=== PATIENT | female | born 1955 | race Caucasian/White ===

== ENCOUNTER 2022-12-28 10:58 | Emergency (ER) | payer MEDICARE, SELFPAY ==
[2022-12-28 11:03] VITALS: BP 132/87; PULSE 80; RESP 16; TEMP 37.1; O2SAT 98; BMI 24.1
--- NOTE | 2022-12-28 11:14 | CT_ITS ---
[place] [id number] Patient Name: PRIYANKA NICHOLAS MRN: [id number] date: 1955 Sex: F Assigned Patient Location: ER Current Patient Location: Accession/Order Number: [id number] Exam Date: 12/28/2022 11:25 Report Date: 12/28/2022 12:00 At the request of: SHARMIN AYALA Procedure: CT cervical spine wo con EXAMINATION: CT cervical spine wo con HISTORY: fall ; fell down flight of stairs; headache, nausea COMPARISON: No relevant comparison available. TECHNIQUE: Axial, Coronal, and Sagittal images were created without IV contrast. Dose reduction techniques were achieved by using automated exposure control and/or adjustment of mA and/or kV according to patient size and/or use of iterative reconstruction technique. FINDINGS: VERTEBRAL BODIES: No fracture, spondylolisthesis, bone lesion. FACET JOINTS: No disruption or abnormal widening. DISCS: Small posterior projecting disc-osteophyte complexes at several levels. Mild disc height reduction C4-5, C5-6. CENTRAL CANAL: Mild narrowing L4-5. PARASPINAL AREA: No visible mass. CT/CT cervical spine wo con IMPRESSION: 1. No appreciable acute abnormality. 2. Mild degenerative changes. Electronically authenticated by: MARI MONTES Date: 12/28/2022 12:00
--- NOTE | 2022-12-28 11:14 | XR_ITS ---
The [address] [address] Patient Name: PRIYANKA NICHOLAS MRN: [id number] date: 1955 Sex: F Assigned Patient Location: ER Current Patient Location: ER Accession/Order Number: [id number] Exam Date: 12/28/2022 11:38 Report Date: 12/28/2022 12:05 At the request of: SHARMIN AYALA Procedure: XR hip LT 2V w/ pelvis PROCEDURE: XR hip LT 2V w/ pelvis HISTORY: fall ; acute left hip pain after falling down stairs COMPARISON: None. FINDINGS: BONES:Prior left hip replacement. Multiple small bone fragments posterior to the trochanter and acetabulum. Mild irregularity involving the lesser trochanter. SOFT TISSUES:No visible soft tissue swelling. EFFUSION:None visible. OTHER: Negative. XR/XR hip LT 2V w/ pelvis IMPRESSION: 1. Right hip replacement without evidence of hardware fracture loosening. 2. Multiple irregular bone fragments in region of left hip; sequela of prior surgery versus acute fractures. Correlate with clinical symptoms and consider CT imaging of left hip if needed. Electronically authenticated by: MARI MONTES Date: 12/28/2022 12:05
--- NOTE | 2022-12-28 11:14 | CT_ITS ---
The [address] [address] Patient Name: PRIYANKA NICHOLAS MRN: [id number] date: 1955 Sex: F Assigned Patient Location: ER Current Patient Location: Accession/Order Number: [id number] Exam Date: 12/28/2022 11:25 Report Date: 12/28/2022 11:56 At the request of: SHARMIN AYALA Procedure: CT head/brain wo con EXAMINATION: CT head/brain wo con HISTORY: fall COMPARISON: No relevant comparison available. TECHNIQUE: Axial CT images were obtained without IV contrast. Dose reduction techniques were achieved by using automated exposure control and/or adjustment of mA and/or kV according to patient size and/or use of iterative reconstruction technique. FINDINGS: BRAIN: 2.0 cm area of increased density along the posterior medial aspect of the left occipital lobe; artifact versus proximal bruising/hemorrhage. Mild atrophy and minimal chronic small vessel ischemic changes of the brain. CSF SPACES: No hydrocephalus, subarachnoid hemorrhage, or mass. Appropriate for age. SKULL: No fracture, mass, or other significant visible lesion. SINUSES: No significant mucosal thickening or fluid on the limited views. ORBITS: No appreciable abnormality on the limited views. OTHER: Negative CT/CT head/brain wo con IMPRESSION: 1. Artifact versus small area of cortical bruising/hemorrhage involving the left occipital lobe. Artifact is favored. Close patient follow-up and repeat imaging in 1-2 hours may help clarify this finding. 2. Age consistent atrophy and mild chronic small vessel ischemic changes. 3. No fracture of the calvarium or scalp hematoma. Electronically authenticated by: MARI MONTES Date: 12/28/2022 11:56
--- NOTE | 2022-12-28 11:15 | ED.FALL1 ---
HPI - Fall General Chief Complaint: Back Pain/Injury Stated Complaint: FALL Time Seen by Provider: 12/28/22 11:14 Source: patient Mode of arrival: ambulance Limitations: physical limitation Limitations comment: fall - L hip pain and back pain History of Present Illness HPI Narrative: this patient brought by ambulance after falling at home. She states that she was going down to the basement to feed cats and she stumbled and went ounce a number of steps. She said she couldn't get up because she sore in the left hip. Her son was there and responded immediately to her and then called the ambulance. She had no loss of consciousness and remembers the fall. She says she has a bump on the top of her head. sHE SAYS SHE DOES NOT HAVE any pain in her neck. She was brought to us in a backboard and collar. She says her left hip hurts as well but she can move it now at this time. She has no rib pain or chest pain no upper extremity pain other than some bleeding on her left hand in the digit. Related Data Home Medications Medication Instructions Recorded Confirmed albuterol sulfate 90 mcg/actuation 2 inh inhalation Q6H 12/28/22 12/28/22 breath activated powder inhaler atorvastatin 40 mg tablet 40 mg PO DAILY 12/28/22 12/28/22 buspirone 10 mg tablet 10 mg PO BID 12/28/22 12/28/22 citalopram 40 mg tablet 40 mg PO DAILY 12/28/22 12/28/22 fluticasone furoate 50 inhalation 12/28/22 mcg/actuation blister powder for inhalation ipratropium 0.5 mg-albuterol 3 mg 3 ml inhalation Q6H PRN shortness 12/28/22 12/28/22 (2.5 mg base)/3 mL nebulization of breath soln lisinopril 2.5 mg tablet 2.5 mg PO DAILY 12/28/22 12/28/22 lisinopril 2.5 mg tablet 2.5 mg PO DAILY 12/28/22 12/28/22 metformin 500 mg tablet 500 mg PO BID 12/28/22 12/28/22 risperidone 0.5 mg tablet 0.5 mg PO DAILY 12/28/22 12/28/22 Allergies Allergy/AdvReac Type Severity Reaction Status Date / Time No Known Drug Allergies Allergy Verified 12/28/22 11:03 [facility] Social History Smoking status: Current every day smoker Exam Narrative Exam Narrative: Patient was seen by myself shortly after arrival. She came by EMS on a backboard and [place] collar. She's excellent historian. GCS of fifteen. She's not repeating herself. She has no loss of feeling or movement to the extremities but some discomfort in her left hip left pinky and scalp area. Constitutional vital signs were normal. Awake alert fully cooperative following all commands. HEENT no craniofacial trauma or injury. No hematomas. Slight bruising in the high right occipital area. Eyes shows pupillary lighht response B normal extra ocular muscles are normal. Neck examination was soft and supple nontender to palpation of bony landmarks was certainly no step-off or bony tenderness. Chest wall is nontender including ribs and sternum. Abdomen WAS BENIGN WITH NO PAIN AND DISCOMFORT. eXTREMITIES SHOW A DRESSING ON HER LEFT PINKY FINGER. eXAMINING HER RIGHT HIP HAS COMPLETE AND UNRESTRICTED AND nontender range of motion on the right. Minor discomfort with hip flexion on the left side. The rest extremities including the upper limbs are atraumatic with exception of the 5th digit. neuro, cranial nerves II-12 are normal.l shows cognition and mentation be completely normal Constitutional Vital Signs, click to edit/add: Last Vital Signs Temp 98.8 F 12/28/22 11:03 Pulse 80 12/28/22 11:03 Resp 16 12/28/22 11:03 BP 132/87 H 12/28/22 11:03 Pulse Ox 98 12/28/22 11:03 O2 Del Method Room Air 12/28/22 11:03 Course Vital Signs Vital signs: Vital Signs Temperature 98.8 F 12/28/22 11:03 Pulse Rate 80 12/28/22 11:03 Respiratory Rate 16 12/28/22 11:03 Blood Pressure 132/87 H 12/28/22 11:03 Pulse Oximetry 98 12/28/22 11:03 Oxygen Delivery Method Room Air 12/28/22 11:03 Temperature 98.8 F 12/28/22 11:03 Pulse Rate 80 12/28/22 11:03 Respiratory Rate 16 12/28/22 11:03 Blood Pressure 132/87 H 12/28/22 11:03 Pulse Oximetry 98 12/28/22 11:03 Oxygen Delivery Method Room Air 12/28/22 11:03 MDM - Fall MDM Narrative Medical decision making narrative: because the nature of the fall CT imaging will be done of her cervical spine and head. Also imaging of her left hip. Initial imaging showed suspected area of left occipital hematoma or bruising and radiologist advised repeat CT scan in 1-2 hours. Her left hip x-ray shows no acute fracture but there is some old calcifications near the acetabulum and they also revised and recommended CT imaging of that. The patient's repeat CT of the head is normal. Procedure note after lidocaine one percent anesthesia without epinephrine hemostasis was obtained with the [place] drain on her left 5th digit. There is a flap-type laceration that does not violate the neurovascular structures. It was reapproximated with four, 5-0 nylon simple interrupted sutures. Wound approximation was good.wound is approximately 1.[address] of her left hip did not show any acute fractures. Discharge Plan Discharge Chief Complaint: Back Pain/Injury Clinical Impression: Fall (on) (from) other stairs and steps, initial encounter Patient Disposition: Home, Self-Care Time of Disposition Decision: 14:30 Prescriptions / Home Meds: No Action albuterol sulfate 90 mcg/actuation aerosol powdr breath activated 2 inh inhalation Q6H atorvastatin 40 mg tablet 40 mg PO DAILY buspirone 10 mg tablet 10 mg PO BID citalopram 40 mg tablet 40 mg PO DAILY fluticasone furoate 50 mcg/actuation blister with device inhalation ipratropium-albuterol 0.5 mg-3 mg(2.5 mg base)/3 mL solution for nebulization 3 ml inhalation Q6H PRN (Reason: shortness of breath) lisinopril 2.5 mg tablet 2.5 mg PO DAILY lisinopril 2.5 mg tablet 2.5 mg PO DAILY metformin 500 mg tablet 500 mg PO BID risperidone 0.5 mg tablet 0.5 mg PO DAILY Instructions: Head Injury (ED) Additional Instructions: sutures out left finger in ten days./Head injury sheet instructions, may use Tylenol for discomfort and apply ice Stand Alone Forms: Portal Instructions Referrals: Physician,Non-Staff, [Physician] - 1 week
[2022-12-28] MEDS: ONDANSETRON 4 MG RAPDIS TABLET SL (11:35)
--- NOTE | 2022-12-28 12:14 | CT_ITS ---
The [address] [address] Patient Name: PRIYANKA NICHOLAS MRN: [id number] date: 1955 Sex: F Assigned Patient Location: ER Current Patient Location: ER Accession/Order Number: [id number] Exam Date: 12/28/2022 13:52 Report Date: 12/28/2022 14:14 At the request of: SHARMIN AYALA Procedure: CT head/brain wo con EXAMINATION: CT head/brain wo con HISTORY: repeat CT to rule out hemorrhage COMPARISON: No relevant comparison available. TECHNIQUE: Axial CT images were obtained without IV contrast. Dose reduction techniques were achieved by using automated exposure control and/or adjustment of mA and/or kV according to patient size and/or use of iterative reconstruction technique. FINDINGS: BRAIN: No edema, hemorrhage, mass, acute infarction, or inappropriate atrophy. CSF SPACES: No hydrocephalus, subarachnoid hemorrhage, or mass. Appropriate for age. SKULL: No fracture, mass, or other significant visible lesion. SINUSES: No significant mucosal thickening or fluid on the limited views. ORBITS: No appreciable abnormality on the limited views. OTHER: Negative CT/CT head/brain wo con IMPRESSION: 1. No intracranial hemorrhage or suspicious findings. Previously seen left occipital lobe hyperdensity represented artifact. Electronically authenticated by: MARI MONTES Date: 12/28/2022 14:14
--- NOTE | 2022-12-28 12:15 | CT_ITS ---
The [address] [address] Patient Name: PRIYANKA NICHOLAS MRN: [id number] date: 1955 Sex: F Assigned Patient Location: ER Current Patient Location: Accession/Order Number: [id number] Exam Date: 12/28/2022 13:52 Report Date: 12/28/2022 14:18 At the request of: SHARMIN AYALA Procedure: CT hip LT wo con EXAMINATION: CT hip LT wo con HISTORY: trauma COMPARISON: XR hip left 12/28/2022 TECHNIQUE: Multi-planar CT images were created without IV contrast. Dose reduction techniques were achieved by using automated exposure control and/or adjustment of mA and/or kV according to patient size and/or use of iterative reconstruction technique. FINDINGS: BONES: Bone fragments seen on today's left hip radiographs are located anterior to the hip joints and of corticated margins. No appreciable donor site or acute fracture. Left hip replacement without evidence of hardware fracture or loosening. SOFT TISSUES: Negative. No visible soft tissue swelling. EFFUSION: None visible. OTHER: Negative. CT/CT hip LT wo con IMPRESSION: 1. No acute bone abnormality. Bone fragments have corticated margins and are most compatible with sequela of prior hip replacement. 2. No evidence of hardware failure. Electronically authenticated by: MARI MONTES Date: 12/28/2022 14:18
== END 2022-12-28 14:50 | disposition home or self-care (01) ==
PROVIDERS: Emergency Provider Emergency Medicine Emergency Medical Services; PCP Nurse Practitioner
DX: S39.92XA Unspecified injury of lower back, initial encounter (principal); S61.217A Laceration without foreign body of left little finger without damage to nail, initial encounter; S79.912A Unspecified injury of left hip, initial encounter; Z79.899 Other long term (current) drug therapy; Z79.84 Long term (current) use of oral hypoglycemic drugs; F17.210 Nicotine dependence, cigarettes, uncomplicated; W10.8XXA Fall (on) (from) other stairs and steps, initial encounter
CPT/HCPCS: 12001; 70450; 72125; 73502; 73700; 99285

== ENCOUNTER 2023-01-09 10:09 | Outpatient (OUT) | payer MEDICARE, SELFPAY ==
--- NOTE | 2023-01-09 10:18 | XR_ITS ---
The [address] [address] Patient Name: PRIYANKA NICHOLAS MRN: [id number] date: 1955 Sex: F Assigned Patient Location: [facility] Current Patient Location: [facility] Accession/Order Number: [id number] Exam Date: 01/09/2023 10:30 Report Date: 01/09/2023 13:16 At the request of: CHETNA BARCENAS Procedure: XR lumbar spine 2-3V EXAMINATION: XR lumbar spine 2-3V HISTORY: Lumbar Contusion S30.0XXD ; Low back pain since falling down steps 2 weeks ago COMPARISON: CT lung cancer screening 12/21/2021 FINDINGS: BONES: Mild compression fracture of T12 vertebral body. Normal height and alignment of lumbar vertebral bodies. Mild degenerative facet arthropathy L4-5, L5-S1. DISC SPACES: Slight narrowing L3-4, L5-S1. PARASPINOUS: Negative. No paraspinous abnormality is seen. OTHER: Negative. XR/XR lumbar spine 2-3V IMPRESSION: 1. Age-indeterminate mild compression fracture of T12; new since 12/21/2021. Lack of significantly increased trabecular density suggesting this is chronic. 2. Mild degenerative changes of lower lumbar spine. Electronically authenticated by: MARI MONTES Date: 01/09/2023 13:16
== END 2023-01-09 10:10 | disposition home or self-care (01) ==
PROVIDERS: PCP Nurse Practitioner; Visit Provider Nurse Practitioner
DX: S30.0XXD Contusion of lower back and pelvis, subsequent encounter (principal); M48.54XA Collapsed vertebra, not elsewhere classified, thoracic region, initial encounter for fracture; M47.816 Spondylosis without myelopathy or radiculopathy, lumbar region; X58.XXXD Exposure to other specified factors, subsequent encounter
CPT/HCPCS: 72100

== ENCOUNTER 2023-01-23 09:45 | Outpatient (OUT) | payer MEDICARE, SELFPAY ==
--- NOTE | 2023-01-23 10:01 | MR_ITS ---
The [address] [address] Patient Name: PRIYANKA NICHOLAS MRN: [facility]:[id number] date: 1955 Sex: F Assigned Patient Location: MRI Current Patient Location: MRI Accession/Order Number: [id number] Exam Date: 01/23/2023 10:03 Report Date: 01/23/2023 14:49 At the request of: CHETNA BARCENAS Procedure: MR lumbar spine wo con EXAM: MR lumbar spine wo con, MR thoracic spine wo con HISTORY: Compression fracture of T12 vertebra S22.080A, S30.0XXD. Pain in the back after falling down 11 steps. COMPARISON: Lumbar spine x-rays from 01/09/[address] from 12/28/2022. TECHNIQUE: Multiplanar and multisequence imaging of the thoracic and lumbar spine was performed without contrast. FINDINGS: Thoracic spine: There is a mild acute superior endplate compression fracture involving the T12 vertebral body with concavity of the superior endplate and mild loss of vertebral body height estimated at approximately 20%. There is moderate to marked bone marrow edema in the T12 vertebral body with a linear fracture line extending from anterior to posterior. Bony retropulsion along the posterior aspect of T12 superiorly measures 2 mm resulting in effacement of the thecal sac without central or foraminal stenosis. There is no acute fracture in the thoracic spine otherwise. The thoracic vertebral body heights are otherwise maintained. There is mild to moderate multilevel degenerative disc disease more pronounced in the mid to lower thoracic spine. No acute abnormality is identified involving visualized intrathoracic or intra-abdominal structures. The visualized aorta is normal in diameter. No convincing cord signal abnormality is evident in the thoracic cord given motion artifact degrading evaluation. Small broad-based disc protrusions are present at T9-T10 and T10-T11 with mild to moderate multilevel facet arthropathy. No central or foraminal stenosis is evident in the thoracic spine. Lumbar spine: The T12 fracture is also included on the lumbar spine component to the study. No acute fracture or spondylolisthesis is identified in the lumbar spine. There is no bone marrow edema in the region of the spinous processes or transverse processes. The thoracic vertebral body heights are maintained. There is partial visualization of bone marrow edema in the lateral aspect of the sacrum on the left at the S3 level seen on sagittal STIR image 1. This could relate to bony contusion in the sacrum on the left although a fracture is also a possibility and dedicated imaging of the sacrum should be preformed as clinically indicated. No acute abnormality is identified involving visualized intrapelvic or intra-abdominal structures. The visualized aorta is normal in diameter. There are no pars defects. The conus terminates at the superior aspect of L2. L5-S1: Moderately severe left and moderate right-sided facet arthropathy is evident with mild disc bulge. There is no central or foraminal stenosis. L4-L5: There is a 4 mm broad-based disc protrusion and moderate associated facet arthropathy. There is mild bilateral foraminal narrowing without central stenosis. L3-L4: There is a broad-based disc protrusion and mild to moderate facet arthropathy. No central or foraminal stenosis is evident. L2-L3: There is a broad-based disc protrusion and mild to moderate facet arthropathy without central stenosis. A left foraminal and far lateral disc protrusion measures 5 mm in AP dimension and results in mild to moderate left foraminal narrowing. L1-L2: There is no focal disc herniation. There is no central or foraminal stenosis. MR/MR lumbar spine wo con IMPRESSION: 1. There is mild acute superior endplate compression fracture involving the T12 vertebral body as described above with minimal bony retropulsion, but no central stenosis. 2. No acute fracture in the thoracic or lumbar spine otherwise. 3. Discogenic change and facet arthropathy as described above with mild foraminal narrowing as described above other than mild to moderate left foraminal narrowing at L2-L3. 4. There is moderate focal bone marrow edema in the lateral aspect of the sacrum on the left at the S3 level seen on the edge of the [id number] of the sagittal images. This could relate to a bony contusion or subtle fracture in the sacrum on the left. Dedicated imaging of the sacrum should be performed as clinically indicated. Electronically authenticated by: BEA AVILA Date: 01/23/2023 14:49
--- NOTE | 2023-01-23 10:02 | MR_ITS ---
The [address] [address] Patient Name: PRIYANKA NICHOLAS MRN: [facility]:[id number] date: 1955 Sex: F Assigned Patient Location: MRI Current Patient Location: MRI Accession/Order Number: [id number] Exam Date: 01/23/2023 10:03 Report Date: 01/23/2023 14:49 At the request of: CHETNA BARCENAS Procedure: MR thoracic spine wo con EXAM: MR lumbar spine wo con, MR thoracic spine wo con HISTORY: Compression fracture of T12 vertebra S22.080A, S30.0XXD. Pain in the back after falling down 11 steps. COMPARISON: Lumbar spine x-rays from 01/09/[address] from 12/28/2022. TECHNIQUE: Multiplanar and multisequence imaging of the thoracic and lumbar spine was performed without contrast. FINDINGS: Thoracic spine: There is a mild acute superior endplate compression fracture involving the T12 vertebral body with concavity of the superior endplate and mild loss of vertebral body height estimated at approximately 20%. There is moderate to marked bone marrow edema in the T12 vertebral body with a linear fracture line extending from anterior to posterior. Bony retropulsion along the posterior aspect of T12 superiorly measures 2 mm resulting in effacement of the thecal sac without central or foraminal stenosis. There is no acute fracture in the thoracic spine otherwise. The thoracic vertebral body heights are otherwise maintained. There is mild to moderate multilevel degenerative disc disease more pronounced in the mid to lower thoracic spine. No acute abnormality is identified involving visualized intrathoracic or intra-abdominal structures. The visualized aorta is normal in diameter. No convincing cord signal abnormality is evident in the thoracic cord given motion artifact degrading evaluation. Small broad-based disc protrusions are present at T9-T10 and T10-T11 with mild to moderate multilevel facet arthropathy. No central or foraminal stenosis is evident in the thoracic spine. Lumbar spine: The T12 fracture is also included on the lumbar spine component to the study. No acute fracture or spondylolisthesis is identified in the lumbar spine. There is no bone marrow edema in the region of the spinous processes or transverse processes. The thoracic vertebral body heights are maintained. There is partial visualization of bone marrow edema in the lateral aspect of the sacrum on the left at the S3 level seen on sagittal STIR image 1. This could relate to bony contusion in the sacrum on the left although a fracture is also a possibility and dedicated imaging of the sacrum should be preformed as clinically indicated. No acute abnormality is identified involving visualized intrapelvic or intra-abdominal structures. The visualized aorta is normal in diameter. There are no pars defects. The conus terminates at the superior aspect of L2. L5-S1: Moderately severe left and moderate right-sided facet arthropathy is evident with mild disc bulge. There is no central or foraminal stenosis. L4-L5: There is a 4 mm broad-based disc protrusion and moderate associated facet arthropathy. There is mild bilateral foraminal narrowing without central stenosis. L3-L4: There is a broad-based disc protrusion and mild to moderate facet arthropathy. No central or foraminal stenosis is evident. L2-L3: There is a broad-based disc protrusion and mild to moderate facet arthropathy without central stenosis. A left foraminal and far lateral disc protrusion measures 5 mm in AP dimension and results in mild to moderate left foraminal narrowing. L1-L2: There is no focal disc herniation. There is no central or foraminal stenosis. MR/MR thoracic spine wo con IMPRESSION: 1. There is mild acute superior endplate compression fracture involving the T12 vertebral body as described above with minimal bony retropulsion, but no central stenosis. 2. No acute fracture in the thoracic or lumbar spine otherwise. 3. Discogenic change and facet arthropathy as described above with mild foraminal narrowing as described above other than mild to moderate left foraminal narrowing at L2-L3. 4. There is moderate focal bone marrow edema in the lateral aspect of the sacrum on the left at the S3 level seen on the edge of the [id number] of the sagittal images. This could relate to a bony contusion or subtle fracture in the sacrum on the left. Dedicated imaging of the sacrum should be performed as clinically indicated. Electronically authenticated by: BEA AVIAL Date: 01/23/2023 14:49
== END 2023-01-23 09:46 | disposition home or self-care (01) ==
LOC: MRI 09:46
PROVIDERS: PCP Nurse Practitioner; Visit Provider Nurse Practitioner
DX: S22.080A Wedge compression fracture of T11-T12 vertebra, initial encounter for closed fracture (principal); Z91.81 History of falling
CPT/HCPCS: 72146; 72148

== ENCOUNTER 2023-07-06 21:16 | Emergency (ER) | payer MEDICARE, SELFPAY ==
[2023-07-06 21:18] VITALS: BP 132/65; PULSE 86; RESP 18; TEMP 36.8; O2SAT 95; BMI 23.4
--- NOTE | 2023-07-06 21:20 | CT_ITS ---
The [address] [address] Patient Name: PRIYANKA NICHOLAS MRN: [id number] date: 1955 Sex: F Assigned Patient Location: ER Current Patient Location: Accession/Order Number: [id number] Exam Date: 07/06/2023 22:13 Report Date: 07/06/2023 22:51 At the request of: TERRELL KING Procedure: CT soft tissue neck w con INDICATION: 68 years old; Female. Symptom/Location/Duration: Difficulty swallowing for 2 days. Question enlarged lymph nodes. History of COPD. TECHNIQUE: CT examination of the neck. Axial, coronal and sagittal reformats were reviewed. 100 mL of Omnipaque 300 was injected intravenously without complication. Ionizing radiation dose reduced via iterative reconstruction/FBP blend and body size kV/mA adjustment. Patient exposure information sent to ACR dose registry. Utilization of standard nomenclature applied. COMPARISON: None FINDINGS: AIRWAY: PARANASAL SINUSES AND MASTOID AIR CELLS: Visualized sinuses are clear. There is opacification of mastoid air cells on the left. Middle ears are grossly clear. Right mastoid air cells are clear. The study is not optimized for complete evaluation of the temporal bones. NASOPHARYNX: Normal in appearance. OROPHARYNX: Normal in appearance. ORAL CAVITY: Normal in appearance. HYPOPHARYNX: Normal in appearance. LARYNX: Normal in appearance. TRACHEA: Patent. SOFT TISSUES: PARAPHARYNGEAL SPACE: Normal and symmetric. CAROTID SPACE: Vascular calcifications are present. STEEL TURNER SPACE: Normal in appearance. RETROPHARYNGEAL SPACE: Normal in appearance. LYMPH NODES: No matted or necrotic lymph nodes are appreciated. GLANDS: PAROTID: Normal in appearance. SUBMANDIBULAR: There is enlargement of the submandibular glands bilaterally. No radiopaque calculi are seen. No periglandular edema is seen. THYROID: No thyroid nodule or adenopathy. MISCELLANEOUS: LUNG APICES: [For respiratory motion, emphysematous changes are seen. No lobar consolidation or pneumothorax is present. The study is not optimized for complete evaluation of the chest. BONY CERVICAL SPINE: Cervical spondylosis, worse at C4-C5 and C5-C6. VISUALIZED BRAIN: A portion of the brain is included in this examination. No areas of pathologic enhancement are appreciated. The study cannot exclude all brain pathology. VISUALIZED GLOBES: Only a portion of the orbits is included. No gross evidence of orbital masses seen. DENTITION: Patient is edentulous. OTHER: None. CT/CT soft tissue neck w con IMPRESSION: 1. No enhancing masses or airway obstruction. 2. Symmetric enlargement of the submandibular glands which is a nonspecific finding. No surrounding edema or fat stranding is appreciated. No radiopaque calculi are present. 3. No pathologic adenopathy is seen. No matted or necrotic lymph nodes. Electronically authenticated by: ALEJANDRO JENKINS Date: 07/06/2023 22:51
--- NOTE | 2023-07-06 21:20 | XR_ITS ---
The [address] [address] Patient Name: PRIYANKA NICHOLAS MRN: [id number] date: 1955 Sex: F Assigned Patient Location: ER Current Patient Location: ER Accession/Order Number: [id number] Exam Date: 07/06/2023 22:13 Report Date: 07/06/2023 22:59 At the request of: TERRELL KING Procedure: XR chest 1V EXAM: XR chest 1V HISTORY: Dyspnea COMPARISON: CT chest 12/21/2021 TECHNIQUE: Single frontal view chest x-ray FINDINGS: Mild streaky opacities at the bilateral lower lungs. Trace bilateral pleural effusions. Bilateral COPD. No large pneumothorax or acute bony abnormality. Cardiac size is unremarkable. XR/XR chest 1V IMPRESSION: Mild streaky opacities at the bilateral lower lungs reflecting atelectasis or mild lung infiltrates. Trace bilateral pleural effusions. Bilateral COPD. Electronically authenticated by: DEJON MELCHOR Date: 07/06/2023 22:59
--- NOTE | 2023-07-06 21:20 | CT_ITS ---
The [address] [address] Patient Name: PRIYANKA NICHOLAS MRN: [id number] date: 1955 Sex: F Assigned Patient Location: ER Current Patient Location: Accession/Order Number: [id number] Exam Date: 07/06/2023 22:13 Report Date: 07/06/2023 22:54 At the request of: TERRELL KING Procedure: CT head/brain wo con INDICATION: 68 years old; Female. Difficulty swallowing for 2 days. History of COPD. TECHNIQUE: CT Head (ax/cor/sag reformats). Ionizing radiation dose reduced via iterative reconstruction/FBP blend and body size kV/mA adjustment. Comparison: Head CT dated 12/28/2022. FINDINGS: POSTOPERATIVE CHANGES: None. BRAIN PARENCHYMA: No focal lesions. No mass effect. No midline shift or herniation. No intraparenchymal or extra-axial hemorrhage. Wall wilkerson/white differentiation. VENTRICLES/EXTRA-AXIAL SPACES: Normal for patient's age. SINUSES/MASTOIDS: The visualized sinuses are clear. The maxillary sinuses are not entirely visible in this routine CT of the head. There is opacification of mastoid air cells on the left with thickening in the left mastoid antrum. MSK: No displaced or depressed calvarial fracture. OTHER: No hyperdense intraluminal thrombus. Vascular calcifications are present. CT/CT head/brain wo con IMPRESSION: 1. No acute intracranial abnormality. No hemorrhage or mass effect. 2. Left mastoid sclerosis with opacification of mastoid air cells and thickening in the left mastoid antrum. This has the appearance of chronic left mastoiditis. Recommend ENT follow-up. Electronically authenticated by: ALEJANDRO JENKINS Date: 07/06/2023 22:54
[2023-07-06 21:22] VITALS: O2SAT 97
--- NOTE | 2023-07-06 21:22 | PC.NURSE ---
bilat lymph nodes in throat swollen
--- NOTE | 2023-07-06 21:23 | ECG_ITS ---
The [facility] Test Date: 2023-07-06 Pat Name: PRIYANKA NICHOLAS Department: Room: - Gender: Female Communications Field Technician: : 1955 Requested By: CHETNA BARCENAS Order Number: [id number] Reading MD: EMMANUEL CASTANO Measurements Intervals Gary Rate: 81 P: 75 MI: 164 QRS: 43 QRSD: 80 T: 71 QT: 368 QTc: 405 Interpretive Statements 1100 Sinus rhythm 9110 normal ECG Compared to ECG 04/10/2018 00:01:27 Sinus tachycardia no longer present Electronically Signed On 07-07-2023 7:28:36 EST by EMMANUEL CASTANO
--- NOTE | 2023-07-06 21:24 | PC.NURSE ---
Pt states that she choked on her food again tonight. Pt states that she choked yesterday and her son gave her the Hemilich and today her grandaughter did. Pt states that she took her inhaler and it helped. Pt states that she has swelling in her neck. Pt does have swollen areas on both side of her neck. pt states that she did recently have an URI. Lung sound are dim thru out. pt does have a cough and states that sometimes brings up clear. Resp even and nonlabored and pt is swallowing her own secretions.
--- NOTE | 2023-07-06 21:33 | ED.GENADUL1 ---
Documented by User: FARRUKH Christensen 07/06/23 21:48 HPI - General Adult General Chief complaint: Upper Respiratory Infection Stated complaint: Swallowing Time Seen by Provider: 07/06/23 21:20 Source: patient Mode of arrival: walk-in History of Present Illness HPI narrative: Patient is a 68-year-old female With a history of high blood pressure, high cholesterol, diabetes who presents to the emergency department by ambulance for the evaluation of difficulty swallowing. Patient states last night she was eating when she choked on food and a family member gave her the Heimlich maneuver with improvement. She states she had a similar episode tonight and a different family member gave her the Heimlich maneuver. She states she feels she is choking as her lymph nodes have become abruptly swollen in the anterior neck in the last day. She states that is difficult for her to pass food through her throat due to this. She did feel short of breath when she was choking, she has a history of COPD. She has not had any fevers, chest pain, nausea or vomiting. She is speaking easily in full sentences with no respiratory difficulty at initial interview. Related Data Home Medications Medication Instructions Recorded Confirmed albuterol sulfate 90 mcg/actuation 2 inh inhalation Q6H 12/28/22 12/28/22 breath activated powder inhaler atorvastatin 40 mg tablet 40 mg PO DAILY 12/28/22 12/28/22 buspirone 10 mg tablet 10 mg PO BID 12/28/22 12/28/22 citalopram 40 mg tablet 40 mg PO DAILY 12/28/22 12/28/22 fluticasone furoate 50 inhalation 12/28/22 mcg/actuation blister powder for inhalation ipratropium 0.5 mg-albuterol 3 mg 3 ml inhalation Q6H PRN shortness 12/28/22 12/28/22 (2.5 mg base)/3 mL nebulization of breath soln lisinopril 2.5 mg tablet 2.5 mg PO DAILY 12/28/22 12/28/22 lisinopril 2.5 mg tablet 2.5 mg PO DAILY 12/28/22 12/28/22 metformin 500 mg tablet 500 mg PO BID 12/28/22 12/28/22 risperidone 0.5 mg tablet 0.5 mg PO DAILY 12/28/22 12/28/22 Allergies Allergy/AdvReac Type Severity Reaction Status Date / Time No Known Drug Allergies Allergy Verified 12/28/22 11:03 Review of Systems ROS Constitutional Denies: fever or chills Ears, nose, mouth, and throat Reports: difficulty swallowing; Denies: throat pain or nasal congestion Cardiovascular Denies: chest pain Respiratory Reports: shortness of breath and cough Gastrointestinal Denies: nausea or vomiting Musculoskeletal Denies: back pain or neck pain Integumentary/Breast Denies: rash Neurological Denies: headache PFSH PFS Social History Smoking status: Current every day smoker Exam Narrative Exam Narrative: Gen.: Awake, alert, in no distress Head: Normocephalic, atraumatic ENT: Moist mucous membranes; Bilateral, symmetric large lymph nodes palpated in the anterior cervical/superior chain. Airway widely open and patent Respiratory: No respiratory distress, lungs clear bilaterally; Speaks in full sentences, tolerates secretions without difficulty, no wheezing or rhonchi Cardio: Regular rate and rhythm Extremities: Moves extremities equally Psych: Normal mood and affect Neuro: No focal neuro deficit Skin: Warm, dry, intact Constitutional Vital Signs, click to edit/add: Last Vital Signs Temp 98.2 F 07/06/23 21:18 Pulse 86 07/06/23 21:18 Resp 18 07/06/23 21:18 BP 132/65 07/06/23 21:18 Pulse Ox 97 07/06/23 21:22 O2 Del Method Room Air 07/06/23 21:22 Course Vital Signs Vital signs: Vital Signs Temperature 98.2 F 07/06/23 21:18 Pulse Rate 86 07/06/23 21:18 Respiratory Rate 18 07/06/23 21:18 Blood Pressure 132/65 07/06/23 21:18 Pulse Oximetry 95 07/06/23 21:18 Oxygen Delivery Method Room Air 07/06/23 21:18 Temperature 98.2 F 07/06/23 21:18 Pulse Rate 86 07/06/23 21:18 Respiratory Rate 18 07/06/23 21:18 Blood Pressure 132/65 07/06/23 21:18 Pulse Oximetry 97 07/06/23 21:22 Oxygen Delivery Method Room Air 07/06/23 21:22 Medical Decision Making MDM Narrative Medical decision making narrative: 2143: Patient ordered to have a CT of the brain, CT of the neck with contrast and chest x-ray. At this time she does not have any difficulty speaking or swallowing, we will rule out acute intracranial issue versus airway compromise versus retained food. She does not have any respiratory difficulty at this time. Vital signs are stable and she is breathing easily. Lab studies were ordered for the patient as well. She denied any pain on arrival to the ER. Labs and imaging is pending at this time, patient is turned over to attending physician at this time. Medical Records Medical records reviewed: Yes I reviewed the patient's medical records Lab Data Lab results reviewed: Yes I reviewed the patient's lab results Labs: Lab Results 07/06/23 Range/Units 21:43 WBC 11.3 H (4.0-11.0) 10^3/uL RBC 4.51 (4.20-5.40) 10^6/uL Hgb 13.4 (12.0-16.0) g/dL Hct 42.4 (36.0-48.0) % MCV 94.0 (81.0-99.0) fL MCH 29.7 (26.7-34.0) pg MCHC 31.6 (29.9-35.2) g/dL RDW 13.8 (11.0-15.0) % Plt Count 271 (150-450) 10^3/uL MPV 10.8 (9.5-13.5) fL Neut % (Auto) 64.1 (43.0-75.0) % Lymph % (Auto) 25.6 (20.5-60.0) % [place] % (Auto) 5.4 (1.7-12.0) % Eos % (Auto) 3.3 (0.9-7.0) % Baso % (Auto) 1.0 (0.2-2.0) % Neut # (Auto) 7.3 H (1.4-6.5) 10^3/uL Lymph # (Auto) 2.9 (1.2-3.8) 10^3/uL [place] # (Auto) 0.6 (0.3-0.8) 10^3/uL Eos # (Auto) 0.4 (0.0-0.7) 10^3/uL Baso # (Auto) 0.1 (0.0-0.1) 10^3/uL Abs Immat Gran (auto) 0.07 H (0.00-0.03) 10^3/uL Imm/Tot Granulo (auto) 0.6 H (0.0-0.5) % Sodium 136 (136-145) mmol/L Potassium 3.7 (3.5-5.1) mmol/L Chloride 102 (98-107) mmol/L Carbon Dioxide 25.0 (21.0-32.0) mmol/L Anion Gap 12.7 BUN 12.0 (7.0-18.0) mg/dL Creatinine 1.03 H (0.55-1.02) mg/dL Est GFR ( Amer) >60 (>=60) Est GFR (Non-Af Amer) 53 L (>=60) BUN/Creatinine Ratio 11.7 Glucose 173 H (74-106) mg/dL Calcium 9.1 (8.5-10.1) mg/dL Total Bilirubin 0.6 (0.2-1.0) mg/dL AST 11 L (15-37) U/L ALT 18 (14-59) U/L Alkaline Phosphatase 65 (46-116) U/L Troponin I High Sens 6.7 (4.0-51.3) pg/mL NT-Pro-B Natriuret Pep 91.0 (<=900.0) pg/mL Total Protein 6.8 (6.4-8.2) g/dL Albumin 3.4 (3.4-5.0) g/dL Globulin 3.4 g/dL Albumin/Globulin Ratio 1.[address] scan - head: Radiologist's impression: ITS Impressions Chest X-Ray 07/06/23 21:20 IMPRESSION: Mild streaky opacities at the bilateral lower lungs reflecting atelectasis or mild lung infiltrates. Trace bilateral pleural effusions. Bilateral COPD. Electronically authenticated by: DEJON MELCHOR Date: 07/06/2023 22:[address] 07/06/23 21:20 IMPRESSION: 1. No acute intracranial abnormality. No hemorrhage or mass effect. 2. Left mastoid sclerosis with opacification of mastoid air cells and thickening in the left mastoid antrum. This has the appearance of chronic left mastoiditis. Recommend ENT follow-up. Electronically authenticated by: ALEJANDRO JENKINS Date: 07/06/2023 22:[address] 07/06/23 21:20 IMPRESSION: 1. No enhancing masses or airway obstruction. 2. Symmetric enlargement of the submandibular glands which is a nonspecific finding. No surrounding edema or fat stranding is appreciated. No radiopaque calculi are present. 3. No pathologic adenopathy is seen. No matted or necrotic lymph nodes. Electronically authenticated by: ALEJANDRO JENKINS Date: 07/06/2023 22:51 ECG Data Attestation: I personally reviewed and interpreted this ECG as follows: Discharge Plan Discharge Chief Complaint: Upper Respiratory Infection Clinical Impression: Dysphagia Patient Disposition: Home, Self-Care Time of Disposition Decision: 23:19 Condition: Good Mode of Transportation: Private Vehicle Prescriptions / Home Meds: No Action albuterol sulfate 90 mcg/actuation aerosol powdr breath activated 2 inh inhalation Q6H atorvastatin 40 mg tablet 40 mg PO DAILY buspirone 10 mg tablet 10 mg PO BID citalopram 40 mg tablet 40 mg PO DAILY fluticasone furoate 50 mcg/actuation blister with device inhalation ipratropium-albuterol 0.5 mg-3 mg(2.5 mg base)/3 mL solution for nebulization 3 ml inhalation Q6H PRN (Reason: shortness of breath) lisinopril 2.5 mg tablet 2.5 mg PO DAILY lisinopril 2.5 mg tablet 2.5 mg PO DAILY metformin 500 mg tablet 500 mg PO BID risperidone 0.5 mg tablet 0.5 mg PO DAILY Instructions: Dysphagia (ED) Additional Instructions: call your PCP in the morning to arrange follow-up with specialist. Dr Romeo follow-up Stand Alone Forms: Portal Instructions Referrals: Iram Sanderson, REGISTERED SAFETY ENGINEER [Primary Care Provider] - 1 week Documented by User: Kavon Girard MD 07/06/23 23:21 HPI - General Adult General Chief complaint: Upper Respiratory Infection Stated complaint: Swallowing Time Seen by Provider: 07/06/23 21:20 Related Data Home Medications Medication Instructions Recorded Confirmed albuterol sulfate 90 mcg/actuation 2 inh inhalation Q6H 12/28/22 12/28/22 breath activated powder inhaler atorvastatin 40 mg tablet 40 mg PO DAILY 12/28/22 12/28/22 buspirone 10 mg tablet 10 mg PO BID 12/28/22 12/28/22 citalopram 40 mg tablet 40 mg PO DAILY 12/28/22 12/28/22 fluticasone furoate 50 inhalation 12/28/22 mcg/actuation blister powder for inhalation ipratropium 0.5 mg-albuterol 3 mg 3 ml inhalation Q6H PRN shortness 12/28/22 12/28/22 (2.5 mg base)/3 mL nebulization of breath soln lisinopril 2.5 mg tablet 2.5 mg PO DAILY 12/28/22 12/28/22 lisinopril 2.5 mg tablet 2.5 mg PO DAILY 12/28/22 12/28/22 metformin 500 mg tablet 500 mg PO BID 12/28/22 12/28/22 risperidone 0.5 mg tablet 0.5 mg PO DAILY 12/28/22 12/28/22 Allergies Allergy/AdvReac Type Severity Reaction Status Date / Time No Known Drug Allergies Allergy Verified 12/28/22 11:03 [facility] Social History Smoking status: Current every day smoker Exam Constitutional Vital Signs, click to edit/add: Last Vital Signs Temp 98.2 F 07/06/23 21:18 Pulse 86 07/06/23 21:18 Resp 18 07/06/23 21:18 BP 132/65 07/06/23 21:18 Pulse Ox 97 07/06/23 21:22 O2 Del Method Room Air 07/06/23 21:22 Course Vital Signs Vital signs: Vital Signs Temperature 98.2 F 07/06/23 21:18 Pulse Rate 86 07/06/23 21:18 Respiratory Rate 18 07/06/23 21:18 Blood Pressure 132/65 07/06/23 21:18 Pulse Oximetry 95 07/06/23 21:18 Oxygen Delivery Method Room Air 07/06/23 21:18 Temperature 98.2 F 07/06/23 21:18 Pulse Rate 86 07/06/23 21:18 Respiratory Rate 18 07/06/23 21:18 Blood Pressure 132/65 07/06/23 21:18 Pulse Oximetry 97 07/06/23 21:22 Oxygen Delivery Method Room Air 07/06/23 21:22 Medical Decision Making MDM Narrative Medical decision making narrative: 2143: Patient ordered to have a CT of the brain, CT of the neck with contrast and chest x-ray. At this time she does not have any difficulty speaking or swallowing, we will rule out acute intracranial issue versus airway compromise versus retained food. She does not have any respiratory difficulty at this time. Vital signs are stable and she is breathing easily. Lab studies were ordered for the patient as well. She denied any pain on arrival to the ER. Labs and imaging is pending at this time, patient is turned over to attending physician at this time. JK 11:20pm the patient's workup here is negative. She'll be referred to general surgery for follow-up. My concern is for esophageal stricture. She was advised to avoid eating meat such as state and pork and chicken until seen. Treatment diagnosis and follow-up were discussed with the patient. Differential Diagnosis Differential Diagnosis: esophageal stricture, cervical mass Lab Data Labs: Lab Results 07/06/23 Range/Units 21:43 WBC 11.3 H (4.0-11.0) 10^3/uL RBC 4.51 (4.20-5.40) 10^6/uL Hgb 13.4 (12.0-16.0) g/dL Hct 42.4 (36.0-48.0) % MCV 94.0 (81.0-99.0) fL MCH 29.7 (26.7-34.0) pg MCHC 31.6 (29.9-35.2) g/dL RDW 13.8 (11.0-15.0) % Plt Count 271 (150-450) 10^3/uL MPV 10.8 (9.5-13.5) fL Neut % (Auto) 64.1 (43.0-75.0) % Lymph % (Auto) 25.6 (20.5-60.0) % [place] % (Auto) 5.4 (1.7-12.0) % Eos % (Auto) 3.3 (0.9-7.0) % Baso % (Auto) 1.0 (0.2-2.0) % Neut # (Auto) 7.3 H (1.4-6.5) 10^3/uL Lymph # (Auto) 2.9 (1.2-3.8) 10^3/uL [place] # (Auto) 0.6 (0.3-0.8) 10^3/uL Eos # (Auto) 0.4 (0.0-0.7) 10^3/uL Baso # (Auto) 0.1 (0.0-0.1) 10^3/uL Abs Immat Gran (auto) 0.07 H (0.00-0.03) 10^3/uL Imm/Tot Granulo (auto) 0.6 H (0.0-0.5) % Sodium 136 (136-145) mmol/L Potassium 3.7 (3.5-5.1) mmol/L Chloride 102 (98-107) mmol/L Carbon Dioxide 25.0 (21.0-32.0) mmol/L Anion Gap 12.7 BUN 12.0 (7.0-18.0) mg/dL Creatinine 1.03 H (0.55-1.02) mg/dL Est GFR ( Amer) >60 (>=60) Est GFR (Non-Af Amer) 53 L (>=60) BUN/Creatinine Ratio 11.7 Glucose 173 H (74-106) mg/dL Calcium 9.1 (8.5-10.1) mg/dL Total Bilirubin 0.6 (0.2-1.0) mg/dL AST 11 L (15-37) U/L ALT 18 (14-59) U/L Alkaline Phosphatase 65 (46-116) U/L Troponin I High Sens 6.7 (4.0-51.3) pg/mL NT-Pro-B Natriuret Pep 91.0 (<=900.0) pg/mL Total Protein 6.8 (6.4-8.2) g/dL Albumin 3.4 (3.4-5.0) g/dL Globulin 3.4 g/dL Albumin/Globulin Ratio 1.[address] scan - head: Radiologist's impression: ITS Impressions Chest X-Ray 07/06/23 21:20 IMPRESSION: Mild streaky opacities at the bilateral lower lungs reflecting atelectasis or mild lung infiltrates. Trace bilateral pleural effusions. Bilateral COPD. Electronically authenticated by: DEJON MELCHOR Date: 07/06/2023 22:[address] 07/06/23 21:20 IMPRESSION: 1. No acute intracranial abnormality. No hemorrhage or mass effect. 2. Left mastoid sclerosis with opacification of mastoid air cells and thickening in the left mastoid antrum. This has the appearance of chronic left mastoiditis. Recommend ENT follow-up. Electronically authenticated by: ALEJANDRO JENKINS Date: 07/06/2023 22:[address] 07/06/23 21:20 IMPRESSION: 1. No enhancing masses or airway obstruction. 2. Symmetric enlargement of the submandibular glands which is a nonspecific finding. No surrounding edema or fat stranding is appreciated. No radiopaque calculi are present. 3. No pathologic adenopathy is seen. No matted or necrotic lymph nodes. Electronically authenticated by: ALEJANDRO JENKINS Date: 07/06/2023 22:51 Discharge Plan Discharge Chief Complaint: Upper Respiratory Infection Clinical Impression: Dysphagia Patient Disposition: Home, Self-Care Time of Disposition Decision: 23:19 Condition: Good Mode of Transportation: Private Vehicle Prescriptions / Home Meds: No Action albuterol sulfate 90 mcg/actuation aerosol powdr breath activated 2 inh inhalation Q6H atorvastatin 40 mg tablet 40 mg PO DAILY buspirone 10 mg tablet 10 mg PO BID citalopram 40 mg tablet 40 mg PO DAILY fluticasone furoate 50 mcg/actuation blister with device inhalation ipratropium-albuterol 0.5 mg-3 mg(2.5 mg base)/3 mL solution for nebulization 3 ml inhalation Q6H PRN (Reason: shortness of breath) lisinopril 2.5 mg tablet 2.5 mg PO DAILY lisinopril 2.5 mg tablet 2.5 mg PO DAILY metformin 500 mg tablet 500 mg PO BID risperidone 0.5 mg tablet 0.5 mg PO DAILY Instructions: Dysphagia (ED) Additional Instructions: call your PCP in the morning to arrange follow-up with specialist. Dr Romeo follow-up Stand Alone Forms: Portal Instructions Referrals: Iram Sanderson NP [Primary Care Provider] - 1 week
[2023-07-06 21:49] LABS: Basophils Absolute Auto 0.1 10^3/uL (0.0-0.1); Eosinophils Absolute Auto 0.4 10^3/uL (0.0-0.7); Eosinophils Percent Auto 3.3 % (0.9-7.0); Hematocrit 42.4 % (36.0-48.0); Hemoglobin 13.4 g/dL (12.0-16.0); Immature Granulocytes Abs Auto 0.07 10^3/uL (0.00-0.03); Immature Granulocytes Pct Auto 0.6 % (0.0-0.5); Lymphocytes Absolute Auto 2.9 10^3/uL (1.2-3.8); Lymphocytes Percent Auto 25.6 % (20.5-60.0); Mean Corpuscular HGB Conc 31.6 g/dL (29.9-35.2); Mean Corpuscular Hemoglobin 29.7 pg (26.7-34.0); Mean Platelet Volume 10.8 fL (9.5-13.5); Monocytes Absolute Auto 0.6 10^3/uL (0.3-0.8); Monocytes Percent Auto 5.4 % (1.7-12.0); Neutrophils Absolute Auto 7.3 10^3/uL (1.4-6.5); Neutrophils Percent Auto 64.1 % (43.0-75.0); Platelet Count 271 10^3/uL (150-450); Red Blood Count 4.51 10^6/uL (4.20-5.40); Red Cell Distribution Width 13.8 % (11.0-15.0); White Blood Count 11.3 10^3/uL (4.0-11.0)
[2023-07-06] MEDS: 0.9 % SODIUM CHLORIDE 1,000 ML 100 ML IV (21:52)
[2023-07-06 22:05] LABS: Alanine Aminotransferase 18 U/L (14-59); Albumin Level 3.4 g/dL (3.4-5.0); Alkaline Phosphatase 65 U/L (46-116); Anion Gap 12.7; Aspartate Amino Transferase 11 U/L (15-37); BUN Creatinine Ratio 11.7; Bilirubin Total 0.6 mg/dL (0.2-1.0); Calcium 9.1 mg/dL (8.5-10.1); Chloride 102 mmol/L (98-107); Estimated GFR (African America >60 (>=60); Estimated GFR (Non-African Ame 53 (>=60); Globulin 3.4 g/dL; Glucose 173 mg/dL (74-106); Potassium 3.7 mmol/L (3.5-5.1); Sodium 136 mmol/L (136-145); Total Protein 6.8 g/dL (6.4-8.2)
[2023-07-06 22:11] LABS: Troponin I High Sensitivity 6.7 pg/mL (4.0-51.3)
[2023-07-06 23:23] LABS: INR <0.93; Prothrombin Time 9.8 sec (9.0-11.6)
== END 2023-07-06 23:29 | disposition home or self-care (01) ==
PROVIDERS: Physician Assistant; Emergency Provider Emergency Medicine; PCP Nurse Practitioner
DX: R13.10 Dysphagia, unspecified (principal); I10 Essential (primary) hypertension; E78.00 Pure hypercholesterolemia, unspecified; R06.02 Shortness of breath; E11.9 Type 2 diabetes mellitus without complications; Z79.899 Other long term (current) drug therapy; Z79.84 Long term (current) use of oral hypoglycemic drugs; F17.210 Nicotine dependence, cigarettes, uncomplicated
CPT/HCPCS: 36415; 70450; 70491; 71045; 80053; 83880; 84484; 85025; 85610; 93005; 99285; Q9967

== ENCOUNTER 2023-07-19 12:13 | Outpatient (OUT) | payer MEDICARE, SELFPAY ==
--- NOTE | 2023-07-19 12:17 | MM_ITS ---
Patient Name: PRIYANKA NICHOLAS MR#: [id number] : 1955 Exam Date: 07/19/2023 Ordering Doctor: LON Sanderson CNP RADIOLOGY REPORT PROCEDURE: MM TOMOSYNTHESIS SCREENING BI COMPARISON: MG MAMM SCREEN 3D MARTINA CAD, 12/30/2016. MG MAMM SCREEN 3D MARTINA CAD, 04/15/2022. INDICATIONS: screening Calculator Name NCI Breast Cancer Risk Assessment Tool 5 Year Breast Cancer Risk 1.50% Lifetime Breast Cancer Risk 5.00% Personal Breast Cancer No Personal Ovarian Cancer No Treatments None Family Cancers None LOCATION: The [facility] BREAST COMPOSITION: Scattered areas fibroglandular density. FINDINGS: DIAGNOSTIC CATEGORY 1--NEGATIVE. NO CHANGE FROM COMPARISON ASSESSMENT. Scattered benign-appearing calcifications are present. Scattered benign-appearing lymph nodes are present. RIGHT BREAST: No significant suspicious finding. LEFT BREAST: No significant suspicious finding. Stable reniform nodule upper outer quadrant, mid breast, intramammary lymph node favored RECOMMENDATIONS: ROUTINE MAMMOGRAM AND CLINICAL EVALUATION IN 12 MONTHS. PLEASE NOTE: A NORMAL MAMMOGRAM DOES NOT EXCLUDE THE POSSIBILITY OF BREAST CANCER. A CLINICALLY SUSPICIOUS PALPABLE LUMP SHOULD BE BIOPSIED. Dictated by: Christopher Godoy MD on 07/19/2023 at 15:06 Approved by: Christopher Godoy MD on 07/19/2023 at 15:21
--- OUTSIDE RECORDS SUMMARY | 2023-07-19 12:17 | XMS_ITS | CCD ---
Author Name Unknown Address [address] [facility] [address] [place] [address] Organization [facility] Care Team Providers Care Rock Singer Name Role Phone DENIA, MARLA Unavailable Unavailable ELZBIETA SHARMA Unavailable Unavailable ANT FREITAS Unavailable Unavailable ANT FREITAS Unavailable Unavailable UNKNOWN, PHYSICIAN Unavailable Unavailable UNKNOWN, PHYSICIAN Unavailable Unavailable RENNO, ANAS Unavailable Unavailable RENNO, ANAS Unavailable Unavailable SUSI BARRIOS Unavailable Unavailable UNKNOWN, PHYSICIAN Unavailable Unavailable MT Unavailable Unavailable ANT FREITAS Unavailable Unavailable MT Unavailable Unavailable RENNO, ANAS Unavailable Unavailable Ahmad, Rayeesa Primary Care Provider Ahmad, Rayeesa Primary Care Provider SABIHA VIVEROS Referring Unavailable AHMAD, RAYEESA Primary Care Unavailable AHMAD, RAYEESA Primary Care Unavailable AHMAD, RAYEESA Referring Unavailable AHMAD, RAYEESA Primary Care Unavailable AHMAD, RAYEESA Referring Unavailable AHMAD, RAYEESA Primary Care Unavailable AHMAD, RAYEESA Referring Unavailable JARADICA, BAIRON Referring Unavailable AHMAD, RAYEESA Primary Care Unavailable AHMAD, RAYEESA Referring Unavailable AHMAD, RAYEESA Primary Care Unavailable AHMAD, RAYEESA Referring Unavailable AHMAD, RAYEESA Primary Care Unavailable AICHHOLZ, BELT WORKER CHETNA Admitting Unavailable DR MELANIE AVILES V Consulting Unavailable AICHHOLZ, BELT WORKER CHETNA Attending Unavailable AICHHOLZ, BELT WORKER CHETNA Consulting Unavailable AICHHOLZ, BELT WORKER CHETNA Admitting Unavailable AICHHOLZ, BELT WORKER CHETNA Attending Unavailable AICHHOLZ, BELT WORKER CHETNA Consulting Unavailable DR MARI MONTES Consulting Unavailable AICHHOLZ, BELT WORKER CHETNA Admitting Unavailable AICHHOLZ, BELT WORKER CHETNA Referring Unavailable LON BARCENAS Attending Unavailable LON BARCENAS Consulting Unavailable DR MARI MONTES Consulting Unavailable CHETNA BARCENAS Attending Unavailable Allergies Allergy Classification Reported Allergen(s) Allergy Type Date of Onset Reaction(s) Facility (8 sources) Desonide Drug Allergy 8 [facility] (1 source) Latex Drug allergy (disorder) 8 [facility] (8 sources) Latex Propensity to adverse reactions to drug 6 [place], [place] (1 source) natural latex rubber Drug allergy (disorder) [facility] Medications Current Medications Medication Drug Class(es) Dates Sig (Normalized) Sig (Original) acetaminophen 500 mg oral tablet (8 sources) Start: 05-30-2019 take 1 tablet by mouth every six hours as needed for pain, then take 1 tablet by mouth every twenty-four hours as needed for pain ACETAMINOPHEN EXTRA STRENGTH 500 MG tablet Indications: Chronic pain of right knee TAKE ONE TABLET BY MOUTH EVERY 6 HOURS NEEDED FOR PAIN. MAXIUMUM DOSE- 8 TABLETS IN 24 HOURS 120 tablet 3 05/30/2019 Active Start: 09-04-2018 take 1 tablet by sandy th every six hours as needed for pain acetaminophen (TYLENOL) 500 MG tablet Indications: Chronic pain of right knee Take 1 tablet by mouth every 6 hours as needed for Pain Maximum dose- 8 tablets/24 hours. 120 tablet 3 09/04/2018 Active 200 actuat albuterol 0.09 mg/actuat metered dose inhaler (8 sources) beta2-Adrenergic Agonist Start: 11-27-2019 take 2 puff(s) by inhalation every six hours as needed for wheezing albuterol sulfate HFA (PROAIR HFA) 108 (90 Base) MCG/ACT inhaler Indications: Pulmonary emphysema, unspecified emphysema type (HCC) Inhale 2 puffs into the lungs every 6 hours as needed for Wheezing 3 Inhaler 3 11/27/2019 Active Start: 05-30-2019 take 2 puff(s) by in halation every six hours as needed for wheezing albuterol sulfate HFA (PROAIR HFA) 108 (90 Base) MCG/ACT inhaler Indications: Pulmonary emphysema, unspecified emphysema type (HCC) , COPD exacerbation (HCC) Inhale 2 puffs into the lungs every 6 hours as needed for Wheezing 3 Inhaler 3 05/30/2019 Active Start: 09-04-2018 take 2 puff(s) by mo uth every six hours as needed for wheezing albuterol sulfate HFA (VENTOLIN HFA) 108 (90 Base) MCG/ACT inhaler Indications: Pulmonary emphysema, unspecified emphysema type (HCC) INHALE 2 PUFFS BY MOUTH EVERY 6 HOURS NEEDED FOR WHEEZING OR SHORTNESS OF BREATH 18 g 3 09/04/2018 Active albuterol 0.833 mg/ml / ipratropium bromide 0.167 mg/ml inhalant solution (8 sources) Anticholinergic, beta2-Adrenergic Agonist Start: 08-03-2020 take 3 mL by inhalation every six hours as needed for wheezing ipratropium-albuterol (DUONEB) 0.5-2.5 (3) MG/3ML SOLN nebulizer solution Indications: Pulmonary emphysema, unspecified emphysema type (HCC) , COPD exacerbation (HCC) Inhale 3 mLs into the lungs every 6 hours as needed for Shortness of Breath (or wheezing) 90 vial 0 08/03/2020 Active Start: 05-25-2020 take 3 mL by inhalat ion every six hours as needed for wheezing ipratropium-albuterol (DUONEB) 0.5-2.5 (3) MG/3ML SOLN nebulizer solution Indications: Pulmonary emphysema, unspecified emphysema type (HCC) , COPD exacerbation (HCC) Inhale 3 mLs into the lungs every 6 hours as needed for Shortness of Breath (or wheezing) 90 vial 0 05/25/2020 Active Start: 05-30-2019 take 3 mL by inhalat ion every six hours as needed for wheezing ipratropium-albuterol (DUONEB) 0.5-2.5 (3) MG/3ML SOLN nebulizer solution Indications: Pulmonary emphysema, unspecified emphysema type (HCC) , COPD exacerbation (HCC) Inhale 3 mLs into the lungs every 6 hours as needed for Shortness of Breath (or wheezing) 90 vial 3 05/30/2019 Active Start: 09-04-2018 take 3 mL by inhalat ion every six hours as needed for wheezing ipratropium-albuterol (DUONEB) 0.5-2.5 (3) MG/3ML SOLN nebulizer solution Indications: Pulmonary emphysema, unspecified emphysema type ([facility]) Inhale 3 mLs into the lungs every 6 hours as needed for Shortness of Breath (or wheezing) 90 vial 3 09/04/2018 Active aspirin 81 mg delayed release oral tablet (8 sources) Platelet Aggregation Inhibitor, Nonsteroidal Anti-inflammatory Drug Start: 11-27-2019 take 1 tablet by mouth once daily aspirin EC 81 MG EC tablet Indications: Type 2 diabetes mellitus with diabetic mononeuropathy, without long-term current use of insulin ([facility]) Take 1 tablet by mouth daily 30 tablet 5 11/27/2019 Active Start: 08-09-2019 take 1 tablet by sandy th once daily aspirin EC 81 MG EC tablet Take 1 tablet by mouth daily 30 tablet 5 08/09/2019 Active Start: 12-04-2017 take 1 tablet by sandy th once daily aspirin EC 81 MG EC tablet Take 1 tablet by mouth daily 30 tablet 5 12/04/2017 Active atorvastatin 40 mg oral tablet (8 sources) HMG-CoA Reductase Inhibitor Start: 08-03-2020 take 1 tablet by mouth once daily atorvastatin (LIPITOR) 40 MG tablet Indications: Mixed hyperlipidemia Take 1 tablet by mouth daily 30 tablet 3 08/03/2020 Active Start: 03-24-2020 take 1 tablet by sandy th once daily atorvastatin (LIPITOR) 40 MG tablet Indications: Mixed hyperlipidemia Take 1 tablet by mouth daily 30 tablet 3 03/24/2020 Active Start: 11-27-2019 take 1 tablet by sandy th once daily atorvastatin (LIPITOR) 40 MG tablet Indications: Mixed hyperlipidemia Take 1 tablet by mouth daily 30 tablet 3 11/27/2019 Active Start: 08-09-2019 take 1 tablet by sandy th once daily atorvastatin (LIPITOR) 40 MG tablet Indications: Mixed hyperlipidemia Take 1 tablet by mouth daily 30 tablet 3 08/09/2019 Active Start: 12-27-2018 take 1 tablet by sandy th once daily atorvastatin (LIPITOR) 40 MG tablet Indications: Mixed hyperlipidemia Take 1 tablet by mouth daily 30 tablet 3 12/27/2018 Active busPIRone hydrochloride 7.5 mg oral tablet (7 sources) Start: 08-03-2020 take 1 tablet by mouth twice daily busPIRone (BUSPAR) 7.5 MG tablet Indications: Bipolar 1 disorder ([facility]) Take 1 tablet by mouth 2 times daily 60 tablet 3 08/03/2020 Active Start: 03-24-2020 take 1 tablet by sandy th twice daily busPIRone (BUSPAR) 7.5 MG tablet Indications: Bipolar 1 disorder (HCC) Take 1 tablet by mouth 2 times daily 60 tablet 3 03/24/2020 Active Start: 11-27-2019 take 1 tablet by sandy th twice daily busPIRone (BUSPAR) 7.5 MG tablet Indications: Bipolar 1 disorder (HCC) Take 1 tablet by mouth 2 times daily 60 tablet 3 11/27/2019 Active Start: 08-09-2019 take 1 tablet by sandy th twice daily busPIRone (BUSPAR) 7.5 MG tablet Indications: Bipolar 1 disorder (HCC) Take 1 tablet by mouth 2 times daily 60 tablet 3 08/09/2019 Active cetirizine hydrochloride 10 mg oral tablet (8 sources) Histamine-1 Receptor Antagonist Start: 08-03-2020 take 1 tablet by mouth once daily, then take 1 tablet by mouth once daily cetirizine (ZYRTEC) 10 MG tablet Indications: Seasonal allergic rhinitis, unspecified trigger Take 1 tablet by mouth daily TAKE 1 TABLET BY MOUTH NIGHTLY - MEDICATION COULD CAUSE DROWSINESS, DO NOT DRINK ALCOHOL DRIVE OR OPERATE HEAVY MACHINERY WHILE TAKING THIS MEDICATION 30 tablet 3 08/03/2020 Active Start: 04-22-2020 take 1 tablet by sandy th once daily cetirizine (ZYRTEC) 10 MG tablet Indications: Seasonal allergic rhinitis, unspecified trigger TAKE 1 TABLET BY MOUTH NIGHTLY - MEDICATION COULD CAUSE DROWSINESS, DO NOT DRINK ALCOHOL DRIVE OR OPERATE HEAVY MACHINERY WHILE TAKING THIS MEDICATION 30 tablet 3 04/22/2020 Active Start: 11-27-2019 take 1 tablet by sandy th once daily cetirizine (ZYRTEC) 10 MG tablet Indications: Seasonal allergic rhinitis, unspecified trigger Take 1 tablet by mouth nightly 30 tablet 3 11/27/2019 Active Start: 08-09-2019 take 1 tablet by sandy th once daily cetirizine (ZYRTEC) 10 MG tablet Indications: Seasonal allergic rhinitis, unspecified trigger Take 1 tablet by mouth nightly 30 tablet 3 08/09/2019 Active Start: 12-27-2018 take 1 tablet by sandy th once daily cetirizine (ZYRTEC) 10 MG tablet Indications: Pulmonary emphysema, unspecified emphysema type (HCC) Take 1 tablet by mouth nightly 30 tablet 3 12/27/2018 Active citalopram 20 mg oral tablet (8 sources) Serotonin Reuptake Inhibitor Start: 08-03-2020 take 1 tablet by mouth once daily citalopram (CELEXA) 20 MG tablet Indications: Bipolar 1 disorder (HCC) Take 1 tablet by mouth daily 90 tablet 1 08/03/2020 Active Start: 05-19-2020 take 1 tablet by sandy th once daily citalopram (CELEXA) 20 MG tablet Indications: Bipolar 1 disorder (HCC) Take 1 tablet by mouth daily 90 tablet 1 05/19/2020 Active Start: 11-27-2019 take 1 tablet by sandy th once daily citalopram (CELEXA) 20 MG tablet Indications: Bipolar 1 disorder (HCC) Take 1 tablet by mouth daily 90 tablet 1 11/27/2019 Active Start: 08-09-2019 take 1 tablet by sandy th once daily citalopram (CELEXA) 40 MG tablet Indications: Bipolar 1 disorder (HCC) Take 1 tablet by mouth daily 30 tablet 3 08/09/2019 Active Start: 12-24-2018 take 1 tablet by sandy th once daily citalopram (CELEXA) 40 MG tablet Indications: Bipolar 1 disorder (HCC) Take 1 tablet by mouth daily 30 tablet 3 12/24/2018 Active 1 ml denosumab 60 mg/ml prefilled syringe (1 source) RANK Ligand Inhibitor Start: 09-24-2020 denosumab (PROLIA) 60 MG/ML SOSY SC injection Indications: Age-related osteoporosis without current pathological fracture Inject 1 mL into the skin once for 1 dose 1 mL 0 09/24/2020 Active 12 hr dextromethorphan hydrobromide 30 mg / guaiFENesin 600 mg extended release oral tablet (1 source) Uncompetitive L-yqdpgs-J-aspartat e Receptor Antagonist, Sigma-1 Agonist Start: 09-04-2018 take 30-600 mg by mouth twice daily Dextromethorphan- Guaifenesin (MUCINEX DM) 30-600 MG TB12 Indications: Pulmonary emphysema, unspecified emphysema type (HCC) Take one tab po bid 60 tablet 0 09/04/2018 Active doxycycline monohydrate 100 mg oral tablet (2 sources) Tetracycline-class Drug Start: 07-30-2020 take 1 tablet by mouth twice daily at mealtime doxycycline monohydrate (ADOXA) 100 MG tablet Indications: COPD exacerbation (HCC) Take 1 tablet by mouth 2 times daily With food 20 tablet 0 07/30/2020 Active ergocalciferol 62292 unt oral capsule (1 source) Provitamin D2 Compound Start: 09-24-2020 take 1 capsule by mouth every week vitamin D (ERGOCALCIFEROL) 1.25 MG (29070 UT) CAPS capsule Indications: Age-related osteoporosis without current pathological fracture Take 1 capsule by mouth once a week 12 capsule 1 09/24/2020 Active fluticasone propionate 0.05 mg/actuat metered dose nasal spray (8 sources) Corticosteroid Start: 11-27-2019 fluticasone (FLONASE) 50 MCG/ACT nasal spray Indications: Seasonal allergic rhinitis, unspecified trigger 1 spray by Nasal route daily 1 Bottle 3 11/27/2019 Active Start: 08-09-2019 fluticasone (F LONASE) 50 MCG/ACT nasal spray Indications: Seasonal allergic rhinitis, unspecified trigger 1 spray by Nasal route daily 1 Bottle 3 08/09/2019 Active Start: 09-04-2018 fluticasone (F LONASE) 50 MCG/ACT nasal spray Indications: Pulmonary emphysema, unspecified emphysema type (HCC) , Seasonal allergic rhinitis, unspecified trigger 1 spray by Nasal route daily 1 Bottle 3 09/04/2018 Active 60 actuat fluticasone propionate 0.25 mg/actuat / salmeterol 0.05 mg/actuat dry powder inhaler (7 sources) Corticosteroid, beta2-Adrenergic Agonist Start: 06-16-2020 take 1 puff(s) by inhalation every twelve hours fluticasone-salmeterol (ADVAIR DISKUS) 250-50 MCG/DOSE AEPB Inhale 1 puff into the lungs every 12 hours 60 each 3 06/16/2020 Active Start: 11-27-2019 take 1 puff(s) by in halation every twelve hours fluticasone-salmeterol (ADVAIR DISKUS) 250-50 MCG/DOSE AEPB Inhale 1 puff into the lungs every 12 hours 60 each 3 11/27/2019 Active Start: 09-23-2019 take 1 puff(s) by in halation every twelve hours fluticasone-salmeterol (ADVAIR DISKUS) 250-50 MCG/DOSE AEPB Indications: COPD exacerbation (HCC) Inhale 1 puff into the lungs every 12 hours 60 each 3 09/23/2019 Active 60 actuat formoterol fumarate 0.005 mg/actuat / mometasone furoate 0.1 mg/actuat metered dose inhaler (1 source) Corticosteroid, beta2-Adrenergic Agonist Start: 09-04-2018 take 2 puff(s) by inhalation twice daily mometasone-formoterol (DULERA) 100-5 MCG/ACT inhaler Indications: Pulmonary emphysema, unspecified emphysema type (HCC) Inhale 2 puffs into the lungs 2 times daily 1 Inhaler 3 09/04/2018 Active lidocaine 40 mg/ml topical cream (8 sources) Antiarrhythmic, Amide Local Anesthetic Start: 09-04-2018 lidocaine (LMX) 4 % cream Indications: Chronic pain of right knee Apply topically every 8 hrs as needed for pain 45 g 3 09/04/2018 Active lisinopril 2.5 mg oral tablet (8 sources) Angiotensin Converting Enzyme Inhibitor Start: 08-03-2020 take 1 tablet by mouth once daily lisinopril (PRINIVIL;ZESTRIL) 2.5 MG tablet Indications: Essential hypertension Take 1 tablet by mouth daily 30 tablet 3 08/03/2020 Active Start: 03-02-2020 take 1 tablet by sandy th once daily lisinopril (PRINIVIL;ZESTRIL) 2.5 MG tablet Indications: Essential hypertension Take 1 tablet by mouth daily 30 tablet 3 03/02/2020 Active Start: 11-27-2019 take 1 tablet by sandy th once daily lisinopril (PRINIVIL;ZESTRIL) 2.5 MG tablet Indications: Essential hypertension Take 1 tablet by mouth daily 30 tablet 3 11/27/2019 Active Start: 08-09-2019 take 1 tablet by sandy th once daily lisinopril (PRINIVIL;ZESTRIL) 2.5 MG tablet Indications: Essential hypertension Take 1 tablet by mouth daily 30 tablet 3 08/09/2019 Active Start: 12-27-2018 take 1 tablet by sandy th once daily lisinopril (PRINIVIL;ZESTRIL) 2.5 MG tablet Indications: Essential hypertension Take 1 tablet by mouth daily 30 tablet 3 12/27/2018 Active metFORMIN hydrochloride 500 mg oral tablet (8 sources) Biguanide Start: 08-03-2020 metFORMIN (GLU COPHAGE) 500 MG tablet Indications: Type 2 diabetes mellitus with diabetic mononeuropathy, without long-term current use of insulin (HCC) TAKE 1 TAB IN THE MORNING AND 1 TAB IN THE EVENING 120 tablet 3 08/03/2020 Active Start: 11-27-2019 metFORMIN (GLU COPHAGE) 500 MG tablet Indications: Type 2 diabetes mellitus with diabetic mononeuropathy, without long-term current use of insulin (HCC) TAKE 1 TAB IN THE MORNING AND 1 TAB IN THE EVENING 120 tablet 3 11/27/2019 Active Start: 05-30-2019 metFORMIN (GLU COPHAGE) 500 MG tablet Indications: Type 2 diabetes mellitus with diabetic mononeuropathy, without long-term current use of insulin (HCC) TAKE 1 TAB IN THE MORNING AND 1 TAB IN THE EVENING 120 tablet 3 05/30/2019 Active Start: 02-28-2019 metFORMIN (GLU COPHAGE) 500 MG tablet Indications: Type 2 diabetes mellitus with diabetic mononeuropathy, without long-term current use of insulin (HCC) TAKE 2 TAB IN THE MORNING AND 1 TAB IN THE EVENING 120 tablet 3 02/28/2019 Active methylPREDNISolone 4 mg oral tablet (4 sources) Corticosteroid Start: 07-30-2020 End: 08-05-2020 methylPREDNISolone (MEDROL DOSEPACK) 4 MG tablet Indications: COPD exacerbation (HCC) Take by mouth. 1 kit 0 07/30/2020 08/05/2020 Active Start: 08-09-2019 methylPREDNISo lone (MEDROL, JESSIE,) 4 MG tablet Indications: COPD exacerbation (HCC) Take by mouth, with food. Keep low carb, low salt diet while taking it 1 kit 0 08/09/2019 Active Multiple Vitamins-Minerals (MULTIVITAMIN & MINERAL PO) (8 sources) Multiple Vitamin s-Minerals (MULTIVITAMIN & MINERAL PO) Take by mouth 0 Active nicotine 2 mg chewing gum (9 sources) Cholinergic Nicotinic Agonist Start: 9 nicotine polacrilex (NICORETTE) 2 MG gum Indications: Personal history of tobacco use Take 1 each by mouth as needed for Smoking cessation 110 each 3 02/28/2019 Active Start: 09-04-2018 End: 09-04-2019 apply 1 dose transdermal route every twenty-four hours nicotine (NICODERM CQ) 14 MG/24HR Indications: Personal history of tobacco use Place 1 patch onto the skin every 24 hours 30 patch 3 09/04/2018 09/04/2019 Active raNITIdine 150 mg oral tablet (1 source) Histamine-2 Receptor Antagonist Start: 11-02-2018 take 1 tablet by mouth twice daily ranitidine (ZANTAC) 150 MG tablet Indications: Gastroesophageal reflux disease without esophagitis Take 1 tablet by mouth 2 times daily 60 tablet 3 11/02/2018 Active risperiDONE 0.5 mg oral tablet (8 sources) Atypical Antipsychotic Start: 08-03-2020 take 1 tablet by mouth once daily risperiDONE (RISPERDAL) 0.5 MG tablet Indications: Bipolar 1 disorder (HCC) TAKE 1 TABLET BY MOUTH NIGHTLY 30 tablet 3 08/03/2020 Active Start: 03-24-2020 take 1 tablet by sandy th once daily risperiDONE (RISPERDAL) 0.5 MG tablet Indications: Bipolar 1 disorder (HCC) TAKE 1 TABLET BY MOUTH NIGHTLY 30 tablet 3 03/24/2020 Active Start: 11-27-2019 take 1 tablet by sandy th once daily risperiDONE (RISPERDAL) 0.5 MG tablet Indications: Bipolar 1 disorder (HCC) TAKE 1 TABLET BY MOUTH NIGHTLY 30 tablet 3 11/27/2019 Active Start: 08-09-2019 take 1 tablet by sandy th once daily risperiDONE (RISPERDAL) 0.5 MG tablet Indications: Bipolar 1 disorder (HCC) TAKE 1 TABLET BY MOUTH NIGHTLY 30 tablet 3 08/09/2019 Active Start: 01-08-2019 take 1 tablet by sandy th once daily risperiDONE (RISPERDAL) 0.5 MG tablet Indications: Bipolar 1 disorder (HCC) Take 1 tablet by mouth nightly 30 tablet 0 01/08/2019 Active sodium chloride 0.111 meq/ml nasal solution (8 sources) Start: 09-04-2018 sodium chlorid e (ALTAMIST SPRAY) 0.65 % nasal spray Indications: Seasonal allergic rhinitis, unspecified trigger 1 spray by Nasal route as needed for Congestion 1 Bottle 3 09/04/2018 Active 60 actuat tiotropium 0.0025 mg/actuat metered dose inhaler (4 sources) Anticholinergic Start: 08-03-2020 take 2 puff(s) by inhalation once daily tiotropium (SPIRIVA RESPIMAT) 2.5 MCG/ACT AERS inhaler Indications: Pulmonary emphysema, unspecified emphysema type (HCC) , COPD exacerbation (HCC) Inhale 2 puffs into the lungs daily 1 Inhaler 2 08/03/2020 Active Start: 07-30-2020 take 2 puff(s) by in halation once daily tiotropium (SPIRIVA RESPIMAT) 2.5 MCG/ACT AERS inhaler Indications: Pulmonary emphysema, unspecified emphysema type (HCC) , COPD exacerbation (HCC) Inhale 2 puffs into the lungs daily 1 Inhaler 2 07/30/2020 Active varenicline 0.5 mg oral tablet (2 sources) Partial Cholinergic Nicotinic Agonist Start: 08-31-2020 take 1 tablet by mouth once daily, then take 1 tablet by mouth twice daily, then take 2 tablets by mouth twice daily varenicline (CHANTIX STARTING MONTH ) 0.5 MG X 11 & 1 MG X 42 tablet Indications: Personal history of tobacco use 0.5 mg po daily x 3 days, 0.5 mg BID x 4 days, then 1 mg BID thereafter .Call for refill 1 box 0 08/31/2020 Active Problems Active Problems Problem Classification Problem Date Documented Date Episodic/Chronic Anxiety disorders (8 sources) Anxiety; Translations: [Anxiety disorder, unspecified] Onset: 06-22-2019 06-22-2019 Chronic Chronic kidney disease (2 sources) Chronic kidney disease stage 5; Translations: [Chronic kidney disease, stage 5] Onset: 08-31-2020 Resolved: 08-31-2020 08-31-2020 Chronic Chronic obstructive pulmonary disease and bronchiectasis (19 sources) Chronic obstructive pulmonary disease, unspecified; Translations: [Pulmonary emphysema] Onset: 07-26-2013 Resolved: 11-27-2019 12-12-2017 Chronic Diabetes mellitus without complication (11 sources) Type 2 diabetes mellitus without complications; Translations: [Type 2 diabetes mellitus] Onset: 03-31-2018 11-02-2018 Chronic Disorders of lipid metabolism (15 sources) Hyperlipidemia, unspecified; Translations: [Hyperlipidemia] Onset: 01-13-2015 01-13-2015 Chronic Esophageal disorders (8 sources) Gastroesophageal reflux disease without esophagitis; Translations: [Gastroesophageal reflux disease without esophagitis] Onset: 11-01-2018 11-01-2018 Chronic Essential hypertension (11 sources) Essential (primary) hypertension; Translations: [Essential hypertension] Onset: 12-12-2017 12-12-2017 Chronic External cause codes: Fall (1 source) Fall on same level due to stepping on an object, initial encounter; Translations: [FALL ON SAME LEVEL DUE TO STEPPING ON AN OBJECT, INIT ENCNTR] Onset: 03-31-2018 External cause codes: Place of occurrence (1 source) Other place in single-family (private) house as the place of occurrence of the external cause; Translations: [OTH PLACE IN SINGLE-FAMILY (PRIVATE) HOUSE PLACE] Onset: 03-31-2018 Fluid and electrolyte disorders (1 source) Hypo-osmolality and hyponatremia; Translations: [HYPO-OSMOLALITY AND HYPONATREMIA] Onset: 03-31-2018 Episodic Fracture of neck of femur (hip) (3 sources) Fracture of unspecified part of neck of left femur, initial encounter for closed fracture; Translations: [Unspecified intracapsular fracture of left femur, initial encounter for closed fracture] Onset: 03-31-2018 Episodic Immunizations and screening for infectious disease (2 sources) Encounter for immunization; Translations: [Contact with and (suspected) exposure to other viral communicable diseases] Onset: 03-31-2018 Episodic Mood disorders (16 sources) Bipolar I disorder; Translations: [Depressive disorder] Onset: 07-26-2013 Resolved: 08-09-2019 07-26-2013 Chronic Osteoarthritis (1 source) Unilateral primary osteoarthritis, right hip; Translations: [UNILATERAL PRIMARY OSTEOARTHRITIS, RIGHT HIP] Onset: 04-19-2018 Chronic Osteoarthritis (15 sources) Osteoarthritis of right knee joint; Translations: [Osteoarthritis of right hip joint] Onset: 12-12-2017 12-12-2017 Osteoporosis (2 sources) Senile osteoporosis; Translations: [Age-related osteoporosis without current pathological fracture] Onset: 09-24-2020 09-24-2020 Chronic Other aftercare (4 sources) Aftercare following joint replacement surgery; Translations: [AFTERCARE FOLLOWING JOINT REPLACEMENT SURGERY] Onset: 04-19-2018 Chronic Other aftercare (1 source) custodial (current) use of oral hypoglycemic drugs; Translations: [SNF (CURRENT) USE OF ORAL HYPOGLYCEMIC DRUGS] Onset: 03-31-2018 Other connective tissue disease (1 source) Presence of left artificial hip joint; Translations: [PRESENCE OF LEFT ARTIFICIAL HIP JOINT] Onset: 04-19-2018 Chronic Other ear and sense organ disorders (2 sources) Mixed conductive and sensorineural hearing loss, bilateral; Translations: [Mixed conductive and sensorineural hearing loss, bilateral] Onset: 02-17-2017 Chronic Other ear and sense organ disorders (2 sources) Hearing problem; Translations: [Hearing problem of both ears] Onset: 08-31-2020 08-31-2020 Episodic Other screening for suspected conditions (not mental disorders or infectious disease) (4 sources) Encounter for screening mammogram for malignant neoplasm of breast; Translations: [ENC SCR MAMMO MALIG NEOPLASM BREAST] Onset: 04-15-2022 Episodic Other upper respiratory disease (8 sources) Seasonal allergy; Translations: [Seasonal allergies] Onset: 01-13-2015 01-13-2015 Chronic Other upper respiratory disease (7 sources) Seasonal allergic rhinitis; Translations: [Seasonal allergic rhinitis] Onset: 01-13-2015 08-09-2019 Chronic Other upper respiratory infections (8 sources) Chronic sinusitis; Translations: [Chronic sinusitis] Onset: 05-11-2015 05-11-2015 Chronic Residual codes; unclassified (1 source) Postmenopausal state; Translations: [Post-menopausal] Episodic Screening and history of mental health and substance abuse codes (8 sources) Tobacco use and exposure - finding; Translations: [Personal history of tobacco use] Onset: 02-28-2019 02-28-2019 Chronic Spondylosis; intervertebral disc disorders; other back problems (8 sources) Degeneration of thoracic intervertebral disc; Translations: [Thoracic degenerative disc disease] Onset: 12-02-2015 12-02-2015 Chronic Substance-related disorders (10 sources) Nicotine dependence, unspecified, uncomplicated; Translations: [Smoker] Onset: 07-26-2013 04-26-2017 Chronic Substance-related disorders (1 source) H/O: drug dependency; Translations: [Personal history of nicotine dependence] Episodic Unclassified (2 sources) Unknown / UNK(Unknown) Onset: 04-19-2018 Unclassified (8 sources) History of repair of hip joint; Translations: [Status post left hip replacement] Onset: 09-04-2018 09-04-2018 Unclassified (1 source) Patient encounter status; Translations: [Encounter for screening mammogram for breast cancer] Past or Other Problems Problem Classification Problem Date Documented Date Episodic/Chronic Diabetes mellitus with complications (8 sources) Mononeuropathy with type 2 diabetes mellitus; Translations: [Diabetic mononeuropathy associated with type 2 diabetes mellitus] Onset: 07-14-2015 Resolved: 08-09-2019 04-26-2017 Chronic Nonspecific chest pain (8 sources) Chest pain; Translations: [Other chest pain] Onset: 11-01-2018 Resolved: 02-28-2019 02-28-2019 Episodic Other circulatory disease (4 sources) Other specified symptoms and signs involving the circulatory and respiratory systems; Translations: [OTH SPEC SX SIGNS INVLV CIRC RS] Onset: 11-01-2021 Episodic Other connective tissue disease (8 sources) Enthesopathy of elbow region; Translations: [Enthesopathy of elbow region] Onset: 07-10-2015 Resolved: 11-27-2019 07-10-2015 Episodic Other lower respiratory disease (4 sources) Lung mass; Translations: [Nodule of left lung] Onset: 12-02-2015 12-02-2015 Episodic Other lower respiratory disease (7 sources) Multiple nodules of lung; Translations: [Pulmonary nodules/lesions, multiple] Onset: 06-20-2019 06-20-2019 Episodic Other lower respiratory disease (4 sources) Solitary pulmonary nodule; Translations: [Nodule of left lung] Onset: 12-02-2015 12-02-2015 Episodic Other non-traumatic joint disorders (8 sources) Knee pain; Translations: [Chronic pain of right knee] Onset: 12-12-2017 12-12-2017 Episodic Other non-traumatic joint disorders (8 sources) Joint pain; Translations: [Arthritis pain] Onset: 05-11-2015 Resolved: 08-09-2019 05-11-2015 Episodic Other upper respiratory disease (1 source) Allergic rhinitis; Translations: [Allergic rhinitis] Onset: 01-13-2015 Resolved: 01-13-2015 01-13-2015 Chronic Other upper respiratory disease (2 sources) Hypertrophy of nasal turbinates; Translations: [Hypertrophy of nasal turbinates] Onset: 02-17-2017 Episodic Otitis media and related conditions (2 sources) Other specified disorders of Eustachian tube, bilateral; Translations: [Other specified disorders of eustachian tube, bilateral] Onset: 02-17-2017 Episodic Unclassified (7 sources) Hip joint prosthesis present; Translations: [Presence of left artificial hip joint] Onset: 04-19-2018 Resolved: 08-09-2019 08-09-2019 Results Test Name Value Interpretation Reference Range Facility MG MAMM SCREEN 3D MARTINA CADon 04-15-2022 MG MAMM SCREEN 3D MARTINA CAD Patient: PRIYANKA NICHOLAS Exam Date: 04/15/2022 : 1955 Gender:F Ordering : LON [employer]TNA [employer] Admission #: [id number] Family : Order #: [id number] CLICK HERE TO VIEW EXAM RADIOLOGY REPORT PROCEDURE: MAMMOGRAM SCREENING 3D BILATERAL CAD COMPARISON: MG MAMM SCREEN 3D MARTINA CAD, 12/30/2016. INDICATIONS: Screening mammography Calculator Name NCI Breast Cancer Risk Assessment Tool 5 Year Breast Cancer Risk 1.50% Lifetime Breast Cancer Risk 5.20% Personal Breast Cancer No Personal Ovarian Cancer No Treatments None Family Cancers None LOCATION: [facility] BREAST COMPOSITION: Scattered areas fibroglandular density. FINDINGS: DIAGNOSTIC CATEGORY 1--NEGATIVE. NO CHANGE FROM COMPARISON ASSESSMENT. Scattered benign-appearing calcifications are present. RIGHT BREAST: No significant suspicious finding. LEFT BREAST: No significant suspicious finding. RECOMMENDATIONS: ROUTINE MAMMOGRAM AND CLINICAL EVALUATION IN 12 MONTHS. PLEASE NOTE: A NORMAL MAMMOGRAM DOES NOT EXCLUDE THE POSSIBILITY OF BREAST CANCER. A CLINICALLY SUSPICIOUS PALPABLE LUMP SHOULD BE BIOPSIED. Dictated by: Melanie Aviles MD on 04/15/2022 at 14:49 Approved by: Melanie Aviles MD on 04/15/2022 at 14:51 Normal [facility] CBC AUTO DIFFon 12-21-2021 BASO # 0.1 103/ul Normal 0.0-0.1 [facility] Comment on above: Performed By: #### C BC #### [facility] [address] [place] [address] Dr. Tom Altman Basophils/100 WBC (Bld) 0.7 % Normal 0.2-2.0 [facility] Comment on above: Performed By: #### C BC #### [facility] [address] [place] [address] Dr. Tom Altman EO # 0.3 103/ul Normal 0.0-0.7 [facility] Comment on above: Performed By: #### C BC #### [facility] [address] [place] [address] Dr. Tom Altman Eosinophils/100 WBC (Bld) 3.4 % Normal 0.9-7.0 [facility] Comment on above: Performed By: #### C BC #### [facility] [address] [place] [address] Dr. Tom Altman Erythrocyte distribution width (RBC) [Ratio] 14.6 % Normal 11.0-15.0 [facility] Comment on above: Performed By: #### C BC #### [facility] [address] [place] [address] Dr. Tom Altman Hematocrit (Bld) [Volume fraction] 41.5 % Normal 36.0-48.0 [facility] Comment on above: Performed By: #### C BC #### [facility] [address] [place] [address] Dr. Tom Altman Hemoglobin (Bld) [Mass/Vol] 13.0 g/dL Normal 12.0-16.0 [facility] Comment on above: Performed By: #### C BC #### [facility] [address] [place] [address] Dr. Tom Altman IG # 0.04 10e3/ul Critically high 0.00-0.03 [facility] Comment on above: Performed By: #### C BC #### [facility] [address] [place] [address] Dr. Tom Altman IG % 0.5 % Normal 0.0-0.5 [facility] Comment on above: Performed By: #### C BC #### [facility] [address] [place] [address] Dr. Tom Altman LYMPH # 1.9 103/ul Normal 1.2-3.8 [facility] Comment on above: Performed By: #### C BC #### [facility] [address] [place] [address] Dr. Tom Altman Lymphocytes/100 WBC (Bld) 22.9 % Normal 20.5-60.0 [facility] Comment on above: Performed By: #### C BC #### [facility] [address] [place] [address] Dr. Tom Altman MANUAL DIFF REQ NO Normal [facility] Comment on above: Performed By: #### C BC #### [facility] [address] [place] [address] Dr. Tom Altman MCH (RBC) [Entitic mass] 29.1 pg Normal 26.7-34.0 [facility] Comment on above: Performed By: #### C BC #### [facility] [address] [place] [address] Dr. Tom Altman MCHC (RBC) [Mass/Vol] 31.3 g/dL Normal 29.9-35.2 [facility] Comment on above: Performed By: #### C BC #### [facility] [address] [place] [address] Dr. Tom Altman MCV (RBC) [Entitic vol] 93.0 fL Normal 81.0-99.0 [facility] Comment on above: Performed By: #### C BC #### [facility] [address] [place] [address] Dr. Tom Altman MONO # 0.5 103/ul Normal 0.3-0.8 [facility] Comment on above: Performed By: #### C BC #### [facility] [address] [place] [address] Dr. Tom Altman Monocytes/100 WBC (Bld) 5.5 % Normal 1.7-12.0 [facility] Comment on above: Performed By: #### C BC #### [facility] [address] [place] [address] Dr. Tom Altman NEUT # 5.6 103/ul Normal 1.4-6.5 [facility] Comment on above: Performed By: #### C BC #### [facility] [address] [place] [address] Dr. Tom Altman Neutrophils/100 WBC (Bld) 67.0 % Normal 43.0-75.0 [facility] Comment on above: Performed By: #### C BC #### [facility] [address] [place] [address] Dr. Tom Altman Platelet mean volume (Bld) [Entitic vol] 10.9 fL Normal 9.5-13.5 [facility] Comment on above: Performed By: #### C BC #### [facility] [address] [address] [address] Tom Altman PLT 278 103/ul Normal 150-450 [facility] Comment on above: Performed By: #### C BC #### [facility] [address] [address] [address] Tom Altman RBC 4.46 106/ul Normal 4.20-5.40 [facility] Comment on above: Performed By: #### C BC #### [facility] [address] [address] [address] Tom Altman WBC 8.3 103/ul Normal 4.0-11.0 [facility] Comment on above: Performed By: #### C BC #### [facility] [address] [place] [address] LUNG CANCER SCREENINGon 0 12-21-2021 CT LUNG CANCER SCREENING EXAMINATION: CT LUNG CANCER SCREENING HISTORY: Nicotine dependence COMPARISON: No relevant comparison available. TECHNIQUE: Axial, Coronal, and Sagittal images were created without the administration of IV contrast material. Dose reduction techniques were achieved by using automated exposure control and/or adjustment of mA and/or kV according to patient size and/or use of iterative reconstruction technique. FINDINGS: LUNGS: No suspicious nodules or acute infiltrates. Moderate emphysematous changes. PLEURA: No mass, effusion, or pneumothorax. VASCULATURE: No abnormality. LAN: No mass or pathologic adenopathy. MEDIASTINUM: No mass or pathologic adenopathy. CARDIAC: No enlargement, pericardial thickening, or significant calcification. AORTA: No aneurysm or dissection. CHEST WALL: No mass or axillary adenopathy BONES: No bone lesion or fracture. LIMITED ABDOMEN: No suspicious findings. Limited images of the upper abdomen. OTHER: Negative. IMPRESSION: 1. LUNG SCREENING: Lung-RADS Category 1 Negative. No nodules and definitely benign nodules. Continue annual screening with LDCT in 12 months. Electronically authenticated by: MARI MONTES Date: 2021-12-21 14:[address] [facility] FREE T4on 12-21-2021 Free T4 [Mass/Vol] 1.03 ng/dL Normal 0.76-1.46 [facility] Comment on above: Performed By: #### F T4 #### [facility] [address] [address] [address] Tom Altman GLYCOHEMOGLOBIN A1Con 2021 ADA RECOMMENDATION SEE BELOW Normal [facility] Comment on above: Result Comment: ADA RECOMMENDED LIMIT 4.0 - 6.0 ADA THERAPEUTIC TARGET < 7.0 ACTION SUGGESTED > 7.0 Performed By: #### A 1C #### [facility] [address] [place] [address] Dr. Tom Altman Glucose [Mass/Vol] 134 mg/dL Normal [facility] Comment on above: Performed By: #### A 1C #### [facility] [address] [place] [address] Dr. Tom Altman HbA1c (Bld) [Mass fraction] 6.3 % Critically high 4.5-6.2 [facility] Comment on above: Performed By: #### A 1C #### [facility] [address] [place] [address] Dr. Tom Altman LIPID PROFILEon 12-21-2021 CHOL-HDL RATIO NORM SEE BELOW Normal [facility] Comment on above: Result Comment: 3.3 - 4.4 LOW RISK 4.4 - 7.1 AVERAGE RISK 7.1 - 11.0 MODERATE RISK >11.0 HIGH RISK Performed By: #### T SH, LIPID, CMP #### [facility] [address] [place] [address] Dr. Tom Altman Cholesterol [Mass/Vol] 145 mg/dL Normal <=200 [facility] Comment on above: Performed By: #### T SH, LIPID, CMP #### [facility] [address] [place] [address] Dr. Tom Altman Cholesterol in HDL [Mass/Vol] 45 mg/dL Normal 40-60 [facility] Comment on above: Performed By: #### T SH, LIPID, CMP #### [facility] [address] [place] [address] Dr. Tom Altman Cholesterol in LDL [Mass/Vol] 83.0 mg/dL Normal [facility] Comment on above: Performed By: #### T SH, LIPID, CMP #### [facility] [address] [address] [address] Tom Altman Cholesterol.total/C holesterol in HDL [Mass ratio] 3.2 {ratio} Normal [facility] Comment on above: Performed By: #### T SH, LIPID, CMP #### [facility] [address] [address] [address] Tom Altman HDL NORMAL > or = 60 mg/dl - LO W CARDIOVASCULAR RISK <40 mg/dl - HIGH CARDIOVASCULAR RISK Normal [facility] Comment on above: Performed By: #### T SH, LIPID, CMP #### [facility] [address] [address] [address] Tom Altman LDL CALC NORMAL SEE BELOW Normal [facility] Comment on above: Result Comment: <100 mg/dl OPTIMAL 100 - 129 mg/dl NEAR OR ABOVE OPTIMAL 130 - 159 mg/dl BORDERLINE HIGH 160 - 189 mg/dl HIGH >190 mg/dl VERY HIGH Performed By: #### T SH, LIPID, CMP #### [facility] [address] [address] [address] Tom Altman Triglyceride [Mass/Vol] 85 mg/dL Normal <=150 [facility] Comment on above: Performed By: #### T SH, LIPID, CMP #### [facility] [address] [address] [address] Tom Altman VLDL CALC 17.0 mg/dL Normal [facility] Comment on above: Performed By: #### T SH, LIPID, CMP #### [facility] [address] [address] [address] Tom Altman MICROALBUMIN, RAND URon 07-0 mALB <1.3 Normal <=30.0 [facility] Comment on above: Performed By: #### M ALBR #### [facility] [address] [address] [address] Tom Altman PROF 14(COMP METB)on 022 Albumin [Mass/Vol] 3.7 g/dL Normal 3.4-5.0 [facility] Comment on above: Performed By: #### T SH, LIPID, CMP #### [facility] [address] [address] [address] Tom Altman Albumin/Globulin [Mass ratio] 1.0 {ratio} Normal [facility] Comment on above: Performed By: #### T SH, LIPID, CMP #### [facility] [address] [address] [address] Tom Altman ALP [Catalytic activity/Vol] 60 U/L Normal 46-116 [facility] Comment on above: Performed By: #### T SH, LIPID, CMP #### [facility] [address] [address] [address] Tom Altman ALT [Catalytic activity/Vol] 21 U/L Normal 14-59 [facility] Comment on above: Performed By: #### T SH, LIPID, CMP #### [facility] [address] [address] [address] Tom Altman Anion gap [Moles/Vol] 13.1 mmol/L Normal [facility] Comment on above: Performed By: #### T SH, LIPID, CMP #### [facility] [address] [address] [address] Tom Altman AST [Catalytic activity/Vol] 9 U/L Critically low 15-37 [facility] Comment on above: Performed By: #### T SH, LIPID, CMP #### [facility] [address] [address] [address] Tom Altman Bilirubin [Mass/Vol] 0.4 mg/dL Normal 0.2-1.0 [facility] Comment on above: Performed By: #### T SH, LIPID, CMP #### [facility] [address] [address] [address] Tom Altman Calcium [Mass/Vol] 9.3 mg/dL Normal 8.5-10.1 [facility] Comment on above: Performed By: #### T SH, LIPID, CMP #### [facility] [address] [address] [address] Tom Altman Chloride [Moles/Vol] 102 mmol/L Normal 98-107 [facility] Comment on above: Performed By: #### T SH, LIPID, CMP #### [facility] [address] [address] [address] Tom Altman CO2 [Moles/Vol] 26.9 mmol/L Normal 21.0-32.0 [facility] Comment on above: Performed By: #### T SH, LIPID, CMP #### [facility] [address] [address] [address] Tom Altman Creatinine [Mass/Vol] 0.78 mg/dL Normal 0.55-1.02 [facility] Comment on above: Performed By: #### T SH, LIPID, CMP #### [facility] [address] [place] [address] Dr. Tom Altman EGFR-AF AZERBAIJANI >60 Normal >=60 [facility] Comment on above: Performed By: #### T SH, LIPID, CMP #### [facility] [address] [place] [address] Dr. Tom Altman EGFR-NON AF AZERBAIJANI >60 Normal >=60 [facility] Comment on above: Performed By: #### T SH, LIPID, CMP #### [facility] [address] [place] [address] Dr. Tom Altman Globulin (S) [Mass/Vol] 3.8 g/dL Normal [facility] Comment on above: Performed By: #### T SH, LIPID, CMP #### [facility] [address] [place] [address] Dr. Tom Altman Glucose [Mass/Vol] 146 mg/dL Critically high 74-106 [facility] Comment on above: Performed By: #### T SH, LIPID, CMP #### [facility] [address] [place] [address] Dr. Tom Altman Potassium [Moles/Vol] 4.0 mmol/L Normal 3.5-5.1 [facility] Comment on above: Performed By: #### T SH, LIPID, CMP #### [facility] [address] [place] [address] Dr. Tom Altman Protein [Mass/Vol] 7.5 g/dL Normal 6.4-8.2 [facility] Comment on above: Performed By: #### T ESMER LIPID, CMP #### [facility] [address] [address] [address] Tom Altman Sodium [Moles/Vol] 138 mmol/L Normal 136-145 [facility] Comment on above: Performed By: #### T ESMER LIPID, CMP #### [facility] [address] [address] [address] Tom Altman Urea nitrogen [Mass/Vol] 9.0 mg/dL Normal 7.0-18.0 [facility] Comment on above: Performed By: #### T ESMER LIPID, CMP #### [facility] [address] [address] [address] Tom Altman Urea nitrogen/Creatinine [Mass ratio] 11.5 mg/mg Normal [facility] Comment on above: Performed By: #### T ESMER LIPID, CMP #### [facility] [address] [address] [address] Tom Altman TSHon 12-21-2021 TSH 1.045 uIU/mL Normal 0.358-3.740 [facility] Comment on above: Performed By: #### T ESMER LIPID, CMP #### [facility] [address] [address] [address] Tom Altman UA RANDOM W/MICROSCOPICon BACTERIA TRACE Abnormal NONE SEEN [facility] Comment on above: Performed By: #### U AMIC ####[facility] [id number] [address]Dr. Tom Altman Bilirubin Ql (U) Negative Normal NEGATIVE [facility] Comment on above: Performed By: #### U AMIC ####[facility] [id number] [address]Dr. Tom Altman CAST NONE SEEN Normal NONE SEEN [facility] Comment on above: Performed By: #### U AMIC ####[facility] [id number] [id number][address] Tom Altman Clarity (U) CLEAR Normal CLEAR [facility] Comment on above: Performed By: #### U AMIC ####[facility] [id number] [address]Dr. Tom Altman Color (U) LT. YELLOW Normal YELLOW [facility] Comment on above: Performed By: #### U AMIC ####[facility] [id number] [address]Dr. Tom Altman Crystals LM Nom (Urine sed) NONE SEEN Normal NONE SEEN [facility] Comment on above: Performed By: #### U AMIC ####[facility] [id number] [address]Dr. Celegino Altman Epithelial cells LM Ql (Urine sed) FEW Abnormal NONE SEEN /RARE [facility] Comment on above: Performed By: #### U AMIC ####[facility] [id number] [place], [place] [address]Dr. Tom Altman Glucose Ql (U) Negative Normal NEGATIVE [facility] Comment on above: Performed By: #### U AMIC ####[facility] [id number] [place], [place] [address]Dr. Celegino Altman Hemoglobin Ql (U) Negative Normal NEGATIVE [facility] Comment on above: Performed By: #### U AMIC ####[facility] [id number] [place], [place] [address]Dr. Tom Altman Ketones Ql (U) Negative Normal NEGATIVE [facility] Comment on above: Performed By: #### U AMIC ####[facility] [id number] [place], [place] [address]Dr. Yilan Altman LEUKOCYTES Negative Normal NEGATIVE [facility] Comment on above: Performed By: #### U AMIC ####[facility] [id number] [place], [place] [address]Dr. Celelan Altman MUCOUS NONE SEEN Normal NONE SEEN [facility] Comment on above: Performed By: #### U AMIC ####[facility] [id number] [place], [place] [address]Dr. Tom Altman Nitrite Ql (U) Negative Normal NEGATIVE [facility] Comment on above: Performed By: #### U AMIC ####[facility] [place] [id number] [place] [id number]. Tom Altman pH (U) 7.0 [pH] Normal 5-9 [facility] [place] Comment on above: Performed By: #### U AMIC ####[facility] [place] [id number] [place] [id number]. Tom Altman RBC 0-2 Normal 0-2 [facility] [place] Comment on above: Performed By: #### U AMIC ####[facility] [place] [id number] [place] [id number]. Tom Altman SPEC GRAVITY 1.010 Normal 1.005-<=1.025 [facility] Comment on above: Performed By: #### U AMIC ####[facility] [place] [id number] [place] [address]Dr. Tom Altman UA PROTEIN Negative Normal NEGATIVE/ TRACE [facility] [place] Comment on above: Performed By: #### U AMIC ####[facility] [place] [id number] [place] [address]Dr. Tom Altman Urobilinogen Qn (U) 0.2 {Isai'U}/dL Normal 0.2 - 1. 0 [facility] [place] Comment on above: Performed By: #### U AMIC ####[facility] [place] [id number] [place] [address]Dr. Tom Altman WBC 0-2 Abnormal NONE SEEN [facility] [place] Comment on above: Performed By: #### U AMIC ####[facility] [place] [id number] [place] [id number]. Tom Altman US ABD AORTA SCREENINGon US ABD AORTA SCREENING EXAM: US ABD AORTA SCREENING HISTORY: Cardiovascular symptoms. , Abdominal bruit TECHNIQUE: Ultrasound was performed of the abdominal aorta. COMPARISON: None. FINDINGS: AORTA: Mild plaque within the distal abdominal aorta. Maximum diameter of aorta, 2.0 x 2.2 cm. Duplex Doppler demonstrates normal waveform and flow, 81/13 cm/s within the mid aorta. OTHER: No aneurysmal dilation of the iliac arteries. IMPRESSION: 1. Mild atherosclerotic disease. No aneurysm. Electronically authenticated by: MARI Montgomery: 2021-11-01 11:[address] [facility] DEXA BONE DENSITY AXIAL SKEL Jaysonn 09-24-2020 DEXA BONE DENSITY AXIAL SKELETON EXAMINATION: BONE DENSITOMETRY 09/24/2020 10:44 am TECHNIQUE: A bone density dual x-ray absorptiometry (DEXA) scan was performed of the lumbar spine and left hip on a [employer] system. COMPARISON: August 16, 2006. HISTORY: ORDERING SYSTEM PROVIDED HISTORY: Post-menopausal TECHNOLOGIST PROVIDED HISTORY: screeniing FINDINGS: LUMBAR SPINE: The bone mineral density in the lumbar spine including the L2-L4 (L3) levels is measured at 1.034 g/cm2, which corresponds to a T-score of -1.4 and a Z-score of 0.1. This is within the osteopenia range by WHO criteria. This suggests statistically significant change since previous of -9.1%. RIGHT HIP: The bone mineral density in the total hip is measured at 0.733 g/cm2 corresponding to a T-score of -2.2 and a Z-score of -1.0. This is within the osteopenia range by WHO criteria. This suggests statistically significant change since previous of -15.5%. The bone mineral density of the femoral neck is measured at 0.641 g/cm2 corresponding to a T-score of -2.9 and a Z-score of -1.4. This is within the osteoporosis range by WHO criteria. Left forearm: The bone mineral density in the left radius (33%) iis measured at 0.701 g/cm2 corresponding to a T-score of -0.2 and a Z-score of 1.2. This is within the normal range by WHO criteria. FRAX score for estimated 10 year fracture risk at any site is 23.5%, and in the hip 9.3%. IMPRESSION: By WHO criteria the patient's bone mineral density is classified as osteoporosis. Interpreted by: Ines Wild MD Signed by: Ines Wild MD 09/24/20 Final result Normal [facility] By WHO criteria the patient's bone mineral density is classified as osteoporosis. [employer] Work Phone: EXAMINATION: BONE DENSITOMETRY 09/24/2020 10:44 am TECHNIQUE: A bone density dual x-ray absorptiometry (DEXA) scan was performed of the lumbar spine and left hip on a [employer] system. COMPARISON: August 16, 2006. HISTORY: ORDERING SYSTEM PROVIDED HISTORY: Post-menopausal TECHNOLOGIST PROVIDED HISTORY: screeniing FINDINGS: LUMBAR SPINE: The bone mineral density in the lumbar spine including the L2-L4 (L3) levels is measured at 1.034 g/cm2, which corresponds to a T-score of -1.4 and a Z-score of 0.1. This is within the osteopenia range by WHO criteria. This suggests statistically significant change since previous of -9.1%. RIGHT HIP: The bone mineral density in the total hip is measured at 0.733 g/cm2 corresponding to a T-score of -2.2 and a Z-score of -1.0. This is within the osteopenia range by WHO criteria. This suggests statistically significant change since previous of -15.5%. The bone mineral density of the femoral neck is measured at 0.641 g/cm2 corresponding to a T-score of -2.9 and a Z-score of -1.4. This is within the osteoporosis range by WHO criteria. Left forearm: The bone mineral density in the left radius (33%) iis measured at 0.701 g/cm2 corresponding to a T-score of -0.2 and a Z-score of 1.2. This is within the normal range by WHO criteria. FRAX score for estimated 10 year fracture risk at any site is 23.5%, and in the hip 9.3%. [employer] Work Phone: Mario Alberto, heather Incoming Radiant Results From [employer] - 09/24/2020 10:52 AM EDT EXAMINATION: BONE DENSITOMETRY 09/24/2020 10:44 am TECHNIQUE: A bone density dual x-ray absorptiometry (DEXA) scan was performed of the lumbar spine and left hip on a [employer] system. COMPARISON: August 16, 2006. HISTORY: ORDERING SYSTEM PROVIDED HISTORY: Post-menopausal TECHNOLOGIST PROVIDED HISTORY: screeniing FINDINGS: LUMBAR SPINE: The bone mineral density in the lumbar spine including the L2-L4 (L3) levels is measured at 1.034 g/cm2, which corresponds to a T-score of -1.4 and a Z-score of 0.1. This is within the osteopenia range by WHO criteria. This suggests statistically significant change since previous of -9.1%. RIGHT HIP: The bone mineral density in the total hip is measured at 0.733 g/cm2 corresponding to a T-score of -2.2 and a Z-score of -1.0. This is within the osteopenia range by WHO criteria. This suggests statistically significant change since previous of -15.5%. The bone mineral density of the femoral neck is measured at 0.641 g/cm2 corresponding to a T-score of -2.9 and a Z-score of -1.4. This is within the osteoporosis range by WHO criteria. Left forearm: The bone mineral density in the left radius (33%) iis measured at 0.701 g/cm2 corresponding to a T-score of -0.2 and a Z-score of 1.2. This is within the normal range by WHO criteria. FRAX score for estimated 10 year fracture risk at any site is 23.5%, and in the hip 9.3%. IMPRESSION: By WHO criteria the patient's bone mineral density is classified as osteoporosis. [employer] Work Phone: [employer] RAFI DIGITAL SCREEN MIKE Cortes 09-24-2020 [facility] RAFI DIGITAL SCREEN BILATERAL EXAMINATION: SCREENING DIGITAL BILATERAL MAMMOGRAM WITH TOMOSYNTHESIS 09/24/2020 TECHNIQUE: Screening mammography was performed with tomosynthesis including MLO and CC views of the bilateral breasts. Computer aided detection was used for the interpretation of this exam. COMPARISON: Bilateral mammographic imaging December 30, 2016, April 13, 2010, July 30, 2008. HISTORY: Screening. FINDINGS: There are scattered areas of fibroglandular density. There is no new dominant mass, suspicious microcalcification, or area of architectural distortion. IMPRESSION: No mammographic evidence of malignancy. BIRADS: BIRADS - CATEGORY 1 Negative, no evidence of malignancy. Normal interval follow-up is recommended in 12 months. OVERALL ASSESSMENT - NEGATIVE A letter of notification will be sent to the patient regarding the results. The [employer] recommends annual mammograms for women 40 years and older. Interpreted by: Ines Wild MD Signed by: Ines Wild MD 09/24/20 Final result Normal [facility] No mammographic evidence of malignancy. BIRADS: BIRADS - CATEGORY 1 Negative, no evidence of malignancy. Normal interval follow-up is recommended in 12 months. OVERALL ASSESSMENT - NEGATIVE A letter of notification will be sent to the patient regarding the results. The [employer] recommends annual mammograms for women 40 years and older. [employer] Phone: EXAMINATION: SCREENI NG DIGITAL BILATERAL MAMMOGRAM WITH TOMOSYNTHESIS 09/24/2020 TECHNIQUE: Screening mammography was performed with tomosynthesis including MLO and CC views of the bilateral breasts. Computer aided detection was used for the interpretation of this exam. COMPARISON: Bilateral mammographic imaging December 30, 2016, April 13, 2010, July 30, 2008. HISTORY: Screening. FINDINGS: There are scattered areas of fibroglandular density. There is no new dominant mass, suspicious microcalcification, or area of architectural distortion. [employer] Phone: Mario Alberto, [facility] Incoming Radiant Results From [employer] - 09/24/2020 11:07 AM EDT EXAMINATION: SCREENING DIGITAL BILATERAL MAMMOGRAM WITH TOMOSYNTHESIS 09/24/2020 TECHNIQUE: Screening mammography was performed with tomosynthesis including MLO and CC views of the bilateral breasts. Computer aided detection was used for the interpretation of this exam. COMPARISON: Bilateral mammographic imaging December 30, 2016, April 13, 2010, July 30, 2008. HISTORY: Screening. FINDINGS: There are scattered areas of fibroglandular density. There is no new dominant mass, suspicious microcalcification, or area of architectural distortion. IMPRESSION: No mammographic evidence of malignancy. BIRADS: BIRADS - CATEGORY 1 Negative, no evidence of malignancy. Normal interval follow-up is recommended in 12 months. OVERALL ASSESSMENT - NEGATIVE A letter of notification will be sent to the patient regarding the results. The [employer] recommends annual mammograms for women 40 years and older. [employer] Phone: XR CHEST (2 VW)on 07-30-2020 XR CHEST (2 VW) EXAMINATION: TWO XRAY VIEWS OF THE CHEST 07/30/2020 12:24 pm COMPARISON: 10/29/2018 HISTORY: ORDERING SYSTEM PROVIDED HISTORY: COPD exacerbation (HCC) TECHNOLOGIST PROVIDED HISTORY: cough Reason for Exam: Cough, dyspnea Acuity: Acute Type of Exam: Initial Relevant Medical/Surgical History: hx. of copd FINDINGS: Cardiac silhouette is normal in size. Lungs are hyperinflated with generalized interstitial prominence. The diaphragm is flattened. No definite superimposed focal airspace consolidation, sizeable pleural effusion, or pneumothorax. Trachea is midline. Osseous structures and soft tissues are grossly intact. IMPRESSION: No evidence for acute cardiopulmonary pathology. COPD. Interpreted by: Adán Vásquez MD Signed by: Adán Vásquez MD 07/30/20 Final result Normal [facility] No evidence for acut e cardiopulmonary pathology. COPD. [employer] Phone: EXAMINATION: TWO XRA Y VIEWS OF THE CHEST 07/30/2020 12:24 pm COMPARISON: 10/29/2018 HISTORY: ORDERING SYSTEM PROVIDED HISTORY: COPD exacerbation (HCC) TECHNOLOGIST PROVIDED HISTORY: cough Reason for Exam: Cough, dyspnea Acuity: Acute Type of Exam: Initial Relevant Medical/Surgical History: hx. of copd FINDINGS: Cardiac silhouette is normal in size. Lungs are hyperinflated with generalized interstitial prominence. The diaphragm is flattened. No definite superimposed focal airspace consolidation, sizeable pleural effusion, or pneumothorax. Trachea is midline. Osseous structures and soft tissues are grossly intact. [employer] Phone: Mario Alberto, [facility] Incoming Radiant Results From [email or web address] - 07/30/2020 1:44 PM EST EXAMINATION: TWO XRAY VIEWS OF THE CHEST 07/30/2020 12:24 pm COMPARISON: 10/29/2018 HISTORY: ORDERING SYSTEM PROVIDED HISTORY: COPD exacerbation (HCC) TECHNOLOGIST PROVIDED HISTORY: cough Reason for Exam: Cough, dyspnea Acuity: Acute Type of Exam: Initial Relevant Medical/Surgical History: hx. of copd FINDINGS: Cardiac silhouette is normal in size. Lungs are hyperinflated with generalized interstitial prominence. The diaphragm is flattened. No definite superimposed focal airspace consolidation, sizeable pleural effusion, or pneumothorax. Trachea is midline. Osseous structures and soft tissues are grossly intact. IMPRESSION: No evidence for acute cardiopulmonary pathology. COPD. [employer] Phone: [id number] 08-13-2020 SARS-CoV-2 Not Detected Normal Not Detected [facility] Comment on above: Result Comment: (NOT E) Testing was performed using the Aptima SARS-CoV-2 assay. This test was developed and its performance characteristics determined by [employer]. This test has not been FDA cleared or approved. This test has been authorized by FDA under an Emergency Use Authorization (EUA). This test is only authorized for the duration of time the declaration that circumstances exist justifying the authorization of the emergency use of in vitro diagnostic tests for detection of SARS-CoV-2 virus and/or diagnosis of COVID-19 infection under section 564(b)(1) of the Act, 21 U.S.C. 360bbb-3(b)(1), unless the authorization is terminated or revoked sooner. When diagnostic testing is negative, the possibility of a false negative result should be considered in the context of a patient's recent exposures and the presence of clinical signs and symptoms consistent with COVID-19. An individual without symptoms of COVID-19 and who is not shedding SARS-CoV-2 virus would expect to have a negative (not detected) result in this assay. Performed At: =G [address] [id number] Linda Avelar MD Ph:[phone] Performed By: #### A COV #### [facility] [address] [place] [address] Promotions Executive Producer: Jony Trejo MD CBCon 11-21-2019 NRBC Automated NOT REPORTED Normal [facility] Comment on above: Performed By: #### C BC, CP, LIPR, TSH #### [facility] [address] [place] [address] Promotions Executive Producer: Vishal Lorenzo DO Erythrocyte distribution width (RBC) [Ratio] 14.1 % Normal 11.5-14.9 [place], [place] Comment on above: Performed By: #### C BC, CP, LIPR, TSH #### [facility] [address] [place] [address] Promotions Executive Producer: Vishal Lorenzo DO Hematocrit (Bld) [Volume fraction] 38.0 % Normal 36-46 [place], [place] Comment on above: Performed By: #### C BC, CP, LIPR, TSH #### [facility] [address] [facility] [place] [address] Promotions Executive Producer: Vishal Lorenzo DO Hemoglobin (Bld) [Mass/Vol] 12.3 g/dL Normal 12.0-16.0 [place], [place] Comment on above: Performed By: #### C BC, CP, LIPR, TSH #### [facility] [facility] [place] [address] Promotions Executive Producer: Vishal Lorenzo DO MCH (RBC) [Entitic mass] 30.0 pg Normal 26-34 [place], [place] Comment on above: Performed By: #### C BC, CP, LIPR, TSH #### [facility] [address] [place] [address]. [place] [address] Promotions Executive Producer: Vishal Lorenzo DO MCHC (RBC) [Mass/Vol] 32.5 g/dL Normal 31-37 [place], [place] Comment on above: Performed By: #### C BC, CP, LIPR, TSH #### [facility] [address] [place] [address]. [place] [address] Promotions Executive Producer: Vishal Lorenzo DO MCV (RBC) [Entitic vol] 92.1 fL Normal 80-100 [place], [place] Comment on above: Performed By: #### C BC, CP, LIPR, TSH #### [facility] [address] [place] [address]. [place] [address] Promotions Executive Producer: Vishal Lorenzo DO Platelet mean volume (Bld) [Entitic vol] 8.6 fL Normal 6.0-12.0 [place] Comment on above: Performed By: #### C BC, CP, LIPR, TSH #### [facility] [address] [facility] [place] [address] Promotions Executive Producer: Vishal Lorenzo DO Platelets (Bld) [#/Vol] 209 10*3/uL Normal 150-450 [place], [place] Comment on above: Performed By: #### C BC, CP, LIPR, TSH #### [facility] [address] [place] [address] Promotions Executive Producer: Vishal Lorenzo DO RBC (Bld) [#/Vol] 4.12 10*6/uL Normal 4.0-5.2 [place] Comment on above: Performed By: #### C BC, CP, LIPR, TSH #### [facility] [address] [facility] [place] [address] Promotions Executive Producer: Vishal Lorenzo DO WBC (Bld) [#/Vol] 6.0 10*3/uL Normal 3.5-11.0 [place] Comment on above: Performed By: #### C BC, CP, LIPR, TSH #### [facility] [address] [facility] [place] [address] Promotions Executive Producer: Vishal Lorenzo DO WBC (Bld) [#/Vol] NOT REPORTED per 100 WBC [place], [place] CT LUNG SCREENINGon 11-21-19 20 No new or enlarging pulmonary nodule. LUNG RADS: Per ACR Lung-RADS Version 1.0 Category 2, Benign appearance or behavior. Management: Continue annual lung screening with LDCT in 12 months. (probability of malignancy <1%). RECOMMENDATIONS: If you would like to register your patient with the [facility] Lung Nodule/Lung Cancer Screening Program, please contact the Nurse Navigator at [phone]). [place], [place] EXAMINATION: LOW DOS E SCREENING CT OF THE CHEST WITHOUT CONTRAST TECHNIQUE: Low dose lung cancer screening CT of the chest was performed without the administration of intravenous contrast. Multiplanar reformatted images are provided for review. Dose modulation, iterative reconstruction, and/or weight based adjustment of the mA/kV was utilized to reduce the radiation dose to as low as reasonably achievable. COMPARISON: Lung screening CT September 27, 2018. HISTORY: Screening. Patient Age: 64 y/o Number of pack years of smokin If no longer smoking, number of years since cessation: Other symptoms: None. FINDINGS: Mediastinum: Suboptimal evaluation due to low dose technique. Thoracic aorta demonstrates mild calcification without aneurysm. Pulmonary trunk appears nondilated. Heart appears normal size without pericardial effusion. No lymphadenopathy is noted. The esophagus is grossly unremarkable. Lungs/Pleura: Emphysematous changes with subpleural reticular change. No focal consolidation, pneumothorax or pleural effusion. Trachea and distal airways demonstrate mild bronchial wall thickening. Stable 4 mm solid noncalcified pulmonary nodule left lower lobe series 4, image 36. Previously described 3 mm nodule within the right upper lobe appears unchanged and likely is an area of focal scarring now seen on series 4, image 25. No new or enlarging pulmonary nodules Upper Abdomen: Suboptimal evaluation due to low dose technique. Visualized adrenal glands appear grossly unremarkable. Cholelithiasis. Soft Tissues/Bones: Visualized soft tissues surrounding chest wall demonstrate no acute findings. [facility] [place], [place] Mario Alberto, pn Incoming Radiant Results From [email or web address] - 11/21/2019 10:40 AM EDT EXAMINATION: LOW DOSE SCREENING CT OF THE CHEST WITHOUT CONTRAST TECHNIQUE: Low dose lung cancer screening CT of the chest was performed without the administration of intravenous contrast. Multiplanar reformatted images are provided for review. Dose modulation, iterative reconstruction, and/or weight based adjustment of the mA/kV was utilized to reduce the radiation dose to as low as reasonably achievable. COMPARISON: Lung screening CT September 27, 2018. HISTORY: Screening. Patient Age: 64 y/o Number of pack years of smokin If no longer smoking, number of years since cessation: Other symptoms: None. FINDINGS: Mediastinum: Suboptimal evaluation due to low dose technique. Thoracic aorta demonstrates mild calcification without aneurysm. Pulmonary trunk appears nondilated. Heart appears normal size without pericardial effusion. No lymphadenopathy is noted. The esophagus is grossly unremarkable. Lungs/Pleura: Emphysematous changes with subpleural reticular change. No focal consolidation, pneumothorax or pleural effusion. Trachea and distal airways demonstrate mild bronchial wall thickening. Stable 4 mm solid noncalcified pulmonary nodule left lower lobe series 4, image 36. Previously described 3 mm nodule within the right upper lobe appears unchanged and likely is an area of focal scarring now seen on series 4, image 25. No new or enlarging pulmonary nodules Upper Abdomen: Suboptimal evaluation due to low dose technique. Visualized adrenal glands appear grossly unremarkable. Cholelithiasis. Soft Tissues/Bones: Visualized soft tissues surrounding chest wall demonstrate no acute findings. IMPRESSION: No new or enlarging pulmonary nodule. LUNG RADS: Per ACR Lung-RADS Version 1.0 Category 2, Benign appearance or behavior. Management: Continue annual lung screening with LDCT in 12 months. (probability of malignancy <1%). RECOMMENDATIONS: If you would like to register your patient with the [facility] Lung Nodule/Lung Cancer Screening Program, please contact the Nurse Navigator at [phone]). [place], [place] CT LUNG SCREENING (INITIAL/A NNUAL)on 11-21-2019 CT LUNG SCREENING (INITIAL/ANNUAL) EXAMINATION: LOW DOSE SCREENING CT OF THE CHEST WITHOUT CONTRAST TECHNIQUE: Low dose lung cancer screening CT of the chest was performed without the administration of intravenous contrast. Multiplanar reformatted images are provided for review. Dose modulation, iterative reconstruction, and/or weight based adjustment of the mA/kV was utilized to reduce the radiation dose to as low as reasonably achievable. COMPARISON: Lung screening CT September 27, 2018. HISTORY: Screening. Patient Age: 64 y/o Number of pack years of smokin If no longer smoking, number of years since cessation: Other symptoms: None. FINDINGS: Mediastinum: Suboptimal evaluation due to low dose technique. Thoracic aorta demonstrates mild calcification without aneurysm. Pulmonary trunk appears nondilated. Heart appears normal size without pericardial effusion. No lymphadenopathy is noted. The esophagus is grossly unremarkable. Lungs/Pleura: Emphysematous changes with subpleural reticular change. No focal consolidation, pneumothorax or pleural effusion. Trachea and distal airways demonstrate mild bronchial wall thickening. Stable 4 mm solid noncalcified pulmonary nodule left lower lobe series 4, image 36. Previously described 3 mm nodule within the right upper lobe appears unchanged and likely is an area of focal scarring now seen on series 4, image 25. No new or enlarging pulmonary nodules Upper Abdomen: Suboptimal evaluation due to low dose technique. Visualized adrenal glands appear grossly unremarkable. Cholelithiasis. Soft Tissues/Bones: Visualized soft tissues surrounding chest wall demonstrate no acute findings. IMPRESSION: No new or enlarging pulmonary nodule. LUNG RADS: Per ACR Lung-RADS Version 1.0 Category 2, Benign appearance or behavior. Management: Continue annual lung screening with LDCT in 12 months. (probability of malignancy <1%). RECOMMENDATIONS: If you would like to register your patient with the [facility] Lung Nodule/Lung Cancer Screening Program, please contact the Nurse Navigator at [phone]). Interpreted by: Adrián Ladd Jr., DO Signed by: Adrián Ladd Jr., DO 11/21/19 Final result Normal [facility] Comp Metabolic Profon 2019 (cont.) Normal [facility] Comment on above: Result Comment: Aver age GFR for 60-69 years old: 85 mL/min/1.73sq m Chronic Kidney Disease: <60 mL/min/1.73sq m Kidney failure: <15 mL/min/1.73sq m eGFR calculated using average adult body mass. Additional eGFR calculator available at: http://www.[employer]/multiple_crcl_2012.htm Performed By: #### C BC, CP, LIPR, TSH #### [facility] [address] [facility] [place] [address] Promotions Executive Producer: Vishal Lorenzo DO Albumin [Mass/Vol] 4.1 g/dL Normal 3.5-5.2 [facility] Comment on above: Performed By: #### C BC, CP, LIPR, TSH #### [facility] [address] [place] [address] Promotions Executive Producer: Vishal Lorenzo DO Alkaline Phos 67 U/L Normal 35-104 [facility] Comment on above: Performed By: #### C BC, CP, LIPR, TSH #### [facility] [address] [place] [address] Promotions Executive Producer: Vishal Lorenzo DO ALT [Catalytic activity/Vol] 11 U/L Normal 5-33 [facility] Comment on above: Performed By: #### C BC, CP, LIPR, TSH #### [facility] [address] [place] [address] [employer]otions Executive Producer: Vishal Lorenzo DO Anion gap [Moles/Vol] 12 mmol/L Normal 9-17 [facility] Comment on above: Performed By: #### C BC, CP, LIPR, TSH #### [facility] [address] [place] [address] [employer]otions Executive Producer: Vishal Lorenzo DO AST [Catalytic activity/Vol] 9 U/L Normal <32 [facility] Comment on above: Performed By: #### C BC, CP, LIPR, TSH #### [facility] [address] [place] [address] Promotions Executive Producer: Vishal Lorenzo DO Bilirubin Ql (U) 0.26 mg/dL Low 0.3-1.2 [facility] Comment on above: Performed By: #### C BC, CP, LIPR, TSH #### [facility] [place] [address] Promotions Executive Producer: Vishal Lorenzo DO Calcium [Mass/Vol] 9.2 mg/dL Normal 8.6-10.4 [facility] Comment on above: Performed By: #### C BC, CP, LIPR, TSH #### [facility] [place] [address] Promotions Executive Producer: Vishal Lorenzo DO Chloride [Moles/Vol] 103 mmol/L Normal 98-107 [facility] Comment on above: Performed By: #### C BC, CP, LIPR, TSH #### [facility] [address] [place] [address] Promotions Executive Producer: Vishal Lorenzo DO CO2 [Moles/Vol] 22 mmol/L Normal 20-31 [facility] Comment on above: Performed By: #### C BC, CP, LIPR, TSH #### [facility] [address] [place] [address] [employer]otions Executive Producer: Vishal Lorenzo DO Creatinine [Mass/Vol] 0.70 mg/dL Normal 0.50-0.90 [facility] Comment on above: Performed By: #### C BC, CP, LIPR, TSH #### [facility] [address] [place] [address] Promotions Executive Producer: Vishal Lorenzo DO GFR, Amer >60 Normal >60 [facility] Comment on above: Performed By: #### C BC, CP, LIPR, TSH #### [facility] [address] [place] [address] Promotions Executive Producer: Vishal Lorenzo DO GFR,non Amer >60 Normal >60 [facility] Comment on above: Performed By: #### C BC, CP, LIPR, TSH #### [facility] [facility] [place] [address] [employer]otions Executive Producer: Vishal Lorenzo DO Glucose [Mass/Vol] 178 mg/dL High 70-99 [facility] Comment on above: Performed By: #### C BC, CP, LIPR, TSH #### [facility] [facility] [place] [address] [employer]otions Executive Producer: Vishal Lorenzo DO Potassium [Moles/Vol] 4.1 mmol/L Normal 3.7-5.3 [facility] Comment on above: Performed By: #### C BC, CP, LIPR, TSH #### [facility] [facility] [place] [address] Promotions Executive Producer: Vishal Lorenzo DO Protein [Mass/Vol] 6.4 g/dL Normal 6.4-8.3 [facility] Comment on above: Performed By: #### C BC, CP, LIPR, TSH #### [facility] [place] [address] Promotions Executive Producer: Vishal Lorenzo DO Sodium [Moles/Vol] 137 mmol/L Normal 135-144 [facility] Comment on above: Performed By: #### C BC, CP, LIPR, TSH #### [facility] [place] [address] [employer]otions Executive Producer: Vishal Lorenzo DO Urea nitrogen [Mass/Vol] 13 mg/dL Normal 8-23 [facility] Comment on above: Performed By: #### C BC, CP, LIPR, TSH #### [facility] [address] [place] [address] [employer] Executive Producer: Vishal Lorenzo DO Albumin/Globulin [Mass ratio] NOT REPORTED Normal 1.0-2.5 [facility] Comment on above: Performed By: #### C BC, CP, LIPR, TSH #### [facility] [address] [place] [address] [employer] Executive Producer: Vishal Lorenzo DO BUN/CRE Ratio NOT REPORTED Normal 9-20 [facility] Comment on above: Performed By: #### C BC, CP, LIPR, TSH #### [facility] [address] [place] [address] [employer] Executive Producer: Vishal Lorenzo DO Staging: NOT REPORTED Normal [facility] Comment on above: Performed By: #### C BC, CP, LIPR, TSH #### [facility] [address] [place] [address] [employer] Executive Producer: Vishal Lorenzo DO Comprehensive Metabolic Pane [place] 11-21-2019 Albumin [Mass/Vol] 4.1 g/dL 3.5 - 5.2 g/dL [place] Albumin/Globulin [Mass ratio] NOT REPORTED [place] ALP [Catalytic activity/Vol] 67 U/L 35 - 104 U/L [place] ALT [Catalytic activity/Vol] 11 U/L 5 - 33 U/L [place] Anion gap [Moles/Vol] 12 mmol/L 9 - 17 mmol/L [place] AST [Catalytic activity/Vol] 9 U/L <32 [place] Bilirubin Ql (U) 0.26 mg/dL Low 0.3 - 1.2 mg/dL [place] Bun/Cre Ratio NOT REPORTED [place] Calcium [Mass/Vol] 9.2 mg/dL 8.6 - 10. 4 mg/dL [place] Chloride [Moles/Vol] 103 mmol/L 98 - 107 mmol/L [place] CO2 [Moles/Vol] 22 mmol/L 20 - 31 mmol/L [place] Creatinine [Mass/Vol] 0.7 mg/dL 0.5 - 0.9 mg/dL [place] GFR >60 >60 mL/min [place] GFR Non- >60 >60 mL/min [place] GFR/1.73 sq M predicted among non-blacks MDRD (S/P/Bld) [Vol rate/Area] [place] Comment on above: Average GFR for 60-6 9 years old: 85 mL/min/1.73sq m Chronic Kidney Disease: <60 mL/min/1.73sq m Kidney failure: <15 mL/min/1.73sq m eGFR calculated using average adult body mass. Additional eGFR calculator available at: http://www.[employer]/multiple_crcl_2012.htm GFR/1.73 sq M predicted among non-blacks MDRD (S/P/Bld) [Vol rate/Area] NOT REPORTED [place] Glucose [Mass/Vol] 178 mg/dL High 70 - 99 mg/dL [place], [place] Interpretation and review of laboratory results Abnormal [place] Potassium [Moles/Vol] 4.1 mmol/L 3.7 - 5.3 mmol/L [place] Protein [Mass/Vol] 6.4 g/dL 6.4 - 8.3 g/dL [place] Sodium [Moles/Vol] 137 mmol/L 135 - 144 mmol/L [place] Urea nitrogen [Mass/Vol] 13 mg/dL 8 - 23 mg/dL [place] Lipid Panelon 11-21-2019 Cholesterol [Mass/Vol] 122 mg/dL <200 [place] Comment on above: Cholesterol Guidelines: <200 Desirable 200-240 Borderline >240 Undesirable Cholesterol in HDL [Mass/Vol] 49 mg/dL >40 [place] Comment on above: HDL Guidelines: <40 Undesirable 40-59 Borderline >59 Desirable Cholesterol in LDL [Mass/Vol] 60 mg/dL 0 - 130 mg/dL [place] Comment on above: LDL Guidelines: <100 Desirable 100-129 Near to/above Desirable 130-159 Borderline >159 Undesirable Direct (measured) LDL and calculated LDL are not interchangeable tests. Cholesterol in VLDL [Mass/Vol] NOT REPORTED 1 - 30 mg/dL [place] Cholesterol.total/C holesterol in HDL [Mass ratio] 2.5 {ratio} <5 [place] Triglyceride [Mass/Vol] 65 mg/dL <150 [place] Comment on above: Triglyceride Guidelines: <150 Desirable 150-199 Borderline 200-499 High >499 Very high Based on AHA Guidelines for fasting triglyceride, March 2012. Lipid Profileon 11-21-2019 Cholesterol [Mass/Vol] 122 mg/dL Normal <200 [facility] Comment on above: Result Comment: Cholesterol Guidelines: <200 Desirable 200-240 Borderline >240 Undesirable Performed By: #### C BC, CP, LIPR, TSH #### [facility] [address] [place] [address] Promotions Executive Producer: Vishal Lorenzo DO Cholesterol in HDL [Mass/Vol] 49 mg/dL Normal >40 [facility] Comment on above: Result Comment: HDL Guidelines: <40 Undesirable 40-59 Borderline >59 Desirable Performed By: #### C BC, CP, LIPR, TSH #### [facility] [address] [place] [address] Promotions Executive Producer: Vishal Lorenzo DO Cholesterol in LDL [Mass/Vol] 60 mg/dL Normal 0-130 [facility] Comment on above: Result Comment: LDL Guidelines: <100 Desirable 100-129 Near to/above Desirable 130-159 Borderline >159 Undesirable Direct (measured) LDL and calculated LDL are not interchangeable tests. Performed By: #### C BC, CP, LIPR, TSH #### [facility] [address] [place] [address] Promotions Executive Producer: Vishal Lorenzo DO Cholesterol.total/C holesterol in HDL [Mass ratio] 2.5 {ratio} Normal <5 [facility] Comment on above: Performed By: #### C BC, CP, LIPR, TSH #### [facility] [address] [place] [address] Promotions Executive Producer: Vishal Lorenzo DO Triglyceride [Mass/Vol] 65 mg/dL Normal <150 [facility] Comment on above: Result Comment: Triglyceride Guidelines: <150 Desirable 150-199 Borderline 200-499 High >499 Very high Based on AHA Guidelines for fasting triglyceride, March 2012. Performed By: #### C BC, CP, LIPR, TSH #### [facility] [address] [place] [address] Promotions Executive Producer: Vishal Lorenzo DO Cholesterol in VLDL [Mass/Vol] NOT REPORTED Normal 1-30 [facility] Comment on above: Performed By: #### C BC, CP, LIPR, TSH #### [facility] [address] [place] [address] Promotions Executive Producer: Vishal Lorenzo DO TSH without Reflexon 020 TSH Qn 0.95 m[IU]/L [place], [place] Thyroid Stim. Horm.on 2019 TSH Qn 0.95 m[IU]/L Normal 0.30-5.00 [facility] Comment on above: Performed By: #### C BC, CP, LIPR, TSH #### [facility] [address] [place] [address] Promotions Executive Producer: Vishal Lorenzo DO Lipid, Fastingon 02-28-2019 Cholesterol [Mass/Vol] 111 mg/dL <200 [place] Comment on above: Cholesterol Guidelines: <200 Desirable 200-240 Borderline >240 Undesirable Cholesterol in HDL [Mass/Vol] 43 mg/dL >40 [place] Comment on above: HDL Guidelines: <40 Undesirable 40-59 Borderline >59 Desirable Cholesterol in LDL [Mass/Vol] 48 mg/dL 0 - 130 mg/dL [place] Comment on above: LDL Guidelines: <100 Desirable 100-129 Near to/above Desirable 130-159 Borderline >159 Undesirable Direct (measured) LDL and calculated LDL are not interchangeable tests. Cholesterol in VLDL [Mass/Vol] NOT REPORTED 1 - 30 mg/dL [place] Cholesterol.total/C holesterol in HDL [Mass ratio] 2.6 {ratio} <5 [place] Triglyceride, Fasting 102 mg/dL <150 [place] Comment on above: Triglyceride Guidelines: <150 Desirable 150-199 Borderline 200-499 High >499 Very high Based on AHA Guidelines for fasting triglyceride, March 2012. Microalbumin, Uron 9 Albumin/Creatinine DL <= 20 mg/L (24H U) [Mass ratio] <12 <21 mg/L [place] Albumin/Creatinine DL <= 20 mg/L (U) [Ratio] CANNOT BE CALCULATED <25 mcg/mg creat [place] Creatinine [Mass/Vol] 109.5 mg/dL 28 - 217 mg/dL [place] HIP LEFT 1 OR 2 VWS WITH PEL VISon 04-19-2018 HIP LEFT 1 OR 2 [facility] [address] [place] [address] =====Patient Name: PRIYANKA NICHOLAS : 1955Sex: FAge: Race: WhiteMRN: [id number]. Location: 84Patient Status: OVisit #: [id number] Date: 04/19/2018 3:55:00 PMCompleted Date: 04/19/2018 03:57 PMRequesting Provider: ANT FREITAS Attending Provider: ANT FREITAS Report Copy To: UNKNOWN, PHYSICIAN Signs & Symptoms: Z47.1 Aftercare following joint replacement surgery [id number]: AthenaComments: , , , Ordering Provider - ANT FREITAS MD , Exam: HIP LEFT 1 OR 2 VWS WITH PELVISAccession #: [id number] HIP LEFT 1 OR 2 VWS WITH PELVIS 04/19/2018 3:57 PM EDT SIGNS AND SYMPTOMS: Z47.1 Aftercare following joint replacement surgery I10 TECHNOLOGIST COMMENTS: ortho check for left hip QUESTION FOR THE RADIOLOGIST: , , , Ordering Provider - ANT FREITAS MD , PROTOCOL: AP(PA) and Lateral views were obtained. COMPARISON: April 02, 2018 FINDINGS: Soft tissues:Local swelling with resolution of soft tissue air and removal of drain Bones:Unchanged with mild osteoporosis Joints:Left total hip in satisfactory alignment with proximal femoral cerclage wireRight [place] hip with minor arthritis IMPRESSION: Healing left total hip in good alignment Electronically signed by:Aleida Ferro. Transcribed by: [email or web address], User Resident: Electronically Signed by: ALEIDA FERRO @ 04/19/2018 04:08 PM Normal [facility] Comment on above: Order Comment: , , = ========= , Ordering Provider - ANT FREITAS MD , BASIC METABOLIC PANELon - Calcium mass conc 8.4 mg/dL Low 8.6-10.3 [facility] Comment on above: Order Comment: No: D o not add to previous draw Performed By: #### 0 0071 ####[facility] [place] [address], [facility] Chloride molar conc 105 mmol/L Normal 98-107 [facility] Comment on above: Order Comment: No: D o not add to previous draw Performed By: #### 0 0071 ####[facility] [place] [address], [facility] CO2 molar conc 27 mmol/L Normal 21-31 [facility] Comment on above: Order Comment: No: D o not add to previous draw Performed By: #### 0 0071 ####[facility] [id number], [facility] Creatinine mass conc 0.51 mg/dL Low 0.60-1.20 [facility] Comment on above: Order Comment: No: D o not add to previous draw Performed By: #### 0 0071 ####[facility] [place] [address], [place] GFR/1.73 sq M predicted among blacks MDRD vol rate/area (S/P/Bld) mL/min/{1.73_m2} Normal >60 [facility] Comment on above: Order Comment: No: D o not add to previous draw Performed By: #### 0 0071 ####[facility] [place] [address], [facility] GFR/1.73 sq M predicted among non-blacks MDRD vol rate/area (S/P/Bld) mL/min/{1.73_m2} Normal >60 [facility] Comment on above: Order Comment: No: D o not add to previous draw Performed By: #### 0 0071 ####[facility] [place] [address], [facility] Glucose mass conc 157 mg/dL High 70-100 [facility] Comment on above: Order Comment: No: D o not add to previous draw Performed By: #### 0 0071 ####[facility] [facility] [place] [address], [facility] Potassium molar conc 3.7 mmol/L Normal 3.5-5.1 [facility] Comment on above: Order Comment: No: D o not add to previous draw Performed By: #### 0 0071 ####[facility] [place] [address], [facility] Sodium molar conc 136 mmol/L Normal 136-145 [facility] Comment on above: Order Comment: No: D o not add to previous draw Performed By: #### 0 0071 ####[facility] [facility] [place] [address], [facility] Urea nitrogen mass conc 10 mg/dL Normal 7-25 [facility] Comment on above: Order Comment: No: D o not add to previous draw Performed By: #### 0 0071 ####[facility] [facility] [place] [address], [facility] CBC COMPLETE BLOOD COUNTon Erythrocyte distribution width Auto Ratio (RBC) 15.8 % High 11.5-15.0 [facility] Comment on above: Order Comment: No: D o not add to previous draw Performed By: #### 5 6101 ####[facility] Hematocrit Auto Volume Fraction (Bld) 26.8 % Low 36.0-45.0 [facility] Comment on above: Order Comment: No: D o not add to previous draw Performed By: #### 5 6101 ####[facility] [facility].[address] Hemoglobin mass conc (Bld) 8.9 g/dL Low 12.0-15.0 [facility] Comment on above: Order Comment: No: D o not add to previous draw Performed By: #### 5 6101 ####[facility] MCH Auto Entitic mass (RBC) 29.6 pg Normal 27.0-33.0 [facility] Comment on above: Order Comment: No: D o not add to previous draw Performed By: #### 5 6101 ####[facility] MCHC Auto mass conc (RBC) 33.2 g/dL Normal 32.0-35.0 [facility] Comment on above: Order Comment: No: D o not add to previous draw Performed By: #### 5 6101 ####[facility] MCV Auto Entitic volume (RBC) 89.0 fL Normal 82.0-98.0 [facility] Comment on above: Order Comment: No: D o not add to previous draw Performed By: #### 5 6101 ####[facility] [facility].[address] Nucleated RBC/100 WBC Ratio (Bld) 0 % Normal 0-0 [facility] Comment on above: Order Comment: No: D o not add to previous draw Performed By: #### 5 6101 ####[facility] [facility].[address] PLAT CNT 161 10*3/uL Normal 150-400 [facility] Comment on above: Order Comment: No: D o not add to previous draw Performed By: #### 5 6101 ####[facility] RBC Auto #/vol (Bld) 3.01 10*6/uL Low 3.80-5.00 [facility] Comment on above: Order Comment: No: D o not add to previous draw Performed By: #### 5 6101 ####[facility] [place] [address], [facility] WBC Auto #/vol (Bld) 6.77 10*3/uL Normal 4.00-10.60 [facility] Comment on above: Order Comment: No: D o not add to previous draw Performed By: #### 5 6101 ####[facility] [facility].[address] HEMOGLOBINon 04-05-2018 Hemoglobin mass conc (Bld) 8.4 g/dL Low 12.0-15.0 [facility] Comment on above: Order Comment: No: D o not add to previous draw Performed By: #### 9 2089 ####[facility] [facility].[address] POC GLUCOSE LABon 04-05-2018 Glucose mass conc 192 mg/dL High 70-100 [facility] Comment on above: Performed By: #### 8 5499 ####[facility] [facility].[address] Glucose mass conc 146 mg/dL High 70-100 [facility] Comment on above: Performed By: #### 8 5499 ####[facility] [facility].[address] BASIC METABOLIC PANELon 03-19 Calcium mass conc 8.2 mg/dL Low 8.6-10.3 [facility] Comment on above: Order Comment: No: D o not add to previous draw Performed By: #### 6 2586 ####[facility] [place] [address], [place] Chloride molar conc 106 mmol/L Normal 98-107 [facility] Comment on above: Order Comment: No: D o not add to previous draw Performed By: #### 6 2586 ####[facility] [place] [address], [place] CO2 molar conc 25 mmol/L Normal 21-31 [facility] Comment on above: Order Comment: No: D o not add to previous draw Performed By: #### 6 2586 ####[facility] [place] [address], [place] Creatinine mass conc 0.53 mg/dL Low 0.60-1.20 [facility] Comment on above: Order Comment: No: D o not add to previous draw Performed By: #### 6 2586 ####[facility] [place] [address], [place] GFR/1.73 sq M predicted among blacks MDRD vol rate/area (S/P/Bld) mL/min/{1.73_m2} Normal >60 [facility] Comment on above: Order Comment: No: D o not add to previous draw Performed By: #### 6 2586 ####[facility] [place] [address], [place] GFR/1.73 sq M predicted among non-blacks MDRD vol rate/area (S/P/Bld) mL/min/{1.73_m2} Normal >60 [facility] Comment on above: Order Comment: No: D o not add to previous draw Performed By: #### 6 2586 ####[facility] [place] [address], [place] Glucose mass conc 180 mg/dL High 70-100 [facility] Comment on above: Order Comment: No: D o not add to previous draw Performed By: #### 6 2586 ####[facility] [place] [address], [facility] Potassium molar conc 3.6 mmol/L Normal 3.5-5.1 [facility] Comment on above: Order Comment: No: D o not add to previous draw Performed By: #### 6 2586 ####[facility] [place] [address], [facility] Sodium molar conc 134 mmol/L Low 136-145 [facility] Comment on above: Order Comment: No: D o not add to previous draw Performed By: #### 6 2586 ####[facility] [facility] [place] [address], [facility] Urea nitrogen mass conc 11 mg/dL Normal 7-25 [facility] Comment on above: Order Comment: No: D o not add to previous draw Performed By: #### 6 2586 ####[facility] [facility].[address] CBC COMPLETE BLOOD COUNTon Erythrocyte distribution width Auto Ratio (RBC) 13.8 % Normal 11.5-15.0 [facility] Comment on above: Order Comment: No: D o not add to previous draw Performed By: #### 6 2586 ####[facility] Hematocrit Auto Volume Fraction (Bld) 20.1 % Low 36.0-45.0 [facility] Comment on above: Order Comment: No: D o not add to previous draw Performed By: #### 6 2586 ####[facility] [place] [address] [place] [address], [facility] Hemoglobin mass conc (Bld) 6.6 g/dL Low 12.0-15.0 [facility] Comment on above: Order Comment: No: D o not add to previous draw Performed By: #### 6 2586 ####[facility] MCH Auto Entitic mass (RBC) 30.6 pg Normal 27.0-33.0 [facility] Comment on above: Order Comment: No: D o not add to previous draw Performed By: #### 6 2586 ####[facility] MCHC Auto mass conc (RBC) 32.8 g/dL Normal 32.0-35.0 [facility] Comment on above: Order Comment: No: D o not add to previous draw Performed By: #### 6 2586 ####[facility] MCV Auto Entitic volume (RBC) 93.1 fL Normal 82.0-98.0 [facility] Comment on above: Order Comment: No: D o not add to previous draw Performed By: #### 6 2586 ####[facility] Nucleated RBC/100 WBC Ratio (Bld) 0 % Normal 0-0 [facility] Comment on above: Order Comment: No: D o not add to previous draw Performed By: #### 6 2586 ####[facility] PLAT CNT 151 10*3/uL Normal 150-400 The [facility] [place] Comment on above: Order Comment: No: D o not add to previous draw Performed By: #### 6 2586 ####[facility] [place] [address] RBC Auto #/vol (Bld) 2.16 10*6/uL Low 3.80-5.00 [facility] Comment on above: Order Comment: No: D o not add to previous draw Performed By: #### 6 2586 ####[facility] WBC Auto #/vol (Bld) 6.41 10*3/uL Normal 4.00-10.60 [facility] Comment on above: Order Comment: No: D o not add to previous draw Performed By: #### 6 2586 ####[facility] HEMATOCRITon 04-04-2018 Hematocrit Auto Volume Fraction (Bld) 26.2 % Low 36.0-45.0 [facility] Comment on above: Order Comment: No: D o not add to previous draw Performed By: #### 5 6101 ####[facility]3000 [facility].[address] HEMOGLOBINon 04-04-2018 Hemoglobin mass conc (Bld) 8.8 g/dL Low 12.0-15.0 [facility] Comment on above: Order Comment: No: D o not add to previous draw Performed By: #### 5 6101 ####[facility]3000 [facility].[address] Hemoglobin mass conc (Bld) 8.7 g/dL Low 12.0-15.0 [facility] Comment on above: Order Comment: No: D o not add to previous draw Performed By: #### 5 6101 ####[facility] POC GLUCOSE LABon 04-04-2018 Glucose mass conc 168 mg/dL High 70-100 The [facility] Comment on above: Performed By: #### 5 6101 ####[facility]3000 [facility].[address] Glucose mass conc 197 mg/dL High 70-100 The [facility] Comment on above: Performed By: #### 5 6101 ####[facility]3000 [place] [address], [facility] Glucose mass conc 182 mg/dL High 70-100 The [facility] Comment on above: Performed By: #### 5 6101 ####[facility]3000 [place] [address], [facility] Glucose mass conc 164 mg/dL High 70-100 The [facility] Comment on above: Performed By: #### 5 6101 ####[facility]3000 [place] [address], [facility] RBC'S 2 UNITSon 04-04-2018 CROSSMATCH INTERP 1 COMP Normal The [facility] Comment on above: Order Comment: No: D o not add to previous draw Performed By: #### 5 6101 ####[facility]3000 [place] [address], [facility] CROSSMATCH INTERP 2 COMP Normal The [facility] Comment on above: Order Comment: No: D o not add to previous draw Performed By: #### 5 6101 ####[facility]3000 [place] [address], [facility] Protein mass conc PT Normal The [facility] Comment on above: Order Comment: No: D o not add to previous draw Result Comment: Resu lt changed by IF on 04/04/2018 15:08. The previous value was XM.Result changed by IF on 04/05/2018 00:30. The previous value was IS. Performed By: #### 5 6101 ####[facility]3000 [place] [address], [facility] Result Comment: Resu lt changed by IF on 04/04/2018 12:20. The previous value was XM.Result changed by IF on 04/05/2018 00:30. The previous value was IS. Protein mass conc 336 g/dL Normal The [facility] Comment on above: Order Comment: No: D o not add to previous draw Performed By: #### 5 6101 ####[facility] [place] [address], [place] UNIT ABO 1 A Normal [facility] Comment on above: Order Comment: No: D o not add to previous draw Performed By: #### 5 6101 ####[facility] [place] [address], [place] UNIT ABO 2 A Normal [facility] Comment on above: Order Comment: No: D o not add to previous draw Performed By: #### 5 6101 ####[facility] [place] [address], [facility] UNIT ID 1 [id number] Normal The [facility] Comment on above: Order Comment: No: D o not add to previous draw Performed By: #### 5 6101 ####[facility] [place] [address], [place] UNIT ID 2 [id number] Normal The [facility] Comment on above: Order Comment: No: D o not add to previous draw Performed By: #### 5 6101 ####[facility] [place] [address], [place] UNIT RH 1 Positive Normal [facility] Comment on above: Order Comment: No: D o not add to previous draw Performed By: #### 5 6101 ####[facility] [place] [address], [place] UNIT RH 2 Positive Normal [facility] Comment on above: Order Comment: No: D o not add to previous draw Performed By: #### 5 6101 ####[facility] [place] [address], [place] TYPE AND SCREENon 04-04-2018 ABO INTERPRETATION A Normal The [facility] Comment on above: Performed By: #### 5 6101 ####[facility] [place] [address], [facility] RH INTERPRETATION Positive Normal The [facility] Comment on above: Performed By: #### 5 6101 ####[facility] [place] [address], [place] BASIC METABOLIC PANELon - Calcium mass conc 8.2 mg/dL Low 8.6-10.3 The [facility] Comment on above: Order Comment: No: D o not add to previous draw Performed By: #### 6 2586 ####[facility] [place] [address], [place] Chloride molar conc 107 mmol/L Normal 98-107 The [facility] Comment on above: Order Comment: No: D o not add to previous draw Performed By: #### 6 2586 ####[facility] [place] [address], [place] CO2 molar conc 23 mmol/L Normal 21-31 The [facility] Comment on above: Order Comment: No: D o not add to previous draw Performed By: #### 6 2586 ####[facility] [place] [address], [place] Creatinine mass conc 0.54 mg/dL Low 0.60-1.20 [facility] Comment on above: Order Comment: No: D o not add to previous draw Performed By: #### 6 2586 ####[facility] [place] [address], [place] GFR/1.73 sq M predicted among blacks MDRD vol rate/area (S/P/Bld) mL/min/{1.73_m2} Normal >60 The [facility] Comment on above: Order Comment: No: D o not add to previous draw Performed By: #### 6 2586 ####[facility] GFR/1.73 sq M predicted among non-blacks MDRD vol rate/area (S/P/Bld) mL/min/{1.73_m2} Normal >60 The [facility] Comment on above: Order Comment: No: D o not add to previous draw Performed By: #### 6 2586 ####[facility] [place] [address], [facility] Glucose mass conc 156 mg/dL High 70-100 The [facility] Comment on above: Order Comment: No: D o not add to previous draw Performed By: #### 6 2586 ####[place] [address] [place] [address], [facility] Potassium molar conc 4.4 mmol/L Normal 3.5-5.1 [facility] Comment on above: Order Comment: No: D o not add to previous draw Performed By: #### 6 2586 ####[facility]3000 [place] [address], [facility] Sodium molar conc 136 mmol/L Normal 136-145 The [facility] Comment on above: Order Comment: No: D o not add to previous draw Performed By: #### 6 2586 ####[place] [address] [facility].[address] Urea nitrogen mass conc 10 mg/dL Normal 7-25 [facility] Comment on above: Order Comment: No: D o not add to previous draw Performed By: #### 6 2586 ####[place] [address] [facility].[address] CBC COMPLETE BLOOD COUNTon - Erythrocyte distribution width Auto Ratio (RBC) 13.6 % Normal 11.5-15.0 [facility] Comment on above: Order Comment: No: D o not add to previous draw Performed By: #### 6 2586 ####[facility]3000 [facility].[address] Hematocrit Auto Volume Fraction (Bld) 26.3 % Low 36.0-45.0 [facility] Comment on above: Order Comment: No: D o not add to previous draw Performed By: #### 6 2586 ####[facility]3000 [place] [address], [facility] Hemoglobin mass conc (Bld) 8.4 g/dL Low 12.0-15.0 [facility] Comment on above: Order Comment: No: D o not add to previous draw Performed By: #### 6 2586 ####[address] MCH Auto Entitic mass (RBC) 30.1 pg Normal 27.0-33.0 [facility] Comment on above: Order Comment: No: D o not add to previous draw Performed By: #### 6 2586 ####[facility]3000 [facility].[address] MCHC Auto mass conc (RBC) 31.9 g/dL Low 32.0-35.0 [facility] Comment on above: Order Comment: No: D o not add to previous draw Performed By: #### 6 2586 ####[address] MCV Auto Entitic volume (RBC) 94.3 fL Normal 82.0-98.0 [facility] Comment on above: Order Comment: No: D o not add to previous draw Performed By: #### 6 2586 ####[address] Nucleated RBC/100 WBC Ratio (Bld) 0 % Normal 0-0 [facility] Comment on above: Order Comment: No: D o not add to previous draw Performed By: #### 6 2586 ####[facility] [place] [address].[address] PLAT CNT 157 10*3/uL Normal 150-400 The [facility] Comment on above: Order Comment: No: D o not add to previous draw Performed By: #### 6 2586 ####[facility]3000 [facility].[address] RBC Auto #/vol (Bld) 2.79 10*6/uL Low 3.80-5.00 [facility] Comment on above: Order Comment: No: D o not add to previous draw Performed By: #### 6 2586 ####[facility]3000 [facility].[address] WBC Auto #/vol (Bld) 8.07 10*3/uL Normal 4.00-10.60 [facility] Comment on above: Order Comment: No: D o not add to previous draw Performed By: #### 6 2586 ####[facility] Operative Reporton 10-16-201 [id number] Operative Report MR#: [id number] [facility] Name[facility] Priyanka Nicholas Room #: [id number] Discharge Date: Birthdate: 1955 OPERATIVE REPORTDATE OF SURGERY: 04/02/2018SURGEON: Ant Freitas M.D.ASSISTANTS:1. Narcisa Montes De Oca2. Falguni Barragan3. XIMENA Mcgee.ANESTHESIA: General anesthesia.ESTIMATED BLOOD LOSS: 300 mL.FLUIDS: Per Anesthesia note.COMPLICATIONS: None.SPECIMENS: None.PREOPERATIVE DIAGNOSIS: Left femoral neck fracture.POSTOPERATIVE DIAGNOSES:1. Left femoral neck fracture.2. Left hip osteoarthritis.PROCEDUR E: Left total hip arthroplasty.COMPONENTS :1. Biomet micro taper lock size 12 lateral offset femoral stem.2. Size 50, G7 acetabular component.3. 30 mm acetabular screw.4. One cobalt chrome cable.5. 36- 3 cobalt-chrome femoral head.INDICATION FOR PROCEDURE: A 63-year-old female who has a displaced femoralneck fracture. I discussed with her options of either percutaneous screwfixation versus total hip arthroplasty. In conjunction with Dr. Reyes,the recommendation is for total hip arthroplasty.OPERATIVE COURSE: The patient was brought to the operating room and placedsupine on the operating table. General anesthesia obtained. Bilaterallower extremities were prepped and draped sterilely. Time-out wascompleted. Preoperative antibiotics were confirmed and given.The incision was started about 2 cm lateral and distal to the ASIS anddissected laterally. Dissected down to the overlying tensor fascia wheretensor fascia was also incised. Hemostasis was obtained. The muscleretracted laterally. Deep fascia was perforated and run proximally. Thecircumflex vessels were identified and ligated. The additional dissectionthen continued proximally up to identify the anterior femoral neck region.The capsule was adherent to the anterior soft tissue structures and weredissected away. Anterior retractors also placed and this allowed forcomplete exposure of the anterior femoral neck region.The capsule was partially excised. Once this was excised, the both femoralneck fracture, which was impacted was identified. The neck cut was thenmarked by C-arm fluoroscopy and then made. The head was removed and it wasnoted that there was a fair amount of osteoarthritic changes on the femoralhead as well. Once this was removed, the inferior calcar tissue wasincised down to the lesser trochanteric region. This was extremelyadherent to this region. The lateral capsule was also dissected away fromthe trochanteric region as well.The acetabulum was exposed. The existing labrum was excised. Reaming wasdone sequentially up to a total size of 49 with good rim fit. The real cupwas then impacted to appropriate inclination and version. Seatedcompletely and good initial fit. Superior acetabular screws were drilledin place. The liner was then snapped in position and seated completely.The hip was then externally rotated, and Omni-Tract hook was applied.Retraction as well as Omni-Tract pole was done. The lateral capsule wasincised away. This gave me full exposure of the proximal femur. The boxcut was then used for the starting point. The rasps were placed toidentify the canal and then the broach was then done up to size 12. Thiswas then trialed. I then noted that the 12 with a -6 was overallacceptable. C-arm fluoroscopy confirmed this as well. I thenre-dislocated the hip. I removed the broach. I noted that there may be anondisplaced crack posteriorly where I would expect it to be. I probedthis area and I did not see any opening, but I did place a cable anyway forprophylaxis. I then placed the real implant down with the -3 head. Irelocated it and noted the -3 was more appropriate. Re-dislocated it andplaced the real head on a clean dry taper, relocated again.I then placed a cable around the calcar region. After I placed this, Aston tensioned it. I then crimped and then cut the cables. I checked onC-arm fluoroscopy and noted to be acceptable. The tensor fascia was closedwith Quill suture. The remainder of the incision in layered fashion.Sterile dressing applied. At the conclusion of the case, all sponge andneedle counts correct. I was present for the critical portions of thiscase.Electronically Signed by:Ant Freitas M.D. 04/10/2018 08:36 P Ant Freitas M.D.Date Dict: 04/03/2018/09:13 Kourtney/Ant Freitas M.D.Date Trans: 04/03/2018 11:57 [id number] Normal [facility] POC GLUCOSE LABon 04-03-2018 Glucose mass conc 204 mg/dL High 70-100 The [facility] Comment on above: Performed By: #### 6 2586 ####[facility] [place] [address], [facility] Glucose mass conc 179 mg/dL High 70-100 The [facility] Comment on above: Performed By: #### 6 2586 ####[facility] [place] [address], [facility] Glucose mass conc 243 mg/dL High 70-100 The [facility] Comment on above: Performed By: #### 6 2586 ####[facility] [place] [address], [facility] Glucose mass conc 158 mg/dL High 70-100 The [facility] Comment on above: Performed By: #### 6 2586 ####[facility] [place] [address], [facility] BASIC METABOLIC PANELon 10- Calcium mass conc 8.8 mg/dL Normal 8.6-10.3 The [facility] Comment on above: Order Comment: No: D o not add to previous draw Performed By: #### 0 0071 ####[facility]3000 [facility] [place] [address], [facility] Chloride molar conc 101 mmol/L Normal 98-107 The [facility] Comment on above: Order Comment: No: D o not add to previous draw Performed By: #### 0 0071 ####[facility] [facility] [place] [address], [facility] CO2 molar conc 23 mmol/L Normal 21-31 The [facility] Comment on above: Order Comment: No: D o not add to previous draw Performed By: #### 0 0071 ####[facility]3000 [place] [address], [facility] Creatinine mass conc 0.60 mg/dL Normal 0.60-1.20 [facility] Comment on above: Order Comment: No: D o not add to previous draw Performed By: #### 0 0071 ####[facility] [place] [address], [facility] GFR/1.73 sq M predicted among blacks MDRD vol rate/area (S/P/Bld) mL/min/{1.73_m2} Normal >60 The [facility] Comment on above: Order Comment: No: D o not add to previous draw Performed By: #### 0 0071 ####[facility]3000 [facility].[address] GFR/1.73 sq M predicted among non-blacks MDRD vol rate/area (S/P/Bld) mL/min/{1.73_m2} Normal >60 The [facility] Comment on above: Order Comment: No: D o not add to previous draw Performed By: #### 0 0071 ####[facility] [place] [address].[address] Glucose mass conc 139 mg/dL High 70-100 The [facility] Comment on above: Order Comment: No: D o not add to previous draw Performed By: #### 0 0071 ####[address] Potassium molar conc 3.9 mmol/L Normal 3.5-5.1 [facility] Comment on above: Order Comment: No: D o not add to previous draw Performed By: #### 0 0071 ####[place] [address] Sodium molar conc 129 mmol/L Low 136-145 The [facility] Comment on above: Order Comment: No: D o not add to previous draw Performed By: #### 0 0071 ####[place] [address] [facility].[address] Urea nitrogen mass conc 8 mg/dL Normal 7-25 [facility] Comment on above: Order Comment: No: D o not add to previous draw Performed By: #### 0 0071 ####[address] CBC W/DIFFon 04-02-2018 ABS BASOPHILS 0.0 10*3/uL Normal 0.0-0.2 The [facility] Comment on above: Order Comment: No: D o not add to previous draw Performed By: #### 0 0071 ####[facility] ABS IMM GRANS 0.0 10*3/uL Normal 0.0-0.2 [facility] Comment on above: Order Comment: No: D o not add to previous draw Performed By: #### 0 0071 ####[facility] ABS NEUTROPHILS 7.5 10*3/uL Normal 1.6-7.6 The [facility] Comment on above: Order Comment: No: D o not add to previous draw Performed By: #### 0 0071 ####[facility] Basophils Auto #/vol (Bld) 0.4 % Normal 0.0-1.0 [facility] Comment on above: Order Comment: No: D o not add to previous draw Performed By: #### 0 0071 ####[facility] Eosinophils Auto #/vol (Bld) 0.2 10*3/uL Normal 0.0-0.5 [facility] Comment on above: Order Comment: No: D o not add to previous draw Performed By: #### 0 0071 ####[facility] Eosinophils/100 WBC Auto (Bld) 2.3 % Normal 0.0-6.0 [facility] Comment on above: Order Comment: No: D o not add to previous draw Performed By: #### 0 0071 ####[facility] Erythrocyte distribution width Auto Ratio (RBC) 13.6 % Normal 11.5-15.0 [facility] Comment on above: Order Comment: No: D o not add to previous draw Performed By: #### 0 0071 ####[facility] Hematocrit Auto Volume Fraction (Bld) 36.7 % Normal 36.0-45.0 [facility] Comment on above: Order Comment: No: D o not add to previous draw Performed By: #### 0 0071 ####[facility] Hemoglobin mass conc (Bld) 11.9 g/dL Low 12.0-15.0 [facility] Comment on above: Order Comment: No: D o not add to previous draw Performed By: #### 0 0071 ####[facility] IMMATURE GRANS 0.4 % Normal 0.0-1.0 The [facility] Comment on above: Order Comment: No: D o not add to previous draw Performed By: #### 0 0071 ####[facility] Lymphocytes Auto #/vol (Bld) 0.8 10*3/uL Low 1.2-4.0 [facility] Comment on above: Order Comment: No: D o not add to previous draw Performed By: #### 0 0071 ####[facility] Lymphocytes/100 WBC Auto (Bld) 8.5 % Low 20.0-45.0 [facility] Comment on above: Order Comment: No: D o not add to previous draw Performed By: #### 0 0071 ####[facility] MCH Auto Entitic mass (RBC) 30.4 pg Normal 27.0-33.0 [facility] Comment on above: Order Comment: No: D o not add to previous draw Performed By: #### 0 0071 ####[facility]3000 [facility].[address] MCHC Auto mass conc (RBC) 32.4 g/dL Normal 32.0-35.0 [facility] Comment on above: Order Comment: No: D o not add to previous draw Performed By: #### 0 0071 ####[facility]3000 [facility].[address] MCV Auto Entitic volume (RBC) 93.9 fL Normal 82.0-98.0 [facility] Comment on above: Order Comment: No: D o not add to previous draw Performed By: #### 0 0071 ####[address] Monocytes Auto #/vol (Bld) 0.4 10*3/uL Normal 0.1-1.0 [facility] Comment on above: Order Comment: No: D o not add to previous draw Performed By: #### 0 0071 ####[facility] [place] [address] MONOS 4.3 % Low 5.0-12.0 [facility] Comment on above: Order Comment: No: D o not add to previous draw Performed By: #### 0 0071 ####[facility] Neutrophils/100 WBC Auto (Bld) 84.1 % High 40.0-72.0 [facility] Comment on above: Order Comment: No: D o not add to previous draw Performed By: #### 0 0071 ####[address] Nucleated RBC/100 WBC Ratio (Bld) 0 % Normal 0-0 [facility] Comment on above: Order Comment: No: D o not add to previous draw Performed By: #### 0 0071 ####[facility]3000 [facility].[address] PLAT CNT 153 10*3/uL Normal 150-400 The [facility] Comment on above: Order Comment: No: D o not add to previous draw Performed By: #### 0 0071 ####[facility] [place] [address].[address] RBC Auto #/vol (Bld) 3.91 10*6/uL Normal 3.80-5.00 [facility] Comment on above: Order Comment: No: D o not add to previous draw Performed By: #### 0 0071 ####[address] WBC Auto #/vol (Bld) 8.98 10*3/uL Normal 4.00-10.60 [facility] Comment on above: Order Comment: No: D o not add to previous draw Performed By: #### 0 0071 ####[address] HIP LEFT 1 OR 2 VWS WITH PEL VISon 04-02-2018 HIP LEFT 1 OR 2 VWS [facility] PELVIS [facility]fnv[facility] [place] [id number] =====Patient Name: PRIYANKA NICHOLAS : 1955Sex: FAge: Race: WhiteMRN: [id number]. Location: [id number] Status: IVisit #: [id number] Date: 04/02/2018 7:35:00 AMCompleted Date: 04/02/2018 05:03 PMRequesting Provider: ANT FREITAS Attending Provider: MARILYN LAGUNAS Report Copy To: Signs & Symptoms: left total hip anterior with GehlingHistory: left total hip anterior with GehlingComments: left total hip anterior with GehlingExam: HIP LEFT 1 OR 2 VWS WITH PELVISAccession #: [id number] HIP LEFT 1 OR 2 VWS WITH PELVIS 04/02/2018 5:03 PM EDT SIGNS AND SYMPTOMS: left total hip anterior with Gehling TECHNOLOGIST COMMENTS: Intra op left total hip with , 9 sec of fluoro time used QUESTION FOR THE RADIOLOGIST: left total hip anterior with Gehling PROTOCOL: AP(PA) and Lateral views were obtained. COMPARISON: None FINDINGS: Soft tissues: Bones: Joints: IMPRESSION: 1. Dictation for documentation purposes only Electronically signed by:Nayely Locke. Transcribed by: [id number], User Resident: Electronically Signed by: NAYELY LOCKE @ 04/03/2018 09:50 AM Normal [facility] Comment on above: Order Comment: left total hip anterior with Gehling POC GLUCOSE LABon 04-02-2018 Glucose mass conc 214 mg/dL High 70-100 [facility] Comment on above: Performed By: #### 6 [id number] ####[facility] [place] [address], [facility] Glucose mass conc 151 mg/dL High 70-100 [facility] Comment on above: Performed By: #### 0 0071 ####[facility] [place] [address], [facility] Glucose mass conc 153 mg/dL High 70-100 The [facility] Comment on above: Performed By: #### 0 0071 ####[facility] [place] [address], [facility] Glucose mass conc 148 mg/dL High 70-100 The [facility] Comment on above: Performed By: #### 0 0071 ####[facility] [place], [place] [address] PORTABLE HIP LEFT 1 OR 2 VWS WITH PELVISon 04-02-2018 PORTABLE HIP LEFT 1 OR 2 VWS WITH PELVIS [facility] [address] [place] [address] =====Patient Name: PRIYANKA NICHOLAS : 1955Sex: FAge: Race: WhiteMRN: [id number]. Location: [id number] Status: IVisit #: [id number] Date: 04/02/2018 4:45:00 PMCompleted Date: 04/02/2018 05:57 PMRequesting Provider: LEXI BARRAGAN Attending Provider: MARILYN LAGUNAS Report Copy To: Signs & Symptoms: Pain ( specify Location)History: Patient history not availableComments: Hardware Evaluation, Post op PACU xrayExam: PORTABLE HIP LEFT 1 OR 2 VWS WITH PELVISAccession #: [id number] PORTABLE HIP LEFT 1 OR 2 VWS WITH PELVIS 04/02/2018 5:57 PM EDT SIGNS AND SYMPTOMS: Pain ( specify Location) TECHNOLOGIST COMMENTS: Post op check hardware placement QUESTION FOR THE RADIOLOGIST: Hardware Evaluation, Post op PACU xray PROTOCOL: AP(PA) and Lateral views were obtained. COMPARISON: None FINDINGS: Soft tissues:Post surgical changes including some swelling and air around the left hip prosthesis Bones:No fracture Joints:Left total hip arthroplasty. Alignment unchanged since intraoperative study. No periprosthetic fracture or loosening. IMPRESSION: 1. Left total hip arthroplasty. Alignment unchanged since intraoperative study. No periprosthetic fracture or loosening. Electronically signed by:Nayely Locke. Transcribed by: [email or web address], User Resident: Electronically Signed by: NAYELY LOCKE @ 04/02/2018 06:42 PM Normal [facility] Comment on above: Order Comment: No: D o not add to previous draw BASIC METABOLIC PANELon 10- Calcium mass conc 8.6 mg/dL Normal 8.6-10.3 [facility] Comment on above: Order Comment: No: D o not add to previous draw Performed By: #### 0 0071 ####[address] [place] [address], [facility] Chloride molar conc 102 mmol/L Normal 98-107 [facility] Comment on above: Order Comment: No: D o not add to previous draw Performed By: #### 0 0071 ####[facility] [place] [address], [facility] CO2 molar conc 23 mmol/L Normal 21-31 [facility] Comment on above: Order Comment: No: D o not add to previous draw Performed By: #### 0 0071 ####[facility] [place] [address], [facility] Creatinine mass conc 0.66 mg/dL Normal 0.60-1.20 [facility] Comment on above: Order Comment: No: D o not add to previous draw Performed By: #### 0 0071 ####[facility] GFR/1.73 sq M predicted among blacks MDRD vol rate/area (S/P/Bld) mL/min/{1.73_m2} Normal >60 [facility] Comment on above: Order Comment: No: D o not add to previous draw Performed By: #### 0 0071 ####[facility] [place] [address], [facility] GFR/1.73 sq M predicted among non-blacks MDRD vol rate/area (S/P/Bld) mL/min/{1.73_m2} Normal >60 [facility] Comment on above: Order Comment: No: D o not add to previous draw Performed By: #### 0 0071 ####[facility] [place] [address], [facility] Glucose mass conc 128 mg/dL High 70-100 [facility] Comment on above: Order Comment: No: D o not add to previous draw Performed By: #### 0 0071 ####[facility] [place] [address], [facility] Potassium molar conc 3.8 mmol/L Normal 3.5-5.1 [facility] Comment on above: Order Comment: No: D o not add to previous draw Performed By: #### 0 0071 ####[facility] [place] [address], [facility] Sodium molar conc 130 mmol/L Low 136-145 [facility] Comment on above: Order Comment: No: D o not add to previous draw Performed By: #### 0 0071 ####[facility] [place] [address], [facility] Urea nitrogen mass conc 9 mg/dL Normal 7-25 [facility] Comment on above: Order Comment: No: D o not add to previous draw Performed By: #### 0 0071 ####[facility] [facility].[place] [id number], [facility] Calcium mass conc 9.1 mg/dL Normal 8.6-10.3 [facility] Comment on above: Order Comment: No: D o not add to previous draw Performed By: #### 0 0071 ####[facility] [place] [address], [facility] Chloride molar conc 102 mmol/L Normal 98-107 [facility] Comment on above: Order Comment: No: D o not add to previous draw Performed By: #### 0 0071 ####[facility] [place] [address], [place] CO2 molar conc 26 mmol/L Normal 21-31 [facility] Comment on above: Order Comment: No: D o not add to previous draw Performed By: #### 0 0071 ####[facility] [place] [address], [facility] Creatinine mass conc 0.68 mg/dL Normal 0.60-1.20 [facility] Comment on above: Order Comment: No: D o not add to previous draw Performed By: #### 0 0071 ####[facility] [id number], [facility] GFR/1.73 sq M predicted among blacks MDRD vol rate/area (S/P/Bld) mL/min/{1.73_m2} Normal >60 [facility] Comment on above: Order Comment: No: D o not add to previous draw Performed By: #### 0 0071 ####[facility] [facility] [place] [address], [facility] GFR/1.73 sq M predicted among non-blacks MDRD vol rate/area (S/P/Bld) mL/min/{1.73_m2} Normal >60 [facility] Comment on above: Order Comment: No: D o not add to previous draw Performed By: #### 0 0071 ####[facility] [place] [address], [place] Glucose mass conc 155 mg/dL High 70-100 [facility] Comment on above: Order Comment: No: D o not add to previous draw Performed By: #### 0 0071 ####[facility] [place] [address], [facility] Potassium molar conc 4.0 mmol/L Normal 3.5-5.1 [facility] Comment on above: Order Comment: No: D o not add to previous draw Performed By: #### 0 0071 ####[facility] [facility] Sodium molar conc 135 mmol/L Low 136-145 [facility] Comment on above: Order Comment: No: D o not add to previous draw Performed By: #### 0 0071 ####[facility] [facility].[address] Urea nitrogen mass conc 9 mg/dL Normal 7-25 [facility] Comment on above: Order Comment: No: D o not add to previous draw Performed By: #### 0 0071 ####[facility] [facility].[address] CBC COMPLETE BLOOD COUNTon Erythrocyte distribution width Auto Ratio (RBC) 13.7 % Normal 11.5-15.0 [facility] Comment on above: Order Comment: No: D o not add to previous draw Performed By: #### 5 0608 ####[facility] [facility].[address] Hematocrit Auto Volume Fraction (Bld) 37.1 % Normal 36.0-45.0 [facility] Comment on above: Order Comment: No: D o not add to previous draw Performed By: #### 5 0608 ####[facility] [facility].[address] Hemoglobin mass conc (Bld) 12.2 g/dL Normal 12.0-15.0 [facility] Comment on above: Order Comment: No: D o not add to previous draw Performed By: #### 5 0608 ####[facility] [facility].[address] MCH Auto Entitic mass (RBC) 30.7 pg Normal 27.0-33.0 [facility] Comment on above: Order Comment: No: D o not add to previous draw Performed By: #### 5 0608 ####[facility] [facility].[address] MCHC Auto mass conc (RBC) 32.9 g/dL Normal 32.0-35.0 [facility] Comment on above: Order Comment: No: D o not add to previous draw Performed By: #### 5 0608 ####[facility] [facility].[address] MCV Auto Entitic volume (RBC) 93.2 fL Normal 82.0-98.0 [facility] Comment on above: Order Comment: No: D o not add to previous draw Performed By: #### 5 0608 ####[facility] Nucleated RBC/100 WBC Ratio (Bld) 0 % Normal 0-0 [facility] Comment on above: Order Comment: No: D o not add to previous draw Performed By: #### 5 0608 ####[facility] [facility].[address] PLAT CNT 197 10*3/uL Normal 150-400 [facility] Comment on above: Order Comment: No: D o not add to previous draw Performed By: #### 5 0608 ####[facility] [facility].[address] RBC Auto #/vol (Bld) 3.98 10*6/uL Normal 3.80-5.00 [facility] Comment on above: Order Comment: No: D o not add to previous draw Performed By: #### 5 0608 ####[facility] WBC Auto #/vol (Bld) 13.14 10*3/uL High 4.00-10.60 [facility] Comment on above: Order Comment: No: D o not add to previous draw Performed By: #### 5 0608 ####[facility] CBC W/DIFFon 04-01-2018 ABS BASOPHILS 0.0 10*3/uL Normal 0.0-0.2 [facility] Comment on above: Order Comment: No: D o not add to previous draw Performed By: #### 5 0103 ####[facility] ABS IMM GRANS 0.0 10*3/uL Normal 0.0-0.2 [facility] Comment on above: Order Comment: No: D o not add to previous draw Performed By: #### 5 0103 ####[facility] ABS NEUTROPHILS 6.2 10*3/uL Normal 1.6-7.6 The [facility] Comment on above: Order Comment: No: D o not add to previous draw Performed By: #### 5 0103 ####[facility] Basophils Auto #/vol (Bld) 0.5 % Normal 0.0-1.0 [facility] Comment on above: Order Comment: No: D o not add to previous draw Performed By: #### 5 0103 ####[facility] Eosinophils Auto #/vol (Bld) 0.2 10*3/uL Normal 0.0-0.5 [facility] Comment on above: Order Comment: No: D o not add to previous draw Performed By: #### 5 0103 ####[facility] Eosinophils/100 WBC Auto (Bld) 1.9 % Normal 0.0-6.0 [facility] Comment on above: Order Comment: No: D o not add to previous draw Performed By: #### 5 0103 ####[facility] Erythrocyte distribution width Auto Ratio (RBC) 13.7 % Normal 11.5-15.0 [facility] Comment on above: Order Comment: No: D o not add to previous draw Performed By: #### 5 0103 ####[facility] Hematocrit Auto Volume Fraction (Bld) 36.3 % Normal 36.0-45.0 [facility] Comment on above: Order Comment: No: D o not add to previous draw Performed By: #### 5 0103 ####[facility] Hemoglobin mass conc (Bld) 11.9 g/dL Low 12.0-15.0 [facility] Comment on above: Order Comment: No: D o not add to previous draw Performed By: #### 5 0103 ####[facility] IMMATURE GRANS 0.3 % Normal 0.0-1.0 [facility] Comment on above: Order Comment: No: D o not add to previous draw Performed By: #### 5 0103 ####[facility] Lymphocytes Auto #/vol (Bld) 1.9 10*3/uL Normal 1.2-4.0 [facility] Comment on above: Order Comment: No: D o not add to previous draw Performed By: #### 5 0103 ####[facility] Lymphocytes/100 WBC Auto (Bld) 21.7 % Normal 20.0-45.0 [facility] Comment on above: Order Comment: No: D o not add to previous draw Performed By: #### 5 0103 ####[facility] MCH Auto Entitic mass (RBC) 30.8 pg Normal 27.0-33.0 [facility] Comment on above: Order Comment: No: D o not add to previous draw Performed By: #### 5 0103 ####[facility] MCHC Auto mass conc (RBC) 32.8 g/dL Normal 32.0-35.0 [facility] Comment on above: Order Comment: No: D o not add to previous draw Performed By: #### 5 0103 ####[facility] MCV Auto Entitic volume (RBC) 94.0 fL Normal 82.0-98.0 [facility] Comment on above: Order Comment: No: D o not add to previous draw Performed By: #### 5 0103 ####[facility] Monocytes Auto #/vol (Bld) 0.4 10*3/uL Normal 0.1-1.0 [facility] Comment on above: Order Comment: No: D o not add to previous draw Performed By: #### 5 0103 ####[facility] MONOS 4.9 % Low 5.0-12.0 [facility] Comment on above: Order Comment: No: D o not add to previous draw Performed By: #### 5 0103 ####[facility] [place] [address], [facility] Neutrophils/100 WBC Auto (Bld) 70.7 % Normal 40.0-72.0 [facility] Comment on above: Order Comment: No: D o not add to previous draw Performed By: #### 5 0103 ####[facility] [facility].[address] Nucleated RBC/100 WBC Ratio (Bld) 0 % Normal 0-0 [facility] Comment on above: Order Comment: No: D o not add to previous draw Performed By: #### 5 0103 ####[place] [address], [facility] PLAT CNT 169 10*3/uL Normal 150-400 [facility] Comment on above: Order Comment: No: D o not add to previous draw Performed By: #### 5 0103 ####[address] RBC Auto #/vol (Bld) 3.86 10*6/uL Normal 3.80-5.00 [facility] Comment on above: Order Comment: No: D o not add to previous draw Performed By: #### 5 3 ####[facility] [place] [address].[place] [address], [facility] WBC Auto #/vol (Bld) 8.74 10*3/uL Normal 4.00-10.60 [facility] Comment on above: Order Comment: No: D o not add to previous draw Performed By: #### 5 0103 ####[address] PELVIS WO CONTRASTon 03-19 CT PELVIS WO CONTRAST [facility] [address] [place] [id number] =====Patient Name: PRIYANKA NICHOLAS : 1955Sex: FAge: Race: WhiteMRN: [id number]. Location: [id number] Status: IVisit #: [id number] Date: 03/31/2018 9:35:00 PMCompleted Date: 03/31/2018 10:58 PMRequesting Provider: RUFINA VALADEZ Attending Provider: MARILYN LAGUNAS Report Copy To: Signs & Symptoms: Pelvic PainHistory: Patient history not availableComments: Other, assess left hip fractureExam: CT PELVIS WO CONTRASTAccession #: [id number] CT PELVIS WO CONTRAST 03/31/2018 10:58 PM EDT SIGN AND SYMPTOMS: Pelvic Pain TECHNOLOGIST COMMENTS: lt hip pain s/p fall today QUESTION FOR RADIOLOGIST: Other, assess left hip fracture PROTOCOL: Axial CT images of the pelvis were obtained without IV contrast. COMPARISON: None. TECHNIQUE: Multidetector CT axial slices of the pelvis were obtained without IV contrast. Sagittal, coronal, and 3-D reconstructions were performed and viewed on a separate workstation reviewed to further define anatomy and possible pathology. Appropriate CT dose lowering techniques were utilized. FINDINGS: Pelvis:Reproductive Organs: No pelvic masses.Ureters: Within normal limits.Bladder: Within normal limits. Bowel: Normal caliber. Peritoneum: No ascites or free air, no fluid collection.Vessels: Atherosclerotic change.Retroperitoneum: Within normal limits. Abdominal Wall: Within normal limits.Bones: Left subcapital femoral neck impacted fracture with 10 mm superomedial and 7 mm anterior displacement of distal fragment. Intact femoral acetabular joint. IMPRESSION: Left comminuted, impacted, subcapital femoral neck fracture with 10 mm superomedial and 7 mm anterior displacement of distal fragment. Approved by:Rhonda Rosenbaum on 03/31/2018 11:18 PM EDT. I, Nayely Locke, have reviewed the images and report and concur with these findings. Electronically signed by:Nayely Locke. Transcribed by: [id number], User Resident: RHONDA Samsectronically Signed by: NAYELY LOCKE @ 04/01/2018 09:33 AMI personally read this/these film(s) with this resident Normal [facility] Comment on above: Order Comment: Other , assess left hip fracture History and Physicalon 04-01 History and Physical [id number] Admitted: 03/31/2018 Date of : 1955 Attending Physician: Dewayne Mancuso MD Room #: [id number] Discharge Date: HISTORY AND PHYSICALCHIEF COMPLAINT: Left hip pain, fall.HISTORY OF PRESENT ILLNESS: The patient is a 63-year-old female, whoexperienced a mechanical fall earlier today. States that she was steppingout from home into a garage and tripped and fell over a dog, ended upstriking her head and neck area against door and landed on her left side,started having pain in the neck area and also on the left side of her body.Initially presented to [facility] where she had workup done. CT ofthe cervical spine was negative for fracture. She was found to have a leftfemoral neck fracture and was transferred to [facility] for further evaluation byOrthopedic Surgery. She received some morphine for pain. She states herpain is presently controlled. She denies having fevers, chills, cough,chest pain, shortness of breath, abdominal pain, nausea, vomiting,diaphoresis, dysuria, urinary frequency, urgency, weakness, or numbness.Denies having any lightheadedness, dizziness, or headache presently. Nochanges in her vision.PAST MEDICAL HISTORY: Hyperlipidemia, depression, hypertension, diabetesmellitus, and COPD.PAST SURGICAL HISTORY: Hysterectomy, tonsillectomy, left carpal tunnelrelease, and appendectomy.HOME MEDICATIONS: Atorvastatin 40 mg p.o. daily, cetirizine 10 mg p.o.daily, citalopram 40 mg p.o. daily, Dulera 2 puffs b.i.d., lisinopril 2.5mg p.o. daily, metformin 1000 mg p.o. b.i.d., risperidone 0.5 mg p.o. everyday, and Ventolin 1 puff every 6 hours p.r.n.ALLERGIES: No known drug allergies.SOCIAL HISTORY: The patient smokes half pack per day. States she has beensmoking for 50 years. Denies any alcohol use. Denies any recreationaldrug use. Lives alone.FAMILY HISTORY: Her mother is alive, has atrial fibrillation, CHF,hypertension, and diabetes mellitus. Father is . She hadhypertension, lung cancer, and diabetes mellitus.REVIEW OF SYSTEMS: A 14-point review of system was performed. Allpertinent positives and negatives mentioned in HPI. Remainder of systemsotherwise negative.PHYSICAL EXAMINATION:GENERAL APPEARANCE: The patient is an elderly female, presently in noacute distress. Awake, alert, and lying comfortably in bed.VITAL SIGNS: Temperature 98.1, heart rate 71, respiratory rate 18, bloodpressure 140/66, and saturating 85% on room air.HEAD: Head is atraumatic and normocephalic.EYES: Pupils are equal, round, reactive to light and accommodation.Extraocul ar movements are intact. No conjunctival pallor.ENT: External appearance of ears unremarkable. Hearing is normal. Mucousmembranes are moist. No other abnormalities in oropharynx.NECK: Supple. No cervical adenopathy. No JVD.RESPIRATORY: Lungs are clear to auscultation. Normal respiratory effort.CARDIOVASCULAR: Normal heart sounds. Regular rate and rhythm. Nomurmurs. Peripheral pulses palpable and symmetric.ABDOMEN: Soft, nontender, and nondistended. Bowel sounds normal. Noguarding or rebound tenderness.EXTREMITIES: No edema in bilateral extremities. No varicosities.SKIN: No rashes. Her skin is warm and dry.MUSCULOSKELETAL: Range of motion intact. Tenderness to palpation of lefthip, left lower extremity.NEUROLOGIC: No sensory deficits. Cranial nerves II through XII intact.PSYCHIATRIC: The patient's recent memory intact. She is alert andoriented x3.LAB STUDIES:CBC; WBC 9.9, hemoglobin 12.2, hematocrit 36.1, and platelet count 189.CMP: Sodium 138, potassium 4.0, chloride 103, bicarb 26.7, BUN 7,creatinine 0.78, calcium 8.7, glucose 112. ALT 21, AST 12, and alkalinephosphatase 61. Total protein 6.4, albumin 3.7, and total bilirubin 0.5.PT 10.0, INR 0.97, and PTT 28.2.CT of cervical spine was done and showed no evidence of acute fracture.X-ray of the left hip showed left femoral neck fracture. All lab studiesand imaging studies noted are from [facility] from March.ASSESSMENT:1. Left femoral neck fracture.2. Preop evaluation.3. Hypertension.4. Hyperlipidemia.5. Type 2 diabetes mellitus.6. Chronic obstructive pulmonary disease.7. Depression.8. Hypoxia.PLAN: The patient will be admitted to the Medicine Service for furthercare. Orthopedic Surgery is on consult and has already evaluated thepatient. They are planning for surgical intervention likely on Monday.Preop evaluation was done. The patient's revised cardiac risk index is 0points, class 1 risk, 0.4% risk of major cardiac event. No additionalworkup or studies are indicated prior to surgery. We will hold thepatient's metformin and NIKKI inhibitor in the perioperative period. She iseating and drinking sufficiently for now, will hold off on IV fluids and itcan be started prior to surgery. Her home medications have been reviewedand reconciled. Pain medication has been ordered for her. Incentivespirometry has been ordered. DVT prophylaxis has been ordered. PT, OTevaluations have been ordered. Social Work will be placed on consult fordisposition planning. Diet has been ordered for the patient. She is fullcode.Electronically Signed by:Dewayne Mancuso MD 04/01/2018 03:53 A EL Fosterate Dict: 03/31/2018/10:32 P/Lj Foster Trans: 03/31/2018 10:57 P/[id number] 10 Normal [facility] POC GLUCOSE LABon 04-01-2018 Glucose mass conc 178 mg/dL High 70-100 [facility] Comment on above: Performed By: #### 0 0071 ####[facility] [place] [address], [facility] Glucose mass conc 180 mg/dL High 70-100 [facility] Comment on above: Performed By: #### 0 0071 ####[facility] [place] [address], [facility] Glucose mass conc 128 mg/dL High 70-100 [facility] Comment on above: Performed By: #### 0 0071 ####[facility] [place] [address], [facility] Glucose mass conc 120 mg/dL High 70-100 [facility] Comment on above: Performed By: #### 8 [id number] ####[facility] PROTHROMBIN TIMEon 8 INR Coag RelTime (PPP) 1.04 {INR} Normal 0.91-1.16 [facility] Comment on above: Order Comment: No: D o not add to previous draw Result Comment: ACCC P RECOMMENDED INR FOR WARFARIN THERAPY CONDITION INRPROPHYLAXIS OF VENOUS THROMBOSIS 2-3(HIGH-RISK SURGERY)TREATMENT OF VENOUS THROMBOSIS 2-3TREATMENT OF PULMONARY EMBOLISM 2-3PREVENTION OF SYSTEMIC EMBOLISM: 2-3 ACUTE MYOCARDIAL INFARCTION TISSUE HEART VALVES VALVULAR HEART DISEASE ATRIAL FIBRILLATION RECURRENT SYSTEMIC EMBOLISMMECHANICAL HEART VALVE 2.5-3.5 FROM: ORAL ANTICOAGULANTS. MECHANISM OF ACTION, CLINICALEFFECTIVENESS, AND OPTIMAL THERAPEUTIC RANGE. [id number]. Performed By: #### 5 6101 ####[facility] [place] [address], [facility] Prothrombin time (PT) Coag time (PPP) 13.6 s Normal 12.3-14.8 [facility] Comment on above: Order Comment: No: D o not add to previous draw Result Comment: ALL RESULTS MUST BE INTERPRETED WITH RESPECT TO BLOOD DRAWING ARTIFACTOR DILUTION ERROR OF ANTICOAGULANT AT THE TIME OF SAMPLING. Performed By: #### 5 [id number] ####[facility] [place] [address], [facility] RBC'S 2 UNITSon 04-01-2018 CROSSMATCH INTERP 1 COMP Normal The [facility] Comment on above: Performed By: #### 8 [id number] ####[facility] [place] [address], [facility] CROSSMATCH INTERP 2 COMP Normal [facility] Comment on above: Performed By: #### 8 [id number] ####[facility] [place] [address], [facility] Protein mass conc 336 g/dL Normal [facility] Comment on above: Performed By: #### 8 [id number] ####[facility] [place] [address], [facility] Protein mass conc RE Normal [facility] Comment on above: Result Comment: Resu lt changed by IF on 04/04/2018 08:25. The previous value was XM. Performed By: #### 8 [id number] ####[facility] [place] [address], [facility] UNIT ABO 1 A Normal [facility] Comment on above: Performed By: #### 8 [id number] ####[facility] [facility] [place] [address], [facility] UNIT ABO 2 A Normal [facility] Comment on above: Performed By: #### 8 6002 ####[facility] [place] [address], [facility] UNIT ID 1 [id number] Normal The [facility] Comment on above: Performed By: #### 8 6002 ####[facility] [place] [address], [facility] UNIT ID 2 [id number] Normal The [facility] Comment on above: Performed By: #### 8 [id number] ####[facility] [facility] [place] [address], [facility] UNIT RH 1 Positive Normal [facility] Comment on above: Performed By: #### 8 6002 ####[facility] [facility] [place] [address], [facility] UNIT RH 2 Positive Normal [facility] Comment on above: Performed By: #### 8 6002 ####[facility] [place] [address], [facility] TYPE AND SCREENon 04-01-2018 ABO INTERPRETATION A Normal [facility] Comment on above: Performed By: #### 6 2586 ####[facility] [facility] [place] [address], [facility] RH INTERPRETATION Positive Normal [facility] Comment on above: Performed By: #### 6 2586 ####[address] [place] [address], [facility] PORTABLE HIP LEFT 1 OR 2 VWS WITH PELVISon 03-31-2018 PORTABLE HIP LEFT 1 OR 2 VWS WITH PELVIS [facility] [place] [address] =====Patient Name: PRIYANKA NICHOLAS : 1955Sex: FAge: Race: WhiteMRN: [id number]. Location: [id number] Status: IVisit #: [id number] Date: 03/31/2018 8:30:00 PMCompleted Date: 03/31/2018 09:11 PMRequesting Provider: LEXI BARRAGAN Attending Provider: MARILYN LAGUNAS Report Copy To: Signs & Symptoms: Pain ( specify Location)History: Patient history not availableComments: R/O FXExam: PORTABLE HIP LEFT 1 OR 2 VWS WITH PELVISAccession #: [id number] PORTABLE HIP LEFT 1 OR 2 VWS WITH PELVIS 03/31/2018 9:11 PM EDT SIGNS AND SYMPTOMS: Pain ( specify Location) TECHNOLOGIST COMMENTS: Left hip fracture QUESTION FOR THE RADIOLOGIST: R/O FX PROTOCOL: AP(PA) and Lateral views were obtained. COMPARISON: None FINDINGS: Soft tissues:Normal Bones:Subcapital femoral neck fracture. Joints:Femoral acetabular joint appears intact. IMPRESSION: 1. Left subcapital femoral neck fracture with approximately 7 mm superior displacement of distal fragment. Approved by:Rhonda Rosenbaum on 03/31/2018 9:21 PM EDT. I, Nayely Locke, have reviewed the images and report and concur with these findings. Electronically signed by:Nayely Locke. Transcribed by: [email or web address], User Resident: RHONDA Samsectronically Signed by: NAYELY LOCKE @ 04/01/2018 10:43 AMI personally read this/these film(s) with this resident Normal [facility] Comment on above: Order Comment: No: D o not add to previous draw Encounters Encounter Date Encounter Type Care Provider Facility Start: 06-27-2023 End: 06-27-2023 ambulatory CHETNA BARCENAS Not Available Start: 04-15-2022 End: 04-16-2022 ambulatory LON BARCENAS Facility:[facility] Start: 12-21-2021 End: 12-22-2021 ambulatory BELT WORKER CHETNA BARCENAS Facility:[facility] Start: 11-01-2021 End: 11-02-2021 ambulatory BELT WORKER CHETNA BARCENAS Facility:[facility] Start: 09-24-2020 End: 09-27-2020 Patient encounter procedure [facility] Start: 09-24-2020 End: 09-26-2020 Subsequent hospital visit by physician Olga [facility] Mammography Comment on above: Encounter for screen ing mammogram for breast cancer Post-menopausal Start: 07-30-2020 End: 08-02-2020 Patient encounter procedure [facility] Start: 07-30-2020 End: 08-01-2020 Subsequent hospital visit by physician Olga Xr Room 4 [facility] Radiology Comment on above: COPD exacerbation (H CC) Start: 01-27-2020 End: 01-28-2020 Patient encounter procedure SABIHA VIVEROS [facility] Start: 01-27-2020 End: 01-27-2020 Subsequent hospital visit by physician Mike RIVERA [place] [facility] Comment on above: Suspected COVID-19 v irus infection Start: 11-21-2019 End: 11-24-2019 Patient encounter procedure [facility] Start: 11-21-2019 End: 11-23-2019 Subsequent hospital visit by physician Olga Ct Rm 1 [facility] CT Scan Comment on above: Personal history of nicotine dependence Essential hypertensi on; Mixed hyperlipidemia Start: 02-28-2019 End: 02-28-2019 Subsequent hospital visit by physician Mike GARCIACZ Laboratory Comment on above: Type 2 diabetes brad itus with diabetic mononeuropathy, without long-term current use of insulin (HCC); Mixed hyperlipidemia Start: 04-19-2018 End: 04-20-2018 Patient encounter procedure ANT Edmar FREITAS Facility:[facility] Start: 03-31-2018 End: 04-05-2018 Evaluation and management of inpatient MARILYN LAGUNAS Facility:[facility] Start: 02-17-2017 End: 02-18-2017 Ambulatory [facility] Procedures Date Procedure Procedure Detail Performing Clinician Start: 09-24-2020 Dxa bone density arash dy 1/> sites axial skel Rayeesa Ahmad Work Phone: Start: 09-24-2020 Screening mammograph y bi 2-view breast inc cad Rayeesa Ahmad Work Phone: Start: 07-30-2020 Radiologic exam ches t 2 views Rayeesa Ahmad Work Phone: Start: 01-27-2020 COVID-19 AMBULATORY HARRY RACHELLE VIVEROS Start: 11-21-2019 Ldct for lung ca screen RAYEESA AHMAD Start: 11-21-2019 Assay of thyroid stimulating hormone tsh RAYEESA AHMAD Start: 11-21-2019 Blood count complete automated RAYEESA AHMAD Start: 11-21-2019 Comprehensive metabo lic panel RAYEESA AHMAD Start: 11-21-2019 Lipid panel RAYEESA AH MAD Start: 11-21-2019 Ldct for lung ca screen Rayeesa Ahmad Work Phone: Start: 11-21-2019 Assay of thyroid stimulating hormone tsh Bairon Chirica Work Phone: Start: 11-21-2019 Blood count complete automated Bairon Chirica Work Phone: Start: 11-21-2019 Comprehensive metabo lic panel Bairon Chirica Work Phone: Start: 11-21-2019 Lipid panel Bairon Chirica Work Phone: Start: 02-28-2019 Lipid panel Rayeesa Ah mad Work Phone: Start: 02-28-2019 Urine albumin quantitative Rayeesa Ahmad Work Phone: Start: 04-04-2018 Antibody screen ANT FREITAS Comment on above: Performed By: #### 5 [id number] ####[facility] [facility], [place] [id number] [place] [address] Start: 04-04-2018 TRANSFUSE NONAUT RED BLOOD CELLS IN PERIPH VEIN, PERC MARILYN LAGUNAS Start: 04-02-2018 REPLACEMENT OF L HIP JT WITH METAL, UNCEMENT, OPEN APPROACH ANT FREITAS Start: 04-01-2018 Antibody screen ANT FREITAS Comment on above: Performed By: #### 6 [id number] ####[facility] [facility], [place] [address] [place] [address] Plan of Treatment Date Care Activity Detail Author Start: 11-01-2028 DTaP/Tdap/Td vaccine (2 - Td) DTaP/Tdap/Td vaccine (2 - Td[facility] [place] Start: 09-24-2022 Screening for malignant neoplasm of breast Breast cancer screen [facility] Phone: Start: 08-14-2021 Diabetic foot examination Diabetic foot exam [facility] Phone: Start: 07-30-2021 HbA1c (Bld) [Mass fraction] A1C test (Diabetic or Prediabetic) [employer] Phone: Start: 02-17-2021 Influenza vaccination Flu vaccine (Season Ended) [employer] Phone: Start: 12-01-2020 End: 12-01-2020 Office Visit 12/01/2020 Office Visit Family Medicine Mike Ott MD [address] [facility] [address] [place] [address] [facility] Start: 11-26-2020 HbA1c (Bld) [Mass fraction] A1C test (Diabetic or Prediabetic) [facility] [place] Start: 11-23-2020 Pneumococcal 65+ years Vaccine (1 of 1 - PPSV23) Pneumococcal 65+ years Vaccine (1 of 1 - PPSV23) [employer] Phone: Start: 11-20-2020 Creatinine measurement Creatinine monitoring [place], [place] Start: 11-20-2020 Lipid panel Lipid screen [place], [place] Start: 11-20-2020 Potassium monitoring Potassium monitoring [place] Start: 11-20-2020 Screening for malignant neoplasm of lung Low dose CT lung screening [place] Start: 10-16-2020 End: 10-16-2020 Office Visit 10/16/2020 Office Visit Podiatry Al Doran DPM [address] [facility] [address] [place] [address] [phone] [facility] Start: 08-31-2020 End: 08-31-2020 Office Visit 08/31/2020 Office Visit Family Medicine Mike Ott MD [address] [facility] [address] [place] [phone] [facility] Start: 07-11-2020 Diabetic foot examination Diabetic foot exam [place] Start: 05-30-2020 HbA1c (Bld) [Mass fraction] A1C test (Diabetic or Prediabetic) [place] Start: 02-29-2020 Diabetic microalbuminuria test Diabetic microalbuminuria test [place] Start: 02-29-2020 Lipid panel Lipid [place] Start: 02-18-2020 Influenza vaccination Flu vaccine (#1) [place] Start: 02-17-2020 Colon cancer screen colonoscopy Colon cancer screen colonoscopy [place] Start: 02-17-2020 Screening for malignant neoplasm of colon Colon cancer screen colonoscopy [place] Start: 02-08-2020 [object Object] Diabetic foot exam [place] Start: 01-27-2020 Annual Wellness Visit (AWV) Annual Wellness Visit (AWV) [place] Start: 12-25-2019 A1C test (Diabetic or Prediabetic) A1C test (Diabetic or Prediabetic) [place] Start: 11-27-2019 End: 11-27-2019 Office Visit 11/27/2019 Office Visit Family Medicine Mike Ott MD [address] [place] [address] [facility] Start: 10-30-2019 [facility] Start: 10-30-2019 Creatinine monitoring Creatinine monitoring [facility] Start: 10-30-2019 Potassium monitoring Potassium monitoring [place], [place] Start: 09-28-[address] lung screening Low dose CT lung screening [place] Start: 09-28-2019 Screening for malignant neoplasm of lung Low dose CT lung screening [place] Start: 06-04-2019 Shingles Vaccine (3 of 3) Shingles Vaccine (3 of 3) [place], [place] Start: 05-30-2019 End: 05-30-2019 Office Visit 05/30/2019 Office Visit Family Medicine Mike Ott MD [address] [place] [phone] [facility] Start: 04-11-2019 End: 04-11-2019 Office Visit 04/11/2019 Office Visit Podiatry Al Doran, DPM [address] [facility] [address] [place] [phone] [facility] Start: 12-30-2018 Breast cancer screen Breast cancer screen [place] Start: 12-30-2018 Screening for malignant neoplasm of breast Breast cancer screen [place] Start: 04-14-2018 Diabetic microalbuminuria test Diabetic microalbuminuria test [place] Start: 01-13-2018 Cervical cancer screen Cervical cancer screen [place] Start: 01-13-2018 Screening for malignant neoplasm of cervix Cervical cancer screen [place] Start: 07-10-2016 Lipid screen Lipid [place] Start: 03-12-2016 Diabetic retinal exam Diabetic retinal exam [place], [place] Start: 10-09-2015 Shingles Vaccine (2 of 3) Shingles Vaccine (2 of 3) [place], [place] Start: 2010 Screening for osteoporosis DEXA (modify frequency per FRAX score) [facility] [employer] Phone: Start: 1971 COVID-19 Vaccine (1 of 2) COVID-19 Vaccine (1 of 2) [facility] [employer] Phone: Start: 1971 COVID-19 Vaccine (1) COVID-19 Vaccine (1) [facility] [employer] Phone: End: 01-28-2020 COVID-19 Ambulatory COVID-19 Ambulatory Lab Routine Suspected COVID-19 virus infection 1 Occurrences starting 01/28/2020 until 01/28/2020 [place] Comment on above: 1 Occurrences starting 01/28/2020 until 01/28/2020 COVID-19 Ambulatory COVID-19 Amb ulatory Lab Routine Suspected COVID-19 virus infection 01/27/2020 2:40 PM EDT [place] Immunizations Immunization Date Immunization Notes Care Provider Fa marisa 04-09-2019 zoster vaccine recombinant Rayeesa A hmad [place] 02-28-2019 Influenza, injectabl e, Madin [place] Canine Kidney, preservative free, quadrivalent [place], [place] 11-01-2018 tetanus toxoid, redu danette diphtheria toxoid, and acellular pertussis vaccine, adsorbed [place], [place] 09-04-2018 zoster recombinant adjuvanted vaccine (SHINGRIX) 50 MCG/0.5ML SUSR injection [place] 04-02-2018 influenza virus vacc ine, unspecified formulation [facility] Phone: 04-02-2018 influenza, injectabl e, quadrivalent, contains preservative Rayeesa [place] 04-24-2017 influenza, injectabl e, quadrivalent, contains preservative [facility] [place] 03-28-2016 influenza, injectabl e, quadrivalent, preservative free Mike [facility], [place] 11-24-2015 pneumococcal polysac charide vaccine, 23 valent [facility] 08-14-2015 zoster vaccine, live Mike [facility], [place] 05-11-2015 influenza virus vacc ine, unspecified formulation [facility] , [place] 01-08-2012 pneumococcal polysac charide vaccine, 23 valent [facility] Payers Date Payer Category Payer Medicaid [id number] 2014 [place] [facility] [place] [facility] [place] [facility] xxxxxxxxxxxx 2014-Present [phone] [address] [address] [place] [address] xxxxxxxxxxxx [id number] 1959 Medicare [id number] 1955 Unknown [id number] 1955 Unknown [id number] 1955 Unknown [id number] [id number] 1955 Unknown [id number] [id number] 1955 Unknown [id number] [id number] 1955 Unknown [id number] [id number] 1955 Unknown [id number] [id number] 1955 Unknown [id number] [id number] 1955 Unknown [id number] [id number] 1955 Unknown [id number] [id number] 1955 Unknown [id number] [id number] 1955 Unknown [id number] [id number] 1955 Unknown [id number] 9 Social History Date Type Detail Facility Start: 01-14-1973 End: 08-14-2020 Tobacco smoking status NHIS Current every day smoker [place], [place] Start: 01-14-1973 End: 11-27-1982 History of tobacco use Cigarette Smoker [place] Start: 02-28-2019 End: 08-14-2020 Cigarettes smoked current (pack per day) - Reported [place] Start: 02-28-2019 Alcohol intake No [place], [place] Sex Assigned At Not on file [place] Start: 08-09-2019 End: 08-14-2020 Alcohol intake Current non-drinker of alcohol (finding) [place] Exposure to SARS-CoV -2 (event) Unable to assess [place] Start: 01-27-2020 End: 08-14-2020 Tobacco use and exposure Never used [place], [place] Summary Purpose Family History No Family History Records FoundNo Family History Records FoundNo Family History Records FoundNo Family History Records FoundNo Family History Records FoundNo Family History Records Found Advance Directives No Advanced Directives Records FoundDocuments on File Type Date Recorded Patient Tray Drier Operator Expl anation Advance Directives and Living Will Power of Rn Lactation Consultant Latest Code Status on File Code Status Date Activated Date Inactivated Comments Full Code 04/26/2017 6:22 AM 04/30/2017 6:08 PM Documents on File Type Date Recorded Patient Tray Drier Operator Expl anation Advance Directives and Living Will Power of Rn Lactation Consultant Latest Code Status on File Code Status Date Activated Date Inactivated Comments Full Code 04/26/2017 6:22 AM 04/30/2017 6:08 PM Documents on File Type Date Recorded Patient Tray Drier Operator Expl anation ACP-Advance Directive ACP-Power of Rn Lactation Consultant Documents on File Type Date Recorded Patient Tray Drier Operator Expl anation ACP-Advance Directive ACP-Power of Rn Lactation Consultant Hospital Course Note MR#: [id number] [facility] Priy[facility] Nicholas Admitted: 03/31/2018 Discharged: 04/05/2018 Date of : 1955 Physician: Marilyn Lagunas M.D. DIS[facility] C[facility] PHYSICIAN: Dr. Vargas.PRIMARY DIAGNOSES:1. Left femoral neck fracture.2. Preoperative clearance.3. Hypertension.4. Hyperlipidemia.5. Type 2 diabetes mellitus.6. Chronic obstructive pulmonary disease.7. Depression.8. Hypoxia.9. Postop anemia.HOSPITAL COURSE: The patient is a 63-year-old female with significant pastmedical history as above, who presented after a mechanical fall and wasfound to have a left femoral neck fracture. She is admitted to thehospitalist team with the Ortho consult and plan for surgery. She hadpreoperative clearance per hospitalist team. NIKKI inhibitor and metforminwere held. The patient was started on pain medications. She was taken tosurgery and did well. Orthopedics followed. She was found to have ahemoglobin on the 17th in the morning to be 6.6. She was dong (more content not included)... Assessments Diagnosis Type 2 diabetes mellitus with diabetic mononeuropathy, without long-term current use of insulin (HCC) Mixed hyperlipidemia Diagnosis Personal history of nicotine dependence Personal history of tobacco use, presenting hazards to health Diagnosis Suspected COVID-19 virus infection Diagnosis Essential hypertension Unspecified essential hypertension Mixed hyperlipidemia Diagnosis COPD exacerbation (HCC) Obstructive chronic bronchitis with exacerbation Diagnosis Encounter for screening mammogram for breast cancer Diagnosis Post-menopausal Asymptomatic postmenopausal status (age-related) (natural) Reason for Referral Status Reason Specialty Diagnoses / Procedures Referre d By Contact Referred To Contact Closed Radiology Diagnoses Personal history of nicotine dependence Procedures CT LUNG SCREENING Mike Ott MD [address] [place] [address] Status Reason Specialty Diagnoses / Procedures Referre d By Contact Referred To Contact Closed Radiology Diagnoses Post-menopausal Procedures DEXA BONE DENSITY AXIAL SKELETON Mike Ott MD [address] [phone] Additional Source Comments INFORMATION SOURCE (unrecogn ized section and content) DATE CREATED AUTHOR 12/13/2017 [facility] DATE CREATED AUTHOR AUTHOR'S ORGANIZ ATION 05/27/2018 [facility] DATE CREATED AUTHOR AUTHOR'S ORGANIZ ATION 01/30/2020 [facility] DATE CREATED AUTHOR AUTHOR'S ORGANIZ ATION 09/27/2020 [facility] DATE CREATED AUTHOR AUTHOR'S ORGANIZ ATION 04/19/2022 [facility] DATE CREATED AUTHOR AUTHOR'S ORGANIZ ATION 06/28/2023 [facility] dical Specialists EPIC Reason for Visit (unrecogniz ed section and content) Status Reason Specialty Diagnoses / Procedures Referre d By Contact Referred To Contact Closed Radiology Diagnoses Personal history of nicotine dependence Procedures CT LUNG SCREENING Mike Ott MD [address] [phone] Status Reason Specialty Diagnoses / Procedures Referre d By Contact Referred To Contact Closed Radiology Diagnoses Encounter for screening mammogram for breast cancer Procedures KOBY RAFI DIGITAL SCREEN BILATERAL KOBY Digital Screen Bilateral [[id number]] Mike Ott MD [address] [address] Status Reason Specialty Diagnoses / Procedures Referre d By Contact Referred To Contact Closed Radiology Diagnoses Post-menopausal Procedures DEXA BONE DENSITY AXIAL SKELETON Mike Ott MD [address] [address] FOR RECORDS PERTAINING TO PATIENTS WHO ARE OR HAVE BEEN ENROLLED IN A CHEMICAL DEPENDENCY/SUBSTANCEABUSE PROGRAM, SOME INFORMATION MAY BE OMITTED. This clinical summary was aggregated from multiple sources. Caution should be exercised in using it in the provision of clinical care. This summary normalizes information from multiple sources, and as a consequence, information in this document may materially change the coding, format and clinical context of patient data. In addition, data may be omitted in some cases. CLINICAL DECISIONS SHOULD BE BASED ON THE PRIMARY CLINICAL RECORDS. [facility], [facility]. provides no warranty or guarantee of the accuracy or completeness of information in this document.
== END 2023-07-19 12:14 | disposition home or self-care (01) ==
LOC: MAMMO 12:14
PROVIDERS: PCP Nurse Practitioner; Visit Provider Nurse Practitioner
DX: Z12.31 Encounter for screening mammogram for malignant neoplasm of breast (principal)
CPT/HCPCS: 77063; 77067

== ENCOUNTER 2023-10-13 09:41 | Outpatient (OUT) | payer MEDICARE, SELFPAY ==
--- NOTE | 2023-10-13 09:56 | XR_ITS ---
The [address] [address] Patient Name: PRIYANKA NICHOLAS MRN: [id number] date: 1955 Sex: F Assigned Patient Location: [facility] Current Patient Location: [facility] Accession/Order Number: [id number] Exam Date: 10/13/2023 10:05 Report Date: 10/13/2023 19:47 At the request of: CHETNA BARCENAS Procedure: XR DEXA axial skeleton EXAMINATION: XR DEXA axial skeleton HISTORY: Post Menopausal Z78.0 COMPARISON: No relevant comparison available. TECHNIQUE: Dual-energy X-ray absorptiometry (DXA) was performed. FINDINGS: SPINE ANALYSIS: Average bone mineral density is 1.117 g/cm2. T-score (standard deviation relative to young adult mean): -0.5 . HIP ANALYSIS: Lowest bone mineral density is within the right femoral trochanter, 0.498 g/cm2. T-score (standard deviation relative to young adult mean): -3.1 . XR/XR DEXA axial skeleton IMPRESSION: World Bi Organization Classification: Osteoporosis - High Fracture Risk Electronically authenticated by: MARI MONTES Date: 10/13/2023 19:47
== END 2023-10-13 09:42 | disposition home or self-care (01) ==
LOC: RAD 09:41
PROVIDERS: PCP Nurse Practitioner; Visit Provider Nurse Practitioner
DX: M81.0 Age-related osteoporosis without current pathological fracture (principal); Z78.0 Asymptomatic menopausal state
CPT/HCPCS: 77080

== ENCOUNTER 2024-01-08 09:12 | Outpatient (OUT) | payer MEDICARE, SELFPAY ==
[2024-01-08 10:01] LABS: Bilirubin Urine NEGATIVE (NEGATIVE); Blood Urine NEGATIVE (NEGATIVE); Clarity Urine CLEAR (CLEAR); Color Urine LT. YELLOW (YELLOW); Glucose Urine UA NEGATIVE (NEGATIVE); Ketones Urine NEGATIVE (NEGATIVE); Leukocyte Esterase Urine NEGATIVE (NEGATIVE); Nitrite Urine NEGATIVE (NEGATIVE); Protein Urine NEGATIVE (NEG/TRACE); Specific Gravity Urine 1.015 (1.005-1.025); Urobilinogen Urine 0.2 EU/dL (0.2-1.0)
[2024-01-08 10:19] LABS: Creatinine Urine Random 76.14 mg/dL (20.00-300.00); Microalbumin Urine Random <1.3 mg/dL (<=30.0)
[2024-01-08 10:20] LABS: Estimated Average Glucose 126 mg/dL
[2024-01-08 10:26] LABS: Urine Microscopic Indicated NO
[2024-01-08 10:28] LABS: Basophils Absolute Auto 0.1 10^3/uL (0.0-0.1); Basophils Percent Auto 1.2 % (0.2-2.0); Eosinophils Absolute Auto 0.3 10^3/uL (0.0-0.7); Eosinophils Percent Auto 3.4 % (0.9-7.0); Hematocrit 40.8 % (36.0-48.0); Hemoglobin 12.8 g/dL (12.0-16.0); Immature Granulocytes Abs Auto 0.04 10^3/uL (0.00-0.03); Immature Granulocytes Pct Auto 0.5 % (0.0-0.5); Lymphocytes Absolute Auto 1.6 10^3/uL (1.2-3.8); Lymphocytes Percent Auto 22.5 % (20.5-60.0); Mean Corpuscular HGB Conc 31.4 g/dL (29.9-35.2); Mean Corpuscular Hemoglobin 29.8 pg (26.7-34.0); Mean Corpuscular Volume 94.9 fL (81.0-99.0); Mean Platelet Volume 11.1 fL (9.5-13.5); Monocytes Absolute Auto 0.5 10^3/uL (0.3-0.8); Monocytes Percent Auto 6.8 % (1.7-12.0); Neutrophils Absolute Auto 4.8 10^3/uL (1.4-6.5); Neutrophils Percent Auto 65.6 % (43.0-75.0); Platelet Count 238 10^3/uL (150-450); Red Cell Distribution Width 13.7 % (11.0-15.0); White Blood Count 7.3 10^3/uL (4.0-11.0)
[2024-01-08 10:40] LABS: Alanine Aminotransferase 20 U/L (14-59); Albumin Globulin Ratio 1.1; Albumin Level 3.5 g/dL (3.4-5.0); Alkaline Phosphatase 71 U/L (46-116); Anion Gap 12.2; Aspartate Amino Transferase 10 U/L (15-37); BUN Creatinine Ratio 13.4; Bilirubin Total 0.5 mg/dL (0.2-1.0); Calcium 8.8 mg/dL (8.5-10.1); Carbon Dioxide 26.7 mmol/L (21.0-32.0); Chloride 104 mmol/L (98-107); Chol HDL Ratio 2.7; Cholesterol 131 mg/dL (<=200); Estimated GFR (African America >60 (>=60); Estimated GFR (Non-African Ame 57 (>=60); Globulin 3.2 g/dL; Glucose 135 mg/dL (74-106); HDL Cholesterol 49 mg/dL (40-60); LDL Cholesterol Calculated 58.4 mg/dL; Potassium 3.9 mmol/L (3.5-5.1); Sodium 139 mmol/L (136-145); Thyroid Stimulating Hormone 1.271 uIU/mL (0.358-3.740); Total Protein 6.7 g/dL (6.4-8.2); Triglycerides 118 mg/dL (<=150); VLDL CHOLESTEROL 23.6 mg/dL
[2024-01-08 11:27] LABS: Free T4 0.85 ng/dL (0.76-1.46)
== END 2024-01-08 09:13 | disposition home or self-care (01) ==
LOC: LAB 09:13
PROVIDERS: PCP Nurse Practitioner; Visit Provider Nurse Practitioner
DX: F41.9 Anxiety disorder, unspecified (principal); F32.A Depression, unspecified; E11.9 Type 2 diabetes mellitus without complications; Z72.0 Tobacco use; E55.9 Vitamin D deficiency, unspecified
CPT/HCPCS: 36415; 80053; 80061; 81003; 82043; 82306; 82570; 82607; 83036; 84439; 84443; 85025

== ENCOUNTER 2024-01-22 10:52 | Outpatient (OUT) | payer MEDICARE, SELFPAY ==
--- NOTE | 2024-01-22 10:56 | XR_ITS ---
The [address] [address] Patient Name: PRIYANKA NICHOLAS MRN: [id number] date: 1955 Sex: F Assigned Patient Location: [facility] Current Patient Location: [facility] Accession/Order Number: [id number] Exam Date: 01/22/2024 11:52 Report Date: 01/22/2024 14:03 At the request of: INDY LABOY Procedure: XR chest 2V EXAM: XR chest 2V HISTORY: Preop exam COMPARISON: 07/06/2023 TECHNIQUE: Upright PA and lateral chest x-ray FINDINGS: The heart is not enlarged and the vasculature is not distended. No acute infiltrate, effusion or pneumothorax is identified. Mild prominence of interstitial markings throughout the lungs and flattening of the hemidiaphragms indicates COPD. There is a compression fracture is seen in the lower thoracic spine. XR/XR chest 2V IMPRESSION: No acute infiltrate or evidence of cardiac decompensation. Mild chronic changes are present. There is a compression deformity in the lower thoracic spine, of indeterminate age. The patient had a CT of the chest in 2021, which did not demonstrate this compression fracture. Comparison with a more recent two-view chest x-ray is recommended. Electronically authenticated by: JACOB MACHUCA Date: 01/22/2024 14:03
--- NOTE | 2024-01-22 10:56 | ECG_ITS ---
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
--- NOTE | 2024-01-22 11:45 | PM.PRESUREVA ---
History of Present Illness History of Present Illness Chief complaint: bilateral eustachian tube dysfunction Narrative: Patient presents for preadmission testing. The patient states she has a long history of hearing loss and previously had ear tubes placed. She does wear hearing aids but states they do not help. She is a lifetime smoker with COPD and emphysema and admits to dyspnea on exertion but denies chest pain. She has moved recently and is being established with a new satellite specialist next month. She states she feels her COPD is controlled at this time. She denies any recent illness, fever, sore throat, epistaxis, or any other complaints. Review of Systems ROS Narrative REVIEW OF SYSTEMS: Negative except as stated in HPI, ten or more systems reviewed. Constitutional: No fever, chills, weakness ENT: No sore throat or epistaxis Cardiovascular: No edema, chest pain, or palpitations Respiratory: Chronic shortness of breath, cough, and wheezing Musculoskeletal: No joint pain or swelling Gastrointestinal: No abdominal pain, constipation, diarrhea, or vomiting Genitourinary: No dysuria or hematuria Neurological: No numbness, tingling, weakness, or headache Psychiatric: No mood changes [facility] Medical History (Updated 01/22/24 @ 11:43 by Cristina Chow NP) Uses hearing aid ?Z97.4 - Presence of external hearing-aid (ICD-10) Wears dentures ?Z97.2 - Presence of dental prosthetic device (complete) (partial) (ICD-10) Insomnia ?G47.00 - Insomnia, unspecified (ICD-10) PTSD (post-traumatic stress disorder) ?F43.10 - Post-traumatic stress disorder, unspecified (ICD-10) Emphysema lung ?J43.9 - Emphysema, unspecified (ICD-10) GERD (gastroesophageal reflux disease) ?K21.9 - Gastro-esophageal reflux disease without esophagitis (ICD-10) Dyspnea on exertion ?R06.09 - Other forms of dyspnea (ICD-10) Activity intolerance ?R68.89 - Other general symptoms and signs (ICD-10) Postoperative nausea and vomiting ?R11.2 - Nausea with vomiting, unspecified (ICD-10) ?Z98.890 - Other specified postprocedural states (ICD-10) Swimmers' ear ?H60.339 - Swimmer's ear, unspecified ear (ICD-10) Acute otitis media ?H66.90 - Otitis media, unspecified, unspecified ear (ICD-10) Menopause ?Z78.0 - Asymptomatic menopausal state (ICD-10) Osteoporosis ?M81.0 - Age-related osteoporosis without current pathological fracture (ICD-10) Pulmonary nodule ?R91.1 - Solitary pulmonary nodule (ICD-10) Abdominal bruit ?R09.89 - Other specified symptoms and signs involving the circulatory and respiratory systems (ICD-10) Elevated serum cholesterol ?E78.00 - Pure hypercholesterolemia, unspecified (ICD-10) Seasonal allergies ?J30.2 - Other seasonal allergic rhinitis (ICD-10) DDD (degenerative disc disease) Hypertension ?I10 - Essential (primary) hypertension (ICD-10) Esophageal dysphagia ?R13.19 - Other dysphagia (ICD-10) Chronic mastoiditis ?H70.10 - Chronic mastoiditis, unspecified ear (ICD-10) Thoracic spine fracture ?S22.009A - Unspecified fracture of unspecified thoracic vertebra, initial encounter for closed fracture (ICD-10) Arthritis ?M19.90 - Unspecified osteoarthritis, unspecified site (ICD-10) Diabetes ?E11.9 - Type 2 diabetes mellitus without complications (ICD-10) Depression ?F32.A - Depression, unspecified (ICD-10) Anxiety ?F41.9 - Anxiety disorder, unspecified (ICD-10) Bipolar disorder ?F31.9 - Bipolar disorder, unspecified (ICD-10) COPD (chronic obstructive pulmonary disease) ?J44.9 - Chronic obstructive pulmonary disease, unspecified (ICD-10) Eustachian tube dysfunction ?H69.90 - Unspecified Eustachian tube disorder, unspecified ear (ICD-10) Hearing loss ?H91.90 - Unspecified hearing loss, unspecified ear (ICD-10) Surgical History (Updated 01/22/24 @ 11:26 by Cristina Chow NP) History of myringotomy ?Z98.890 - Other specified postprocedural states (ICD-10) History of tonsillectomy ?Z90.89 - Acquired absence of other organs (ICD-10) History of hysterectomy ?Z90.710 - Acquired absence of both cervix and uterus (ICD-10) History of colonoscopy ?Z98.890 - Other specified postprocedural states (ICD-10) History of appendectomy ?Z90.49 - Acquired absence of other specified parts of digestive tract (ICD-10) History of carpal tunnel release ?Z98.890 - Other specified postprocedural states (ICD-10) History of total hip arthroplasty ?Z96.649 - Presence of unspecified artificial hip joint (ICD-10) Family History (Updated 01/22/24 @ 11:26 by Cristina Chow NP) Other Congestive heart failure Family history of cancer Family history of diabetes mellitus Family history of hypertension Heart disease Social History (Updated 01/22/24 @ 11:21 by Cristina Chow NP) Within the past year, how often did you have a drink containing alcohol: never Score interpretation: A score less than 3 is consistent with normal alcohol consumption. Smoking status: Current every day smoker What tobacco products do you use: cigarettes Cigarettes per day: 30 Years smoked: 53 Smoking pack-years: 79.50 Non-prescribed substance use: denies use Highest level of school completed/degree received: some college, no degree Meds Home Medications and Allergies Home Medications ?Medication ?Instructions ?Recorded ?Confirmed ?Type albuterol sulfate 90 mcg/actuation 2 inh inhalation Q6H 12/28/22 01/22/24 History breath activated powder inhaler atorvastatin 40 mg tablet 40 mg PO DAILY 12/28/22 01/22/24 History citalopram 40 mg tablet 40 mg PO DAILY 12/28/22 01/22/24 History fluticasone furoate 50 1 inh inhalation BID 12/28/22 01/22/24 History mcg/actuation blister powder for inhalation ipratropium 0.5 mg-albuterol 3 mg 3 ml inhalation Q6H PRN shortness 12/28/22 01/22/24 History (2.5 mg base)/3 mL nebulization of breath soln lisinopril 2.5 mg tablet 2.5 mg PO DAILY 12/28/22 01/22/24 History metformin 500 mg tablet 500 mg PO DAILY 12/28/22 01/22/24 History risperidone 0.5 mg tablet 0.5 mg PO DAILY 12/28/22 01/22/24 History aspirin 81 mg tablet,delayed 81 mg PO DAILY 01/22/24 01/22/24 History release buspirone 15 mg tablet 15 mg PO BID 01/22/24 01/22/24 History cetirizine 10 mg tablet 10 mg PO DAILY 01/22/24 01/22/24 History fluticasone propionate 50 1 spray intranasal Q12H 01/22/24 01/22/24 History mcg/actuation nasal spray,suspension tiotropium bromide 2.5 2 inh inhalation Q24H 01/22/24 01/22/24 History mcg/actuation mist for inhalation (Spiriva Respimat) Allergies Allergy/AdvReac Type Severity Reaction Status Date / Time No Known Drug Allergies Allergy Verified 01/22/24 11:14 Exam Narrative Exam Narrative: Constitutional: Awake, alert, comfortable, well-appearing, nontoxic, interactive, vital signs as charted Head: Normocephalic, atraumatic Eyes: Conjunctiva and lids normal to inspection, pupils normal ENT: Tympanic membranes retracted with effusion bilaterally, naris patent, posterior oropharynx clear, oral mucosa moist Neck: Supple, normal appearance, normal range of motion, no meningeal signs, no lymphadenopathy Respiratory: No respiratory distress, breath sounds clear Cardiovascular: Regular rate and rhythm, strong and regular heart tones Abdomen: Nontender, normal bowel sounds, soft, no CVA tenderness Musculoskeletal: Normal gait, no swelling or edema Skin: No rashes or induration, no lesions, only visible skin inspected Neuro: No neurological deficits, normal sensation Psychiatric: Oriented ?3, normal affect Assessment and Plan Assessment and Plan (1) Eustachian tube dysfunction: (2) Hearing loss: Plan Bilateral myringotomy with insertion of ventilation tubes, T tubes, bilateral nasal endoscopy scheduled with Dr. Lockett January 30 2024.
[2024-01-22 12:02] LABS: Anion Gap 13.1; BUN Creatinine Ratio 11.5; Calcium 9.3 mg/dL (8.5-10.1); Carbon Dioxide 26.5 mmol/L (21.0-32.0); Chloride 103 mmol/L (98-107); Estimated GFR (African America >60 (>=60); Estimated GFR (Non-African Ame 58 (>=60); Glucose 152 mg/dL (74-106); Potassium 4.6 mmol/L (3.5-5.1); Sodium 138 mmol/L (136-145)
[2024-01-22 12:05] LABS: Basophils Absolute Auto 0.1 10^3/uL (0.0-0.1); Basophils Percent Auto 1.1 % (0.2-2.0); Eosinophils Absolute Auto 0.3 10^3/uL (0.0-0.7); Eosinophils Percent Auto 3.4 % (0.9-7.0); Hemoglobin 13.9 g/dL (12.0-16.0); Immature Granulocytes Abs Auto 0.03 10^3/uL (0.00-0.03); Immature Granulocytes Pct Auto 0.4 % (0.0-0.5); Lymphocytes Absolute Auto 1.9 10^3/uL (1.2-3.8); Lymphocytes Percent Auto 26.1 % (20.5-60.0); Mean Corpuscular HGB Conc 32.3 g/dL (29.9-35.2); Mean Corpuscular Hemoglobin 30.2 pg (26.7-34.0); Mean Corpuscular Volume 93.5 fL (81.0-99.0); Mean Platelet Volume 10.8 fL (9.5-13.5); Monocytes Absolute Auto 0.5 10^3/uL (0.3-0.8); Monocytes Percent Auto 7.4 % (1.7-12.0); Neutrophils Absolute Auto 4.5 10^3/uL (1.4-6.5); Neutrophils Percent Auto 61.6 % (43.0-75.0); Platelet Count 196 10^3/uL (150-450); Red Cell Distribution Width 13.8 % (11.0-15.0); White Blood Count 7.3 10^3/uL (4.0-11.0)
== END 2024-01-22 10:53 | disposition home or self-care (01) ==
LOC: PST 10:53
PROVIDERS: PCP Nurse Practitioner; Visit Provider Otolaryngology
DX: Z01.810 Encounter for preprocedural cardiovascular examination (principal); Z01.812 Encounter for preprocedural laboratory examination; Z01.818 Encounter for other preprocedural examination; H69.93 Unspecified Eustachian tube disorder, bilateral
CPT/HCPCS: 71046; 80048; 85025; 93005; G0463

== ENCOUNTER 2024-01-30 08:11 | Day surgery (SDC) | payer MEDICARE, SELFPAY ==
[2024-01-22 11:42] VITALS: BP 107/63; PULSE 84; TEMP 36.4; O2SAT 100; BMI 25.0
[2024-01-30] VITALS (11 sets, daily range): BP systolic 104–117; BP diastolic 59–72; PULSE 81–94; TEMP 36.3–36.4; O2SAT 93–97; BMI 25.0
--- NOTE | 2024-01-30 | OP_ITS ---
OPERATION DATE: 01/30/2024 PRIMARY CARE PROVIDER: Iram Sanderson CNP SURGEON: Ivelisse Lockett M.D. PREOPERATIVE DIAGNOSIS: Otitis media with effusion and eustachian tube dysfunction. POSTOPERATIVE DIAGNOSIS: Otitis media with effusion and eustachian tube dysfunction. PROCEDURE: Bilateral myringotomy and tubes with microdissection, placement of T-tubes and a nasal endoscopy. ANESTHESIA: General endotracheal. COMPLICATIONS: None. FINDINGS: Right middle ear dry, left mucoid effusion and no nasopharyngeal pathology evident. INDICATIONS: This 68-year-old woman presented with a several month history of eustachian tube dysfunction and otitis media with effusion, unresponsive to aggressive medical management. Nasal endoscopy was performed to ensure that there was no evidence of nasopharyngeal carcinoma or lymphoma that might have caused patient?s new onset of eustachian tube dysfunction. PROCEDURE: Patient identified in the holding area and taken back to the OR, where she was placed in the supine position. After induction of general endotracheal anesthesia, Afrin soaked pledgets were placed in each side of the nose. The left ear was then approached with the otomicroscope. Cerumen was cleaned from the canal using a cerumen curette, and an anterior radial myringotomy was performed. A modified Alex?s T-tube was folded, inserted through the myringotomy and opened in the middle ear using microdissection. Attention was then turned to the right ear and the same procedure performed. Then the nose was approached with the nasal endoscope. The Afrin soaked patties were removed, and the nose was examined anterior to posterior on both sides. There was no significant nasal or nasopharyngeal path evident. The patient tolerated the procedure well and she was awakened and taken to the recovery room in good condition. RALPH
[2024-01-30 11:16] LABS: Glucometer 138 mg/dL (74-106)
[2024-01-30] MEDS: LACTATED RINGER'S SOLUTION 1,000 ML 50 ML IV (11:16)
[2024-01-30] MEDS: CIPROFLOXACIN HCL/DEXAMETH 0.3%/0.1% OTIC SUSP 150 DROP/7.5 ML BOTTLE OT (12:27)
[2024-01-30] MEDS: OXYMETAZOLINE HCL 0.05% NASAL SPRAY 30 SPRAY NS (12:30)
--- OUTSIDE RECORDS SUMMARY | 2024-01-31 08:20 | XMS_ITS | CCD ---
Author Organization [facility] Care Team Providers Care Veneer Glue Spreader Name Role Phone MARLA LOZA Unavailable Unavailable ELZBIETA SHARMA Unavailable Unavailable ANT FREITAS Unavailable Unavailable ANT FREITAS Unavailable Unavailable UNKNOWN, PHYSICIAN Unavailable Unavailable UNKNOWN, PHYSICIAN Unavailable Unavailable RENNO, ANAS Unavailable Unavailable RENNO, ANAS Unavailable Unavailable SUSI BARRIOS Unavailable Unavailable UNKNOWN, PHYSICIAN Unavailable Unavailable IA Unavailable Unavailable ANT FREITAS Unavailable Unavailable IA Unavailable Unavailable RENNO, ANAS Unavailable Unavailable Ahmad, Rayeesa Primary Care Provider [phone] Ahmad, Rayeesa Primary Care Provider SABIHA VIVERSO Referring Unavailable AHMAD, RAYEESA Primary Care Unavailable AHMAD, RAYEESA Primary Care Unavailable AHMAD, RAYEESA Referring Unavailable AHMAD, RAYEESA Primary Care Unavailable AHMAD, RAYEESA Referring Unavailable AHMAD, RAYEESA Primary Care Unavailable AHMAD, RAYEESA Referring Unavailable CHIRICA, BAIRON Referring Unavailable AHMAD, RAYEESA Primary Care Unavailable AHMAD, RAYEESA Referring Unavailable AHMAD, RAYEESA Primary Care Unavailable AHMAD, RAYEESA Referring Unavailable AHMAD, RAYEESA Primary Care Unavailable AICHHOLZ, PRESSURE TESTING TECHNICIAN CHETNA Admitting Unavailable DR MELANIE AVILES V Consulting Unavailable AICHHOLZ, PRESSURE TESTING TECHNICIAN CHETNA Attending Unavailable AICHHOLZ, PRESSURE TESTING TECHNICIAN CHETNA Consulting Unavailable AICHHOLZ, PRESSURE TESTING TECHNICIAN CHETNA Admitting Unavailable AICHHOLZ, PRESSURE TESTING TECHNICIAN CHETNA Attending Unavailable AICHHOLZ, PRESSURE TESTING TECHNICIAN CHETNA Consulting Unavailable DR MARI MONTES Consulting Unavailable AICHHOLZ, PRESSURE TESTING TECHNICIAN CHETNA Admitting Unavailable AICHHOLZ, PRESSURE TESTING TECHNICIAN CHETNA Referring Unavailable AICHHOLZ, PRESSURE TESTING TECHNICIAN CHETNA Attending Unavailable AICHHOLZ, PRESSURE TESTING TECHNICIAN CHETNA Consulting Unavailable DR MARI MONTES Consulting Unavailable SWAPNA, CHETNA Attending Unavailable AICKEKE, CHETNA Attending Unavailable AICHHOLZ, CHETNA Attending Unavailable AICHHOLZ, CHETNA Attending Unavailable LUISINES CONTI Attending Unavailable AICHHOLZ, CHETNA Referring Unavailable TIMINDY QUINN Attending Unavailable AICHHOLZ, CHETNA Referring Unavailable AICPRISCILLAZ, CHETNA Attending Unavailable Allergies Allergy Classification Reported Allergen(s) Allergy Type Date of Onset Reaction(s) Facility (8 sources) Desonide Drug Allergy 8 [facility] Rep[facility] (1 source) Latex Drug allergy (disorder) 8 [facility] Rep[facility] (8 sources) Latex Propensity to adverse reactions to drug 6 [place], [place] (1 source) natural latex rubber Drug allergy (disorder) [facility] Repository Medications Current Medications Medication Drug Class(es) [...] Start: 09-04-2018 take 1 tablet by sandy every six hours as needed for pain [...] Pulmonary emphysema, unspecified emphysema type (HCC) Inhale 3 mLs into the lungs [...] without long-term current use of insulin ([facility]) Take 1 tablet by mouth daily 30 [...] extended release oral tablet (1 source) Uncompetitive B-mggyhz-E-aspartat e Receptor Antagonist, Sigma-1 Agonist Start: 09-04-2018 [...] food 20 tablet 0 07/30/2020 Active ergocalciferol 45973 unt oral capsule (1 source) Provitamin D2 Compound Start: 09-24-2020 take 1 capsule by mouth every week vitamin D (ERGOCALCIFEROL) 1.25 MG (44875 UT) CAPS capsule Indications: Age-related osteoporosis without [...] Onset: 04-19-2018 Chronic Other 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 INDICATIONS: Screening mammography Calculator Name NCI Breast Cancer Risk Assessment Tool 5 Year Breast Cancer Risk 1.50% Lifetime Breast Cancer Risk 5.20% Personal Breast Cancer No Personal Ovarian Cancer No Treatments None Family Cancers None LOCATION: [facility] BREAST COMPOSITION: Scattered areas fibroglandular density. FINDINGS: [...] MD on 04/15/2022 at 14:51 Normal [facility] CBC AUTO DIFFon 12-21-2021 BASO # 0.1 103/ul Normal 0.0-0.1 [facility] Comment on above: Performed By: #### C BC #### [facility] [address] [address] [address] Tom Altman Basophils/100 WBC (Bld) 0.7 % Normal 0.2-2.0 [facility] Comment on above: Performed By: #### C BC #### [facility] [address] [address] [address] Tom Altman EO # 0.3 103/ul Normal 0.0-0.7 [facility] Comment on above: Performed By: #### C BC #### [facility] [address] [place] [address] Dr. Tom Altman Eosinophils/100 WBC (Bld) 3.4 % Normal 0.9-7.0 [facility] Comment on above: Performed By: #### C BC #### [facility] [address] [place] [address] Dr. Tom Altman Erythrocyte distribution width (RBC) [Ratio] 14.6 % Normal 11.0-15.0 [facility] Comment on above: Performed By: #### C BC #### [facility] [address] [place] [address] Dr. Tom Altman Hematocrit (Bld) [Volume fraction] 41.5 % Normal 36.0-48.0 [facility] Comment on above: Performed By: #### C BC #### [facility] [address] [place] [address] Dr. Tom Altman Hemoglobin (Bld) [Mass/Vol] 13.0 g/dL Normal 12.0-16.0 [facility] Comment on above: Performed By: #### C BC #### [facility] [address] [place] [address] Dr. Tom Altman IG # 0.04 10e3/ul Critically high 0.00-0.03 [facility] Comment on above: Performed By: #### C BC #### [facility] [address] [place] [address] Dr. Tom Altman IG % 0.5 % Normal 0.0-0.5 [facility] Comment on above: Performed By: #### C BC #### [facility] [address] [place] [address] Dr. Tom Altman LYMPH # 1.9 103/ul Normal 1.2-3.8 [facility] Comment on above: Performed By: #### C BC #### [facility] [address] [place] [address] Dr. Tom Altman Lymphocytes/100 WBC (Bld) 22.9 % Normal 20.5-60.0 [facility] Comment on above: Performed By: #### C BC #### [facility] [address] [place] [address] Dr. Tom Altman MANUAL DIFF REQ NO Normal [facility] Comment on above: Performed By: #### C BC #### [facility] [address] [place] [address] Dr. Tom Altman MCH (RBC) [Entitic mass] 29.1 pg Normal 26.7-34.0 [facility] Comment on above: Performed By: #### C BC #### [facility] [address] [place] [address] Dr. Tom Altman MCHC (RBC) [Mass/Vol] 31.3 g/dL Normal 29.9-35.2 [facility] Comment on above: Performed By: #### C BC #### [facility] [address] [place] [address] Dr. Tom Altman MCV (RBC) [Entitic vol] 93.0 fL Normal 81.0-99.0 [facility] Comment on above: Performed By: #### C BC #### [facility] [address] [place] [address] Dr. Tom Altman MONO # 0.5 103/ul Normal 0.3-0.8 [facility] Comment on above: Performed By: #### C BC #### [facility] [address] [place] [address] Dr. Tom Altman Monocytes/100 WBC (Bld) 5.5 % Normal 1.7-12.0 [facility] Comment on above: Performed By: #### C BC #### [facility] [address] [place] [address] Dr. Tom Altman NEUT # 5.6 103/ul Normal 1.4-6.5 [facility] Comment on above: Performed By: #### C BC #### [facility] [address] [place] [address] Dr. Tom Altman Neutrophils/100 WBC (Bld) 67.0 % Normal 43.0-75.0 [facility] Comment on above: Performed By: #### C BC #### [facility] [address] [address] [address] Tom Altman Platelet mean volume (Bld) [Entitic vol] 10.9 fL Normal 9.5-13.5 [facility] Comment on above: Performed By: #### C BC #### [facility] [address] [address] [address] Tom Altman PLT 278 103/ul Normal 150-450 [facility] Comment on above: Performed By: #### C BC #### [facility] [address] [address] [address] Tom Altman RBC 4.46 106/ul Normal 4.20-5.40 [facility] Comment on above: Performed By: #### C BC #### [facility] [address] [address] [address] Tom Altman WBC 8.3 103/ul Normal 4.0-11.0 [facility] Comment on above: Performed By: #### C BC #### [facility] [address] [address] [address] LUNG CANCER SCREENINGon [...] by: MARI MONTES Date: 2021-12-21 14:49 Normal [facility] FREE T4on 12-21-2021 Free T4 [Mass/Vol] 1.03 ng/dL Normal 0.76-1.46 [facility] Comment on above: Performed By: #### F T4 #### [facility] [address] [address] [address] Tom Altman GLYCOHEMOGLOBIN A1Con 2021 ADA RECOMMENDATION SEE BELOW Normal [facility] Comment on above: Result Comment: ADA RECOMMENDED LIMIT 4.0 - 6.0 ADA THERAPEUTIC TARGET < 7.0 ACTION SUGGESTED > 7.0 Performed By: #### A 1C #### [facility] [address] [place] [address] Dr. Tom Altman Glucose [Mass/Vol] 134 mg/dL Normal [facility] Comment on above: Performed By: #### A 1C #### [facility] [address] [address] [address] Tom Altman HbA1c (Bld) [Mass fraction] 6.3 % Critically high 4.5-6.2 [facility] Comment on above: Performed By: #### A 1C #### [facility] [address] [address] [address] Tom Altman LIPID PROFILEon 12-21-2021 CHOL-HDL RATIO NORM SEE BELOW Normal [facility] Comment on above: Result Comment: 3.3 - 4.4 LOW RISK 4.4 - 7.1 AVERAGE RISK 7.1 - 11.0 MODERATE RISK >11.0 HIGH RISK Performed By: #### T SH, LIPID, CMP #### [facility] [address] [address] [address] Tom Altman Cholesterol [Mass/Vol] 145 mg/dL Normal <=200 [facility] Comment on above: Performed By: #### T SH, LIPID, CMP #### [facility] [address] [place] [address] Dr. Tom Altman Cholesterol in HDL [Mass/Vol] 45 mg/dL Normal 40-60 [facility] Comment on above: Performed By: #### T SH, LIPID, CMP #### [facility] [address] [address] [address] Tom Altman Cholesterol in LDL [Mass/Vol] 83.0 mg/dL Normal [facility] Comment on above: Performed By: #### T SH, LIPID, CMP #### [facility] [address] [place] [address] Dr. Tom Altman Cholesterol.total/C holesterol in HDL [Mass ratio] 3.2 {ratio} Normal [facility] Comment on above: Performed By: #### T SH, LIPID, CMP #### [facility] [address] [place] [address] Dr. Tom Altman HDL NORMAL > or = 60 mg/dl - LO W CARDIOVASCULAR RISK <40 mg/dl - HIGH CARDIOVASCULAR RISK Normal [facility] Comment on above: Performed By: #### T SH, LIPID, CMP #### [facility] [address] [place] [address] Dr. Tom Altman LDL CALC NORMAL SEE BELOW Normal [facility] Comment on above: Result Comment: <100 mg/dl OPTIMAL 100 - 129 mg/dl NEAR OR ABOVE OPTIMAL 130 - 159 mg/dl BORDERLINE HIGH 160 - 189 mg/dl HIGH >190 mg/dl VERY HIGH Performed By: #### T SH, LIPID, CMP #### [facility] [address] [place] [address] Dr. Tom Altman Triglyceride [Mass/Vol] 85 mg/dL Normal <=150 [facility] Comment on above: Performed By: #### T SH, LIPID, CMP #### [facility] [address] [place] [address] Dr. Tom Altman VLDL CALC 17.0 mg/dL Normal [facility] Comment on above: Performed By: #### T SH, LIPID, CMP #### [facility] [address] [place] [address] Dr. Tom Altman MICROALBUMIN, RAND URon 07-0 mALB <1.3 Normal <=30.0 [facility] Comment on above: Performed By: #### M ALBR #### [facility] [address] [address] [address] Tom Altman PROF 14(COMP METB)on 022 Albumin [Mass/Vol] 3.7 g/dL Normal 3.4-5.0 [facility] Comment on above: Performed By: #### T SH, LIPID, CMP #### [facility] [address] [address] [address] Tom Altman Albumin/Globulin [Mass ratio] 1.0 {ratio} Normal [facility] Comment on above: Performed By: #### T SH, LIPID, CMP #### [facility] [address] [address] [address] Tom Altman ALP [Catalytic activity/Vol] 60 U/L Normal 46-116 [facility] Comment on above: Performed By: #### T SH, LIPID, CMP #### [facility] [address] [address] [address] Tom Altman ALT [Catalytic activity/Vol] 21 U/L Normal 14-59 [facility] Comment on above: Performed By: #### T SH, LIPID, CMP #### [facility] [address] [address] [address] Tom Altman Anion gap [Moles/Vol] 13.1 mmol/L Normal [facility] Comment on above: Performed By: #### T SH, LIPID, CMP #### [facility] [address] [address] [address] Tom Altman AST [Catalytic activity/Vol] 9 U/L Critically low 15-37 [facility] Comment on above: Performed By: #### T SH, LIPID, CMP #### [facility] [address] [address] [address] Tom Altman Bilirubin [Mass/Vol] 0.4 mg/dL Normal 0.2-1.0 [facility] Comment on above: Performed By: #### T SH, LIPID, CMP #### [facility] [address] [address] [address] Tom Altman Calcium [Mass/Vol] 9.3 mg/dL Normal 8.5-10.1 [facility] Comment on above: Performed By: #### T SH, LIPID, CMP #### [facility] [address] [address] [address] Tom Altman Chloride [Moles/Vol] 102 mmol/L Normal 98-107 [facility] Comment on above: Performed By: #### T SH, LIPID, CMP #### [facility] [address] [address] [address] Tom Altman CO2 [Moles/Vol] 26.9 mmol/L Normal 21.0-32.0 [facility] Comment on above: Performed By: #### T SH, LIPID, CMP #### [facility] [address] [place] [address] Dr. Tom Altman Creatinine [Mass/Vol] 0.78 mg/dL Normal 0.55-1.02 [facility] Comment on above: Performed By: #### T SH, LIPID, CMP #### [facility] [address] [place] [address] Dr. Tom Altman EGFR-AF OMANI >60 Normal >=60 [facility] Comment on above: Performed By: #### T SH, LIPID, CMP #### [facility] [address] [place] [address] Dr. Tom Altman EGFR-NON AF OMANI >60 Normal >=60 [facility] Comment on above: Performed By: #### T SH, LIPID, CMP #### [facility] [address] [address] [address] Tom Altman Globulin (S) [Mass/Vol] 3.8 g/dL Normal [facility] Comment on above: Performed By: #### T SH, LIPID, CMP #### [facility] [address] [address] [address] Tom Altman Glucose [Mass/Vol] 146 mg/dL Critically high 74-106 [facility] Comment on above: Performed By: #### T SH, LIPID, CMP #### [facility] [address] [place] [address] Dr. Tom Altman Potassium [Moles/Vol] 4.0 mmol/L Normal 3.5-5.1 [facility] Comment on above: Performed By: #### T ESMER, LIPID, CMP #### [facility] [address] [address] [address] Tom Altman Protein [Mass/Vol] 7.5 g/dL Normal 6.4-8.2 [facility] Comment on above: Performed By: #### T ESMER, LIPID, CMP #### [facility] [address] [address] [address] Tom Altman Sodium [Moles/Vol] 138 mmol/L Normal 136-145 [facility] Comment on above: Performed By: #### T ESMER LIPID, CMP #### [facility] [address] [place] [address] Dr. Tom Altman Urea nitrogen [Mass/Vol] 9.0 mg/dL Normal 7.0-18.0 [facility] Comment on above: Performed By: #### T ESMER LIPID, CMP #### [facility] [address] [place] [address] Dr. Tom Altman Urea nitrogen/Creatinine [Mass ratio] 11.5 mg/mg Normal [facility] Comment on above: Performed By: #### T ESMER LIPID, CMP #### [facility] [address] [place] [address] Dr. Tom Altman TSHon 12-21-2021 TSH 1.045 uIU/mL Normal 0.358-3.740 [facility] Comment on above: Performed By: #### T ESMER, LIPID, CMP #### [facility] [address] [place] [address] Dr. Tom Altman UA RANDOM W/MICROSCOPICon BACTERIA TRACE Abnormal NONE SEEN [facility] Comment on above: Performed By: #### U AMIC ####[facility] [address] [address]Dr. Tom Altman Bilirubin Ql (U) Negative Normal NEGATIVE [facility] Comment on above: Performed By: #### U AMIC ####[facility] [address] [address]Dr. Tom Altman CAST NONE SEEN Normal NONE SEEN [facility] Comment on above: Performed By: #### U AMIC ####[facility] [address] [address]Dr. Tom Altman Clarity (U) CLEAR Normal CLEAR [facility] Comment on above: Performed By: #### U AMIC ####[facility] [address] [address]Dr. Tom Altman Color (U) LT. YELLOW Normal YELLOW [facility] Comment on above: Performed By: #### U AMIC ####[facility] [address] [address]Dr. Tom Altman Crystals LM Nom (Urine sed) NONE SEEN Normal NONE SEEN [facility] Comment on above: Performed By: #### U AMIC ####[facility] [address] [place], [place] [address]Dr. Celegino Altman Epithelial cells LM Ql (Urine sed) FEW Abnormal NONE SEEN /RARE [facility] Comment on above: Performed By: #### U AMIC ####[facility] [address] [place], [place] [address]Dr. Tom Altman Glucose Ql (U) Negative Normal NEGATIVE [facility] Comment on above: Performed By: #### U AMIC ####[facility] [address] [address]Dr. Tom Altman Hemoglobin Ql (U) Negative Normal NEGATIVE [facility] Comment on above: Performed By: #### U AMIC ####[facility] [address] [place], [place] [address]Dr. Tom Altman Ketones Ql (U) Negative Normal NEGATIVE [facility] Comment on above: Performed By: #### U AMIC ####[facility] [address] [place], [place] [address]Dr. Tom Altman LEUKOCYTES Negative Normal NEGATIVE [facility] Comment on above: Performed By: #### U AMIC ####[facility] [address] [place], [place] [address]Dr. Celelan Altman MUCOUS NONE SEEN Normal NONE SEEN [facility] Comment on above: Performed By: #### U AMIC ####[facility] [address] [address]Dr. Tom Altman Nitrite Ql (U) Negative Normal NEGATIVE [facility] Comment on above: Performed By: #### U AMIC ####[facility] [address] [address]Dr. Tom Altman pH (U) 7.0 [pH] Normal 5-9 [facility] Comment on above: Performed By: #### U AMIC ####[facility] [address] [address]Dr. Tom Agapito RBC 0-2 Normal 0-2 [facility] Comment on above: Performed By: #### U AMIC ####[facility] [address] [address]Dr. Tom Altman SPEC GRAVITY 1.010 Normal 1.005-<=1.025 [facility] Comment on above: Performed By: #### U AMIC ####[facility] [address] [place], [place] [address]Dr. Tom Agapito UA PROTEIN Negative Normal NEGATIVE/ TRACE [facility] Comment on above: Performed By: #### U AMIC ####[facility] [address] [address]Dr. Tom Altman Urobilinogen Qn (U) 0.2 {Isai'U}/dL Normal 0.2 - 1. 0 [facility] Comment on above: Performed By: #### U AMIC ####[facility] [address] [place], [place] [address]Dr. Tom Agapito WBC 0-2 Abnormal NONE SEEN [facility] Comment on above: Performed By: #### U AMIC ####[facility] [address] [place], [place] [address]Dr. Tom Agapito US ABD AORTA SCREENINGon US ABD AORTA [...] disease. No aneurysm. Electronically authenticated by: MARI MONTES Date: 2021-11-01 11:16 Normal [facility] DEXA BONE DENSITY AXIAL SKEL Yuki 09-24-2020 DEXA BONE DENSITY AXIAL SKELETON EXAMINATION: BONE DENSITOMETRY 09/24/2020 10:44 am TECHNIQUE: A bone density dual x-ray absorptiometry (DEXA) scan was performed of the lumbar spine and left hip on a [employer] system. COMPARISON: August 16, 2006. HISTORY: ORDERING [...] Wild MD Signed by: Ines Wild MD 4/8/21 Final result Normal [facility] By WHO criteria the patient's bone mineral density is classified as osteoporosis. [employer] Work Phone: EXAMINATION: BONE DENSITOMETRY 09/24/2020 10:44 am TECHNIQUE: A bone density dual x-ray absorptiometry (DEXA) scan was performed of the lumbar spine and left hip on a [employer] system. COMPARISON: August 16, 2006. HISTORY: ORDERING [...] is 23.5%, and in the hip 9.3%. [employer] Phone: Mario Alberto, Mhpn Incoming Radiant Results From [employer] - 09/24/2020 10:52 AM EDT EXAMINATION: BONE DENSITOMETRY 09/24/2020 10:44 am TECHNIQUE: A bone density dual x-ray absorptiometry (DEXA) scan was performed of the lumbar spine and left hip on a [employer] system. COMPARISON: August 16, 2006. HISTORY: ORDERING [...] bone mineral density is classified as osteoporosis. [employer] Work Phone: [facility] RAFI DIGITAL SCREEN MARTINAKourtney Sebastian 09-24-2020 [facility] RAFI DIGITAL SCREEN BILATERAL EXAMINATION: [...] to the patient regarding the results. [employer] recommends annual mammograms for women 40 years and older. Interpreted by: Ines Wild MD Signed by: Ines Wild MD 09/24/20 Final result Normal [facility] No mammographic evidence of malignancy. BIRADS: BIRADS - CATEGORY 1 Negative, no evidence of malignancy. Normal interval follow-up is recommended in 12 months. OVERALL ASSESSMENT - NEGATIVE A letter of notification will be sent to the patient regarding the results. [employer] recommends annual mammograms for women 40 years and older. [employer] Phone: EXAMINATION: SCREENI NG DIGITAL BILATERAL MAMMOGRAM [...] suspicious microcalcification, or area of architectural distortion. [employer] Phone: Mario Alberto, [facility] Incoming Radiant Results From [employer] - 09/24/2020 11:07 AM EDT EXAMINATION: SCREENING [...] to the patient regarding the results. [employer] recommends annual mammograms for women 40 years and older. [employer] Phone: XR CHEST (2 VW)on 07-30-2020 XR [...] Adán Vásquez MD 07/30/20 Final result Normal [facility] No evidence for acut e cardiopulmonary pathology. COPD. [employer] Phone: EXAMINATION: TWO XRA Y VIEWS OF [...] structures and soft tissues are grossly intact. [employer] Phone: Mario Alberto, [facility] Incoming Radiant Results From [employer]/CTMG - 07/30/2020 1:44 PM EST EXAMINATION: TWO [...] No evidence for acute cardiopulmonary pathology. COPD. [facility] Work Phone: [id number] 01-30-2020 SARS-CoV-2 Not Detected Normal Not Detected [facility] Comment on above: Result Comment: (NOT E) Testing was performed using the Aptima SARS-CoV-2 assay. This test was developed and its performance characteristics determined by [employer]. This test has not been FDA cleared [...] result in this assay. Performed At: =G [address] [id number] Linda Avelar MD Ph:[phone] Performed By: #### A COV #### [facility] [address] [place] [address] [employer]: Jony Trejo MD CBCon 11-21-2019 NRBC Automated NOT REPORTED Normal [facility] Comment on above: Performed By: #### C BC, CP, LIPR, TSH #### [facility] [address] [place] [address] [employer]: Vishal Lorenzo DO Erythrocyte distribution width (RBC) [Ratio] 14.1 % Normal 11.5-14.9 [place], [place] Comment on above: Performed By: #### C BC, CP, LIPR, TSH #### [facility] [address] [facility] [place] [address] [employer]eder: Vishal Lorenzo DO Hematocrit (Bld) [Volume fraction] 38.0 % Normal 36-46 [place] Comment on above: Performed By: #### C BC, CP, LIPR, TSH #### [facility] [address] [facility] [place] [address] [employer]: Vishal Lorenzo DO Hemoglobin (Bld) [Mass/Vol] 12.3 g/dL Normal 12.0-16.0 [place] Comment on above: Performed By: #### C BC, CP, LIPR, TSH #### [facility] [place] [address] [employer]: Vishal Lorenzo DO MCH (RBC) [Entitic mass] 30.0 pg Normal 26-34 [place] Comment on above: Performed By: #### C BC, CP, LIPR, TSH #### [facility] [address] [facility] [place] [address] [employer] Feeder: Vishal Lorenzo DO MCHC (RBC) [Mass/Vol] 32.5 g/dL Normal 31-37 [place] Comment on above: Performed By: #### C BC, CP, LIPR, TSH #### [facility] [address] [facility] [place] [address] [employer]eder: Vishal Lorenzo DO MCV (RBC) [Entitic vol] 92.1 fL Normal 80-100 [place] Comment on above: Performed By: #### C BC, CP, LIPR, TSH #### [facility] [place] [address] [employer]eder: Vishal Lorenzo DO Platelet mean volume (Bld) [Entitic vol] 8.6 fL Normal 6.0-12.0 [place] Comment on above: Performed By: #### C BC, CP, LIPR, TSH #### [facility] [address] [facility] [place] [address] [employer]eder: Vishal Lorenzo DO Platelets (Bld) [#/Vol] 209 10*3/uL Normal 150-450 [place] Comment on above: Performed By: #### C BC, CP, LIPR, TSH #### [facility] [address] [facility] [place] [address] [employer]: Vishal Lorenzo DO RBC (Bld) [#/Vol] 4.12 10*6/uL Normal 4.0-5.2 [place] Comment on above: Performed By: #### C BC, CP, LIPR, TSH #### [facility] [address] [facility] [place] [address] [employer]: Vishal Lorenzo DO WBC (Bld) [#/Vol] 6.0 10*3/uL Normal 3.5-11.0 [place] Comment on above: Performed By: #### C BC, CP, LIPR, TSH #### [facility] [address] [facility] [place] [address] [employer]eder: Vishal Lorenzo DO WBC (Bld) [#/Vol] NOT REPORTED per 100 WBC [place], [place] CT LUNG SCREENINGon 11-21-19 20 No new or enlarging pulmonary nodule. LUNG RADS: Per ACR Lung-RADS Version 1.0 Category 2, Benign appearance or behavior. Management: Continue annual lung screening with LDCT in 12 months. (probability of malignancy <1%). RECOMMENDATIONS: If you would like to register your patient with the [facility] Lung Nodule/Lung Cancer Screening Program, please contact the Nurse Navigator at [phone]). [place] EXAMINATION: LOW DOS E SCREENING CT [...] surrounding chest wall demonstrate no acute findings. [place] Mario Alberto, [facility] Incoming Radiant Results From WebKite/CTMG - 11/21/2019 10:40 AM EDT EXAMINATION: LOW [...] like to register your patient with the [facility] Lung Nodule/Lung Cancer Screening Program, please contact the Nurse Navigator at [phone]). [place], [place] CT LUNG SCREENING (INITIAL/A NNUAL)on 11-21-2019 [...] like to register your patient with the [facility] Lung Nodule/Lung Cancer Screening Program, please contact the Nurse Navigator at [phone]). Interpreted by: Adrián Ladd Jr., DO Signed by: Adrián Ladd Jr., DO 11/21/19 Final result Normal [facility] Comp Metabolic Profon 2019 (cont.) Normal [facility] Comment on above: Result Comment: Aver age GFR for 60-69 years old: 85 mL/min/1.73sq m Chronic Kidney Disease: <60 mL/min/1.73sq m Kidney failure: <15 mL/min/1.73sq m eGFR calculated using average adult body mass. Additional eGFR calculator available at: http://www.[employer]/multiple_crcl_2012.htm Performed By: #### C BC, CP, LIPR, TSH #### [facility] [address] [facility] [place] [address] [employer]: Vishal Lorenzo DO Albumin [Mass/Vol] 4.1 g/dL Normal 3.5-5.2 [facility] Comment on above: Performed By: #### C BC, CP, LIPR, TSH #### [facility] [address] [facility] [place], [place] [id number] [employer]: Vishal Lorenzo DO Alkaline Phos 67 U/L Normal 35-104 [facility] Comment on above: Performed By: #### C BC, CP, LIPR, TSH #### [facility] [address] [facility] [place] [address] [employer]eder: Vishal Lorenzo DO ALT [Catalytic activity/Vol] 11 U/L Normal 5-33 [facility] Comment on above: Performed By: #### C BC, CP, LIPR, TSH #### [facility] [address] [facility] [place] [address] [employer]: Vishal Lorenzo DO Anion gap [Moles/Vol] 12 mmol/L Normal 9-17 [facility] Comment on above: Performed By: #### C BC, CP, LIPR, TSH #### [facility] [place] [address] [employer]: Vishal Lorenzo DO AST [Catalytic activity/Vol] 9 U/L Normal <32 [facility] Comment on above: Performed By: #### C BC, CP, LIPR, TSH #### [facility] [place] [address] [employer]: Vishal Lorenzo DO Bilirubin Ql (U) 0.26 mg/dL Low 0.3-1.2 [facility] Comment on above: Performed By: #### C BC, CP, LIPR, TSH #### [facility] [address] [place] [address]. [place] [address] [employer]: Vishal Lorenzo DO Calcium [Mass/Vol] 9.2 mg/dL Normal 8.6-10.4 [facility] Comment on above: Performed By: #### C BC, CP, LIPR, TSH #### [facility] [address] [place] [address]. [place] [address] [employer]: Vishal Lorenzo DO Chloride [Moles/Vol] 103 mmol/L Normal 98-107 [facility] Comment on above: Performed By: #### C BC, CP, LIPR, TSH #### [facility] [address] [place] [address] [employer]: Vishal Lorenzo DO CO2 [Moles/Vol] 22 mmol/L Normal 20-31 [facility] Comment on above: Performed By: #### C BC, CP, LIPR, TSH #### [facility] [address] [place] [address] [employer]: Vishal Lorenzo DO Creatinine [Mass/Vol] 0.70 mg/dL Normal 0.50-0.90 [facility] Comment on above: Performed By: #### C BC, CP, LIPR, TSH #### [facility] [address] [place] [address] [employer]: Vishal Lorenzo DO GFR, Amer >60 Normal >60 [facility] Comment on above: Performed By: #### C BC, CP, LIPR, TSH #### [facility] [address] [facility] [place] [address] [employer]: Vishal Lorenzo DO GFR,non Amer >60 Normal >60 [facility] Comment on above: Performed By: #### C BC, CP, LIPR, TSH #### [facility] [address] [facility] [place] [address] [employer]: Vishal Lorenzo DO Glucose [Mass/Vol] 178 mg/dL High 70-99 [facility] Comment on above: Performed By: #### C BC, CP, LIPR, TSH #### [facility] [address] [facility] [place] [address] [employer]: Vishal Lorenzo DO Potassium [Moles/Vol] 4.1 mmol/L Normal 3.7-5.3 [facility] Comment on above: Performed By: #### C BC, CP, LIPR, TSH #### [facility] [address] [facility] [place] [address] [employer]: Vishal Lorenzo DO Protein [Mass/Vol] 6.4 g/dL Normal 6.4-8.3 [facility] Comment on above: Performed By: #### C BC, CP, LIPR, TSH #### [facility] [address] [facility] [place] [address] [employer]eder: Vishal Lorenzo DO Sodium [Moles/Vol] 137 mmol/L Normal 135-144 [facility] Comment on above: Performed By: #### C BC, CP, LIPR, TSH #### [facility] [place] [address] [employer]eder: Vishal Lorenzo DO Urea nitrogen [Mass/Vol] 13 mg/dL Normal 8-23 [facility] Comment on above: Performed By: #### C BC, CP, LIPR, TSH #### [facility] [address] [facility] [place] [address] [employer]: Vishal Lorenzo DO Albumin/Globulin [Mass ratio] NOT REPORTED Normal 1.0-2.5 [facility] Comment on above: Performed By: #### C BC, CP, LIPR, TSH #### [facility] [place] [address] [employer]eder: Vishal Lorenzo DO BUN/CRE Ratio NOT REPORTED Normal 9-20 [facility] Comment on above: Performed By: #### C BC, CP, LIPR, TSH #### [facility] [place] [address] [employer]eder: Vishal Lorenzo DO Staging: NOT REPORTED Normal [facility] Comment on above: Performed By: #### C BC, CP, LIPR, TSH #### [facility] [address] [place], [place] [address]. [place] [address] [employer]: Vishal Lorenzo DO Comprehensive Metabolic Pane lisa 11-21-2019 Albumin [Mass/Vol] 4.1 g/dL 3.5 - 5.2 g/dL [place] Albumin/Globulin [Mass ratio] NOT REPORTED [place] ALP [Catalytic activity/Vol] 67 U/L 35 - 104 U/L [place] ALT [Catalytic activity/Vol] 11 U/L 5 - 33 U/L [place] Anion gap [Moles/Vol] 12 mmol/L 9 - 17 mmol/L [place] AST [Catalytic activity/Vol] 9 U/L <32 [place] Bilirubin Ql (U) 0.26 mg/dL Low 0.3 - 1.2 mg/dL [place] Bun/Cre Ratio NOT REPORTED [place] Calcium [Mass/Vol] 9.2 mg/dL 8.6 - 10. 4 mg/dL [place] Chloride [Moles/Vol] 103 mmol/L 98 - 107 mmol/L [place] CO2 [Moles/Vol] 22 mmol/L 20 - 31 mmol/L [place] Creatinine [Mass/Vol] 0.7 mg/dL 0.5 - 0.9 mg/dL [place] GFR >60 >60 mL/min [place] GFR Non- >60 >60 mL/min [place] GFR/1.73 sq M predicted among non-blacks MDRD (S/P/Bld) [Vol rate/Area] [place] Comment on above: Average GFR for 60-6 9 years old: 85 mL/min/1.73sq m Chronic Kidney Disease: <60 mL/min/1.73sq m Kidney failure: <15 mL/min/1.73sq m eGFR calculated using average adult body mass. Additional eGFR calculator available at: http://www.[employer]/multiple_crcl_2012.htm GFR/1.73 sq M predicted among non-blacks MDRD (S/P/Bld) [Vol rate/Area] NOT REPORTED [place] Glucose [Mass/Vol] 178 mg/dL High 70 - 99 mg/dL [place], [place] Interpretation and review of laboratory results Abnormal [place] Potassium [Moles/Vol] 4.1 mmol/L 3.7 - 5.3 mmol/L [place] Protein [Mass/Vol] 6.4 g/dL 6.4 - 8.3 g/dL [place] Sodium [Moles/Vol] 137 mmol/L 135 - 144 mmol/L [place] Urea nitrogen [Mass/Vol] 13 mg/dL 8 - 23 mg/dL [place] Lipid Panelon 11-21-2019 Cholesterol [Mass/Vol] 122 mg/dL <200 [place] Comment on above: Cholesterol Guidelines: <200 Desirable 200-240 Borderline >240 Undesirable Cholesterol in HDL [Mass/Vol] 49 mg/dL >40 [place] Comment on above: HDL Guidelines: <40 Undesirable 40-59 Borderline >59 Desirable Cholesterol in LDL [Mass/Vol] 60 mg/dL 0 - 130 mg/dL [place] Comment on above: LDL Guidelines: <100 Desirable 100-129 Near to/above Desirable 130-159 Borderline >159 Undesirable Direct (measured) LDL and calculated LDL are not interchangeable tests. Cholesterol in VLDL [Mass/Vol] NOT REPORTED 1 - 30 mg/dL [place] Cholesterol.total/C holesterol in HDL [Mass ratio] 2.5 {ratio} <5 [place] Triglyceride [Mass/Vol] 65 mg/dL <150 [place] Comment on above: Triglyceride Guidelines: <150 Desirable 150-199 Borderline 200-499 High >499 Very high Based on AHA Guidelines for fasting triglyceride, March 2012. Lipid Profileon 11-21-2019 Cholesterol [Mass/Vol] 122 mg/dL Normal <200 [facility] Comment on above: Result Comment: Cholesterol Guidelines: <200 Desirable 200-240 Borderline >240 Undesirable Performed By: #### C BC, CP, LIPR, TSH #### [facility] [address] [facility] [place] [address] [employer]eder: Vishal Lorenzo DO Cholesterol in HDL [Mass/Vol] 49 mg/dL Normal >40 [facility] Comment on above: Result Comment: HDL Guidelines: <40 Undesirable 40-59 Borderline >59 Desirable Performed By: #### C BC, CP, LIPR, TSH #### [facility] [address] [facility] [place] [address] [employer] Feeder: Vishal Lorenzo DO Cholesterol in LDL [Mass/Vol] 60 mg/dL Normal 0-130 [facility] Comment on above: Result Comment: LDL Guidelines: <100 Desirable 100-129 Near to/above Desirable 130-159 Borderline >159 Undesirable Direct (measured) LDL and calculated LDL are not interchangeable tests. Performed By: #### C BC, CP, LIPR, TSH #### [facility] [address] [place] [address]. [place] [address] [employer]eder: Vishal Lorenzo DO Cholesterol.total/C holesterol in HDL [Mass ratio] 2.5 {ratio} Normal <5 [facility] Comment on above: Performed By: #### C BC, CP, LIPR, TSH #### [facility] [place] [address] [employer] Feeder: Vishal Lorenzo DO Triglyceride [Mass/Vol] 65 mg/dL Normal <150 [facility] Comment on above: Result Comment: Triglyceride Guidelines: <150 Desirable 150-199 Borderline 200-499 High >499 Very high Based on AHA Guidelines for fasting triglyceride, March 2012. Performed By: #### C BC, CP, LIPR, TSH #### [facility] [address] [place] [address]. [place] [address] [employer]eder: Vishal Lorenzo DO Cholesterol in VLDL [Mass/Vol] NOT REPORTED Normal 1-30 [facility] Comment on above: Performed By: #### C BC, CP, LIPR, TSH #### [facility] [address] [place] [address] [employer]eder: Vishal Lorenzo DO TSH without Reflexon 020 TSH Qn 0.95 m[IU]/L [place], [place] Thyroid Stim. Horm.on 2019 TSH Qn 0.95 m[IU]/L Normal 0.30-5.00 [facility] Comment on above: Performed By: #### C BC, CP, LIPR, TSH #### [facility] [address] [place] [address] [employer]: Vishal Lorenzo DO Lipid, Fastingon 02-28-2019 Cholesterol [Mass/Vol] 111 mg/dL <200 [place] Comment on above: Cholesterol Guidelines: <200 Desirable 200-240 Borderline >240 Undesirable Cholesterol in HDL [Mass/Vol] 43 mg/dL >40 [place] Comment on above: HDL Guidelines: <40 Undesirable 40-59 Borderline >59 Desirable Cholesterol in LDL [Mass/Vol] 48 mg/dL 0 - 130 mg/dL [place] Comment on above: LDL Guidelines: <100 Desirable 100-129 Near to/above Desirable 130-159 Borderline >159 Undesirable Direct (measured) LDL and calculated LDL are not interchangeable tests. Cholesterol in VLDL [Mass/Vol] NOT REPORTED 1 - 30 mg/dL [place] Cholesterol.total/C holesterol in HDL [Mass ratio] 2.6 {ratio} <5 [place] Triglyceride, Fasting 102 mg/dL <150 [place] Comment on above: Triglyceride Guidelines: <150 Desirable 150-199 Borderline 200-499 High >499 Very high Based on AHA Guidelines for fasting triglyceride, March 2012. Microalbumin, Uron 9 Albumin/Creatinine DL <= 20 mg/L (24H U) [Mass ratio] <12 <21 mg/L [place] Albumin/Creatinine DL <= 20 mg/L (U) [Ratio] CANNOT BE CALCULATED <25 mcg/mg creat [place] Creatinine [Mass/Vol] 109.5 mg/dL 28 - 217 mg/dL [facility], [place] HIP LEFT 1 OR 2 VWS WITH PEL VISon 04-19-2018 HIP LEFT 1 OR 2 VWS WITH PELVIS [facility] [id number] [place] [address] =====Patient Name: PRIYANKA NICHOLAS : 1955Sex: FAge: Race: WhiteMRN: [id number]. Location: 84Patient Status: OVisit #: [id number] Date: 04/19/2018 3:55:00 PMCompleted Date: 04/19/2018 03:57 PMRequesting Provider: ANT FREITAS Attending Provider: ANT FREITAS Report Copy To: UNKNOWN, PHYSICIAN Signs & Symptoms: Z47.1 Aftercare following joint replacement surgery [id number]: AthenaComments: , , , Ordering Provider - ANT FREITAS MD , Exam: HIP LEFT 1 OR 2 VWS WITH PELVISAccession #: [id number] HIP LEFT 1 OR 2 VWS WITH [...] satisfactory alignment with proximal femoral cerclage wireRight seneca hip with minor arthritis IMPRESSION: Healing left total hip in good alignment Electronically signed by:Aleida Ferro. Transcribed by: [email or web address], User Resident: Electronically Signed by: ALEIDA FERRO @ 04/19/2018 04:08 PM Normal [facility] Comment on above: Order Comment: , , = ========= , Ordering Provider - ANT FREITAS MD , BASIC METABOLIC PANELon 10- Calcium mass conc 8.4 mg/dL Low 8.6-10.3 [facility] Comment on above: Order Comment: No: D o not add to previous draw Performed By: #### 0 0071 ####[facility] [place] [address], [facility] Chloride molar conc 105 mmol/L Normal 98-107 [facility] Comment on above: Order Comment: No: D o not add to previous draw Performed By: #### 0 0071 ####[facility] [place] [address], [facility] CO2 molar conc 27 mmol/L Normal 21-31 [facility] Comment on above: Order Comment: No: D o not add to previous draw Performed By: #### 0 0071 ####[facility] [facility] [place] [address], [facility] Creatinine mass conc 0.51 mg/dL Low 0.60-1.20 [facility] Comment on above: Order Comment: No: D o not add to previous draw Performed By: #### 0 0071 ####[facility] [place] [address], [facility] GFR/1.73 sq M predicted among blacks MDRD vol rate/area (S/P/Bld) mL/min/{1.73_m2} Normal >60 [facility] Comment on above: Order Comment: No: D o not add to previous draw Performed By: #### 0 0071 ####[facility] [facility] [place] [address], [facility] GFR/1.73 sq M predicted among non-blacks MDRD vol rate/area (S/P/Bld) mL/min/{1.73_m2} Normal >60 [facility] Comment on above: Order Comment: No: D o not add to previous draw Performed By: #### 0 0071 ####[facility] [facility] [place] [address], [facility] Glucose mass conc 157 mg/dL High 70-100 [facility] Comment on above: Order Comment: No: D o not add to previous draw Performed By: #### 0 0071 ####[facility] [facility] [place] [address], [facility] Potassium molar conc 3.7 mmol/L Normal 3.5-5.1 [facility] Comment on above: Order Comment: No: D o not add to previous draw Performed By: #### 0 0071 ####[facility] [facility] [place] [address], [facility] Sodium molar conc 136 mmol/L Normal 136-145 [facility] Comment on above: Order Comment: No: D o not add to previous draw Performed By: #### 0 0071 ####[facility] [facility] [place] [address], [facility] Urea nitrogen mass conc 10 mg/dL Normal 7-25 The [facility] Comment on above: Order Comment: No: D o not add to previous draw Performed By: #### 0 0071 ####[facility] [facility].[address] CBC COMPLETE BLOOD COUNTon Erythrocyte distribution width Auto Ratio (RBC) 15.8 % High 11.5-15.0 [facility] Comment on above: Order Comment: No: D o not add to previous draw Performed By: #### 5 [id number] ####[facility] [facility].[address] Hematocrit Auto Volume Fraction (Bld) 26.8 % Low 36.0-45.0 [facility] Comment on above: Order Comment: No: D o not add to previous draw Performed By: #### 5 6101 ####[facility] Hemoglobin mass conc (Bld) 8.9 g/dL Low 12.0-15.0 [facility] Comment on above: Order Comment: No: D o not add to previous draw Performed By: #### 5 6101 ####[facility] MCH Auto Entitic mass (RBC) 29.6 pg Normal 27.0-33.0 [facility] Comment on above: Order Comment: No: D o not add to previous draw Performed By: #### 5 6101 ####[facility] [facility].[address] MCHC Auto mass conc (RBC) 33.2 g/dL Normal 32.0-35.0 [facility] Comment on above: Order Comment: No: D o not add to previous draw Performed By: #### 5 6101 ####[facility] MCV Auto Entitic volume (RBC) 89.0 fL Normal 82.0-98.0 [facility] Comment on above: Order Comment: No: D o not add to previous draw Performed By: #### 5 6101 ####[facility] Nucleated RBC/100 WBC Ratio (Bld) 0 % Normal 0-0 The [facility] Comment on above: Order Comment: No: D o not add to previous draw Performed By: #### 5 6101 ####[facility] [address], [facility] PLAT CNT 161 10*3/uL Normal 150-400 [facility] Comment on above: Order Comment: No: D o not add to previous draw Performed By: #### 5 6101 ####[facility] [address], [facility] RBC Auto #/vol (Bld) 3.01 10*6/uL Low 3.80-5.00 [facility] Comment on above: Order Comment: No: D o not add to previous draw Performed By: #### 5 6101 ####[facility] [place] [address], [facility] WBC Auto #/vol (Bld) 6.77 10*3/uL Normal 4.00-10.60 [facility] Comment on above: Order Comment: No: D o not add to previous draw Performed By: #### 5 6101 ####[facility] [address], [facility] HEMOGLOBINon 04-05-2018 Hemoglobin mass conc (Bld) 8.4 g/dL Low 12.0-15.0 The [facility] Comment on above: Order Comment: No: D o not add to previous draw Performed By: #### 9 2089 ####[facility] POC GLUCOSE LABon 04-05-2018 Glucose mass conc 192 mg/dL High 70-100 [facility] Comment on above: Performed By: #### 8 5499 ####[facility] Glucose mass conc 146 mg/dL High 70-100 [facility] Comment on above: Performed By: #### 8 5499 ####[facility] [place] [address], [facility] BASIC METABOLIC PANELon 10- Calcium mass conc 8.2 mg/dL Low 8.6-10.3 [facility] Comment on above: Order Comment: No: D o not add to previous draw Performed By: #### 6 2586 ####[facility] [place] [address], [place] Chloride molar conc 106 mmol/L Normal 98-107 The [facility] Comment on above: Order Comment: No: D o not add to previous draw Performed By: #### 6 2586 ####[facility] [place] [address], [place] CO2 molar conc 25 mmol/L Normal 21-31 [facility] Comment on above: Order Comment: No: D o not add to previous draw Performed By: #### 6 2586 ####[facility] [place] [address], [place] Creatinine mass conc 0.53 mg/dL Low 0.60-1.20 [facility] Comment on above: Order Comment: No: D o not add to previous draw Performed By: #### 6 2586 ####[facility] [place] [address], [place] GFR/1.73 sq M predicted among blacks MDRD vol rate/area (S/P/Bld) mL/min/{1.73_m2} Normal >60 The [facility] Comment on above: Order Comment: No: D o not add to previous draw Performed By: #### 6 2586 ####[facility] [place] [address], [place] GFR/1.73 sq M predicted among non-blacks MDRD vol rate/area (S/P/Bld) mL/min/{1.73_m2} Normal >60 The [facility] Comment on above: Order Comment: No: D o not add to previous draw Performed By: #### 6 2586 ####[facility] [place] [address], [facility] Glucose mass conc 180 mg/dL High 70-100 [facility] Comment on above: Order Comment: No: D o not add to previous draw Performed By: #### 6 2586 ####[facility] [place] [address], [facility] Potassium molar conc 3.6 mmol/L Normal 3.5-5.1 [facility] Comment on above: Order Comment: No: D o not add to previous draw Performed By: #### 6 2586 ####[facility] [place] [address], [facility] Sodium molar conc 134 mmol/L Low 136-145 [facility] Comment on above: Order Comment: No: D o not add to previous draw Performed By: #### 6 2586 ####[facility] [facility] Urea nitrogen mass conc 11 mg/dL Normal 7-25 [facility] Comment on above: Order Comment: No: D o not add to previous draw Performed By: #### 6 2586 ####[facility] [facility].[address] CBC COMPLETE BLOOD COUNTon 1 - Erythrocyte distribution width Auto Ratio (RBC) 13.8 % Normal 11.5-15.0 [facility] Comment on above: Order Comment: No: D o not add to previous draw Performed By: #### 6 2586 ####[facility] Hematocrit Auto Volume Fraction (Bld) 20.1 % Low 36.0-45.0 [facility] Comment on above: Order Comment: No: D o not add to previous draw Performed By: #### 6 2586 ####[facility] [facility].[address] Hemoglobin mass conc (Bld) 6.6 g/dL Low 12.0-15.0 [facility] Comment on above: Order Comment: No: D o not add to previous draw Performed By: #### 6 2586 ####[facility] [facility].[address] MCH Auto Entitic mass (RBC) 30.6 pg Normal 27.0-33.0 [facility] Comment on above: Order Comment: No: D o not add to previous draw Performed By: #### 6 2586 ####[facility] MCHC Auto mass conc (RBC) 32.8 g/dL Normal 32.0-35.0 [facility] Comment on above: Order Comment: No: D o not add to previous draw Performed By: #### 6 2586 ####[facility] MCV Auto Entitic volume (RBC) 93.1 fL Normal 82.0-98.0 [facility] Comment on above: Order Comment: No: D o not add to previous draw Performed By: #### 6 2586 ####[facility] [facility].[address] Nucleated RBC/100 WBC Ratio (Bld) 0 % Normal 0-0 [facility] Comment on above: Order Comment: No: D o not add to previous draw Performed By: #### 6 2586 ####[facility] [place] [address] PLAT CNT 151 10*3/uL Normal 150-400 [facility] Comment on above: Order Comment: No: D o not add to previous draw Performed By: #### 6 2586 ####[facility] RBC Auto #/vol (Bld) 2.16 10*6/uL Low 3.80-5.00 [facility] Comment on above: Order Comment: No: D o not add to previous draw Performed By: #### 6 2586 ####[facility] [facility] [place] [address], [facility] WBC Auto #/vol (Bld) 6.41 10*3/uL Normal 4.00-10.60 [facility] Comment on above: Order Comment: No: D o not add to previous draw Performed By: #### 6 2586 ####[facility] [facility].[address] HEMATOCRITon 04-04-2018 Hematocrit Auto Volume Fraction (Bld) 26.2 % Low 36.0-45.0 [facility] Comment on above: Order Comment: No: D o not add to previous draw Performed By: #### 5 6101 ####[facility] HEMOGLOBINon 04-04-2018 Hemoglobin mass conc (Bld) 8.8 g/dL Low 12.0-15.0 [facility] Comment on above: Order Comment: No: D o not add to previous draw Performed By: #### 5 6101 ####[facility] [facility].[address] Hemoglobin mass conc (Bld) 8.7 g/dL Low 12.0-15.0 [facility] Comment on above: Order Comment: No: D o not add to previous draw Performed By: #### 5 6101 ####[facility] [place] [address], [facility] POC GLUCOSE LABon 04-04-2018 Glucose mass conc 168 mg/dL High 70-100 [facility] Comment on above: Performed By: #### 5 6101 ####[facility] [place] [address], [facility] Glucose mass conc 197 mg/dL High 70-100 [facility] Comment on above: Performed By: #### 5 6101 ####[facility] [place] [address], [place] Glucose mass conc 182 mg/dL High 70-100 [facility] Comment on above: Performed By: #### 5 6101 ####[facility] [place] [address], [facility] Glucose mass conc 164 mg/dL High 70-100 [facility] Comment on above: Performed By: #### 5 6101 ####[facility] [facility] [place] [address], [facility] RBC'S 2 UNITSon 04-04-2018 CROSSMATCH INTERP 1 COMP Normal The [facility] Comment on above: Order Comment: No: D o not add to previous draw Performed By: #### 5 6101 ####[facility] [facility] [place] [address], [facility] CROSSMATCH INTERP 2 COMP Normal The [facility] Comment on above: Order Comment: No: D o not add to previous draw Performed By: #### 5 6101 ####[facility] [facility] [place] [address], [facility] Protein mass conc PT Normal The [facility] Comment on above: Order Comment: No: D o not add to previous draw Result Comment: Resu lt changed by IF on 04/04/2018 15:08. The previous value was XM.Result changed by IF on 04/05/2018 00:30. The previous value was IS. Performed By: #### 5 6101 ####[facility] [place] [address], [facility] Result Comment: Resu lt changed by IF on 04/04/2018 12:20. The previous value was XM.Result changed by IF on 04/05/2018 00:30. The previous value was IS. Protein mass conc 336 g/dL Normal The [facility] Comment on above: Order Comment: No: D o not add to previous draw Performed By: #### 5 6101 ####[facility] [place] [address], [facility] UNIT ABO 1 A Normal The [facility] Comment on above: Order Comment: No: D o not add to previous draw Performed By: #### 5 6101 ####[facility] [place] [address], [facility] UNIT ABO 2 A Normal The [facility] Comment on above: Order Comment: No: D o not add to previous draw Performed By: #### 5 6101 ####[facility] [place] [address], [facility] UNIT ID 1 [id number] Normal The [facility] Comment on above: Order Comment: No: D o not add to previous draw Performed By: #### 5 6101 ####[facility] [place] [address], [facility] UNIT ID 2 [id number] Normal The [facility] Comment on above: Order Comment: No: D o not add to previous draw Performed By: #### 5 6101 ####[facility] [place] [address], [facility] UNIT RH 1 Positive Normal The [facility] Comment on above: Order Comment: No: D o not add to previous draw Performed By: #### 5 6101 ####[facility] [place] [address], [place] UNIT RH 2 Positive Normal The [facility] Comment on above: Order Comment: No: D o not add to previous draw Performed By: #### 5 6101 ####[facility] [place] [address], [facility] TYPE AND SCREENon 04-04-2018 ABO INTERPRETATION A Normal The [facility] Comment on above: Performed By: #### 5 6101 ####[facility] [place] [address], [place] RH INTERPRETATION Positive Normal The [facility] Comment on above: Performed By: #### 5 6101 ####[facility] [place] [address], [facility] BASIC METABOLIC PANELon 03-19 Calcium mass conc 8.2 mg/dL Low 8.6-10.3 The [facility] Comment on above: Order Comment: No: D o not add to previous draw Performed By: #### 6 2586 ####[facility] [place] [address], [facility] Chloride molar conc 107 mmol/L Normal 98-107 The [facility] Comment on above: Order Comment: No: D o not add to previous draw Performed By: #### 6 2586 ####[facility] [place] [address], [place] CO2 molar conc 23 mmol/L Normal 21-31 The [facility] Comment on above: Order Comment: No: D o not add to previous draw Performed By: #### 6 2586 ####[facility] [place] [address], [place] Creatinine mass conc 0.54 mg/dL Low 0.60-1.20 The [facility] Comment on above: Order Comment: No: D o not add to previous draw Performed By: #### 6 2586 ####[facility] [place] [address], [place] GFR/1.73 sq M predicted among blacks MDRD vol rate/area (S/P/Bld) mL/min/{1.73_m2} Normal >60 The [facility] Comment on above: Order Comment: No: D o not add to previous draw Performed By: #### 6 2586 ####[facility] [place] [address], [facility] GFR/1.73 sq M predicted among non-blacks MDRD vol rate/area (S/P/Bld) mL/min/{1.73_m2} Normal >60 The [facility] Comment on above: Order Comment: No: D o not add to previous draw Performed By: #### 6 2586 ####[facility] [place] [address], [facility] Glucose mass conc 156 mg/dL High 70-100 The [facility] Comment on above: Order Comment: No: D o not add to previous draw Performed By: #### 6 2586 ####[facility] [place] [address], [facility] Potassium molar conc 4.4 mmol/L Normal 3.5-5.1 The [facility] Comment on above: Order Comment: No: D o not add to previous draw Performed By: #### 6 2586 ####[facility] [place] [address], [facility] Sodium molar conc 136 mmol/L Normal 136-145 [facility] Comment on above: Order Comment: No: D o not add to previous draw Performed By: #### 6 2586 ####[facility] [place] [address], [facility] Urea nitrogen mass conc 10 mg/dL Normal 7-25 The [facility] Comment on above: Order Comment: No: D o not add to previous draw Performed By: #### 6 2586 ####[facility] [place] [address], [facility] CBC COMPLETE BLOOD COUNTon Erythrocyte distribution width Auto Ratio (RBC) 13.6 % Normal 11.5-15.0 The [facility] Comment on above: Order Comment: No: D o not add to previous draw Performed By: #### 6 2586 ####[facility] Hematocrit Auto Volume Fraction (Bld) 26.3 % Low 36.0-45.0 The [facility] Comment on above: Order Comment: No: D o not add to previous draw Performed By: #### 6 2586 ####[facility] Hemoglobin mass conc (Bld) 8.4 g/dL Low 12.0-15.0 [facility] Comment on above: Order Comment: No: D o not add to previous draw Performed By: #### 6 2586 ####[facility] MCH Auto Entitic mass (RBC) 30.1 pg Normal 27.0-33.0 [facility] Comment on above: Order Comment: No: D o not add to previous draw Performed By: #### 6 2586 ####[facility] MCHC Auto mass conc (RBC) 31.9 g/dL Low 32.0-35.0 [facility] Comment on above: Order Comment: No: D o not add to previous draw Performed By: #### 6 2586 ####[facility] MCV Auto Entitic volume (RBC) 94.3 fL Normal 82.0-98.0 [facility] Comment on above: Order Comment: No: D o not add to previous draw Performed By: #### 6 2586 ####[facility] Nucleated RBC/100 WBC Ratio (Bld) 0 % Normal 0-0 The [facility] Comment on above: Order Comment: No: D o not add to previous draw Performed By: #### 6 2586 ####[facility] [facility].[address] PLAT CNT 157 10*3/uL Normal 150-400 [facility] Comment on above: Order Comment: No: D o not add to previous draw Performed By: #### 6 2586 ####[facility] RBC Auto #/vol (Bld) 2.79 10*6/uL Low 3.80-5.00 The [facility] Comment on above: Order Comment: No: D o not add to previous draw Performed By: #### 6 2586 ####[facility] [facility].[address] WBC Auto #/vol (Bld) 8.07 10*3/uL Normal 4.00-10.60 [facility] Comment on above: Order Comment: No: D o not add to previous draw Performed By: #### 6 2586 ####[facility] [facility].[address] Operative Reporton [id number] Operative Report MR#: [id number] [facility] Name: Priyanka Nicholas Room #: [id number] Discharge Date: Birthdate: 1955 OPERATIVE REPORTDATE OF [...] the calcar region. After I placed this, Manuelitoen tensioned it. I then crimped and then [...] 04/03/2018/09:13 Kourtney/Ant Freitas M.D.Date Trans: 04/03/2018 11:57 [id number] Normal The [facility] POC GLUCOSE LABon 04-03-2018 Glucose mass conc 204 mg/dL High 70-100 The [facility] Comment on above: Performed By: #### 6 2586 ####[facility] [place] [address], [facility] Glucose mass conc 179 mg/dL High 70-100 [facility] Comment on above: Performed By: #### 6 2586 ####[facility] [place] [address], [place] Glucose mass conc 243 mg/dL High 70-100 [facility] Comment on above: Performed By: #### 6 2586 ####[facility] [place] [address], [place] Glucose mass conc 158 mg/dL High 70-100 [facility] Comment on above: Performed By: #### 6 2586 ####[facility] [place] [address], [place] BASIC METABOLIC PANELon 10- Calcium mass conc 8.8 mg/dL Normal 8.6-10.3 [facility] Comment on above: Order Comment: No: D o not add to previous draw Performed By: #### 0 0071 ####[facility] [place] [address], [place] Chloride molar conc 101 mmol/L Normal 98-107 The [facility] Comment on above: Order Comment: No: D o not add to previous draw Performed By: #### 0 0071 ####[facility] [place] [address], [place] CO2 molar conc 23 mmol/L Normal 21-31 The [facility] Comment on above: Order Comment: No: D o not add to previous draw Performed By: #### 0 0071 ####[facility] [place] [address], [place] Creatinine mass conc 0.60 mg/dL Normal 0.60-1.20 The [facility] Comment on above: Order Comment: No: D o not add to previous draw Performed By: #### 0 0071 ####[facility] [place] [address], [place] GFR/1.73 sq M predicted among blacks MDRD vol rate/area (S/P/Bld) mL/min/{1.73_m2} Normal >60 The [facility] Comment on above: Order Comment: No: D o not add to previous draw Performed By: #### 0 0071 ####[facility] [place] [address], [facility] GFR/1.73 sq M predicted among non-blacks MDRD vol rate/area (S/P/Bld) mL/min/{1.73_m2} Normal >60 The [facility] Comment on above: Order Comment: No: D o not add to previous draw Performed By: #### 0 0071 ####[facility] [place] [address], [facility] Glucose mass conc 139 mg/dL High 70-100 The [facility] Comment on above: Order Comment: No: D o not add to previous draw Performed By: #### 0 0071 ####[facility] [place] [address], [facility] Potassium molar conc 3.9 mmol/L Normal 3.5-5.1 The [facility] Comment on above: Order Comment: No: D o not add to previous draw Performed By: #### 0 0071 ####[facility] [place] [address], [facility] Sodium molar conc 129 mmol/L Low 136-145 [facility] Comment on above: Order Comment: No: D o not add to previous draw Performed By: #### 0 0071 ####[facility] [place] [address], [facility] Urea nitrogen mass conc 8 mg/dL Normal 7-25 The [facility] Comment on above: Order Comment: No: D o not add to previous draw Performed By: #### 0 0071 ####[facility] CBC W/DIFFon 04-02-2018 ABS BASOPHILS 0.0 10*3/uL Normal 0.0-0.2 The [facility] Comment on above: Order Comment: No: D o not add to previous draw Performed By: #### 0 0071 ####[facility] ABS IMM GRANS 0.0 10*3/uL Normal 0.0-0.2 [facility] Comment on above: Order Comment: No: D o not add to previous draw Performed By: #### 0 0071 ####[address] ABS NEUTROPHILS 7.5 10*3/uL Normal 1.6-7.6 The [facility] Comment on above: Order Comment: No: D o not add to previous draw Performed By: #### 0 0071 ####[address] Basophils Auto #/vol (Bld) 0.4 % Normal 0.0-1.0 The [facility] Comment on above: Order Comment: No: D o not add to previous draw Performed By: #### 0 0071 ####[address] Eosinophils Auto #/vol (Bld) 0.2 10*3/uL Normal 0.0-0.5 The [facility] Comment on above: Order Comment: No: D o not add to previous draw Performed By: #### 0 0071 ####[address] Eosinophils/100 WBC Auto (Bld) 2.3 % Normal 0.0-6.0 The [facility] Comment on above: Order Comment: No: D o not add to previous draw Performed By: #### 0 0071 ####[address] [place] [address], [place] Erythrocyte distribution width Auto Ratio (RBC) 13.6 % Normal 11.5-15.0 The [facility] Comment on above: Order Comment: No: D o not add to previous draw Performed By: #### 0 0071 ####[place] [address] [address] Hematocrit Auto Volume Fraction (Bld) 36.7 % Normal 36.0-45.0 The [facility] Comment on above: Order Comment: No: D o not add to previous draw Performed By: #### 0 0071 ####[address] Hemoglobin mass conc (Bld) 11.9 g/dL Low 12.0-15.0 The [facility] Comment on above: Order Comment: No: D o not add to previous draw Performed By: #### 0 0071 ####[address] IMMATURE GRANS 0.4 % Normal 0.0-1.0 The [facility] Comment on above: Order Comment: No: D o not add to previous draw Performed By: #### 0 0071 ####[address] Lymphocytes Auto #/vol (Bld) 0.8 10*3/uL Low 1.2-4.0 The [facility] Comment on above: Order Comment: No: D o not add to previous draw Performed By: #### 0 0071 ####[address] Lymphocytes/100 WBC Auto (Bld) 8.5 % Low 20.0-45.0 The [facility] Comment on above: Order Comment: No: D o not add to previous draw Performed By: #### 0 0071 ####[address] [place] [address], [place] MCH Auto Entitic mass (RBC) 30.4 pg Normal 27.0-33.0 The [facility] Comment on above: Order Comment: No: D o not add to previous draw Performed By: #### 0 0071 ####[facility] [facility] MCHC Auto mass conc (RBC) 32.4 g/dL Normal 32.0-35.0 The [facility] Comment on above: Order Comment: No: D o not add to previous draw Performed By: #### 0 0071 ####[place] [address] [address] MCV Auto Entitic volume (RBC) 93.9 fL Normal 82.0-98.0 The [facility] Comment on above: Order Comment: No: D o not add to previous draw Performed By: #### 0 0071 ####[facility] Monocytes Auto #/vol (Bld) 0.4 10*3/uL Normal 0.1-1.0 The [facility] Comment on above: Order Comment: No: D o not add to previous draw Performed By: #### 0 0071 ####[facility] MONOS 4.3 % Low 5.0-12.0 The [facility] Comment on above: Order Comment: No: D o not add to previous draw Performed By: #### 0 0071 ####[place] [address] [address] Neutrophils/100 WBC Auto (Bld) 84.1 % High 40.0-72.0 The [facility] Comment on above: Order Comment: No: D o not add to previous draw Performed By: #### 0 0071 ####[facility] [facility].[address] Nucleated RBC/100 WBC Ratio (Bld) 0 % Normal 0-0 The [facility] Comment on above: Order Comment: No: D o not add to previous draw Performed By: #### 0 0071 ####[facility] [place] [address] PLAT CNT 153 10*3/uL Normal 150-400 The [facility] Comment on above: Order Comment: No: D o not add to previous draw Performed By: #### 0 0071 ####[address] RBC Auto #/vol (Bld) 3.91 10*6/uL Normal 3.80-5.00 The [facility] Comment on above: Order Comment: No: D o not add to previous draw Performed By: #### 0 0071 ####[address] WBC Auto #/vol (Bld) 8.98 10*3/uL Normal 4.00-10.60 [facility] Comment on above: Order Comment: No: D o not add to previous draw Performed By: #### 0 0071 ####[address] HIP LEFT 1 OR 2 VWS WITH PEL VISon 04-02-2018 HIP LEFT 1 OR 2 VWS WITH PELVIS [facility] Uxbeopate[address] [place] [id number] =====Patient Name: PRIYANKA NICHOLAS : 1955Sex: FAge: Race: WhiteMRN: [id number]. Location: [id number] Status: IVisit #: [id number] Date: 04/02/2018 7:35:00 AMCompleted Date: 04/02/2018 05:03 PMRequesting Provider: ANT FREITAS Attending Provider: MARILYN LAGUNAS Report Copy To: Signs & Symptoms: left total hip anterior with GehlingHistory: left total hip anterior with GehlingComments: left total hip anterior with GehlingExam: HIP LEFT 1 OR 2 VWS WITH PELVISAccession #: [id number] HIP LEFT 1 OR 2 VWS WITH PELVIS 04/02/2018 5:03 PM EDT SIGNS AND SYMPTOMS: left total hip anterior with Fortino TECHNOLOGIST COMMENTS: Intra op left total hip with , 9 sec of fluoro time used QUESTION FOR THE RADIOLOGIST: left total hip anterior with Gehling PROTOCOL: AP(PA) and Lateral views were obtained. COMPARISON: None FINDINGS: Soft tissues: Bones: Joints: IMPRESSION: 1. Dictation for documentation purposes only Electronically signed by:Nayely Locke. Transcribed by: [email or web address], User Resident: Electronically Signed by: NAYELY LOCKE @ 04/03/2018 09:50 AM Normal The [facility] Comment on above: Order Comment: left total hip anterior with Gehling POC GLUCOSE LABon 04-02-2018 Glucose mass conc 214 mg/dL High 70-100 [facility] Comment on above: Performed By: #### 6 2586 ####[facility] [facility] [place] [address], [facility] Glucose mass conc 151 mg/dL High 70-100 [facility] Comment on above: Performed By: #### 0 0071 ####[facility] [facility] [place] [address], [place] Glucose mass conc 153 mg/dL High 70-100 [facility] Comment on above: Performed By: #### 0 0071 ####[facility] [place] [address], [facility] Glucose mass conc 148 mg/dL High 70-100 [facility] Comment on above: Performed By: #### 0 0071 ####[facility] [facility], [place] [address] PORTABLE HIP LEFT 1 OR 2 VWS WITH PELVISon 04-02-2018 PORTABLE HIP LEFT 1 OR 2 VWS WITH PELVIS [facility] of Wwkzqiqix[address] [place] [id number] =====Patient Name: PRIYANKA NICHOLAS : 1955Sex: FAge: Race: WhiteMRN: [id number]. Location: [id number] Status: IVisit #: [id number] Date: 04/02/2018 4:45:00 PMCompleted Date: 04/02/2018 05:57 PMRequesting Provider: LEXI BARRAGAN Attending Provider: MARILYN LAGUNAS Report Copy To: Signs & Symptoms: Pain ( specify Location)History: Patient history not availableComments: Hardware Evaluation, Post op PACU xrayExam: PORTABLE HIP LEFT 1 OR 2 VWS WITH PELVISAccession #: [id number] PORTABLE HIP LEFT 1 OR 2 VWS [...] loosening. Electronically signed by:Nayely Locke. Transcribed by: [email or web address], User Resident: Electronically Signed by: NAYELY LOCKE @ 04/02/2018 06:42 PM Normal [facility] Comment on above: Order Comment: No: D o not add to previous draw BASIC METABOLIC PANELon 03-19 Calcium mass conc 8.6 mg/dL Normal 8.6-10.3 [facility] Comment on above: Order Comment: No: D o not add to previous draw Performed By: #### 0 0071 ####[facility] [facility] [place] [address], [facility] Chloride molar conc 102 mmol/L Normal 98-107 [facility] Comment on above: Order Comment: No: D o not add to previous draw Performed By: #### 0 0071 ####[facility] [place] [address], [facility] CO2 molar conc 23 mmol/L Normal 21-31 [facility] Comment on above: Order Comment: No: D o not add to previous draw Performed By: #### 0 0071 ####[facility] [place] [address], [facility] Creatinine mass conc 0.66 mg/dL Normal 0.60-1.20 The [facility] Comment on above: Order Comment: No: D o not add to previous draw Performed By: #### 0 0071 ####[facility] [place] [address], [facility] GFR/1.73 sq M predicted among blacks MDRD vol rate/area (S/P/Bld) mL/min/{1.73_m2} Normal >60 [facility] Comment on above: Order Comment: No: D o not add to previous draw Performed By: #### 0 0071 ####[facility] [place] [address], [facility] GFR/1.73 sq M predicted among non-blacks MDRD vol rate/area (S/P/Bld) mL/min/{1.73_m2} Normal >60 [facility] Comment on above: Order Comment: No: D o not add to previous draw Performed By: #### 0 0071 ####[facility] [place] [address], [facility] Glucose mass conc 128 mg/dL High 70-100 [facility] Comment on above: Order Comment: No: D o not add to previous draw Performed By: #### 0 0071 ####[facility] [place] [address], [facility] Potassium molar conc 3.8 mmol/L Normal 3.5-5.1 The [facility] Comment on above: Order Comment: No: D o not add to previous draw Performed By: #### 0 0071 ####[facility] [facility] [id number], [facility] Sodium molar conc 130 mmol/L Low 136-145 [facility] Comment on above: Order Comment: No: D o not add to previous draw Performed By: #### 0 0071 ####[facility] [place] [address], [facility] Urea nitrogen mass conc 9 mg/dL Normal 7-25 The [facility] Comment on above: Order Comment: No: D o not add to previous draw Performed By: #### 0 0071 ####[facility] [place] [address], [facility] Calcium mass conc 9.1 mg/dL Normal 8.6-10.3 [facility] Comment on above: Order Comment: No: D o not add to previous draw Performed By: #### 0 0071 ####[facility] [place] [address], [place] Chloride molar conc 102 mmol/L Normal 98-107 The [facility] Comment on above: Order Comment: No: D o not add to previous draw Performed By: #### 0 0071 ####[place] [address] [facility] [place] [address], [facility] CO2 molar conc 26 mmol/L Normal 21-31 [facility] Comment on above: Order Comment: No: D o not add to previous draw Performed By: #### 0 0071 ####[facility] [facility] [place] [address], [facility] Creatinine mass conc 0.68 mg/dL Normal 0.60-1.20 The [facility] Comment on above: Order Comment: No: D o not add to previous draw Performed By: #### 0 0071 ####[place] [address] [facility] [place] [address], [facility] GFR/1.73 sq M predicted among blacks MDRD vol rate/area (S/P/Bld) mL/min/{1.73_m2} Normal >60 [facility] Comment on above: Order Comment: No: D o not add to previous draw Performed By: #### 0 0071 ####[place] [address] [facility] [place] [address], [facility] GFR/1.73 sq M predicted among non-blacks MDRD vol rate/area (S/P/Bld) mL/min/{1.73_m2} Normal >60 [facility] Comment on above: Order Comment: No: D o not add to previous draw Performed By: #### 0 0071 ####[facility] [place] [address], [facility] Glucose mass conc 155 mg/dL High 70-100 [facility] Comment on above: Order Comment: No: D o not add to previous draw Performed By: #### 0 0071 ####[facility] [place] [address], [facility] Potassium molar conc 4.0 mmol/L Normal 3.5-5.1 The [facility] Comment on above: Order Comment: No: D o not add to previous draw Performed By: #### 0 0071 ####[facility] [place] [address], [facility] Sodium molar conc 135 mmol/L Low 136-145 [facility] Comment on above: Order Comment: No: D o not add to previous draw Performed By: #### 0 0071 ####[facility] Urea nitrogen mass conc 9 mg/dL Normal 7-25 The [facility] Comment on above: Order Comment: No: D o not add to previous draw Performed By: #### 0 0071 ####[facility] [facility].[address] CBC COMPLETE BLOOD COUNTon Erythrocyte distribution width Auto Ratio (RBC) 13.7 % Normal 11.5-15.0 The [facility] Comment on above: Order Comment: No: D o not add to previous draw Performed By: #### 5 0608 ####[facility] Hematocrit Auto Volume Fraction (Bld) 37.1 % Normal 36.0-45.0 The [facility] Comment on above: Order Comment: No: D o not add to previous draw Performed By: #### 5 0608 ####[facility] [facility].[address] Hemoglobin mass conc (Bld) 12.2 g/dL Normal 12.0-15.0 The [facility] Comment on above: Order Comment: No: D o not add to previous draw Performed By: #### 5 0608 ####[facility] [facility].[address] MCH Auto Entitic mass (RBC) 30.7 pg Normal 27.0-33.0 The [facility] Comment on above: Order Comment: No: D o not add to previous draw Performed By: #### 5 0608 ####[facility] MCHC Auto mass conc (RBC) 32.9 g/dL Normal 32.0-35.0 The [facility] Comment on above: Order Comment: No: D o not add to previous draw Performed By: #### 5 0608 ####[facility] MCV Auto Entitic volume (RBC) 93.2 fL Normal 82.0-98.0 The [facility] Comment on above: Order Comment: No: D o not add to previous draw Performed By: #### 5 0608 ####[place] [address] Nucleated RBC/100 WBC Ratio (Bld) 0 % Normal 0-0 The [facility] Comment on above: Order Comment: No: D o not add to previous draw Performed By: #### 5 0608 ####[facility] PLAT CNT 197 10*3/uL Normal 150-400 [facility] Comment on above: Order Comment: No: D o not add to previous draw Performed By: #### 5 0608 ####[facility] RBC Auto #/vol (Bld) 3.98 10*6/uL Normal 3.80-5.00 The [facility] Comment on above: Order Comment: No: D o not add to previous draw Performed By: #### 5 0608 ####[facility] [facility].[address] WBC Auto #/vol (Bld) 13.14 10*3/uL High 4.00-10.60 The [facility] Comment on above: Order Comment: No: D o not add to previous draw Performed By: #### 5 0608 ####[facility] [facility].[address] CBC W/DIFFon 04-01-2018 ABS BASOPHILS 0.0 10*3/uL Normal 0.0-0.2 [facility] Comment on above: Order Comment: No: D o not add to previous draw Performed By: #### 5 0103 ####[facility] [facility].[address] ABS IMM GRANS 0.0 10*3/uL Normal 0.0-0.2 [facility] Comment on above: Order Comment: No: D o not add to previous draw Performed By: #### 5 0103 ####[facility] [facility].[address] ABS NEUTROPHILS 6.2 10*3/uL Normal 1.6-7.6 The [facility] Comment on above: Order Comment: No: D o not add to previous draw Performed By: #### 5 0103 ####[facility] [facility].[address] Basophils Auto #/vol (Bld) 0.5 % Normal 0.0-1.0 The [facility] Comment on above: Order Comment: No: D o not add to previous draw Performed By: #### 5 0103 ####[facility] Eosinophils Auto #/vol (Bld) 0.2 10*3/uL Normal 0.0-0.5 The [facility] Comment on above: Order Comment: No: D o not add to previous draw Performed By: #### 5 0103 ####[place] [address] [facility].[address] Eosinophils/100 WBC Auto (Bld) 1.9 % Normal 0.0-6.0 The [facility] Comment on above: Order Comment: No: D o not add to previous draw Performed By: #### 5 0103 ####[address] Erythrocyte distribution width Auto Ratio (RBC) 13.7 % Normal 11.5-15.0 The [facility] Comment on above: Order Comment: No: D o not add to previous draw Performed By: #### 5 0103 ####[address] Hematocrit Auto Volume Fraction (Bld) 36.3 % Normal 36.0-45.0 The [facility] Comment on above: Order Comment: No: D o not add to previous draw Performed By: #### 5 0103 ####[address] Hemoglobin mass conc (Bld) 11.9 g/dL Low 12.0-15.0 The [facility] Comment on above: Order Comment: No: D o not add to previous draw Performed By: #### 5 0103 ####[address] IMMATURE GRANS 0.3 % Normal 0.0-1.0 The [facility] Comment on above: Order Comment: No: D o not add to previous draw Performed By: #### 5 0103 ####[address] [place] [address], [place] Lymphocytes Auto #/vol (Bld) 1.9 10*3/uL Normal 1.2-4.0 The [facility] Comment on above: Order Comment: No: D o not add to previous draw Performed By: #### 5 0103 ####[facility] Lymphocytes/100 WBC Auto (Bld) 21.7 % Normal 20.0-45.0 The [facility] Comment on above: Order Comment: No: D o not add to previous draw Performed By: #### 5 3 ####[facility] MCH Auto Entitic mass (RBC) 30.8 pg Normal 27.0-33.0 The [facility] Comment on above: Order Comment: No: D o not add to previous draw Performed By: #### 5 3 ####[facility] MCHC Auto mass conc (RBC) 32.8 g/dL Normal 32.0-35.0 The [facility] Comment on above: Order Comment: No: D o not add to previous draw Performed By: #### 5 3 ####[facility] MCV Auto Entitic volume (RBC) 94.0 fL Normal 82.0-98.0 The [facility] Comment on above: Order Comment: No: D o not add to previous draw Performed By: #### 5 0103 ####[facility] Monocytes Auto #/vol (Bld) 0.4 10*3/uL Normal 0.1-1.0 The [facility] Comment on above: Order Comment: No: D o not add to previous draw Performed By: #### 5 3 ####[facility] [place], [place] [address] [address], [facility] MONOS 4.9 % Low 5.0-12.0 The [facility] Comment on above: Order Comment: No: D o not add to previous draw Performed By: #### 5 0103 ####[facility] [facility] [place] [address], [facility] Neutrophils/100 WBC Auto (Bld) 70.7 % Normal 40.0-72.0 The [facility] Comment on above: Order Comment: No: D o not add to previous draw Performed By: #### 5 0103 ####[facility] [facility] [place] [address], [facility] Nucleated RBC/100 WBC Ratio (Bld) 0 % Normal 0-0 The [facility] Comment on above: Order Comment: No: D o not add to previous draw Performed By: #### 5 3 ####[facility] [facility] [place] [address], [facility] PLAT CNT 169 10*3/uL Normal 150-400 The [facility] Comment on above: Order Comment: No: D o not add to previous draw Performed By: #### 5 0103 ####[facility] [facility] [place] [address], [facility] RBC Auto #/vol (Bld) 3.86 10*6/uL Normal 3.80-5.00 The [facility] Comment on above: Order Comment: No: D o not add to previous draw Performed By: #### 5 0103 ####[facility] [facility] [place] [address], [facility] WBC Auto #/vol (Bld) 8.74 10*3/uL Normal 4.00-10.60 The [facility] Comment on above: Order Comment: No: D o not add to previous draw Performed By: #### 5 3 ####[facility], [place] [address] CT PELVIS WO CONTRASTon 03-19 CT PELVIS WO CONTRAST [facility] SouthDepartment of Nooisqjrr[address] [place] [address] =====Patient Name: PRIYANKA NICHOLAS : 1955Sex: FAge: Race: WhiteMRN: [id number]. Location: [id number] Status: IVisit #: [id number] Date: 03/31/2018 9:35:00 PMCompleted Date: 03/31/2018 10:58 PMRequesting Provider: RUFINA VALADEZ Attending Provider: MARILYN LAGUNAS Report Copy To: Signs & Symptoms: Pelvic PainHistory: Patient history not availableComments: Other, assess left hip fractureExam: CT PELVIS WO CONTRASTAccession #: [id number] CT PELVIS WO CONTRAST 03/31/2018 10:58 PM [...] findings. Electronically signed by:Nayely Locke. Transcribed by: [email or web address], User Resident: RHONDA Smallronically Signed by: NAYELY LOCKE @ 04/01/2018 09:33 AMI personally read this/these film(s) with this resident Normal The [facility] Comment on above: Order Comment: Other , assess left hip fracture History and Physicalon 04-01 History and Physical [id number] Admitted: 03/31/2018 Date of : 1955 Attending Physician: Dewayne Mancuso MD Room #: [id number] Discharge Date: HISTORY AND PHYSICALCHIEF COMPLAINT: Left [...] left side of her body.Initially presented to [facility] where she had workup done. CT ofthe cervical spine was negative for fracture. She was found to have a leftfemoral neck fracture and was transferred to [facility] for further evaluation byOrthopedic Surgery. [...] lab studiesand imaging studies noted are from [facility] from March.ASSESSMENT:1. Left femoral neck fracture.2. Preop [...] Signed by:Dewayne Mancuso MD 04/01/2018 03:53 A Dewayne Mancuso, MDDate Dict: 03/31/2018/10:32 P/Dewayne NikkiJoey EL Mancusoate Trans: 03/31/2018 10:57 P/mmoDN_JN:[id number] 10 Normal The [facility] POC GLUCOSE LABon 04-01-2018 Glucose mass conc 178 mg/dL High 70-100 The [facility] Comment on above: Performed By: #### 0 0071 ####[facility] Glucose mass conc 180 mg/dL High 70-100 The [facility] Comment on above: Performed By: #### 0 0071 ####[facility] Glucose mass conc 128 mg/dL High 70-100 The [facility] Comment on above: Performed By: #### 0 0071 ####[facility] Glucose mass conc 120 mg/dL High 70-100 The [facility] Comment on above: Performed By: #### 8 5499 ####[facility] PROTHROMBIN TIMEon 8 INR Coag RelTime (PPP) 1.04 {INR} Normal 0.91-1.16 The [facility] Comment on above: Order Comment: No: D [...] OF ACTION, CLINICALEFFECTIVENESS, AND OPTIMAL THERAPEUTIC RANGE. [id number]. Performed By: #### 5 6101 ####[facility] Prothrombin time (PT) Coag time (PPP) 13.6 s Normal 12.3-14.8 The [facility] Comment on above: Order Comment: No: D o not add to previous draw Result Comment: ALL RESULTS MUST BE INTERPRETED WITH RESPECT TO BLOOD DRAWING ARTIFACTOR DILUTION ERROR OF ANTICOAGULANT AT THE TIME OF SAMPLING. Performed By: #### 5 6101 ####[place] [address] [facility].[address] RBC'S 2 UNITSon 04-01-2018 CROSSMATCH INTERP 1 COMP Normal The [facility] Comment on above: Performed By: #### 8 6002 ####[place] [address] CROSSMATCH INTERP 2 COMP Normal The [facility] Comment on above: Performed By: #### 8 6002 ####[place] [address] Protein mass conc 336 g/dL Normal The [facility] Comment on above: Performed By: #### 8 6002 ####[place] [address] [facility].[address] Protein mass conc RE Normal The [facility] Comment on above: Result Comment: Resu lt changed by IF on 04/04/2018 08:25. The previous value was XM. Performed By: #### 8 6002 ####[facility] [place] [address], [place] UNIT ABO 1 A Normal [facility] Comment on above: Performed By: #### 8 6002 ####[facility] [place] [address], [place] UNIT ABO 2 A Normal The [facility] Comment on above: Performed By: #### 8 6002 ####[facility] [place] [address], [facility] UNIT ID 1 [id number] Normal [facility] Comment on above: Performed By: #### 8 6002 ####[facility] [place] [address], [facility] UNIT ID 2 [id number] Normal The [facility] Comment on above: Performed By: #### 8 6002 ####[facility] [place] [address], [place] UNIT RH 1 Positive Normal [facility] Comment on above: Performed By: #### 8 6002 ####[facility] [place] [address], [place] UNIT RH 2 Positive Normal The [facility] Comment on above: Performed By: #### 8 6002 ####[facility] [place] [address], [place] TYPE AND SCREENon 04-01-2018 ABO INTERPRETATION A Normal [facility] Comment on above: Performed By: #### 6 2586 ####[facility] [place] [address], [place] RH INTERPRETATION Positive Normal [facility] Comment on above: Performed By: #### 6 2586 ####[facility] PORTABLE HIP LEFT 1 OR 2 VWS WITH PELVISon 03-31-2018 PORTABLE HIP LEFT 1 OR 2 VWS WITH PELVIS [facility] SouthDepartment of Itgmuhudw[address] [place] [address] =====Patient Name: PRIYANKA NICHOLAS : 1955Sex: FAge: Race: WhiteMRN: [id number]. Location: [id number] Status: IVisit #: [id number] Date: 03/31/2018 8:30:00 PMCompleted Date: 03/31/2018 09:11 PMRequesting Provider: LEXI BARRAGAN Attending Provider: MARILYN LAGUNAS Report Copy To: Signs & Symptoms: Pain ( specify Location)History: Patient history not availableComments: R/O FXExam: PORTABLE HIP LEFT 1 OR 2 VWS WITH PELVISAccession #: [id number] PORTABLE HIP LEFT 1 OR 2 VWS [...] by:Rhonda Rosenbaum on 03/31/2018 9:21 PM EDT. INayely, have reviewed the images and report and concur with these findings. Electronically signed by:Nayely Locke. Transcribed by: [email or web address], User Resident: RHONDA Samsectronically Signed by: NAYELY LOCKE @ 04/01/2018 10:43 AMI personally read this/these film(s) with this resident Normal The [facility] Comment on above: Order Comment: No: D o not add to previous draw Encounters Encounter Date Encounter Type Care Provider Facility Start: 01-02-2024 End: 01-02-2024 ambulatory CHETNA AICHHOLZ Not Available Start: 12-20-2023 End: 12-20-2023 ambulatory INDY LABOY Not Available Start: 12-06-2023 End: 12-06-2023 ambulatory INES SMITH Not Available Start: 10-03-2023 End: 10-03-2023 ambulatory CHETNA AICHHOLZ Not Available Start: 09-12-2023 End: 09-12-2023 ambulatory CHETNA AICHHOLZ Not Available Start: 07-18-2023 End: 07-18-2023 ambulatory CHETNA AICHHOLZ Not Available Start: 06-27-2023 End: 06-27-2023 ambulatory CHETNA AICHHOLZ Not Available Start: 04-15-2022 End: 04-16-2022 ambulatory PRESSURE TESTING TECHNICIAN CHETNA AICHHOLZ Facility:[facility] Start: 12-21-2021 End: 12-22-2021 ambulatory PRESSURE TESTING TECHNICIAN CHETNA AICHHOLZ Facility:[facility] Start: 11-01-2021 End: 11-02-2021 ambulatory PRESSURE TESTING TECHNICIAN CHETNA AICHHOLZ Facility:[facility] Start: 09-24-2020 End: 09-27-2020 Patient encounter procedure [facility] Start: 09-24-2020 End: 09-26-2020 Subsequent hospital visit by physician Olga [facility] Mammography Comment on above: Encounter for screen ing mammogram for breast cancer Post-menopausal Start: 07-30-2020 End: 08-02-2020 Patient encounter procedure [facility] Start: 07-30-2020 End: 08-01-2020 Subsequent hospital visit by physician Olga Xr Room 4 [facility] Radiology Comment on above: COPD exacerbation (H CC) Start: 01-27-2020 End: 01-28-2020 Patient encounter procedure SABIHA VIVEROS [facility] Start: 01-27-2020 End: 01-27-2020 Subsequent hospital visit by physician Mike HERNANDEZ LAB DOCTOR Comment on above: Suspected COVID-19 v irus infection Start: 11-21-2019 End: 11-24-2019 Patient encounter procedure MIKE OTT [facility] Start: 11-21-2019 End: 11-23-2019 Subsequent hospital visit by physician [facility] Rm [address] [facility] [address] Scan Comment on above: Personal history of nicotine dependence Essential hypertensi on; Mixed hyperlipidemia Start: 02-28-2019 End: 02-28-2019 Subsequent hospital visit by physician Mike DORSEY Laboratory Comment on above: Type 2 diabetes brad itus with diabetic mononeuropathy, without long-term current use of insulin (HCC); Mixed hyperlipidemia Start: 04-19-2018 End: 04-20-2018 Patient encounter procedure ANT FREITAS Facility:[facility] Start: 03-31-2018 End: 04-05-2018 Evaluation and management of inpatient MARILYN LAGUNAS Facility:[facility] Start: 02-17-2017 End: 02-18-2017 Ambulatory AFSER DENIA [facility] Procedures Date Procedure Procedure Detail Performing Clinician Start: 09-24-2020 Dxa bone density arash dy 1/> sites axial skel Mike Ott Work Phone: Start: 09-24-2020 Screening mammograph y bi 2-view breast inc cad Mike Ott Work Phone: Start: 07-30-2020 Radiologic exam ches t 2 views Mike Ott Work Phone: Start: 01-27-2020 COVID-19 AMBULATORY HARRY VIVEROS Start: 11-21-2019 Ldct for lung ca screen MIKE OTT Start: 11-21-2019 Assay of thyroid stimulating hormone tsh MIKE OTT Start: 11-21-2019 Blood count complete automated MIKE OTT Start: 11-21-2019 Comprehensive metabo lic panel MIKE OTT Start: 11-21-2019 Lipid panel MIKE CADET Start: 11-21-2019 Ldct for lung ca screen Mike Ott Work Phone: Start: 11-21-2019 Assay of thyroid stimulating hormone tsh Bairon Souza Work Phone: Start: 11-21-2019 Blood count complete automated Bairon Souza Work Phone: Start: 11-21-2019 Comprehensive metabo lic panel Bairon Souza Work Phone: Start: 11-21-2019 Lipid panel Bairon Souza Work Phone: Start: 02-28-2019 Lipid panel Mike cadet Work Phone: Start: 02-28-2019 Urine albumin quantitative Mike Ott Work Phone: Start: 04-04-2018 Antibody screen ANT FREITAS Comment on above: Performed By: #### 5 [id number] ####[facility] Start: 04-04-2018 TRANSFUSE NONAUT RED BLOOD CELLS IN PERIPH VEIN, PERC STEFS RENNO Start: 04-02-2018 REPLACEMENT OF L HIP JT WITH METAL, UNCEMENT, OPEN APPROACH ANT FREITAS Start: 04-01-2018 Antibody screen ANT FREITAS Comment on above: Performed By: #### 6 2586 ####[place] [address] [facility].[address] Plan of Treatment Date Care Activity Detail Author Start: 11-01-2028 DTaP/Tdap/Td vaccine (2 - Td) DTaP/Tdap/Td vaccine (2 - Td) [facility] [place] Start: 09-24-2022 Screening for malignant neoplasm of breast Breast cancer screen [employer] Work Phone: Start: 08-14-2021 Diabetic foot examination Diabetic foot exam [employer] Phone: Start: 07-30-2021 HbA1c (Bld) [Mass fraction] A1C test (Diabetic or Prediabetic) [employer] Phone: Start: 02-17-2021 Influenza vaccination Flu vaccine (Season Ended) [employer] Phone: Start: 12-01-2020 End: 12-01-2020 Office Visit 12/01/2020 Office Visit Family Medicine Mike Ott MD [address] [facility] [address] [place] [address] [facility] Start: 11-26-2020 HbA1c (Bld) [Mass fraction] A1C test (Diabetic or Prediabetic) [place], [place] Start: 11-23-2020 Pneumococcal 65+ years Vaccine (1 of 1 - PPSV23) Pneumococcal 65+ years Vaccine (1 of 1 - PPSV23) [facility] Phone: Start: 11-20-2020 Creatinine measurement Creatinine monitoring [facility] [employer] [place], [place] Start: 11-20-2020 Lipid panel Lipid screen [place], [place] Start: 11-20-2020 Potassium monitoring Potassium monitoring [place] Start: 11-20-2020 Screening for malignant neoplasm of lung Low dose CT lung screening [place] Start: 10-16-2020 End: 10-16-2020 Office Visit 10/16/2020 Office Visit Podiatry Al Doran, DP [address] [facility] [address] [place], [place] [id number] [facility] Start: 08-31-2020 End: 08-31-2020 Office Visit 08/31/2020 Office Visit Family Medicine Mkie Ott MD [address] [facility] [address] [place] [address] [facility] Start: 07-11-2020 Diabetic foot examination Diabetic foot exam [place] Start: 05-30-2020 HbA1c (Bld) [Mass fraction] A1C test (Diabetic or Prediabetic) [place] Start: 02-29-2020 Diabetic microalbuminuria test Diabetic microalbuminuria test [place] Start: 02-29-2020 Lipid panel Lipid screen [place] Start: 02-18-2020 Influenza vaccination Flu vaccine (#1) [place] Start: 02-17-2020 Colon cancer screen colonoscopy Colon cancer screen colonoscopy [place] Start: 02-17-2020 Screening for malignant neoplasm of colon Colon cancer screen colonoscopy [place] Start: 02-08-2020 [object Object] Diabetic foot exam [place] Start: 01-27-2020 Annual Wellness Visit (AWV) Annual Wellness Visit (AWV) [place] Start: 12-25-2019 A1C test (Diabetic or Prediabetic) A1C test (Diabetic or Prediabetic) [place] Start: 11-27-2019 End: 11-27-2019 Office Visit 11/27/2019 Office Visit Family Medicine Mike Ott MD [address] [facility] [address] [place] [address] [facility] Start: 10-30-2019 Creatinine measurement Creatinine monitoring [place] Start: 10-30-2019 Creatinine monitoring Creatinine monitoring [place], [place] Start: 10-30-2019 Potassium monitoring Potassium monitoring [place], [place] Start: 09-28-[address] lung screening Low dose CT lung screening [place] Start: 09-28-2019 Screening for malignant neoplasm of lung Low dose CT lung screening [place] Start: 06-04-2019 Shingles Vaccine (3 of 3) Shingles Vaccine (3 of 3) [place] Start: 05-30-2019 End: 05-30-2019 Office Visit 05/30/2019 Office Visit Family Medicine Mike Ott MD [address] [place] [address] [facility] Start: 04-11-2019 End: 04-11-2019 Office Visit 04/11/2019 Office Visit Podiatry Al Doran, DPM [address] [facility] [address] [place] [address] [facility] Start: 12-30-2018 Breast cancer screen Breast cancer screen [place] Start: 12-30-2018 Screening for malignant neoplasm of breast Breast cancer screen [place] Start: 04-14-2018 Diabetic microalbuminuria test Diabetic microalbuminuria test [place] Start: 01-13-2018 Cervical cancer screen Cervical cancer screen [place] Start: 01-13-2018 Screening for malignant neoplasm of cervix Cervical cancer screen [place] Start: 07-10-2016 Lipid screen Lipid screen [place] Start: 03-12-2016 Diabetic retinal exam Diabetic retinal exam [place], [place] Start: 10-09-2015 Shingles Vaccine (2 of 3) Shingles Vaccine (2 of 3) [place], [place] Start: 2010 Screening for osteoporosis DEXA (modify frequency per FRAX score) [facility] Phone: Start: 1971 COVID-19 Vaccine (1 of 2) COVID-19 Vaccine (1 of 2) [facility] [email or web address] Phone: Start: 1971 COVID-19 Vaccine (1) COVID-19 Vaccine (1) [facility] [employer] Phone: End: 01-28-2020 COVID-19 Ambulatory COVID-19 Ambulatory Lab Routine Suspected COVID-19 virus infection 1 Occurrences starting 01/28/2020 until 01/28/2020 [place], [place] Comment on above: 1 Occurrences starting 01/28/2020 until 01/28/2020 COVID-19 Ambulatory COVID-19 Amb ulatory Lab Routine Suspected COVID-19 virus infection 01/27/2020 2:40 PM EDT [place], [place] Immunizations Immunization Date Immunization Notes Care Provider Fa cility 04-09-2019 zoster vaccine recombinant Rayeesa A hmad [place] 02-28-2019 Influenza, injectabl e, Madin May Canine Kidney, preservative free, quadrivalent [facility], [place] 11-01-2018 tetanus toxoid, redu danette diphtheria toxoid, and acellular pertussis vaccine, adsorbed [facility], [place] 09-04-2018 zoster recombinant adjuvanted vaccine (SHINGRIX) 50 MCG/0.5ML SUSR injection [facility] 04-02-2018 influenza virus vacc ine, unspecified formulation [facility] Work Phone: 04-02-2018 influenza, injectabl e, quadrivalent, contains preservative [facility] 04-24-2017 influenza, injectabl e, quadrivalent, contains preservative [facility] 03-28-2016 influenza, injectabl e, quadrivalent, preservative free [facility], [place] 11-24-2015 pneumococcal polysac charide vaccine, 23 valent [facility], [place] 08-14-2015 zoster vaccine, live [facility], [place] 05-11-2015 influenza virus vacc ine, unspecified formulation [facility] , [place] 01-08-2012 pneumococcal polysac charide vaccine, 23 valent [facility], [place] Payers Date Payer Category Payer Medicare [id number] 2014 Medicaid [id number] 2014 Medicaid [facility] [place] [facility] [place] [facility] xxxxxxxxxxxx 2014-Present [phone] [address] [address] [place] [address] [id number] 1959 Medicare [id number] 1955 Unknown [id number] 2.16.840.1.391978.3.579.2.647 1955 Unknown [id number] 2.16.840.1.871385.3.579.2.647 1955 Unknown [id number] 2.16.840.1.921059.3.579.2.175 1955 Unknown [id number] 2.16.840.1.222648.3.579.2.176 1955 Unknown [id number] 2.16.840.1.152307.3.579.2.176 1955 Unknown [id number] 2.16.840.1.830280.3.579.2.176 1955 Unknown [id number] 2.16.840.1.138537.3.579.2.176 1955 Unknown [id number] 2.16.840.1.280042.3.579.2.176 1955 Unknown [id number] 2.16.840.1.124446.3.579.2.176 1955 Unknown [id number] 2.16.840.1.198647.3.579.2.593 1955 Unknown [id number] 2.16.840.1.492521.3.579.2.593 1955 Unknown [id number] 2.16.840.1.598818.3.579.2.593 1955 Unknown [id number] 2.16.840.1.305649.3.579.2.125 9 1955 Unknown [id number] 2.16.840.1.551844.3.579.2.125 9 1955 Unknown [id number] 2.16.840.1.011851.3.579.2.125 9 1955 Unknown [id number] 2.16.840.1.602487.3.579.2.125 9 1955 Unknown [id number] 2.16.840.1.126055.3.579.2.125 9 1955 Unknown [id number] 2.16.840.1.062962.3.579.2.125 9 1955 Unknown [id number] 2.16.840.1.754279.3.579.2.125 9 Social History Date Type Detail Facility Start: 01-14-1973 End: 08-14-2020 Tobacco smoking status NHIS Current every day smoker [place], [place] Start: 01-14-1973 End: 11-27-1982 History of tobacco use Cigarette Smoker [place] Start: 02-28-2019 End: 08-14-2020 Cigarettes smoked current (pack per day) - Reported [place] Start: 02-28-2019 Alcohol intake No [place], [place] Sex Assigned At Not on file [place] Start: 08-09-2019 End: 08-14-2020 Alcohol intake Current non-drinker of alcohol (finding) [place] Exposure to SARS-CoV -2 (event) Unable to assess [place] Start: 01-27-2020 End: 08-14-2020 Tobacco use and exposure Never used [place], [place] Summary Purpose Family History No Family History Records FoundNo Family History Records FoundNo Family History Records FoundNo Family History Records FoundNo Family History Records FoundNo Family History Records Found Advance Directives No Advanced Directives Records FoundDocuments on File Type Date Recorded Patient Director Television Expl anation Advance Directives and Living Will Power of Tune Up Mechanic Latest Code Status on File Code Status Date Activated Date Inactivated Comments Full Code 04/26/2017 6:22 AM 04/30/2017 6:08 PM Documents on File Type Date Recorded Patient Director Television Expl anation Advance Directives and Living Will Power of Tune Up Mechanic Latest Code Status on File Code Status Date Activated Date Inactivated Comments Full Code 04/26/2017 6:22 AM 04/30/2017 6:08 PM Documents on File Type Date Recorded Patient Director Television Expl anation ACP-Advance Directive ACP-Power of Tune Up Mechanic Documents on File Type Date Recorded Patient Director Television Expl anation ACP-Advance Directive ACP-Power of Tune Up Mechanic Hospital Course Note MR#: [id number] [facility] Name[facility] Priyanka Nicholas Admitted: 03/31/2018 Discharged: 04/05/2018 Date of : 1955 Physician: Marilyn Lagunas M.D. DISCHARGE SUMMARYPRVET[facility] CARE PHYSICIAN: Dr. Vargas.PRIMARY DIAGNOSES:1. Left femoral [...] Procedures CT LUNG SCREENING Mike Ott MD [address] [facility] [address] [place] [address] Status Reason Specialty Diagnoses / Procedures Referre d By Contact Referred To Contact Closed Radiology Diagnoses Post-menopausal Procedures DEXA BONE DENSITY AXIAL SKELETON Mike Ott MD [address] [facility] [address] [place] [address] Additional Source Comments INFORMATION SOURCE (unrecogn ized section and content) DATE CREATED AUTHOR 12/13/2017 [facility] Ivonne Spence ospital DATE CREATED AUTHOR AUTHOR'S ORGANIZ ATION 05/27/2018 [facility] DATE CREATED AUTHOR AUTHOR'S ORGANIZ ATION 01/30/2020 [facility] DATE CREATED AUTHOR AUTHOR'S ORGANIZ ATION 09/27/2020 [facility] DATE CREATED AUTHOR AUTHOR'S ORGANIZ ATION 04/19/2022 [facility] pital DATE CREATED AUTHOR AUTHOR'S ORGANIZ ATION 01/05/2024 [facility] dical Specialists EPIC Reason for Visit (unrecogniz ed section and content) Status Reason Specialty Diagnoses / Procedures Referre d By Contact Referred To Contact Closed Radiology Diagnoses Personal history of nicotine dependence Procedures CT LUNG SCREENING Mike Ott MD [address] [place] [address] Status Reason Specialty Diagnoses / Procedures Referre d By Contact Referred To Contact Closed Radiology Diagnoses Encounter for screening mammogram for breast cancer Procedures KOBY RAFI DIGITAL SCREEN BILATERAL KOBY Digital Screen Bilateral [[id number]] Mike Ott MD [address] [place] [id number] Status Reason Specialty Diagnoses / Procedures Referre d By Contact Referred To Contact Closed Radiology Diagnoses Post-menopausal Procedures DEXA BONE DENSITY AXIAL SKELETON Mike Ott MD [facility] [address] [address] FOR RECORDS PERTAINING TO PATIENTS WHO ARE [...] BE BASED ON THE PRIMARY CLINICAL RECORDS. [employer] [facility]. provides no warranty or guarantee of the accuracy or completeness of information in this document.
== END 2024-01-30 13:34 | disposition home or self-care (01) ==
LOC: SURGOUT 01-31 08:12
PROVIDERS: PCP Nurse Practitioner; Visit Provider Otolaryngology
PROC: (CPT 31231; principal; 2024-01-30 12:00)
PROC: (CPT 31231; 2024-01-30 12:00)
DX: H69.93 Unspecified Eustachian tube disorder, bilateral (principal); H65.92 Unspecified nonsuppurative otitis media, left ear; J43.9 Emphysema, unspecified; F17.210 Nicotine dependence, cigarettes, uncomplicated; H91.90 Unspecified hearing loss, unspecified ear; Z90.710 Acquired absence of both cervix and uterus; I10 Essential (primary) hypertension; K21.9 Gastro-esophageal reflux disease without esophagitis; E11.9 Type 2 diabetes mellitus without complications; Z79.84 Long term (current) use of oral hypoglycemic drugs; R13.10 Dysphagia, unspecified
CPT/HCPCS: 31231; 69436; 36415; 82948; J1100; J2250; J2405; J2704; J3010

== ENCOUNTER 2024-03-01 09:51 | Outpatient (OUT) | payer MEDICARE, SELFPAY ==
--- NOTE | 2024-03-01 | CT_ITS ---
[address] [address] Patient Name: PRIYANKA NICHOLAS MRN: [id number] date: 1955 Sex: F Assigned Patient Location: CT Current Patient Location: Accession/Order Number: [id number] Exam Date: 03/01/2024 09:58 Report Date: 03/02/2024 06:33 At the request of: CHETNA BARCENAS Procedure: CT lung screening low-dose EXAMINATION: CT lung screening low-dose HISTORY: Tobacco user Z 72.0 COMPARISON: CT LUNG CANCER SCREENING 12/21/2021, MRI lumbar spine 01/23/2023 TECHNIQUE: Axial, Coronal, and Sagittal images were created without the administration of IV contrast material. Dose reduction techniques were achieved by using automated exposure control and/or adjustment of mA and/or kV according to patient size and/or use of iterative reconstruction technique. FINDINGS: LUNGS: Mild emphysematous changes. Suspect mild fibrosis within peripheral lung bases. No suspicious nodules or acute infiltrates PLEURA: No mass, effusion, or pneumothorax. VASCULATURE: No abnormality. LAN: No mass or pathologic adenopathy. MEDIASTINUM: No mass or pathologic adenopathy. CARDIAC: No enlargement, pericardial thickening, or pericardial effusion. Coronary Artery calcifications: Coronary calcifications are mild. AORTA: No aneurysm or dissection. CHEST WALL: No mass or axillary adenopathy BONES: Mild compression fracture of superior endplate of T12. LIMITED ABDOMEN: Stones within gallbladder. Limited images of the upper abdomen. OTHER: Negative. CT/CT lung screening low-dose IMPRESSION: 1. Lung-RADS Category 1 Negative. No nodules and definitely benign nodules. Continue annual screening with LDCT in 12 months. 2. Stable emphysematous changes and mild fibrosis within the lungs. 3. Cholelithiasis. 4. Stable mild compression fracture of T12 superior endplate, not appreciably changed compared to 01/23/2023 MRI of lumbar spine. Electronically authenticated by: MARI MONTES Date: 03/02/2024 06:33
--- OUTSIDE RECORDS SUMMARY | 2024-03-01 10:06 | XMS_ITS | CCD ---
Author Organization [facility] Care Team Providers Care Conflicts Analyst Name Role Phone MARLA LOZA Unavailable Unavailable ELZBIETA SHARMA Unavailable Unavailable ANT FREITAS Unavailable Unavailable ANT FREITAS Unavailable Unavailable UNKNOWN, PHYSICIAN Unavailable Unavailable UNKNOWN, PHYSICIAN Unavailable Unavailable RENNO, ANAS Unavailable Unavailable RENNO, ANAS Unavailable Unavailable SUSI BARRIOS Unavailable Unavailable UNKNOWN, PHYSICIAN Unavailable Unavailable IN Unavailable Unavailable ANT FREITAS Unavailable Unavailable IN Unavailable Unavailable RENNO, ANAS Unavailable Unavailable Ahmad, [...] Unavailable AHMAD, RAYEESA Primary Care Unavailable AICHHOLZ, BEVERAGE MANAGER CHETNA Admitting Unavailable DR MELANIE AVILES V Consulting Unavailable AICHHOLZ, BEVERAGE MANAGER CHETNA Attending Unavailable AICHHOLZ, BEVERAGE MANAGER CHETNA Consulting Unavailable AICHHOLZ, BEVERAGE MANAGER CHETNA Admitting Unavailable AICHHOLZ, BEVERAGE MANAGER CHETNA Attending Unavailable AICHHOLZ, BEVERAGE MANAGER CHETNA Consulting Unavailable DR MARI MONTES Consulting Unavailable AICHHOLZ, BEVERAGE MANAGER CHETNA Admitting Unavailable AICHHOLZ, BEVERAGE MANAGER CHETNA Referring Unavailable AICHHOLZ, BEVERAGE MANAGER CHETNA Attending Unavailable AICHHOLZ, LON BASILIO Consulting Unavailable JYOTI, DR MARI Bolivar Consulting Unavailable AICHHOLZ, CHETNA Attending Unavailable AICHHOLZ, CHETNA Attending Unavailable AICHHOLZ, CHETNA Attending Unavailable AICHHOLZ, CHETNA Attending Unavailable LUISINES Attending Unavailable AICHHOLZ, CHETNA Referring Unavailable TIMMIS, INDY H Attending Unavailable AICHHOLZ, CHETNA Referring Unavailable AICHHOLZ, CHETNA Attending Unavailable AICHHOLZ, CHETNA Attending Unavailable TIMMIS, INDY H Attending Unavailable AICHHOLZ, CHETNA Referring Unavailable Allergies Allergy Classification Reported Allergen(s) Allergy Type Date of Onset Reaction(s) Facility (8 sources) Desonide Drug Allergy [address] [facility] Repository (1 source) Latex Drug allergy (disorder) [address] [facility] (8 sources) Latex Propensity to adverse reactions to drug 6 [place], [place] (1 source) natural latex rubber Drug allergy (disorder) [facility] Rep[facility] Medications Current Medications Medication Drug Class(es) [...] mononeuropathy, without long-term current use of insulin ([facility]) Take 1 tablet by mouth [...] extended release oral tablet (1 source) Uncompetitive H-tvqszc-Z-aspartat e Receptor Antagonist, Sigma-1 Agonist Start: 09-04-2018 [...] food 20 tablet 0 07/30/2020 Active ergocalciferol 80145 unt oral capsule (1 source) Provitamin D2 Compound Start: 09-24-2020 take 1 capsule by mouth every week vitamin D (ERGOCALCIFEROL) 1.25 MG (65864 UT) CAPS capsule Indications: Age-related osteoporosis without [...] Onset: 04-19-2018 Chronic 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 INDICATIONS: Screening mammography Calculator Name NCI Breast Cancer Risk Assessment Tool 5 Year Breast Cancer Risk 1.50% Lifetime Breast Cancer Risk 5.20% Personal Breast Cancer No Personal Ovarian Cancer No Treatments None Family Cancers None LOCATION: [facility] BREAST COMPOSITION: Scattered areas fibroglandular density. FINDINGS: [...] MD on 04/15/2022 at 14:51 Normal [facility] CBC AUTO DIFFon 12-21-2021 BASO # 0.1 103/ul Normal 0.0-0.1 [facility] Comment on above: Performed By: #### C BC #### [facility] [address] [address] [address] Tom Altman Basophils/100 WBC (Bld) 0.7 % Normal 0.2-2.0 [facility] Comment on above: Performed By: #### C BC #### [facility] [address] [place] [address] Dr. Tom Altman EO # 0.3 103/ul Normal 0.0-0.7 [facility] Comment on above: Performed By: #### C BC #### [facility] [address] [place] [address] Dr. Tom Altman Eosinophils/100 WBC (Bld) 3.4 % Normal 0.9-7.0 [facility] Comment on above: Performed By: #### C BC #### [facility] [address] [place] [address] Dr. Tom Altman Erythrocyte distribution width (RBC) [Ratio] 14.6 % Normal 11.0-15.0 [facility] Comment on above: Performed By: #### C BC #### [facility] [address] [place] [address] Dr. Tom Altman Hematocrit (Bld) [Volume fraction] 41.5 % Normal 36.0-48.0 [facility] Comment on above: Performed By: #### C BC #### [facility] [address] [place] [address] Dr. Tom Altman Hemoglobin (Bld) [Mass/Vol] 13.0 g/dL Normal 12.0-16.0 [facility] Comment on above: Performed By: #### C BC #### [facility] [address] [place] [address] Dr. Tom Altman IG # 0.04 10e3/ul Critically high 0.00-0.03 [facility] Comment on above: Performed By: #### C BC #### [facility] [address] [place] [address] Dr. Tom Altman IG % 0.5 % Normal 0.0-0.5 [facility] Comment on above: Performed By: #### C BC #### [facility] [address] [place] [address] Dr. Tom Altman LYMPH # 1.9 103/ul Normal 1.2-3.8 [facility] Comment on above: Performed By: #### C BC #### [facility] [address] [place] [address] Dr. Tom Altman Lymphocytes/100 WBC (Bld) 22.9 % Normal 20.5-60.0 [facility] Comment on above: Performed By: #### C BC #### [facility] [address] [place] [address] Dr. Tom Altman MANUAL DIFF REQ NO Normal [facility] Comment on above: Performed By: #### C BC #### [facility] [address] [place] [address] Dr. Tom Altman MCH (RBC) [Entitic mass] 29.1 pg Normal 26.7-34.0 [facility] Comment on above: Performed By: #### C BC #### [facility] [address] [place] [address] Dr. Tom Altman MCHC (RBC) [Mass/Vol] 31.3 g/dL Normal 29.9-35.2 [facility] Comment on above: Performed By: #### C BC #### [facility] [address] [place] [address] Dr. Tom Altman MCV (RBC) [Entitic vol] 93.0 fL Normal 81.0-99.0 [facility] Comment on above: Performed By: #### C BC #### [facility] [address] [place] [address] Dr. Tom Altman MONO # 0.5 103/ul Normal 0.3-0.8 [facility] Comment on above: Performed By: #### C BC #### [facility] [address] [place] [address] Dr. Tom Altman Monocytes/100 WBC (Bld) 5.5 % Normal 1.7-12.0 [facility] Comment on above: Performed By: #### C BC #### [facility] [address] [place] [address] Dr. Tom Altman NEUT # 5.6 103/ul Normal 1.4-6.5 [facility] Comment on above: Performed By: #### C BC #### [facility] [address] [place] [address] Dr. Tom Altman Neutrophils/100 WBC (Bld) 67.0 % Normal 43.0-75.0 [facility] Comment on above: Performed By: #### C BC #### [facility] [address] [place] [address] Dr. Tom Altman Platelet mean volume (Bld) [Entitic vol] 10.9 fL Normal 9.5-13.5 [facility] Comment on above: Performed By: #### C BC #### [facility] [address] [place] [address] Dr. Tom Altman PLT 278 103/ul Normal 150-450 [facility] Comment on above: Performed By: #### C BC #### [facility] [address] [place] [address] Dr. Tom Altman RBC 4.46 106/ul Normal 4.20-5.40 [facility] Comment on above: Performed By: #### C BC #### [facility] [address] [place] [address] Dr. Tom Altman WBC 8.3 103/ul Normal 4.0-11.0 [facility] Comment on above: Performed By: #### C BC #### [facility] [address] [place] [address] LUNG CANCER SCREENINGon [...] by: MARI MONTES Date: 2021-12-21 14:49 Normal [facility] FREE T4on 12-21-2021 Free T4 [Mass/Vol] 1.03 ng/dL Normal 0.76-1.46 [facility] Comment on above: Performed By: #### F T4 #### [facility] [address] [place] [address] Dr. Tom Altman GLYCOHEMOGLOBIN A1Con 2021 ADA RECOMMENDATION SEE BELOW Normal [facility] Comment on above: Result Comment: ADA RECOMMENDED LIMIT 4.0 - 6.0 ADA THERAPEUTIC TARGET < 7.0 ACTION SUGGESTED > 7.0 Performed By: #### A 1C #### [facility] [address] [place] [address] Dr. Tom Altman Glucose [Mass/Vol] 134 mg/dL Normal [facility] Comment on above: Performed By: #### A 1C #### [facility] [address] [place] [address] Dr. Tom Altman HbA1c (Bld) [Mass fraction] 6.3 % Critically high 4.5-6.2 [facility] Comment on above: Performed By: #### A 1C #### [facility] [address] [place] [address] Dr. Tom Altman LIPID PROFILEon 12-21-2021 CHOL-HDL RATIO NORM SEE BELOW Normal [facility] Comment on above: Result Comment: 3.3 - 4.4 LOW RISK 4.4 - 7.1 AVERAGE RISK 7.1 - 11.0 MODERATE RISK >11.0 HIGH RISK Performed By: #### T SH, LIPID, CMP #### [facility] [address] [place] [address] Dr. Tom Altman Cholesterol [Mass/Vol] 145 mg/dL Normal <=200 [facility] Comment on above: Performed By: #### T SH, LIPID, CMP #### [facility] [address] [place] [address] Dr. Tom Altman Cholesterol in HDL [Mass/Vol] 45 mg/dL Normal 40-60 [facility] Comment on above: Performed By: #### T SH, LIPID, CMP #### [facility] [address] [address] [address] Tom Altman Cholesterol in LDL [Mass/Vol] 83.0 mg/dL Normal [facility] Comment on above: Performed By: #### T SH, LIPID, CMP #### [facility] [address] [address] [address] Tom Altman Cholesterol.total/C holesterol in HDL [Mass ratio] 3.2 {ratio} Normal [facility] Comment on above: Performed By: #### T SH, LIPID, CMP #### [facility] [address] [address] [address] Tom Altman HDL NORMAL > or = 60 mg/dl - LO W CARDIOVASCULAR RISK <40 mg/dl - HIGH CARDIOVASCULAR RISK Normal [facility] Comment on above: Performed By: #### T SH, LIPID, CMP #### [facility] [address] [address] [address] Tom Altman LDL CALC NORMAL SEE BELOW Normal [facility] Comment on above: Result Comment: <100 mg/dl OPTIMAL 100 - 129 mg/dl NEAR OR ABOVE OPTIMAL 130 - 159 mg/dl BORDERLINE HIGH 160 - 189 mg/dl HIGH >190 mg/dl VERY HIGH Performed By: #### T SH, LIPID, CMP #### [facility] [address] [address] [address] Tom Altman Triglyceride [Mass/Vol] 85 mg/dL Normal <=150 [facility] Comment on above: Performed By: #### T SH, LIPID, CMP #### [facility] [address] [address] [address] Tom Altman VLDL CALC 17.0 mg/dL Normal [facility] Comment on above: Performed By: #### T SH, LIPID, CMP #### [facility] [address] [address] [address] Tom Altman MICROALBUMIN, RAND URon 07-0 mALB <1.3 Normal <=30.0 [facility] Comment on above: Performed By: #### M ALBR #### [facility] [address] [address] [address] Tom Altman PROF 14(COMP METB)on 022 Albumin [Mass/Vol] 3.7 g/dL Normal 3.4-5.0 [facility] Comment on above: Performed By: #### T SH, LIPID, CMP #### [facility] [address] [address] [address] Tom Altman Albumin/Globulin [Mass ratio] 1.0 {ratio} Normal [facility] Comment on above: Performed By: #### T SH, LIPID, CMP #### [facility] [address] [place] [address] Dr. Tom Altman ALP [Catalytic activity/Vol] 60 U/L Normal 46-116 [facility] Comment on above: Performed By: #### T SH, LIPID, CMP #### [facility] [address] [address] [address] Tom Altman ALT [Catalytic activity/Vol] 21 U/L Normal 14-59 [facility] Comment on above: Performed By: #### T SH, LIPID, CMP #### [facility] [address] [address] [address] Tom Altman Anion gap [Moles/Vol] 13.1 mmol/L Normal [facility] Comment on above: Performed By: #### T SH, LIPID, CMP #### [facility] [address] [address] [address] Tom Altman AST [Catalytic activity/Vol] 9 U/L Critically low 15-37 [facility] Comment on above: Performed By: #### T SH, LIPID, CMP #### [facility] [address] [place] [address] Dr. Tom Altman Bilirubin [Mass/Vol] 0.4 mg/dL Normal 0.2-1.0 [facility] Comment on above: Performed By: #### T SH, LIPID, CMP #### [facility] [address] [place] [address] Dr. Tom Altman Calcium [Mass/Vol] 9.3 mg/dL Normal 8.5-10.1 [facility] Comment on above: Performed By: #### T SH, LIPID, CMP #### [facility] [address] [address] [address] Tom Altman Chloride [Moles/Vol] 102 mmol/L Normal 98-107 [facility] Comment on above: Performed By: #### T SH, LIPID, CMP #### [facility] [address] [address] [address] Tom Altman CO2 [Moles/Vol] 26.9 mmol/L Normal 21.0-32.0 [facility] Comment on above: Performed By: #### T ESMER, LIPID, CMP #### [facility] [address] [place] [address] Dr. Tom Altman Creatinine [Mass/Vol] 0.78 mg/dL Normal 0.55-1.02 [facility] Comment on above: Performed By: #### T ESMER, LIPID, CMP #### [facility] [address] [place] [address] Dr. Tom Altman EGFR-AF [facility] LUCIAN >60 Normal >=60 [facility] Comment on above: Performed By: #### T ESMER, LIPID, CMP #### [facility] [address] [place] [address] Dr. Tom Altman EGFR-NON AF [facility] LUCIAN >60 Normal >=60 [facility] Comment on above: Performed By: #### T ESMER, LIPID, CMP #### [facility] [address] [place] [address] Dr. Tom Altman Globulin (S) [Mass/Vol] 3.8 g/dL Normal [facility] Comment on above: Performed By: #### T SH, LIPID, CMP #### [facility] [address] [place] [address] Dr. Tom Altman Glucose [Mass/Vol] 146 mg/dL Critically high 74-106 [facility] Comment on above: Performed By: #### T SH, LIPID, CMP #### [facility] [address] [place] [address] Dr. Tom Altman Potassium [Moles/Vol] 4.0 mmol/L Normal 3.5-5.1 [facility] Comment on above: Performed By: #### T ESMER LIPID, CMP #### [facility] [address] [address] [address] Tom Altman Protein [Mass/Vol] 7.5 g/dL Normal 6.4-8.2 [facility] Comment on above: Performed By: #### T ESMER, LIPID, CMP #### [facility] [address] [address] [address] Tom Altman Sodium [Moles/Vol] 138 mmol/L Normal 136-145 [facility] Comment on above: Performed By: #### T ESMER LIPID, CMP #### [facility] [address] [address] [address] Tom Altman Urea nitrogen [Mass/Vol] 9.0 mg/dL Normal 7.0-18.0 [facility] Comment on above: Performed By: #### T ESMER, LIPID, CMP #### [facility] [address] [address] [address] Tom Altman Urea nitrogen/Creatinine [Mass ratio] 11.5 mg/mg Normal [facility] Comment on above: Performed By: #### T ESMER, LIPID, CMP #### [facility] [address] [address] [address] Tom Altman TSHon 12-21-2021 TSH 1.045 uIU/mL Normal 0.358-3.740 [facility] Comment on above: Performed By: #### T ESMER, LIPID, CMP #### [facility] [address] [address] [address] Tom Altman UA RANDOM W/MICROSCOPICon BACTERIA TRACE Abnormal NONE SEEN [facility] Comment on above: Performed By: #### U AMIC ####[facility] [id number] [address]Dr. Tom Altman Bilirubin Ql (U) Negative Normal NEGATIVE [facility] Comment on above: Performed By: #### U AMIC ####[facility] [id number] [id number][address] Tom Altman CAST NONE SEEN Normal NONE SEEN [facility] Comment on above: Performed By: #### U AMIC ####[facility] [id number] [address]Dr. Tom Altman Clarity (U) CLEAR Normal CLEAR [facility] Comment on above: Performed By: #### U AMIC ####[facility] [id number] [address]Dr. Celegino Altman Color (U) LT. YELLOW Normal YELLOW [facility] Comment on above: Performed By: #### U AMIC ####[facility] [id number] [place], [place] [address]Dr. Celegino Agapito Crystals LM Nom (Urine sed) NONE SEEN Normal NONE SEEN [facility] Comment on above: Performed By: #### U AMIC ####[facility] [id number] [address]Dr. Tom Altman Epithelial cells LM Ql (Urine sed) FEW Abnormal NONE SEEN /RARE [facility] Comment on above: Performed By: #### U AMIC ####[facility] [address] [place], [place] [address]Dr. Tom Altman Glucose Ql (U) Negative Normal NEGATIVE [facility] Comment on above: Performed By: #### U AMIC ####[facility] [id number] [place], [place] [address]Dr. Tom Altman Hemoglobin Ql (U) Negative Normal NEGATIVE [facility] Comment on above: Performed By: #### U AMIC ####[facility] [address] [address]Dr. Tom Altman Ketones Ql (U) Negative Normal NEGATIVE [facility] Comment on above: Performed By: #### U AMIC ####[facility] [address] [place], [place] [address]Dr. Tom Altman LEUKOCYTES Negative Normal NEGATIVE [facility] Comment on above: Performed By: #### U AMIC ####[facility] [id number] [place], [place] [address]Dr. Tom Altman MUCOUS NONE SEEN Normal NONE SEEN [facility] Comment on above: Performed By: #### U AMIC ####[facility] [id number] [address]Dr. Tom Altman Nitrite Ql (U) Negative Normal NEGATIVE [facility] Comment on above: Performed By: #### U AMIC ####[facility] [id number] [address]Dr. Tom Altman pH (U) 7.0 [pH] Normal 5-9 [facility] Comment on above: Performed By: #### U AMIC ####[facility] [id number] [address]Dr. Tom Altman RBC 0-2 Normal 0-2 [facility] Comment on above: Performed By: #### U AMIC ####[facility] [id number] [address]Dr. Tom Altman SPEC GRAVITY 1.010 Normal 1.005-<=1.025 [facility] Comment on above: Performed By: #### U AMIC ####[facility] [id number] [address]Dr. Tom Altman UA PROTEIN Negative Normal NEGATIVE/ TRACE [facility] Comment on above: Performed By: #### U AMIC ####[facility] [address] [address]Dr. Tom Altman Urobilinogen Qn (U) 0.2 {Isai'U}/dL Normal 0.2 - 1. 0 [facility] Comment on above: Performed By: #### U AMIC ####[facility] [address] [address]Dr. Tom Altman WBC 0-2 Abnormal NONE SEEN [facility] Comment on above: Performed By: #### U AMIC ####[facility] [address] [address]Dr. Tom Altman US ABD AORTA SCREENINGon US [...] by: MARI MONTES Date: 2021-11-01 11:16 Normal [facility] DEXA BONE DENSITY AXIAL SKEL ETONon 09-24-2020 DEXA BONE DENSITY AXIAL SKELETON EXAMINATION: BONE DENSITOMETRY 09/24/2020 10:44 am TECHNIQUE: A bone density dual x-ray absorptiometry (DEXA) scan was performed of the lumbar spine and left hip on a Eyenalyze system. COMPARISON: August 16, 2006. HISTORY: ORDERING [...] Ines Wild MD 09/24/20 Final result Normal [facility] By WHO criteria the patient's bone mineral density is classified as osteoporosis. [employer] Work Phone: EXAMINATION: BONE DENSITOMETRY 09/24/2020 10:44 am TECHNIQUE: A bone density dual x-ray absorptiometry (DEXA) scan was performed of the lumbar spine and left hip on a Eyenalyze system. COMPARISON: August 16, 2006. HISTORY: ORDERING [...] is 23.5%, and in the hip 9.3%. [address] Phone: Mario Alberto, pn Incoming Radiant Results From [employer] - 09/24/2020 10:52 AM EDT EXAMINATION: BONE DENSITOMETRY 09/24/2020 10:44 am TECHNIQUE: A bone density dual x-ray absorptiometry (DEXA) scan was performed of the lumbar spine and left hip on a Eyenalyze system. COMPARISON: August 16, 2006. HISTORY: ORDERING [...] bone mineral density is classified as osteoporosis. [employer] Work Phone: [email or web address] RAFI DIGITAL SCREEN MIKE Cortes 09-24-2020 [facility] RAFI DIGITAL SCREEN BILATERAL EXAMINATION: SCREENING DIGITAL [...] to the patient regarding the results. The [employer] recommends annual mammograms for women 40 years and older. Interpreted by: Ines Wild MD Signed by: Ines Wild MD 09/24/20 Final result Normal [facility] No mammographic evidence of malignancy. BIRADS: BIRADS - CATEGORY 1 Negative, no evidence of malignancy. Normal interval follow-up is recommended in 12 months. OVERALL ASSESSMENT - NEGATIVE A letter of notification will be sent to the patient regarding the results. [employer] recommends annual mammograms for women 40 years and older. [address] Phone: EXAMINATION: SCREENI NG DIGITAL BILATERAL MAMMOGRAM [...] suspicious microcalcification, or area of architectural distortion. [address] Phone: Mario Alberto, [facility] Incoming Radiant Results From [employer] - 09/24/2020 11:07 AM EDT EXAMINATION: SCREENING [...] to the patient regarding the results. [employer] recommends annual mammograms for women 40 years and older. [address] Phone: XR CHEST (2 VW)on 07-30-2020 XR [...] Adán Vásquez MD 07/30/20 Final result Normal [facility] No evidence for acut e cardiopulmonary pathology. COPD. [address] Phone: EXAMINATION: TWO XRA Y VIEWS OF [...] structures and soft tissues are grossly intact. [address] Phone: Mario Alberto, Mhpn Incoming Radiant Results From [employer]/Swarm64 - 07/30/2020 1:44 PM EST EXAMINATION: TWO [...] No evidence for acute cardiopulmonary pathology. COPD. [facility] Work Phone: [id number] 01-30-2020 SARS-CoV-2 Not Detected Normal Not Detected [facility] Comment on above: Result Comment: (NOT E) Testing was performed using the Aptima SARS-CoV-2 assay. This test was developed and its performance characteristics determined by [employer]. This test has not been FDA cleared [...] result in this assay. Performed At: [facility] [address] [place], [place] [id number] Linda Avelar MD Ph:[phone] Performed By: #### A COV #### [facility] [address] [place] [address] Computer Technology Teacher: Jony Trejo MD CBCon 11-21-2019 NRBC Automated NOT REPORTED Normal [facility] Comment on above: Performed By: #### C BC, CP, LIPR, TSH #### [facility] [address] [place] [address] Computer Technology Teacher: Vishal Lorenzo DO Erythrocyte distribution width (RBC) [Ratio] 14.1 % Normal 11.5-14.9 [place], [place] Comment on above: Performed By: #### C BC, CP, LIPR, TSH #### [facility] [address] [facility] [place] [address] Computer Technology Teacher: Vishal Lorenzo DO Hematocrit (Bld) [Volume fraction] 38.0 % Normal 36-46 [place] Comment on above: Performed By: #### C BC, CP, LIPR, TSH #### [facility] [address] [facility] [place] [address] Computer Technology Teacher: Vishal Lorenzo DO Hemoglobin (Bld) [Mass/Vol] 12.3 g/dL Normal 12.0-16.0 [place] Comment on above: Performed By: #### C BC, CP, LIPR, TSH #### [facility] [address] [facility] [place] [address] Computer Technology Teacher: Vishal Lorenzo DO MCH (RBC) [Entitic mass] 30.0 pg Normal 26-34 [place] Comment on above: Performed By: #### C BC, CP, LIPR, TSH #### [facility] [address] [facility] [place] [address] Computer Technology Teacher: Vishal Lorenzo DO MCHC (RBC) [Mass/Vol] 32.5 g/dL Normal 31-37 [place] Comment on above: Performed By: #### C BC, CP, LIPR, TSH #### [facility] [address] [facility] [place] [address] Computer Technology Teacher: Vishal Lorenzo DO MCV (RBC) [Entitic vol] 92.1 fL Normal 80-100 [place] Comment on above: Performed By: #### C BC, CP, LIPR, TSH #### [facility] [address] [place] [address] Computer Technology Teacher: Vishal Lorenzo DO Platelet mean volume (Bld) [Entitic vol] 8.6 fL Normal 6.0-12.0 [place] Comment on above: Performed By: #### C BC, CP, LIPR, TSH #### [facility] [address] [facility] [place] [address] Computer Technology Teacher: Vishal Lorenzo DO Platelets (Bld) [#/Vol] 209 10*3/uL Normal 150-450 [place] Comment on above: Performed By: #### C BC, CP, LIPR, TSH #### [facility] [address] [facility] [place] [address] Computer Technology Teacher: Vishal Lorenzo DO RBC (Bld) [#/Vol] 4.12 10*6/uL Normal 4.0-5.2 [place] Comment on above: Performed By: #### C BC, CP, LIPR, TSH #### [facility] [address] [facility] [place] [address] Computer Technology Teacher: Vishal Lorenzo DO WBC (Bld) [#/Vol] 6.0 10*3/uL Normal 3.5-11.0 [place] Comment on above: Performed By: #### C BC, CP, LIPR, TSH #### [facility] [address] [facility] [place] [address] Computer Technology Teacher: Vishal Lorenzo DO WBC (Bld) [#/Vol] NOT REPORTED per 100 WBC [place], [place] CT LUNG SCREENINGon 11-21-19 20 No new or enlarging pulmonary nodule. LUNG RADS: Per ACR Lung-RADS Version 1.0 Category 2, Benign appearance or behavior. Management: Continue annual lung screening with LDCT in 12 months. (probability of malignancy <1%). RECOMMENDATIONS: If you would like to register your patient with the [facility] Lung Nodule/Lung Cancer Screening Program, please contact the Nurse Navigator at [phone]). [place] EXAMINATION: LOW DOS E SCREENING CT [...] surrounding chest wall demonstrate no acute findings. [place], [place] Mario Alberto, Mhpn Incoming Radiant Results From [employer]/Swarm[employer] - 11/21/2019 10:40 AM EDT EXAMINATION: LOW [...] like to register your patient with the [facility] Lung Nodule/Lung Cancer Screening Program, please contact the Nurse Navigator at [phone] [place] LUNG SCREENING (INITIAL/A NNUAL)on 11-21-2019 [...] like to register your patient with the [facility] Lung Nodule/Lung Cancer Screening Program, please contact the Nurse Navigator at [phone] Interpreted by: Adrián Ladd Jr., DO Signed by: Adrián Ladd Jr., DO 11/21/19 Final result Normal [facility] Comp Metabolic Profon 2019 (cont.) Normal [facility] Comment on above: Result Comment: Aver age GFR for 60-69 years old: 85 mL/min/1.73sq m Chronic Kidney Disease: <60 mL/min/1.73sq m Kidney failure: <15 mL/min/1.73sq m eGFR calculated using average adult body mass. Additional eGFR calculator available at: http://www.SpineThera.RockBee/multiple_crcl_2012.htm Performed By: #### C BC, CP, LIPR, TSH #### [facility] [address] [facility]. [place], [place] [id number] Computer Technology Teacher: Vishal Lorenzo DO Albumin [Mass/Vol] 4.1 g/dL Normal 3.5-5.2 [facility] Comment on above: Performed By: #### C BC, CP, LIPR, TSH #### [facility] [address] [facility]. [place], [place] [id number] Computer Technology Teacher: Vishal Lorenzo DO Alkaline Phos 67 U/L Normal 35-104 [facility] Comment on above: Performed By: #### C BC, CP, LIPR, TSH #### [facility] [address] [facility] [place] [address] Computer Technology Teacher: Vishal Lorenzo DO ALT [Catalytic activity/Vol] 11 U/L Normal 5-33 [facility] Comment on above: Performed By: #### C BC, CP, LIPR, TSH #### [facility] [address] [facility] [place] [address] Computer Technology Teacher: Vishal Lorenzo DO Anion gap [Moles/Vol] 12 mmol/L Normal 9-17 [facility] Comment on above: Performed By: #### C BC, CP, LIPR, TSH #### [facility] [address] [facility] [place] [address] Computer Technology Teacher: Vishal Lorenzo DO AST [Catalytic activity/Vol] 9 U/L Normal <32 [facility] Comment on above: Performed By: #### C BC, CP, LIPR, TSH #### [facility] [address] [place] [address] Computer Technology Teacher: Vishal Lorenzo DO Bilirubin Ql (U) 0.26 mg/dL Low 0.3-1.2 [facility] Comment on above: Performed By: #### C BC, CP, LIPR, TSH #### [facility] [place] [address] Computer Technology Teacher: Vishal Lorenzo DO Calcium [Mass/Vol] 9.2 mg/dL Normal 8.6-10.4 [facility] Comment on above: Performed By: #### C BC, CP, LIPR, TSH #### [facility] [place] [address] Computer Technology Teacher: Vishal Lorenzo DO Chloride [Moles/Vol] 103 mmol/L Normal 98-107 [facility] Comment on above: Performed By: #### C BC, CP, LIPR, TSH #### [facility] [address] [place] [address] Computer Technology Teacher: Vishal Lorenzo DO CO2 [Moles/Vol] 22 mmol/L Normal 20-31 [facility] Comment on above: Performed By: #### C BC, CP, LIPR, TSH #### [facility] [address] [place] [address] Computer Technology Teacher: Vishal Lorenzo DO Creatinine [Mass/Vol] 0.70 mg/dL Normal 0.50-0.90 [facility] Comment on above: Performed By: #### C BC, CP, LIPR, TSH #### [facility] [address] [facility] [place] [address] Computer Technology Teacher: Vishal Lorenzo DO GFR, Amer >60 Normal >60 [facility] Comment on above: Performed By: #### C BC, CP, LIPR, TSH #### [facility] [address] [facility] [place] [address] Computer Technology Teacher: Vishal Lorenzo DO GFR,non Amer >60 Normal >60 [facility] Comment on above: Performed By: #### C BC, CP, LIPR, TSH #### [facility] [address] [facility] [place] [address] Computer Technology Teacher: Vishal Lorenzo DO Glucose [Mass/Vol] 178 mg/dL High 70-99 [facility] Comment on above: Performed By: #### C BC, CP, LIPR, TSH #### [facility] [address] [facility] [place] [address] Computer Technology Teacher: Vishal Lorenzo DO Potassium [Moles/Vol] 4.1 mmol/L Normal 3.7-5.3 [facility] Comment on above: Performed By: #### C BC, CP, LIPR, TSH #### [facility] [address] [facility] [place] [address] Computer Technology Teacher: Vishal Lorenzo DO Protein [Mass/Vol] 6.4 g/dL Normal 6.4-8.3 [facility] Comment on above: Performed By: #### C BC, CP, LIPR, TSH #### [facility] [place] [address] Computer Technology Teacher: Vishal Lorenzo DO Sodium [Moles/Vol] 137 mmol/L Normal 135-144 [facility] Comment on above: Performed By: #### C BC, CP, LIPR, TSH #### [facility] [address] [place] [address] Computer Technology Teacher: Vishal Lorenzo DO Urea nitrogen [Mass/Vol] 13 mg/dL Normal 8-23 [facility] Comment on above: Performed By: #### C BC, CP, LIPR, TSH #### [facility] [address] [facility] [place] [address] Computer Technology Teacher: Vishal Lorenzo DO Albumin/Globulin [Mass ratio] NOT REPORTED Normal 1.0-2.5 [facility] Comment on above: Performed By: #### C BC, CP, LIPR, TSH #### [facility] [address] [place] [address] [place] [address] Computer Technology Teacher: Vishal Lroenzo DO BUN/CRE Ratio NOT REPORTED Normal 9-20 [facility] Comment on above: Performed By: #### C BC, CP, LIPR, TSH #### [facility] [place] [address] Computer Technology Teacher: Vishal Lorenzo DO Staging: NOT REPORTED Normal [facility] Comment on above: Performed By: #### C BC, CP, LIPR, TSH #### [facility] [address] [place] [address] Computer Technology Teacher: Vishal Lorenzo DO Comprehensive Metabolic Pane lisa 11-21-2019 Albumin [Mass/Vol] 4.1 g/dL 3.5 - 5.2 g/dL [place] Albumin/Globulin [Mass ratio] NOT REPORTED [place] ALP [Catalytic activity/Vol] 67 U/L 35 - 104 U/L [place] ALT [Catalytic activity/Vol] 11 U/L 5 - 33 U/L [place] Anion gap [Moles/Vol] 12 mmol/L 9 - 17 mmol/L [place] AST [Catalytic activity/Vol] 9 U/L <32 [place] Bilirubin Ql (U) 0.26 mg/dL Low 0.3 - 1.2 mg/dL [place] Bun/Cre Ratio NOT REPORTED [place] Calcium [Mass/Vol] 9.2 mg/dL 8.6 - 10. 4 mg/dL [place] Chloride [Moles/Vol] 103 mmol/L 98 - 107 mmol/L [place] CO2 [Moles/Vol] 22 mmol/L 20 - 31 mmol/L [place] Creatinine [Mass/Vol] 0.7 mg/dL 0.5 - 0.9 mg/dL [place] GFR >60 >60 mL/min [place] GFR Non- >60 >60 mL/min [place] GFR/1.73 sq M predicted among non-blacks MDRD (S/P/Bld) [Vol rate/Area] [place] Comment on above: Average GFR for 60-6 9 years old: 85 mL/min/1.73sq m Chronic Kidney Disease: <60 mL/min/1.73sq m Kidney failure: <15 mL/min/1.73sq m eGFR calculated using average adult body mass. Additional eGFR calculator available at: http://www.globalrph.RockBee/multiple_crcl_2012.htm GFR/1.73 sq M predicted among non-blacks MDRD (S/P/Bld) [Vol rate/Area] NOT REPORTED [place] Glucose [Mass/Vol] 178 mg/dL High 70 - 99 mg/dL [place] Interpretation and review of laboratory results Abnormal [place] Potassium [Moles/Vol] 4.1 mmol/L 3.7 - 5.3 mmol/L [place] Protein [Mass/Vol] 6.4 g/dL 6.4 - 8.3 g/dL [place] Sodium [Moles/Vol] 137 mmol/L 135 - 144 mmol/L [place] Urea nitrogen [Mass/Vol] 13 mg/dL 8 - 23 mg/dL [place] Lipid Panelon 11-21-2019 Cholesterol [Mass/Vol] 122 mg/dL <200 [place] Comment on above: Cholesterol Guidelines: <200 Desirable 200-240 Borderline >240 Undesirable Cholesterol in HDL [Mass/Vol] 49 mg/dL >40 [place] Comment on above: HDL Guidelines: <40 Undesirable 40-59 Borderline >59 Desirable Cholesterol in LDL [Mass/Vol] 60 mg/dL 0 - 130 mg/dL [place] Comment on above: LDL Guidelines: <100 Desirable 100-129 Near to/above Desirable 130-159 Borderline >159 Undesirable Direct (measured) LDL and calculated LDL are not interchangeable tests. Cholesterol in VLDL [Mass/Vol] NOT REPORTED 1 - 30 mg/dL [place] Cholesterol.total/C holesterol in HDL [Mass ratio] 2.5 {ratio} <5 [place] Triglyceride [Mass/Vol] 65 mg/dL <150 [place] Comment on above: Triglyceride Guidelines: <150 Desirable 150-199 Borderline 200-499 High >499 Very high Based on AHA Guidelines for fasting triglyceride, March 2012. Lipid Profileon 11-21-2019 Cholesterol [Mass/Vol] 122 mg/dL Normal <200 [facility] Comment on above: Result Comment: Cholesterol Guidelines: <200 Desirable 200-240 Borderline >240 Undesirable Performed By: #### C BC, CP, LIPR, TSH #### [facility] [address] [facility] [place] [address] Computer Technology Teacher: Vishal Lorenzo DO Cholesterol in HDL [Mass/Vol] 49 mg/dL Normal >40 [facility] Comment on above: Result Comment: HDL Guidelines: <40 Undesirable 40-59 Borderline >59 Desirable Performed By: #### C BC, CP, LIPR, TSH #### [facility] [address] [facility] [place] [address] Computer Technology Teacher: Vishal Lorenzo DO Cholesterol in LDL [Mass/Vol] 60 mg/dL Normal 0-130 [facility] Comment on above: Result Comment: LDL Guidelines: <100 Desirable 100-129 Near to/above Desirable 130-159 Borderline >159 Undesirable Direct (measured) LDL and calculated LDL are not interchangeable tests. Performed By: #### C BC, CP, LIPR, TSH #### [facility] [address] [facility] [place] [address] Computer Technology Teacher: Vishal Lorenzo DO Cholesterol.total/C holesterol in HDL [Mass ratio] 2.5 {ratio} Normal <5 [facility] Comment on above: Performed By: #### C BC, CP, LIPR, TSH #### [facility] [address] [facility] [place] [address] Computer Technology Teacher: Vishal Lorenzo DO Triglyceride [Mass/Vol] 65 mg/dL Normal <150 [facility] Comment on above: Result Comment: Triglyceride Guidelines: <150 Desirable 150-199 Borderline 200-499 High >499 Very high Based on AHA Guidelines for fasting triglyceride, March 2012. Performed By: #### C BC, CP, LIPR, TSH #### [facility] [address] [facility] [place] [address] Computer Technology Teacher: Vishal Lorenzo DO Cholesterol in VLDL [Mass/Vol] NOT REPORTED Normal 1-30 [facility] Comment on above: Performed By: #### C BC, CP, LIPR, TSH #### [facility] [address] [facility] [place] [address] Computer Technology Teacher: Vishal Lorenzo DO TSH without Reflexon 020 TSH Qn 0.95 m[IU]/L [place], [place] Thyroid Stim. Horm.on 2019 TSH Qn 0.95 m[IU]/L Normal 0.30-5.00 [facility] Comment on above: Performed By: #### C BC, CP, LIPR, TSH #### [facility] [address] [facility]. [place], [place] [id number] Computer Technology Teacher: Vishal Lorenzo DO Lipid, Fastingon 02-28-2019 Cholesterol [Mass/Vol] 111 mg/dL <200 [place] Comment on above: Cholesterol Guidelines: <200 Desirable 200-240 Borderline >240 Undesirable Cholesterol in HDL [Mass/Vol] 43 mg/dL >40 [place] Comment on above: HDL Guidelines: <40 Undesirable 40-59 Borderline >59 Desirable Cholesterol in LDL [Mass/Vol] 48 mg/dL 0 - 130 mg/dL [place] Comment on above: LDL Guidelines: <100 Desirable 100-129 Near to/above Desirable 130-159 Borderline >159 Undesirable Direct (measured) LDL and calculated LDL are not interchangeable tests. Cholesterol in VLDL [Mass/Vol] NOT REPORTED 1 - 30 mg/dL [place] Cholesterol.total/C holesterol in HDL [Mass ratio] 2.6 {ratio} <5 [place] Triglyceride, Fasting 102 mg/dL <150 [place] Comment on above: Triglyceride Guidelines: <150 Desirable 150-199 Borderline 200-499 High >499 Very high Based on AHA Guidelines for fasting triglyceride, March 2012. Microalbumin, Uron 9 Albumin/Creatinine DL <= 20 mg/L (24H U) [Mass ratio] <12 <21 mg/L [place] Albumin/Creatinine DL <= 20 mg/L (U) [Ratio] CANNOT BE CALCULATED <25 mcg/mg creat [facility] [place] Creatinine [Mass/Vol] 109.5 mg/dL 28 - 217 mg/dL [facility] [place], [place] HIP LEFT 1 OR 2 VWS WITH PEL VISon 04-19-2018 HIP LEFT [address] [facility] [address] [place] [address] =====Patient Name: PRIYANKA NICHOLAS : 1955Sex: FAge: Race: WhiteMRN: [id number]. 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 Transcribed by: [email or web address], User Resident: Electronically Signed by: ALEIDA FERRO @ 04/19/2018 04:08 PM Normal [facility] Comment on above: Order Comment: , , = ========= , Ordering Provider - ANT FREITAS MD , BASIC METABOLIC PANELon 03-19 Calcium mass conc 8.4 mg/dL Low 8.6-10.3 [facility] Comment on above: Order Comment: No: D o not add to previous draw Performed By: #### 0 0071 ####[facility] [facility] [place] [address], [facility] Chloride molar conc 105 mmol/L Normal 98-107 [facility] Comment on above: Order Comment: No: D o not add to previous draw Performed By: #### 0 0071 ####[facility] [place] [address], [place] CO2 molar conc 27 mmol/L Normal 21-31 [facility] Comment on above: Order Comment: No: D o not add to previous draw Performed By: #### 0 0071 ####[facility] [place] [address], [place] Creatinine mass conc 0.51 mg/dL Low 0.60-1.[address] [facility] Comment on above: Order Comment: No: D o not add to previous draw Performed By: #### 0 0071 ####[facility] [place] [address], [place] GFR/1.73 sq M predicted among blacks MDRD vol rate/area (S/P/Bld) mL/min/{1.73_m2} Normal >60 [facility] Comment on above: Order Comment: No: D o not add to previous draw Performed By: #### 0 0071 ####[facility] [place] [address], [facility] GFR/1.73 sq M predicted among non-blacks MDRD vol rate/area (S/P/Bld) mL/min/{1.73_m2} Normal >60 [facility] Comment on above: Order Comment: No: D o not add to previous draw Performed By: #### 0 0071 ####[facility] [place] [address], [facility] Glucose mass conc 157 mg/dL High 70-100 [facility] Comment on above: Order Comment: No: D o not add to previous draw Performed By: #### 0 0071 ####[facility] [place] [address], [facility] Potassium molar conc 3.7 mmol/L Normal 3.5-5.[address] [facility] Comment on above: Order Comment: No: D o not add to previous draw Performed By: #### 0 0071 ####[facility] [place] [address], [facility] Sodium molar conc 136 mmol/L Normal 136-145 [facility] Comment on above: Order Comment: No: D o not add to previous draw Performed By: #### 0 0071 ####[facility] [place] [address], [facility] Urea nitrogen mass conc 10 mg/dL Normal 7-[address] [facility] Comment on above: Order Comment: No: D o not add to previous draw Performed By: #### 0 0071 ####[facility], [place] [id number] [place] [address] CBC COMPLETE BLOOD COUNTon 1 0-18-2018 Erythrocyte distribution width Auto Ratio (RBC) 15.8 % High 11.5-15.[address] [facility] Comment on above: Order Comment: No: D o not add to previous draw Performed By: #### 5 6101 ####[facility] Hematocrit Auto Volume Fraction (Bld) 26.8 % Low 36.0-45.[address] [facility] Comment on above: Order Comment: No: D o not add to previous draw Performed By: #### 5 6101 ####[facility] Hemoglobin mass conc (Bld) 8.9 g/dL Low 12.0-15.[address] [facility] Comment on above: Order Comment: No: D o not add to previous draw Performed By: #### 5 6101 ####[facility] MCH Auto Entitic mass (RBC) 29.6 pg Normal 27.0-33.[address] [facility] Comment on above: Order Comment: No: D o not add to previous draw Performed By: #### 5 6101 ####[facility] MCHC Auto mass conc (RBC) 33.2 g/dL Normal 32.0-35.[address] [facility] Comment on above: Order Comment: No: D o not add to previous draw Performed By: #### 5 6101 ####[facility] MCV Auto Entitic volume (RBC) 89.0 fL Normal 82.0-98.[address] [facility] Comment on above: Order Comment: No: D o not add to previous draw Performed By: #### 5 6101 ####[facility] Nucleated RBC/100 WBC Ratio (Bld) 0 % Normal 0-[address] [facility] Comment on above: Order Comment: No: D o not add to previous draw Performed By: #### 5 6101 ####[facility] [place] [address], [facility] PLAT CNT 161 10*3/uL Normal 150-400 [facility] Comment on above: Order Comment: No: D o not add to previous draw Performed By: #### 5 6101 ####[facility] [place] [address], [facility] RBC Auto #/vol (Bld) 3.01 10*6/uL Low 3.80-5.00 [facility] Comment on above: Order Comment: No: D o not add to previous draw Performed By: #### 5 6101 ####[facility] WBC Auto #/vol (Bld) 6.77 10*3/uL Normal 4.00-10.60 [facility] Comment on above: Order Comment: No: D o not add to previous draw Performed By: #### 5 6101 ####[facility] HEMOGLOBINon 04-05-2018 Hemoglobin mass conc (Bld) 8.4 g/dL Low 12.0-15.0 [facility] Comment on above: Order Comment: No: D o not add to previous draw Performed By: #### 9 2089 ####[facility] POC GLUCOSE LABon 04-05-2018 Glucose mass conc 192 mg/dL High 70-100 [facility] Comment on above: Performed By: #### 8 5499 ####[facility] Glucose mass conc 146 mg/dL High 70-100 [facility] Comment on above: Performed By: #### 8 5499 ####[facility] [place] [address], [facility] BASIC METABOLIC PANELon 03-19 Calcium mass conc 8.2 mg/dL Low 8.6-10.3 [facility] Comment on above: Order Comment: No: D o not add to previous draw Performed By: #### 6 2586 ####[facility] [place] [address], [facility] Chloride molar conc 106 mmol/L Normal 98-107 The [facility] Comment on above: Order Comment: No: D o not add to previous draw Performed By: #### 6 2586 ####[facility] [place] [address], [facility] CO2 molar conc 25 mmol/L Normal 21-31 The [facility] Comment on above: Order Comment: No: D o not add to previous draw Performed By: #### 6 2586 ####[facility] [place] [address], [facility] Creatinine mass conc 0.53 mg/dL Low 0.60-1.[address] [facility] Comment on above: Order Comment: No: D o not add to previous draw Performed By: #### 6 2586 ####[facility] [place] [address], [place] GFR/1.73 sq M predicted among blacks MDRD vol rate/area (S/P/Bld) mL/min/{1.73_m2} Normal >60 The [facility] Comment on above: Order Comment: No: D o not add to previous draw Performed By: #### 6 2586 ####[facility] [place] [address], [place] GFR/1.73 sq M predicted among non-blacks MDRD vol rate/area (S/P/Bld) mL/min/{1.73_m2} Normal >60 The [facility] Comment on above: Order Comment: No: D o not add to previous draw Performed By: #### 6 2586 ####[facility] [place] [address], [facility] Glucose mass conc 180 mg/dL High 70-100 [facility] Comment on above: Order Comment: No: D o not add to previous draw Performed By: #### 6 2586 ####[facility] [place] [address], [facility] Potassium molar conc 3.6 mmol/L Normal 3.5-5.[address] [facility] Comment on above: Order Comment: No: D o not add to previous draw Performed By: #### 6 2586 ####[facility] [place] [address], [facility] Sodium molar conc 134 mmol/L Low 136-145 [facility] Comment on above: Order Comment: No: D o not add to previous draw Performed By: #### 6 2586 ####[facility] [facility].[address] Urea nitrogen mass conc 11 mg/dL Normal 7-[address] [facility] Comment on above: Order Comment: No: D o not add to previous draw Performed By: #### 6 2586 ####[facility] [facility].[address] CBC COMPLETE BLOOD COUNTon - Erythrocyte distribution width Auto Ratio (RBC) 13.8 % Normal 11.5-15.[address] [facility] Comment on above: Order Comment: No: D o not add to previous draw Performed By: #### 6 2586 ####[facility] [place] [address], [facility] Hematocrit Auto Volume Fraction (Bld) 20.1 % Low 36.0-45.[address] [facility] Comment on above: Order Comment: No: D o not add to previous draw Performed By: #### 6 2586 ####[facility] [facility].[address] Hemoglobin mass conc (Bld) 6.6 g/dL Low 12.0-15.[address] [facility] Comment on above: Order Comment: No: D o not add to previous draw Performed By: #### 6 2586 ####[facility] [facility].[address] MCH Auto Entitic mass (RBC) 30.6 pg Normal 27.0-33.[address] [facility] Comment on above: Order Comment: No: D o not add to previous draw Performed By: #### 6 2586 ####[facility] [facility].[address] MCHC Auto mass conc (RBC) 32.8 g/dL Normal 32.0-35.[address] [facility] Comment on above: Order Comment: No: D o not add to previous draw Performed By: #### 6 2586 ####[facility] [facility].[address] MCV Auto Entitic volume (RBC) 93.1 fL Normal 82.0-98.[address] [facility] Comment on above: Order Comment: No: D o not add to previous draw Performed By: #### 6 2586 ####[facility] [facility].[address] Nucleated RBC/100 WBC Ratio (Bld) 0 % Normal 0-[address] [facility] Comment on above: Order Comment: No: D o not add to previous draw Performed By: #### 6 2586 ####[facility] [facility].[address] PLAT CNT 151 10*3/uL Normal 150-400 [facility] Comment on above: Order Comment: No: D o not add to previous draw Performed By: #### 6 2586 ####[facility] [place] [address], [facility] RBC Auto #/vol (Bld) 2.16 10*6/uL Low 3.80-5.[address] [facility] Comment on above: Order Comment: No: D o not add to previous draw Performed By: #### 6 2586 ####[facility] [place] [address], [facility] WBC Auto #/vol (Bld) 6.41 10*3/uL Normal 4.00-10.[address] [facility] Comment on above: Order Comment: No: D o not add to previous draw Performed By: #### 6 2586 ####[facility] [facility].[address] HEMATOCRITon 04-04-2018 Hematocrit Auto Volume Fraction (Bld) 26.2 % Low 36.0-45.[address] [facility] Comment on above: Order Comment: No: D o not add to previous draw Performed By: #### 5 6101 ####[facility] [facility].[address] HEMOGLOBINon 04-04-2018 Hemoglobin mass conc (Bld) 8.8 g/dL Low 12.0-15.[address] [facility] Comment on above: Order Comment: No: D o not add to previous draw Performed By: #### 5 6101 ####[facility] Hemoglobin mass conc (Bld) 8.7 g/dL Low 12.0-15.[address] [facility] Comment on above: Order Comment: No: D o not add to previous draw Performed By: #### 5 6101 ####[facility] [place] [address], [facility] POC GLUCOSE LABon 04-04-2018 Glucose mass conc 168 mg/dL High 70-100 [facility] Comment on above: Performed By: #### 5 6101 ####[address] [place] [address], [facility] Glucose mass conc 197 mg/dL High 70-100 [facility] Comment on above: Performed By: #### 5 6101 ####[address] [place] [address], [facility] Glucose mass conc 182 mg/dL High 70-100 [facility] Comment on above: Performed By: #### 5 6101 ####[address] [place] [address], [facility] Glucose mass conc 164 mg/dL High 70-100 [facility] Comment on above: Performed By: #### 5 6101 ####[address] [place] [address], [facility] RBC'S 2 UNITSon 04-04-2018 CROSSMATCH INTERP 1 COMP Normal The [facility] Comment on above: Order Comment: No: D o not add to previous draw Performed By: #### 5 6101 ####[place] [address], [facility] CROSSMATCH INTERP 2 COMP Normal The [facility] Comment on above: Order Comment: No: D o not add to previous draw Performed By: #### 5 6101 ####[address] [place] [address], [facility] Protein mass conc PT Normal [facility] Comment on above: Order Comment: No: D o not add to previous draw Result Comment: Resu lt changed by IF on 04/04/2018 15:08. The previous value was XM.Result changed by IF on 04/05/2018 00:30. The previous value was IS. Performed By: #### 5 6101 ####[address] [place] [address], [facility] Result Comment: Resu lt changed by IF on 04/04/2018 12:20. The previous value was XM.Result changed by IF on 04/05/2018 00:30. The previous value was IS. Protein mass conc 336 g/dL Normal [facility] Comment on above: Order Comment: No: D o not add to previous draw Performed By: #### 5 6101 ####[facility] [place] [address], [facility] UN[facility] ABO [address] [facility] Comment on above: Order Comment: No: D o not add to previous draw Performed By: #### 5 6101 ####[facility] [place] [address], [facility] ABO [address] [facility] Comment on above: Order Comment: No: D o not add to previous draw Performed By: #### 5 6101 ####[facility] [place] [address], [facility] UN[facility] ID 1 [id number] Normal The [facility] Comment on above: Order Comment: No: D o not add to previous draw Performed By: #### 5 6101 ####[facility] [place] [address], [facility] UN[facility] ID 2 [id number] Normal The [facility] Comment on above: Order Comment: No: D o not add to previous draw Performed By: #### 5 6101 ####[facility] [place] [address], [facility] RH [address] [facility] Comment on above: Order Comment: No: D o not add to previous draw Performed By: #### 5 6101 ####[facility] [place] [address], [facility] RH [address] [facility] Comment on above: Order Comment: No: D o not add to previous draw Performed By: #### 5 6101 ####[facility] [place] [address], [facility] TYPE AND SCREENon 04-04-2018 ABO INTERPRETATION A Normal The [facility] Comment on above: Performed By: #### 5 6101 ####[facility] [place] [address], [place] RH INTERPRETATION Positive Normal [facility] Comment on above: Performed By: #### 5 6101 ####[facility] [place] [address], [facility] BASIC METABOLIC PANELon 03-19 Calcium mass conc 8.2 mg/dL Low 8.6-10.3 [facility] Comment on above: Order Comment: No: D o not add to previous draw Performed By: #### 6 2586 ####[facility] [place] [address], [place] Chloride molar conc 107 mmol/L Normal 98-107 The [facility] Comment on above: Order Comment: No: D o not add to previous draw Performed By: #### 6 2586 ####[facility] [place] [address], [place] CO2 molar conc 23 mmol/L Normal 21-31 The [facility] Comment on above: Order Comment: No: D o not add to previous draw Performed By: #### 6 2586 ####[facility] [place] [address], [place] Creatinine mass conc 0.54 mg/dL Low 0.60-1.[address] [facility] Comment on above: Order Comment: No: D o not add to previous draw Performed By: #### 6 2586 ####[facility] [place] [address], [place] GFR/1.73 sq M predicted among blacks MDRD vol rate/area (S/P/Bld) mL/min/{1.73_m2} Normal >60 The [facility] Comment on above: Order Comment: No: D o not add to previous draw Performed By: #### 6 2586 ####[facility] [place] [address], [facility] GFR/1.73 sq M predicted among non-blacks MDRD vol rate/area (S/P/Bld) mL/min/{1.73_m2} Normal >60 The [facility] Comment on above: Order Comment: No: D o not add to previous draw Performed By: #### 6 2586 ####[facility] [place] [address], [facility] Glucose mass conc 156 mg/dL High 70-100 [facility] Comment on above: Order Comment: No: D o not add to previous draw Performed By: #### 6 2586 ####[facility] [place] [address], [facility] Potassium molar conc 4.4 mmol/L Normal 3.5-5.[address] [facility] Comment on above: Order Comment: No: D o not add to previous draw Performed By: #### 6 2586 ####[facility] [place] [address], [place] Sodium molar conc 136 mmol/L Normal 136-145 [facility] Comment on above: Order Comment: No: D o not add to previous draw Performed By: #### 6 2586 ####[facility] [place] [address], [facility] Urea nitrogen mass conc 10 mg/dL Normal 7-[address] [facility] Comment on above: Order Comment: No: D o not add to previous draw Performed By: #### 6 2586 ####[facility] CBC COMPLETE BLOOD COUNTon 1 - Erythrocyte distribution width Auto Ratio (RBC) 13.6 % Normal 11.5-15.[address] [facility] Comment on above: Order Comment: No: D o not add to previous draw Performed By: #### 6 2586 ####[facility] Hematocrit Auto Volume Fraction (Bld) 26.3 % Low 36.0-45.[address] [facility] Comment on above: Order Comment: No: D o not add to previous draw Performed By: #### 6 2586 ####[facility] [facility] Hemoglobin mass conc (Bld) 8.4 g/dL Low 12.0-15.[address] [facility] Comment on above: Order Comment: No: D o not add to previous draw Performed By: #### 6 2586 ####[facility] MCH Auto Entitic mass (RBC) 30.1 pg Normal 27.0-33.[address] [facility] Comment on above: Order Comment: No: D o not add to previous draw Performed By: #### 6 2586 ####[facility] [facility] MCHC Auto mass conc (RBC) 31.9 g/dL Low 32.0-35.[address] [facility] Comment on above: Order Comment: No: D o not add to previous draw Performed By: #### 6 2586 ####[facility] [facility].[address] MCV Auto Entitic volume (RBC) 94.3 fL Normal 82.0-98.[address] [facility] Comment on above: Order Comment: No: D o not add to previous draw Performed By: #### 6 2586 ####[facility] Nucleated RBC/100 WBC Ratio (Bld) 0 % Normal 0-[address] [facility] Comment on above: Order Comment: No: D o not add to previous draw Performed By: #### 6 2586 ####[facility] [facility] [place] [address], [facility] PLAT CNT 157 10*3/uL Normal 150-400 The [facility] Comment on above: Order Comment: No: D o not add to previous draw Performed By: #### 6 2586 ####[address] RBC Auto #/vol (Bld) 2.79 10*6/uL Low 3.80-5.00 [facility] Comment on above: Order Comment: No: D o not add to previous draw Performed By: #### 6 2586 ####[facility] [facility].[address] WBC Auto #/vol (Bld) 8.07 10*3/uL Normal 4.00-10.60 [facility] Comment on above: Order Comment: No: D o not add to previous draw Performed By: #### 6 2586 ####[address] Operative Reporton 8 Operative Report MR#: [id number] [facility] Name[facility] Priyanka Nicholas Room #: [id number] Discharge Date: Birthdate: 1955 OPERATIVE REPORTDATE OF SURGERY: 04/02/2018SURGEON: Ant Freitas M.D.ASSISTANTS:1Joey Brewster M.D.2Joey Barragan M.D.3. XIMENA Mcgee.ANESTHESIA: General anesthesia.ESTIMATED BLOOD LOSS: 300 [...] 04/03/2018/09:13 Kourtney/Ant Freitas M.D.Date Trans: 04/03/2018 11:57 Kourtney/Lauryn_JN:[id number] [facility] POC GLUCOSE LABon 04-03-2018 Glucose mass conc 204 mg/dL High 70-100 [facility] Comment on above: Performed By: #### 6 2586 ####[facility] [place] [address], [facility] Glucose mass conc 179 mg/dL High 70-100 [facility] Comment on above: Performed By: #### 6 2586 ####[facility] [facility].[place] [id number], [facility] Glucose mass conc 243 mg/dL High 70-100 [facility] Comment on above: Performed By: #### 6 2586 ####[facility] [facility] [place] [address], [facility] Glucose mass conc 158 mg/dL High 70-100 [facility] Comment on above: Performed By: #### 6 2586 ####[facility] [place] [address], [facility] BASIC METABOLIC PANELon - Calcium mass conc 8.8 mg/dL Normal 8.6-10.3 [facility] Comment on above: Order Comment: No: D o not add to previous draw Performed By: #### 0 0071 ####[facility] [facility] [place] [address], [facility] Chloride molar conc 101 mmol/L Normal 98-107 The [facility] Comment on above: Order Comment: No: D o not add to previous draw Performed By: #### 0 0071 ####[facility] [facility] [place] [address], [facility] CO2 molar conc 23 mmol/L Normal 21-31 The [facility] Comment on above: Order Comment: No: D o not add to previous draw Performed By: #### 0 0071 ####[facility] [facility] [place] [address], [facility] Creatinine mass conc 0.60 mg/dL Normal 0.60-1.[address] [facility] Comment on above: Order Comment: No: D o not add to previous draw Performed By: #### 0 0071 ####[facility] [facility] [place] [address], [facility] GFR/1.73 sq M predicted among blacks MDRD vol rate/area (S/P/Bld) mL/min/{1.73_m2} Normal >60 The [facility] Comment on above: Order Comment: No: D o not add to previous draw Performed By: #### 0 0071 ####[facility] [facility] [place] [address], [facility] GFR/1.73 sq M predicted among non-blacks MDRD vol rate/area (S/P/Bld) mL/min/{1.73_m2} Normal >60 The [facility] Comment on above: Order Comment: No: D o not add to previous draw Performed By: #### 0 0071 ####[facility] [facility] [place] [address], [facility] Glucose mass conc 139 mg/dL High 70-100 [facility] Comment on above: Order Comment: No: D o not add to previous draw Performed By: #### 0 0071 ####[facility] [place] [address], [facility] Potassium molar conc 3.9 mmol/L Normal 3.5-5.[address] [facility] Comment on above: Order Comment: No: D o not add to previous draw Performed By: #### 0 0071 ####[facility] [place] [address], [facility] Sodium molar conc 129 mmol/L Low 136-145 [facility] Comment on above: Order Comment: No: D o not add to previous draw Performed By: #### 0 0071 ####[facility] [facility] [place] [address], [facility] Urea nitrogen mass conc 8 mg/dL Normal 7-[address] [facility] Comment on above: Order Comment: No: D o not add to previous draw Performed By: #### 0 0071 ####[facility] CBC W/DIFFon 04-02-2018 ABS BASOPHILS 0.0 10*3/uL Normal 0.0-0.2 The [facility] Comment on above: Order Comment: No: D o not add to previous draw Performed By: #### 0 0071 ####[facility] [facility].[address] ABS IMM GRANS 0.0 10*3/uL Normal 0.0-0.2 The [facility] Comment on above: Order Comment: No: D o not add to previous draw Performed By: #### 0 0071 ####[facility] ABS NEUTROPHILS 7.5 10*3/uL Normal 1.6-7.6 The [facility] Comment on above: Order Comment: No: D o not add to previous draw Performed By: #### 0 0071 ####[facility] Basophils Auto #/vol (Bld) 0.4 % Normal 0.0-1.[address] [facility] Comment on above: Order Comment: No: D o not add to previous draw Performed By: #### 0 0071 ####[facility] Eosinophils Auto #/vol (Bld) 0.2 10*3/uL Normal 0.0-0.[address] [facility] Comment on above: Order Comment: No: D o not add to previous draw Performed By: #### 0 0071 ####[facility] Eosinophils/100 WBC Auto (Bld) 2.3 % Normal 0.0-6.[address] [facility] Comment on above: Order Comment: No: D o not add to previous draw Performed By: #### 0 0071 ####[facility] Erythrocyte distribution width Auto Ratio (RBC) 13.6 % Normal 11.5-15.[address] [facility] Comment on above: Order Comment: No: D o not add to previous draw Performed By: #### 0 0071 ####[facility] [facility].[address] Hematocrit Auto Volume Fraction (Bld) 36.7 % Normal 36.0-45.[address] [facility] Comment on above: Order Comment: No: D o not add to previous draw Performed By: #### 0 0071 ####[facility] Hemoglobin mass conc (Bld) 11.9 g/dL Low 12.0-15.[address] [facility] Comment on above: Order Comment: No: D o not add to previous draw Performed By: #### 0 0071 ####[facility] IMMATURE GRANS 0.4 % Normal 0.0-1.0 [facility] Comment on above: Order Comment: No: D o not add to previous draw Performed By: #### 0 0071 ####[facility] Lymphocytes Auto #/vol (Bld) 0.8 10*3/uL Low 1.2-4.[address] [facility] Comment on above: Order Comment: No: D o not add to previous draw Performed By: #### 0 0071 ####[facility] Lymphocytes/100 WBC Auto (Bld) 8.5 % Low 20.0-45.[address] [facility] Comment on above: Order Comment: No: D o not add to previous draw Performed By: #### 0 0071 ####[facility] [facility].[address] MCH Auto Entitic mass (RBC) 30.4 pg Normal 27.0-33.[address] [facility] Comment on above: Order Comment: No: D o not add to previous draw Performed By: #### 0 0071 ####[facility] [facility].[address] MCHC Auto mass conc (RBC) 32.4 g/dL Normal 32.0-35.[address] [facility] Comment on above: Order Comment: No: D o not add to previous draw Performed By: #### 0 0071 ####[facility] MCV Auto Entitic volume (RBC) 93.9 fL Normal 82.0-98.[address] [facility] Comment on above: Order Comment: No: D o not add to previous draw Performed By: #### 0 0071 ####[facility] Monocytes Auto #/vol (Bld) 0.4 10*3/uL Normal 0.1-1.[address] [facility] Comment on above: Order Comment: No: D o not add to previous draw Performed By: #### 0 0071 ####[facility] MONOS 4.3 % Low 5.0-12.[address] [facility] Comment on above: Order Comment: No: D o not add to previous draw Performed By: #### 0 0071 ####[facility] Neutrophils/100 WBC Auto (Bld) 84.1 % High 40.0-72.[address] [facility] Comment on above: Order Comment: No: D o not add to previous draw Performed By: #### 0 0071 ####[address] Nucleated RBC/100 WBC Ratio (Bld) 0 % Normal 0-[address] [facility] Comment on above: Order Comment: No: D o not add to previous draw Performed By: #### 0 0071 ####[address] [place] [address], [facility] PLAT CNT 153 10*3/uL Normal 150-400 [facility] Comment on above: Order Comment: No: D o not add to previous draw Performed By: #### 0 0071 ####[address] RBC Auto #/vol (Bld) 3.91 10*6/uL Normal 3.80-5.[address] [facility] Comment on above: Order Comment: No: D o not add to previous draw Performed By: #### 0 0071 ####[address] WBC Auto #/vol (Bld) 8.98 10*3/uL Normal 4.00-10.60 [facility] Comment on above: Order Comment: No: D o not add to previous draw Performed By: #### 0 0071 ####[address] HIP LEFT 1 OR 2 VWS WITH PEL VISon 04-02-2018 HIP LEFT 1 OR [address] [facility] [id number] [place] [id number] =====Patient Name: PRIYANKA NICHOLAS : 1955Sex: FAge: Race: WhiteMRN: [id number]. Location: [id number] Status: IVisit #: [id number] Date: 04/02/2018 7:35:00 AMCompleted Date: 04/02/2018 05:03 PMRequesting Provider: ANT FREITAS Attending Provider: MARILYN LAGUNAS Report Copy To: Signs & Symptoms: left total hip anterior with GehlingHistory: left total hip anterior with GehlingComments: left total hip anterior with GehlingExam: HIP LEFT 1 OR 2 VWS WITH PELVISAccession #: [id number] HIP LEFT 1 OR 2 VWS WITH [...] only Electronically signed by:Nayely Locke. Transcribed by: [email or web address], User Resident: Electronically Signed by: NAYELY LOCKE @ 04/03/2018 09:[address] [facility] Comment on above: Order Comment: left total hip anterior with Gehling POC GLUCOSE LABon 04-02-2018 Glucose mass conc 214 mg/dL High 70-100 [facility] Comment on above: Performed By: #### 6 2586 ####[facility] [place] [address], [facility] Glucose mass conc 151 mg/dL High 70-100 [facility] Comment on above: Performed By: #### 0 0071 ####[facility] [facility] [place] [address], [facility] Glucose mass conc 153 mg/dL High 70-100 [facility] Comment on above: Performed By: #### 0 0071 ####[facility] [facility] [place] [address], [facility] Glucose mass conc 148 mg/dL High 70-100 [facility] Comment on above: Performed By: #### 0 0071 ####[facility] [facility] [place] [address], [facility] PORTABLE HIP LEFT 1 OR 2 VWS WITH PELVISon 04-02-2018 PORTABLE HIP LEFT 1 OR [address] [facility] Oswepwcvx[address] [place] [id number] =====Patient Name: PRIYANKA NICHOLAS : 1955Sex: FAge: Race: WhiteMRN: [id number]. Location: [id number] Status: IVisit #: [id number] Date: 04/02/2018 4:45:00 PMCompleted Date: 04/02/2018 05:57 PMRequesting Provider: LEXI BARRAGAN Attending Provider: MARILYN LAGUNAS Report Copy To: Signs & Symptoms: Pain ( specify Location)History: Patient history not availableComments: Hardware Evaluation, Post op PACU xrayExam: PORTABLE HIP LEFT 1 OR 2 VWS WITH PELVISAccession #: [id number] PORTABLE HIP LEFT 1 OR 2 VWS [...] loosening. Electronically signed by:Nayely Locke. Transcribed by: [email or web address], User Resident: Electronically Signed by: NAYELY LOCKE @ 04/02/2018 06:42 PM Normal [facility] Comment on above: Order Comment: No: D o not add to previous draw BASIC METABOLIC PANELon 10- Calcium mass conc 8.6 mg/dL Normal 8.6-10.3 [facility] Comment on above: Order Comment: No: D o not add to previous draw Performed By: #### 0 0071 ####[facility] [place] [address], [facility] Chloride molar conc 102 mmol/L Normal 98-107 [facility] Comment on above: Order Comment: No: D o not add to previous draw Performed By: #### 0 0071 ####[facility] [place] [address], [facility] CO2 molar conc 23 mmol/L Normal 21-31 The [facility] Comment on above: Order Comment: No: D o not add to previous draw Performed By: #### 0 0071 ####[facility] [place] [address], [facility] Creatinine mass conc 0.66 mg/dL Normal 0.60-1.[address] [facility] Comment on above: Order Comment: No: D o not add to previous draw Performed By: #### 0 0071 ####[facility]3000 [facility] [place] [address], [facility] GFR/1.73 sq M predicted among blacks MDRD vol rate/area (S/P/Bld) mL/min/{1.73_m2} Normal >60 [facility] Comment on above: Order Comment: No: D o not add to previous draw Performed By: #### 0 0071 ####[facility] [facility] [place] [address], [facility] GFR/1.73 sq M predicted among non-blacks MDRD vol rate/area (S/P/Bld) mL/min/{1.73_m2} Normal >60 [facility] Comment on above: Order Comment: No: D o not add to previous draw Performed By: #### 0 0071 ####[facility] [facility] [place] [address], [facility] Glucose mass conc 128 mg/dL High 70-100 [facility] Comment on above: Order Comment: No: D o not add to previous draw Performed By: #### 0 0071 ####[facility] [facility] [place] [address], [facility] Potassium molar conc 3.8 mmol/L Normal 3.5-5.[address] [facility] Comment on above: Order Comment: No: D o not add to previous draw Performed By: #### 0 0071 ####[facility] [facility] [place] [address], [facility] Sodium molar conc 130 mmol/L Low 136-145 [facility] Comment on above: Order Comment: No: D o not add to previous draw Performed By: #### 0 0071 ####[facility] [place] [address], [facility] Urea nitrogen mass conc 9 mg/dL Normal 7-[address] [facility] Comment on above: Order Comment: No: D o not add to previous draw Performed By: #### 0 0071 ####[facility] [place] [address], [place] Calcium mass conc 9.1 mg/dL Normal 8.6-10.3 [facility] Comment on above: Order Comment: No: D o not add to previous draw Performed By: #### 0 0071 ####[facility] [place] [address], [place] Chloride molar conc 102 mmol/L Normal 98-107 The [facility] Comment on above: Order Comment: No: D o not add to previous draw Performed By: #### 0 0071 ####[facility] [place] [address], [place] CO2 molar conc 26 mmol/L Normal 21-31 The [facility] Comment on above: Order Comment: No: D o not add to previous draw Performed By: #### 0 0071 ####[facility] [place] [address], [facility] Creatinine mass conc 0.68 mg/dL Normal 0.60-1.[address] [facility] Comment on above: Order Comment: No: D o not add to previous draw Performed By: #### 0 0071 ####[facility] [place] [address], [place] GFR/1.73 sq M predicted among blacks MDRD vol rate/area (S/P/Bld) mL/min/{1.73_m2} Normal >60 The [facility] Comment on above: Order Comment: No: D o not add to previous draw Performed By: #### 0 0071 ####[facility] [place] [address], [place] GFR/1.73 sq M predicted among non-blacks MDRD vol rate/area (S/P/Bld) mL/min/{1.73_m2} Normal >60 [facility] Comment on above: Order Comment: No: D o not add to previous draw Performed By: #### 0 0071 ####[facility] Glucose mass conc 155 mg/dL High 70-100 [facility] Comment on above: Order Comment: No: D o not add to previous draw Performed By: #### 0 0071 ####[facility] [facility].[address] Potassium molar conc 4.0 mmol/L Normal 3.5-5.[address] [facility] Comment on above: Order Comment: No: D o not add to previous draw Performed By: #### 0 0071 ####[facility] [facility].[address] Sodium molar conc 135 mmol/L Low 136-145 [facility] Comment on above: Order Comment: No: D o not add to previous draw Performed By: #### 0 0071 ####[facility] [facility].[address] Urea nitrogen mass conc 9 mg/dL Normal 7-[address] [facility] Comment on above: Order Comment: No: D o not add to previous draw Performed By: #### 0 0071 ####[facility] [facility].[address] CBC COMPLETE BLOOD COUNTon Erythrocyte distribution width Auto Ratio (RBC) 13.7 % Normal 11.5-15.[address] [facility] Comment on above: Order Comment: No: D o not add to previous draw Performed By: #### 5 0608 ####[facility] Hematocrit Auto Volume Fraction (Bld) 37.1 % Normal 36.0-45.[address] [facility] Comment on above: Order Comment: No: D o not add to previous draw Performed By: #### 5 0608 ####[facility] [facility].[address] Hemoglobin mass conc (Bld) 12.2 g/dL Normal 12.0-15.[address] [facility] Comment on above: Order Comment: No: D o not add to previous draw Performed By: #### 5 0608 ####[facility]3000 [facility].[address] MCH Auto Entitic mass (RBC) 30.7 pg Normal 27.0-33.[address] [facility] Comment on above: Order Comment: No: D o not add to previous draw Performed By: #### 5 0608 ####[facility] MCHC Auto mass conc (RBC) 32.9 g/dL Normal 32.0-35.[address] [facility] Comment on above: Order Comment: No: D o not add to previous draw Performed By: #### 5 0608 ####[facility] MCV Auto Entitic volume (RBC) 93.2 fL Normal 82.0-98.[address] [facility] Comment on above: Order Comment: No: D o not add to previous draw Performed By: #### 5 0608 ####[facility] Nucleated RBC/100 WBC Ratio (Bld) 0 % Normal 0-[address] [facility] Comment on above: Order Comment: No: D o not add to previous draw Performed By: #### 5 0608 ####[facility] [place] [address] PLAT CNT 197 10*3/uL Normal 150-400 The [facility] Comment on above: Order Comment: No: D o not add to previous draw Performed By: #### 5 0608 ####[facility] RBC Auto #/vol (Bld) 3.98 10*6/uL Normal 3.80-5.[address] [facility] Comment on above: Order Comment: No: D o not add to previous draw Performed By: #### 5 0608 ####[facility] WBC Auto #/vol (Bld) 13.14 10*3/uL High 4.00-10.[address] [facility] Comment on above: Order Comment: No: D o not add to previous draw Performed By: #### 5 0608 ####[facility] CBC W/DIFFon 04-01-2018 ABS BASOPHILS 0.0 10*3/uL Normal 0.0-0.2 The [facility] Comment on above: Order Comment: No: D o not add to previous draw Performed By: #### 5 0103 ####[facility] ABS IMM GRANS 0.0 10*3/uL Normal 0.0-0.2 [facility] Comment on above: Order Comment: No: D o not add to previous draw Performed By: #### 5 0103 ####[facility] ABS NEUTROPHILS 6.2 10*3/uL Normal 1.6-7.6 The [facility] Comment on above: Order Comment: No: D o not add to previous draw Performed By: #### 5 0103 ####[facility] Basophils Auto #/vol (Bld) 0.5 % Normal 0.0-1.[address] [facility] Comment on above: Order Comment: No: D o not add to previous draw Performed By: #### 5 0103 ####[facility] [facility] [place] [address], [facility] Eosinophils Auto #/vol (Bld) 0.2 10*3/uL Normal 0.0-0.[address] [facility] Comment on above: Order Comment: No: D o not add to previous draw Performed By: #### 5 0103 ####[facility] [facility].[address] Eosinophils/100 WBC Auto (Bld) 1.9 % Normal 0.0-6.[address] [facility] Comment on above: Order Comment: No: D o not add to previous draw Performed By: #### 5 0103 ####[facility] Erythrocyte distribution width Auto Ratio (RBC) 13.7 % Normal 11.5-15.[address] [facility] Comment on above: Order Comment: No: D o not add to previous draw Performed By: #### 5 0103 ####[facility] Hematocrit Auto Volume Fraction (Bld) 36.3 % Normal 36.0-45.[address] [facility] Comment on above: Order Comment: No: D o not add to previous draw Performed By: #### 5 0103 ####[facility] [facility].[address] Hemoglobin mass conc (Bld) 11.9 g/dL Low 12.0-15.[address] [facility] Comment on above: Order Comment: No: D o not add to previous draw Performed By: #### 5 0103 ####[facility] IMMATURE GRANS 0.3 % Normal 0.0-1.0 [facility] Comment on above: Order Comment: No: D o not add to previous draw Performed By: #### 5 0103 ####[facility] Lymphocytes Auto #/vol (Bld) 1.9 10*3/uL Normal 1.2-4.[address] [facility] Comment on above: Order Comment: No: D o not add to previous draw Performed By: #### 5 0103 ####[facility] Lymphocytes/100 WBC Auto (Bld) 21.7 % Normal 20.0-45.[address] [facility] Comment on above: Order Comment: No: D o not add to previous draw Performed By: #### 5 0103 ####[facility] MCH Auto Entitic mass (RBC) 30.8 pg Normal 27.0-33.[address] [facility] Comment on above: Order Comment: No: D o not add to previous draw Performed By: #### 5 3 ####[facility] MCHC Auto mass conc (RBC) 32.8 g/dL Normal 32.0-35.[address] [facility] Comment on above: Order Comment: No: D o not add to previous draw Performed By: #### 5 0103 ####[facility] MCV Auto Entitic volume (RBC) 94.0 fL Normal 82.0-98.[address] [facility] Comment on above: Order Comment: No: D o not add to previous draw Performed By: #### 5 0103 ####[facility] [place] [address] Monocytes Auto #/vol (Bld) 0.4 10*3/uL Normal 0.1-1.[address] [facility] Comment on above: Order Comment: No: D o not add to previous draw Performed By: #### 5 0103 ####[facility] [place] [address], [facility] MONOS 4.9 % Low 5.0-12.[address] [facility] Comment on above: Order Comment: No: D o not add to previous draw Performed By: #### 5 0103 ####[facility] [place] [address], [facility] Neutrophils/100 WBC Auto (Bld) 70.7 % Normal 40.0-72.[address] [facility] Comment on above: Order Comment: No: D o not add to previous draw Performed By: #### 5 0103 ####[facility] [place] [address], [facility] Nucleated RBC/100 WBC Ratio (Bld) 0 % Normal 0-[address] [facility] Comment on above: Order Comment: No: D o not add to previous draw Performed By: #### 5 0103 ####[facility] [facility] [place] [address], [facility] PLAT CNT 169 10*3/uL Normal 150-400 The [facility] Comment on above: Order Comment: No: D o not add to previous draw Performed By: #### 5 102 ####[facility] [facility] [place] [address], [facility] RBC Auto #/vol (Bld) 3.86 10*6/uL Normal 3.80-5.[address] [facility] Comment on above: Order Comment: No: D o not add to previous draw Performed By: #### 5 0103 ####[facility] [place] [address], [facility] WBC Auto #/vol (Bld) 8.74 10*3/uL Normal 4.00-10.[address] [facility] Comment on above: Order Comment: No: D o not add to previous draw Performed By: #### 5 0103 ####[facility] [place] [address], [facility] CT PELVIS WO CONTRASTon 03-19 CT P[address] WO CONTR[address] [facility] Blsuvwhja[address] [place] [address] =====Patient Name: PRIYANKA NICHOLAS : 1955Sex: FAge: Race: WhiteMRN: [id number]. Location: [id number] Status: IVisit #: [id number] Date: 03/31/2018 9:35:00 PMCompleted Date: 03/31/2018 10:58 PMRequesting Provider: RUFINA VALADEZ Attending Provider: MARILYN LAGUNAS Report Copy To: Signs & Symptoms: Pelvic PainHistory: Patient history not availableComments: Other, assess left hip fractureExam: CT PELVIS WO CONTRASTAccession #: [id number] CT PELVIS WO CONTRAST 03/31/2018 10:58 PM [...] findings. Electronically signed by:Nayely Locke. Transcribed by: [email or web address], User Resident: RHONDA Samsectronically Signed by: NAYELY LOCKE @ 04/01/2018 09:33 AMI personally read this/these film(s) with this resident Normal [facility] Comment on above: Order Comment: Other , assess left hip fracture History and Physicalon 04-01 History and Physical [id number] Admitted: 03/31/2018 Date of : 1955 Attending Physician: Dewayne Mancuso MD Room #: [id number] Discharge Date: HISTORY AND PHYSICALCHIEF COMPLAINT: Left [...] left side of her body.Initially presented to [facility] where she had workup done. CT ofthe cervical spine was negative for fracture. She was found to have a leftfemoral neck fracture and [facility] for further evaluation byOrthopedic Surgery. She received [...] lab studiesand imaging studies noted are from [facility] from March.ASSESSMENT:1. Left femoral neck fracture.2. Preop [...] by:Dewayne Mancuso MD 04/01/2018 03:53 A Dewayne Lj Benavides Dict: 03/31/2018/10:32 P/Dewayne Lj Benavides Trans: 03/31/2018 10:57 P/[id number] [facility] POC GLUCOSE LABon 04-01-2018 Glucose mass conc 178 mg/dL High 70-100 [facility] Comment on above: Performed By: #### 0 0071 ####[facility] [facility] [place] [address], [facility] Glucose mass conc 180 mg/dL High 70-100 [facility] Comment on above: Performed By: #### 0 0071 ####[facility] [facility] [place] [address], [facility] Glucose mass conc 128 mg/dL High 70-100 [facility] Center Comment on above: Performed By: #### 0 [id number] ####[facility] [facility] [place] [place] [address], [facility] Glucose mass conc 120 mg/dL High 70-100 [facility] Comment on above: Performed By: #### 8 [id number] ####[facility] [facility].[address] PROTHROMBIN TIMEon 8 INR Coag RelTime (PPP) 1.04 {INR} Normal 0.91-1.[address] [facility] Comment on above: Order Comment: No: [...] OF ACTION, CLINICALEFFECTIVENESS, AND OPTIMAL THERAPEUTIC RANGE. [id number];108:[id number]. Performed By: #### 5 [id number] ####[facility] [facility].[address] Prothrombin time (PT) Coag time (PPP) 13.6 s Normal 12.3-14.8 [facility] Comment on above: Order Comment: No: D o not add to previous draw Result Comment: ALL RESULTS MUST BE INTERPRETED WITH RESPECT TO BLOOD DRAWING ARTIFACTOR DILUTION ERROR OF ANTICOAGULANT AT THE TIME OF SAMPLING. Performed By: #### 5 [id number] ####[facility] [facility].[address] RBC'S 2 UNITSon 04-01-2018 CROSSMATCH INTERP 1 COMP Normal The [facility] Comment on above: Performed By: #### 8 [id number] ####[facility] [facility].[address] CROSSMATCH INTERP 2 COMP Normal The [facility] Comment on above: Performed By: #### 8 [id number] ####[facility] [facility].[address] Protein mass conc 336 g/dL Normal [facility] Comment on above: Performed By: #### 8 [id number] ####[facility] [facility] [place] [place] [address], [facility] Protein mass conc RE Normal [facility] Comment on above: Result Comment: Resu lt changed by IF on 04/04/2018 08:25. The previous value was XM. Performed By: #### [id number] ####[facility] [place] [address], [facility] UN[facility] ABO 1 A Normal [facility] Comment on above: Performed By: #### 8 [id number] ####[facility] [place] [address], [facility] ABO 2 A Normal [facility] Comment on above: Performed By: #### 8 [id number] ####[facility] [place] [address], [facility] ID 1 [id number] Normal The [facility] Comment on above: Performed By: #### 8 [id number] ####[facility] [place] [address], [facility] UN[facility] ID 2 [id number] Normal The [facility] Comment on above: Performed By: #### 8 [id number] ####[facility] [facility] [place] [address], [facility] RH 1 Positive Normal [facility] Comment on above: Performed By: #### 8 [id number] ####[facility] [place] [address], [facility] RH [address] [facility] Comment on above: Performed By: #### 8 [id number] ####[facility] [place] [address], [facility] TYPE AND SCREENon 04-01-2018 ABO INTERPRETATION A Normal [facility] Comment on above: Performed By: #### 6 [id number] ####[facility] [place] [address], [facility] RH INTERPRETATION Positive Normal [facility] Comment on above: Performed By: #### 6 [id number] ####[facility] PORTABLE HIP LEFT 1 OR 2 VWS WITH PELVISon 03-31-2018 PORTABLE HIP LEFT [address] [facility]prk[facility] [place] [id number] =====Patient Name: PRIYANKA NICHOLAS : 1955Sex: FAge: Race: WhiteMRN: [id number]. Location: [id number] Status: IVisit #: [id number] Date: 03/31/2018 8:30:00 PMCompleted Date: 03/31/2018 09:11 PMRequesting Provider: LEXI BARRAGAN Attending Provider: MARILYN LAGUNAS Report Copy To: Signs & Symptoms: Pain ( specify Location)History: Patient history not availableComments: R/O FXExam: PORTABLE HIP LEFT 1 OR 2 VWS WITH PELVISAccession #: [id number] PORTABLE HIP LEFT 1 OR 2 VWS [...] findings. Electronically signed by:Nayely Locke. Transcribed by: [email or web address], User Resident: RHONDA Samsectronically Signed by: NAYELY LOCKE @ 04/01/2018 10:43 AMI personally read this/these film(s) with this resident Normal The [facility] Comment on above: Order Comment: No: D o not add to previous draw Encounters Encounter Date Encounter Type Care Provider Facility Start: 02-27-2024 End: 02-27-2024 ambulatory INDY H TIMMIS Not Available Start: 02-22-2024 End: 02-22-2024 ambulatory CHETNA AICHHOLZ Not Available Start: 01-02-2024 End: 01-02-2024 ambulatory CHETNA AICHHOLZ Not Available Start: 12-20-2023 End: 12-20-2023 ambulatory INDY H TIMMIS Not Available Start: 12-06-2023 End: 12-06-2023 ambulatory INES A LUIS Not Available Start: 10-03-2023 End: 10-03-2023 ambulatory CHETNA AICHHOLZ Not Available Start: 09-12-2023 End: 09-12-2023 ambulatory CHETNA AICHHOLZ Not Available Start: 07-18-2023 End: 07-18-2023 ambulatory CHETNA AICHHOLZ Not Available Start: 06-27-2023 End: 06-27-2023 ambulatory CHETNA AICHHOLZ Not Available Start: 04-15-2022 End: 04-16-2022 ambulatory BEVERAGE MANAGER CHETNA AICHHOLZ Facility:[facility] Start: 12-21-2021 End: 12-22-2021 ambulatory BEVERAGE MANAGER CHETNA AICHHOLZ Facility:[facility] Start: 11-01-2021 End: 11-02-2021 ambulatory BEVERAGE MANAGER CHETNA AICHHOLZ Facility:[facility] Start: 09-24-2020 End: 09-27-2020 Patient encounter procedure MIKE OTT [facility] Start: 09-24-2020 End: 09-26-2020 Subsequent hospital visit by physician [facility] Mammography Comment on above: Encounter for screen ing mammogram for breast cancer Post-menopausal Start: 07-30-2020 End: 08-02-2020 Patient encounter procedure [facility] Start: 07-30-2020 End: 08-01-2020 Subsequent hospital visit by physician Olga Xr Room 4 [facility] Radiology Comment on above: COPD exacerbation (H CC) Start: 01-27-2020 End: 01-28-2020 Patient encounter procedure SABIHA VIVEROS [facility] Start: 01-27-2020 End: 01-27-2020 Subsequent hospital visit by physician Mike RIVERA [place] [facility] DOCTOR Comment on above: Suspected COVID-19 v irus infection Start: 11-21-2019 End: 11-24-2019 Patient encounter procedure [facility] Start: 11-21-2019 End: 11-23-2019 Subsequent hospital visit by physician Olga Ct Rm 1 [facility] CT Scan Comment on above: Personal history of nicotine dependence Essential hypertensi on; Mixed hyperlipidemia Start: 02-28-2019 End: 02-28-2019 Subsequent hospital visit by physician Mike DORSEY Laboratory Comment on above: Type 2 diabetes brad itus with diabetic mononeuropathy, without long-term current use of insulin (HCC); Mixed hyperlipidemia Start: 04-19-2018 End: 04-20-2018 Patient encounter procedure ANT FREITAS Facility:[facility] Start: 03-31-2018 End: 04-05-2018 Evaluation and management of inpatient MARILYN LAGUNAS Facility:[facility] Start: 02-17-2017 End: 02-18-2017 Ambulatory AFSER DENIA [facility] Procedures Date Procedure Procedure Detail Performing Clinician Start: 09-24-2020 Dxa bone density arash dy 1/> sites axial skel Mike Ott Work Phone: Start: 09-24-2020 Screening mammograph y bi 2-view breast inc cad Mike Ott Work Phone: Start: 07-30-2020 Radiologic exam ches t 2 views Mike Ott Work Phone: Start: 01-27-2020 COVID-19 AMBULATORY HARRY RACHELLE VESPIE Start: 11-21-2019 Ldct for lung ca screen RAYEESA AHMAD Start: 11-21-2019 Assay of thyroid stimulating hormone tsh RAYEESA AHMAD Start: 11-21-2019 Blood count complete automated RAYEESA AHMAD Start: 11-21-2019 Comprehensive metabo lic panel RAYEESA AHMAD Start: 11-21-2019 Lipid panel RAYEESA AH MAD Start: 11-21-2019 Ldct for lung ca screen Rayeesa Ahmad Work Phone: Start: 11-21-2019 Assay of thyroid stimulating hormone tsh Bairon Haleighica Work Phone: Start: 11-21-2019 Blood count complete automated Bairon Chirica Work Phone: Start: 11-21-2019 Comprehensive metabo lic panel Bairon Chirica Work Phone: Start: 11-21-2019 Lipid panel Bairon Chirica Work Phone: Start: 02-28-2019 Lipid panel Rayeesa Ah mad Work Phone: Start: 02-28-2019 Urine albumin quantitative Rayeesa Ahmad Work Phone: Start: 04-04-2018 Antibody screen ANT FREITAS Comment on above: Performed By: #### [id number] ####[facility] [facility].[address] Start: 04-04-2018 TRANSFUSE NONAUT RED BLOOD CELLS IN PERIPH VEIN, PERC ANAS RENNO Start: 04-02-2018 REPLACEMENT OF L HIP JT WITH METAL, UNCEMENT, OPEN APPROACH ANT FREITAS Start: 04-01-2018 Antibody screen ANT FREITAS Comment on above: Performed By: #### 6 [id number] ####[facility] [facility].[address] Plan of Treatment Date Care Activity Detail Author Start: 11-01-2028 DTaP/Tdap/Td vaccine (2 - Td) DTaP/Tdap/Td vaccine (2 - Td) [facility], [place] Start: 09-24-2022 Screening for malignant neoplasm of breast Breast cancer screen [address] Phone: Start: 08-14-2021 Diabetic foot examination Diabetic foot exam [address] Phone: Start: 07-30-2021 HbA1c (Bld) [Mass fraction] A1C test (Diabetic or Prediabetic) [address] Phone: Start: 02-17-2021 Influenza vaccination Flu vaccine (Season Ended) [email or web address] Start: 12-01-2020 End: 12-01-2020 Office Visit 12/01/2020 Office Visit Family Medicine Mike Ott MD [address] [facility] [address] [place] [phone] [facility] Start: 11-26-2020 HbA1c (Bld) [Mass fraction] A1C test (Diabetic or Prediabetic) [place] Start: 11-23-2020 Pneumococcal 65+ years Vaccine (1 of 1 - PPSV23) Pneumococcal 65+ years Vaccine (1 of 1 - PPSV23) [facility] [employer] Phone: Start: 11-20-2020 Creatinine measurement Creatinine monitoring [place], [place] Start: 11-20-2020 Lipid panel Lipid screen [place], [place] Start: 11-20-2020 Potassium monitoring Potassium monitoring [place] Start: 11-20-2020 Screening for malignant neoplasm of lung Low dose CT lung screening [place] Start: 10-16-2020 End: 10-16-2020 Office Visit 10/16/2020 Office Visit Podiatry Al Doran, DPNikki [address] [facility] [place] [address] [phone] [facility] Podiatry Start: 08-31-2020 End: 08-31-2020 Office Visit 08/31/2020 Office Visit Family Medicine Mike Ott MD [address] [place] [phone] [facility] Start: 07-11-2020 Diabetic foot examination Diabetic foot exam [place] Start: 05-30-2020 HbA1c (Bld) [Mass fraction] A1C test (Diabetic or Prediabetic) [place] Start: 02-29-2020 Diabetic microalbuminuria test Diabetic microalbuminuria test [place] Start: 02-29-2020 Lipid panel Lipid screen [place] Start: 02-18-2020 Influenza vaccination Flu vaccine (#1) [place] Start: 02-17-2020 Colon cancer screen colonoscopy Colon cancer screen colonoscopy [place] Start: 02-17-2020 Screening for malignant neoplasm of colon Colon cancer screen colonoscopy [place] Start: 02-08-2020 [object Object] Diabetic foot exam [place] Start: 01-27-2020 Annual Wellness Visit (AWV) Annual Wellness Visit (AWV) [place] Start: 12-25-2019 A1C test (Diabetic or Prediabetic) A1C test (Diabetic or Prediabetic) [place] Start: 11-27-2019 End: 11-27-2019 Office Visit 11/27/2019 Office Visit Family Medicine Mike Ott MD [address] [facility] [address] [place] [phone] [facility] Start: 10-30-2019 Creatinine measurement Creatinine monitoring [place], [place] Start: 10-30-2019 Creatinine monitoring Creatinine monitoring [place], [place] Start: 10-30-2019 Potassium monitoring Potassium monitoring [place] Start: 09-28-[address] lung screening Low dose CT lung screening [place] Start: 09-28-2019 Screening for malignant neoplasm of lung Low dose CT lung screening [place] Start: 06-04-2019 Shingles Vaccine (3 of 3) Shingles Vaccine (3 of 3) [place], [place] Start: 05-30-2019 End: 05-30-2019 Office Visit 05/30/2019 Office Visit Family Medicine Mike Ott MD [address] [place] [address] [facility] Start: 04-11-2019 End: 04-11-2019 Office Visit 04/11/2019 Office Visit Podiatry Al Doran, DPM [address] [place] [address] [facility] Podiatry Start: 12-30-2018 Breast cancer screen Breast cancer screen [place], [place] Start: 12-30-2018 Screening for malignant neoplasm of breast Breast cancer screen [place] Start: 04-14-2018 Diabetic microalbuminuria test Diabetic microalbuminuria test [place] Start: 01-13-2018 Cervical cancer screen Cervical cancer screen [place] Start: 01-13-2018 Screening for malignant neoplasm of cervix Cervical cancer screen [place] Start: 07-10-2016 Lipid screen Lipid screen [place] Start: 03-12-2016 Diabetic retinal exam Diabetic retinal exam [place], [place] Start: 10-09-2015 Shingles Vaccine (2 of 3) Shingles Vaccine (2 of 3) [place], [place] Start: 2010 Screening for osteoporosis DEXA (modify frequency per FRAX score) [facility] [employer] Phone: Start: 1971 COVID-19 Vaccine (1 of 2) COVID-19 Vaccine (1 of 2) [facility] [employer] Phone: Start: 1971 COVID-19 Vaccine (1) COVID-19 Vaccine (1) [facility] [employer] Phone: End: 01-28-2020 COVID-19 Ambulatory COVID-19 Ambulatory Lab Routine Suspected COVID-19 virus infection 1 Occurrences starting 01/28/2020 until 01/28/2020 [place] Comment on above: 1 Occurrences starting 01/28/2020 until 01/28/2020 COVID-19 Ambulatory COVID-19 Amb ulatory Lab Routine Suspected COVID-19 virus infection 01/27/2020 2:40 PM EDT [facility], [place] Immunizations Immunization Date Immunization Notes Care Provider Fa marisa 04-09-2019 zoster vaccine recombinant Rayeesa A hmad [facility], [place] 02-28-2019 Influenza, injectabl e, Madin Seda Canine Kidney, preservative free, quadrivalent [facility], [place] 11-01-2018 tetanus toxoid, redu danette diphtheria toxoid, and acellular pertussis vaccine, adsorbed [facility], [place] 09-04-2018 zoster recombinant adjuvanted vaccine (SHINGRIX) 50 MCG/0.5ML SUSR injection [facility], [place] 04-02-2018 influenza virus vacc ine, unspecified formulation [facility] Work Phone: 04-02-2018 influenza, injectabl e, quadrivalent, [facility]ative [facility] [place] 04-24-2017 influenza, injectabl e, quadrivalent, contains preservative [facility] [place] 03-28-2016 influenza, injectabl e, quadrivalent, preservative free [facility] 11-24-2015 pneumococcal polysac charide vaccine, 23 valent [facility] 08-14-2015 zoster vaccine, live [facility], [place] 05-11-2015 influenza virus vacc ine, unspecified formulation [facility] , [place] 01-08-2012 pneumococcal polysac charide vaccine, 23 valent [facility], [place] Payers Date Payer Category Payer Medicare [id number] 2014 Medicaid [id number] 2014 Medicaid [facility] [place] [facility] [place] [facility] xxxxxxxxxxxx 2014-Present [phone] [address] [address] [place] [address] xxxxxxxxxxxx [id number] 1959 Medicare [id number] .[id number] 1955 Unknown [id number] 2.16.840.1.190522.3.579.2.647 1955 Unknown [id number] 2.16.840.1.081663.3.579.2.647 1955 Unknown [id number] 2.16.840.1.909555.3.579.2.175 1955 Unknown [id number] 2.16.840.1.252897.3.579.2.176 1955 Unknown [id number] 2.16.840.1.444671.3.579.2.176 1955 Unknown [id number] 2.16.840.1.629512.3.579.2.176 1955 Unknown [id number] 2.16.840.1.279441.3.579.2.176 1955 Unknown [id number] 2.16.840.1.202443.3.579.2.176 1955 Unknown [id number] 2.16.840.1.193882.3.579.2.176 1955 Unknown [id number] 2.16.840.1.487503.3.579.2.593 1955 Unknown [id number] 2.16.840.1.756905.3.579.2.593 1955 Unknown [id number] 2.16.840.1.200127.3.579.2.593 1955 Unknown [id number] 2.16.840.1.719332.3.579.2.125 9 1955 Unknown [id number] 2.16.840.1.771056.3.579.2.125 9 1955 Unknown [id number] 2.16.840.1.206541.3.579.2.125 9 1955 Unknown [id number] 2.16.840.1.714323.3.579.2.125 9 1955 Unknown [id number] 2.16.840.1.014947.3.579.2.125 9 1955 Unknown [id number] 2.16.840.1.499598.3.579.2.125 9 1955 Unknown [id number] 2.16.840.1.853965.3.579.2.125 9 1955 Unknown [id number] 2.16.840.1.116445.3.579.2.125 9 1955 Unknown [id number] 2.16.840.1.629687.3.579.2.125 9 Social History Date Type Detail Facility Start: 01-14-1973 End: 08-14-2020 Tobacco smoking status NHIS Current every day smoker [place], [place] Start: 01-14-1973 End: 11-27-1982 History of tobacco use Cigarette Smoker [place] Start: 02-28-2019 End: 08-14-2020 Cigarettes smoked current (pack per day) - Reported [place] Start: 02-28-2019 Alcohol intake No [place], [place] Sex Assigned At Not on file [place] Start: 08-09-2019 End: 08-14-2020 Alcohol intake Current non-drinker of alcohol (finding) [place] Exposure to SARS-CoV -2 (event) Unable to assess [place] Start: 01-27-2020 End: 08-14-2020 Tobacco use and exposure Never used [place], [place] Summary Purpose Family History No Family History Records FoundNo Family History Records FoundNo Family History Records FoundNo Family History Records FoundNo Family History Records FoundNo Family History Records Found Advance Directives No Advanced Directives Records FoundDocuments on File Type Date Recorded Patient Box Worker Expl anation Advance Directives and Living Will Power of Stone Crusher Operator Latest Code Status on File Code Status Date Activated Date Inactivated Comments Full Code 04/26/2017 6:22 AM 04/30/2017 6:08 PM Documents on File Type Date Recorded Patient Box Worker Expl anation Advance Directives and Living Will Power of Stone Crusher Operator Latest Code Status on File Code Status Date Activated Date Inactivated Comments Full Code 04/26/2017 6:22 AM 04/30/2017 6:08 PM Documents on File Type Date Recorded Patient Box Worker Expl anation ACP-Advance Directive ACP-Power of Stone Crusher Operator Documents on File Type Date Recorded Patient Box Worker Expl anation ACP-Advance Directive ACP-Power of Stone Crusher Operator Hospital Course Note MR#: [id number] [facility] Priyanka Nicholas Admitted: 03/31/2018 Discharged: 04/05/2018 Date of : 1955 Physician: Marilyn Lagunas M.D. [facility]: Dr. Vargas.PRIMARY DIAGNOSES:1. Left femoral [...] CT LUNG SCREENING Mike Ott MD [address] [address] Status Reason Specialty Diagnoses / Procedures Referre d By Contact Referred To Contact Closed Radiology Diagnoses Post-menopausal Procedures DEXA BONE DENSITY AXIAL SKELETON Mike Ott MD [facility] [address] Additional Source Comments INFORMATION SOURCE (unrecogn ized section and content) DATE CREATED AUTHOR 12/13/2017 [facility] DATE CREATED AUTHOR AUTHOR'S ORGANIZ ATION 05/27/2018 [facility] DATE CREATED AUTHOR AUTHOR'S ORGANIZ ATION 01/30/2020 [facility] DATE CREATED AUTHOR AUTHOR'S ORGANIZ ATION 09/27/2020 [facility] DATE CREATED AUTHOR AUTHOR'S ORGANIZ ATION 04/19/2022 [facility] DATE CREATED AUTHOR AUTHOR'S ORGANIZ ATION 02/29/2024 [facility] dical Specialists EPIC Reason for Visit (unrecogniz ed section and content) Status Reason Specialty Diagnoses / Procedures Referre d By Contact Referred To Contact Closed Radiology Diagnoses Personal history of nicotine dependence Procedures CT LUNG SCREENING Mike Ott MD [facility] [address] Status Reason Specialty Diagnoses / Procedures Referre d By Contact Referred To Contact Closed Radiology Diagnoses Encounter for screening mammogram for breast cancer Procedures KOBY RAFI DIGITAL SCREEN BILATERAL KOBY Digital Screen Bilateral [[id number]] Mike Ott MD [address] [address] Status Reason Specialty Diagnoses / Procedures Referre d By Contact Referred To Contact Closed Radiology Diagnoses Post-menopausal Procedures DEXA BONE DENSITY AXIAL SKELETON Mike Ott MD [address] [facility] [address] [place] [address] FOR RECORDS PERTAINING TO PATIENTS WHO ARE [...] BE BASED ON THE PRIMARY CLINICAL RECORDS. [facility] [employer] [facility]. provides no warranty or guarantee of the accuracy or completeness of information in this document.
== END 2024-03-01 09:52 | disposition home or self-care (01) ==
LOC: CT 09:51
PROVIDERS: PCP Nurse Practitioner; Visit Provider Nurse Practitioner
DX: F17.210 Nicotine dependence, cigarettes, uncomplicated (principal)
CPT/HCPCS: 71271

== ENCOUNTER 2024-03-27 12:43 | Outpatient (OUT) | payer MEDICARE, SELFPAY ==
[2024-03-27 12:49] LABS: Hemoglobin 13.1 g/dL (12.0-16.0)
--- OUTSIDE RECORDS SUMMARY | 2024-03-27 12:55 | XMS_ITS | CCD ---
Author Organization [facility] Care Team Providers Care Kitchenhand Name Role Phone MARLA LOZA Unavailable Unavailable ELZBIETA SHARMA Unavailable Unavailable ANT FREITAS Unavailable Unavailable ANT FREITAS Unavailable Unavailable UNKNOWN, PHYSICIAN Unavailable Unavailable UNKNOWN, PHYSICIAN Unavailable Unavailable RENNO, ANAS Unavailable Unavailable RENNO, ANAS Unavailable Unavailable SUSI BARRIOS Unavailable Unavailable UNKNOWN, PHYSICIAN Unavailable Unavailable [facility] Unavailable Unavailable ANT FREITAS Unavailable Unavailable [facility] Unavailable Unavailable RENNO, ANAS Unavailable Unavailable Ahmad, Rayeesa Primary Care Provider [phone] Ahmad, Rayeesa Primary Care Provider SABIHA VIVEROS [...] Unavailable AHMAD, RAYEESA Primary Care Unavailable AICHHOLZ, PERSONAL SERVICE REPRESENTATIVE CHETNA Admitting Unavailable DR MELANIE AVILES V Consulting Unavailable AICHHOLZ, PERSONAL SERVICE REPRESENTATIVE CHETNA Attending Unavailable AICHHOLZ, PERSONAL SERVICE REPRESENTATIVE CHETNA Consulting Unavailable AICHHOLZ, PERSONAL SERVICE REPRESENTATIVE CHETNA Admitting Unavailable AICHHOLZ, PERSONAL SERVICE REPRESENTATIVE CHETNA Attending Unavailable AICHHOLZ, PERSONAL SERVICE REPRESENTATIVE CHETNA Consulting Unavailable DR MARI MONTES Consulting Unavailable AICHHOLZ, PERSONAL SERVICE REPRESENTATIVE CHETNA Admitting Unavailable AICHHOLZ, PERSONAL SERVICE REPRESENTATIVE CHETNA Referring Unavailable AICHHOLZ, PERSONAL SERVICE REPRESENTATIVE CHETNA Attending Unavailable AICHHOLZ, PERSONAL SERVICE REPRESENTATIVE CHETNA Consulting Unavailable JYOTI, DR MARI Bolivar Consulting Unavailable AICHHOLZ, CHETNA Attending Unavailable AICHHOLZ, CHETNA Attending Unavailable AICHHOLZ, CHETNA Attending Unavailable AICHHOLZ, CHETNA Attending Unavailable INES SMITH Attending Unavailable AICHHOLZ, CHETNA Referring Unavailable TIMMIS, INDY H Attending Unavailable AICHHOLZ, CHETNA Referring Unavailable AICHHOLZ, CHETNA Attending Unavailable AICHHOLZ, CHETNA Attending Unavailable TIMMIS, INDY H Attending Unavailable AICHHOLZ, CHETNA Referring Unavailable Jacob Luis Jr Attending Unavailable Al Shweiki, Matrin Attending Unavailable Al Shweiki, Martin Referring Unavailable Al Shweiki, Martin Attending Unavailable Al Shweiki, Martin Referring Unavailable Allergies Allergy Classification Reported Allergen(s) Allergy Type Date of Onset Reaction(s) Facility (8 sources) Desonide Drug Allergy 8 [facility] (1 source) Latex Drug allergy (disorder) 8 [facility] (8 sources) Latex Propensity to adverse reactions to drug 6 [place], [place] (1 source) natural latex rubber Drug allergy (disorder) [facility] Repository Medications Current Medications Medication Drug Class(es) [...] long-term current use of insulin ([facility]) Take 1 tablet by mouth [...] extended release oral tablet (1 source) Uncompetitive X-quqhgk-N-aspartat e Receptor Antagonist, Sigma-1 Agonist Start: 09-04-2018 [...] food 20 tablet 0 07/30/2020 Active ergocalciferol 49821 unt oral capsule (1 source) Provitamin D2 Compound Start: 09-24-2020 take 1 capsule by mouth every week vitamin D (ERGOCALCIFEROL) 1.25 MG (30680 UT) CAPS capsule Indications: Age-related osteoporosis without [...] [Anxiety disorder, unspecified] Onset: 06-22-2019 06-22-2019 Chronic Cataract (1 source) Age-related nuclear cataract, bilateral; Translations: [Cataract, Nuclear Sclerosis OU] Onset: 03-20-2024 Chronic Chronic kidney disease (2 sources) Chronic kidney disease stage 5; Translations: [Chronic kidney disease, stage 5] Onset: 08-31-2020 Resolved: 08-31-2020 08-31-2020 Chronic Chronic obstructive pulmonary disease and bronchiectasis (19 sources) Chronic obstructive pulmonary disease, unspecified; Translations: [Pulmonary emphysema] Onset: 07-26-2013 Resolved: 11-27-2019 12-12-2017 Chronic Diabetes mellitus without complication (12 sources) Type 2 diabetes mellitus without complications; Translations: [Type 2 diabetes mellitus] Onset: 03-31-2018 11-02-2018 Chronic Disorders of lipid metabolism (15 sources) Hyperlipidemia, unspecified; Translations: [Hyperlipidemia] Onset: 01-13-2015 01-13-2015 Chronic Esophageal disorders (8 sources) Gastroesophageal reflux disease without esophagitis; Translations: [Gastroesophageal reflux disease without esophagitis] Onset: 11-01-2018 11-01-2018 Chronic Essential hypertension (12 sources) Essential (primary) hypertension; Translations: [Essential hypertension] [...] both ears] Onset: 08-31-2020 08-31-2020 Episodic Other eye disorders (1 source) Vitreous degeneration, bilateral; Translations: [PVD (posterior vitreous detachment), both eyes] Onset: 03-20-2024 Chronic Other screening for suspected conditions (not mental [...] (1 source) Postmenopausal state; Translations: [Post-menopausal] Episodic Retinal detachments; defects; vascular occlusion; and retinopathy (1 source) Exudative age-related macular degeneration, bilateral, with active choroidal neovascularization; Translations: [Exudative age-rel mclr degn, bi, with actv chrdl neovas] Onset: 03-20-2024 Chronic Screening and history of mental health and [...] 04/15/2022 : 1955 Gender:F Ordering : [facility] Admission #: [id number] Family : Order #: [id number] CLICK HERE TO VIEW EXAM RADIOLOGY REPORT PROCEDURE: MAMMOGRAM SCREENING 3D BILATERAL CAD COMPARISON: MG MAMM SCREEN 3D MARTINA CAD, 12/30/2016. INDICATIONS: Screening mammography Calculator Name NCI Breast Cancer Risk Assessment Tool 5 Year Breast Cancer Risk 1.50% Lifetime Breast Cancer Risk 5.20% Personal Breast Cancer No Personal Ovarian Cancer No Treatments None Family Cancers None LOCATION: [facility] BREAST COMPOSITION: Scattered areas fibroglandular density. FINDINGS: [...] [facility] CBC AUTO DIFFon 12-21-2021 BASO # 0.1 103/ul Normal 0.0-0.1 [facility] Comment on above: Performed By: #### C BC #### [facility] Laboratory [address] [place] [address] Dr. Tom Altman Basophils/100 WBC (Bld) 0.7 % Normal 0.2-2.0 [facility] Comment on above: Performed By: #### C BC #### [facility] Laboratory [address] [place] [address] Dr. Tom Altman EO # 0.3 103/ul Normal 0.0-0.7 [facility] Comment on above: Performed By: #### C BC #### [facility] Laboratory [address] [place] [address] Dr. Tom Altman Eosinophils/100 WBC (Bld) 3.4 % Normal 0.9-7.0 [facility] Comment on above: Performed By: #### C BC #### [facility] Laboratory [address] [place] [address] Dr. Tom Altman Erythrocyte distribution width (RBC) [Ratio] 14.6 % Normal 11.0-15.0 [facility] Comment on above: Performed By: #### C BC #### [facility] [address] [place] [address] Dr. Tom Altman Hematocrit (Bld) [Volume fraction] 41.5 % Normal 36.0-48.0 [facility] Comment on above: Performed By: #### C BC #### [facility] [address] [place] [address] Dr. Tom Atlman Hemoglobin (Bld) [Mass/Vol] 13.0 g/dL Normal 12.0-16.0 [facility] Comment on above: Performed By: #### C BC #### [facility] [address] [place] [address] Dr. Tom Altman IG # 0.04 10e3/ul Critically high 0.00-0.03 [facility] Comment on above: Performed By: #### C BC #### [facility] [address] [place] [address] Dr. Tom Altman IG % 0.5 % Normal 0.0-0.5 [facility] Comment on above: Performed By: #### C BC #### [facility] [address] [place] [address] Dr. Tom Altman LYMPH # 1.9 103/ul Normal 1.2-3.8 [facility] Comment on above: Performed By: #### C BC #### [facility] [address] [place] [address] Dr. Tom Altman Lymphocytes/100 WBC (Bld) 22.9 % Normal 20.5-60.0 [facility] Comment on above: Performed By: #### C BC #### [facility] [address] [place] [address] Dr. Tom Altman MANUAL DIFF REQ NO Normal [facility] Comment on above: Performed By: #### C BC #### [facility] [address] [place] [address] Dr. Tom Altman MCH (RBC) [Entitic mass] 29.1 pg Normal 26.7-34.0 [facility] Comment on above: Performed By: #### C BC #### [facility] [address] [place] [address] Dr. Tom Altman MCHC (RBC) [Mass/Vol] 31.3 g/dL Normal 29.9-35.2 [facility] Comment on above: Performed By: #### C BC #### [facility] [address] [place] [address] Dr. Tom Altman MCV (RBC) [Entitic vol] 93.0 fL Normal 81.0-99.0 [facility] Comment on above: Performed By: #### C BC #### [facility] [address] [place] [address] Dr. Tom Altman MONO # 0.5 103/ul Normal 0.3-0.8 [facility] Comment on above: Performed By: #### C BC #### [facility] [address] [place] [address] Dr. Tom Altman Monocytes/100 WBC (Bld) 5.5 % Normal 1.7-12.0 [facility] Comment on above: Performed By: #### C BC #### [facility] [address] [place] [address] Dr. Tom Altman NEUT # 5.6 103/ul Normal 1.4-6.5 [facility] Comment on above: Performed By: #### C BC #### [facility] [address] [place] [address] Dr. Tom Altman Neutrophils/100 WBC (Bld) 67.0 % Normal 43.0-75.0 [facility] Comment on above: Performed By: #### C BC #### [facility] [address] [place] [address] Dr. Tom Altman Platelet mean volume (Bld) [Entitic vol] 10.9 fL Normal 9.5-13.5 [facility] Comment on above: Performed By: #### C BC #### [facility] [address] [place] [address] Dr. Tom Altman PLT 278 103/ul Normal 150-450 [facility] Comment on above: Performed By: #### C BC #### [facility] [address] [place] [address] Dr. Tom Altman RBC 4.46 106/ul Normal 4.20-5.40 [facility] Comment on above: Performed By: #### C BC #### [facility] [address] [place] [address] Dr. Tom Altman WBC 8.3 103/ul Normal 4.0-11.0 [facility] Comment on above: Performed By: #### C BC #### [facility] [address] [place] [address] LUNG CANCER SCREENINGon [...] by: MARI MONTES Date: 2021-12-21 14:49 Normal [facility] FREE T4on 12-21-2021 Free T4 [Mass/Vol] 1.03 ng/dL Normal 0.76-1.[address] [facility] Comment on above: Performed By: #### F T4 #### [facility] [address] [place] [address] Dr. Tom Altman GLYCOHEMOGLOBIN A1Con 2021 ADA RECOMMENDATION SEE BELOW Normal [facility] Comment on above: Result Comment: ADA RECOMMENDED LIMIT 4.0 - 6.0 ADA THERAPEUTIC TARGET < 7.0 ACTION SUGGESTED > 7.0 Performed By: #### A 1C #### [facility] [address] [place] [address] Dr. Tom Altman Glucose [Mass/Vol] 134 mg/dL Normal [facility] Comment on above: Performed By: #### A 1C #### [facility] [address] [place] [address] Dr. Tom Altman HbA1c (Bld) [Mass fraction] 6.3 % Critically high 4.5-6.2 [facility] Comment on above: Performed By: #### A 1C #### [facility] [address] [place] [address] Dr. Tom Altman LIPID PROFILEon 12-21-2021 CHOL-HDL RATIO NORM SEE BELOW Normal [facility] Comment on above: Result Comment: 3.3 - 4.4 LOW RISK 4.4 - 7.1 AVERAGE RISK 7.1 - 11.0 MODERATE RISK >11.0 HIGH RISK Performed By: #### T SH, LIPID, CMP #### [facility] [address] [place] [address] Dr. Tom Altman Cholesterol [Mass/Vol] 145 mg/dL Normal <=200 [facility] Comment on above: Performed By: #### T SH, LIPID, CMP #### [facility] [address] [place] [address] Dr. Tom Altman Cholesterol in HDL [Mass/Vol] 45 mg/dL Normal 40-60 [facility] Comment on above: Performed By: #### T SH, LIPID, CMP #### [facility] [address] [place] [address] Dr. Tom Altman Cholesterol in LDL [Mass/Vol] 83.0 mg/dL Normal [facility] Comment on above: Performed By: #### T SH, LIPID, CMP #### [facility] [address] [place] [address] Dr. Tom Altman Cholesterol.total/C holesterol in HDL [Mass ratio] 3.2 {ratio} Normal [facility] Comment on above: Performed By: #### T SH, LIPID, CMP #### [facility] [address] [place] [address] Dr. Tom Altman HDL NORMAL > or = 60 mg/dl - LO W CARDIOVASCULAR RISK <40 mg/dl - HIGH CARDIOVASCULAR RISK Normal [facility] Comment on above: Performed By: #### T SH, LIPID, CMP #### [facility] [address] [place] [address] Dr. Tom Altman LDL CALC NORMAL SEE BELOW Normal [facility] Comment on above: Result Comment: <100 mg/dl OPTIMAL 100 - 129 mg/dl NEAR OR ABOVE OPTIMAL 130 - 159 mg/dl BORDERLINE HIGH 160 - 189 mg/dl HIGH >190 mg/dl VERY HIGH Performed By: #### T SH, LIPID, CMP #### [facility] [address] [address] [address] Tom Altman Triglyceride [Mass/Vol] 85 mg/dL Normal <=150 [facility] Comment on above: Performed By: #### T SH, LIPID, CMP #### [facility] [address] [address] [address] Tom Altman VLDL CALC 17.0 mg/dL Normal [facility] Comment on above: Performed By: #### T SH, LIPID, CMP #### [facility] [address] [address] [address] Tom Altman MICROALBUMIN, RAND URon 07-0 mALB <1.3 Normal <=30.0 [facility] Comment on above: Performed By: #### M ALBR #### [facility] [address] [place] [address] Dr. Tom Altman PROF 14(COMP METB)on 022 Albumin [Mass/Vol] 3.7 g/dL Normal 3.4-5.0 [facility] Comment on above: Performed By: #### T SH, LIPID, CMP #### [facility] [address] [place] [address] Dr. Tom Altman Albumin/Globulin [Mass ratio] 1.0 {ratio} Normal [facility] Comment on above: Performed By: #### T SH, LIPID, CMP #### [facility] [address] [place] [address] Dr. Tom Altman ALP [Catalytic activity/Vol] 60 U/L Normal 46-116 [facility] Comment on above: Performed By: #### T SH, LIPID, CMP #### [facility] [address] [address] [address] Tom Altman ALT [Catalytic activity/Vol] 21 U/L Normal 14-59 [facility] Comment on above: Performed By: #### T SH, LIPID, CMP #### [facility] [address] [place] [address] Dr. Tom Altman Anion gap [Moles/Vol] 13.1 mmol/L Normal [facility] Comment on above: Performed By: #### T SH, LIPID, CMP #### [facility] [address] [address] [address] Tom Altman AST [Catalytic activity/Vol] 9 U/L Critically low 15-37 [facility] Comment on above: Performed By: #### T SH, LIPID, CMP #### [facility] [address] [address] [address] Tom Altman Bilirubin [Mass/Vol] 0.4 mg/dL Normal 0.2-1.0 [facility] Comment on above: Performed By: #### T SH, LIPID, CMP #### [facility] [address] [place] [address] Dr. Tom Altman Calcium [Mass/Vol] 9.3 mg/dL Normal 8.5-10.1 [facility] Comment on above: Performed By: #### T SH, LIPID, CMP #### [facility] [address] [place] [address] Dr. Tom Altman Chloride [Moles/Vol] 102 mmol/L Normal 98-107 [facility] Comment on above: Performed By: #### T SH, LIPID, CMP #### [facility] [address] [place] [address] Dr. Tom Altman CO2 [Moles/Vol] 26.9 mmol/L Normal 21.0-32.0 [facility] Comment on above: Performed By: #### T SH, LIPID, CMP #### [facility] [address] [place] [address] Dr. Tom Altman Creatinine [Mass/Vol] 0.78 mg/dL Normal 0.55-1.02 [facility] Comment on above: Performed By: #### T SH, LIPID, CMP #### [facility] [address] [place] [address] Dr. Tom Altman EGFR-AF ICELANDIC >60 Normal >=60 [facility] Comment on above: Performed By: #### T SH, LIPID, CMP #### [facility] [address] [place] [address] Dr. Tom Altman EGFR-NON AF ICELANDIC >60 Normal >=60 [facility] Comment on above: Performed By: #### T SH, LIPID, CMP #### [facility] [address] [address] [address] Tom Altman Globulin (S) [Mass/Vol] 3.8 g/dL Normal [facility] Comment on above: Performed By: #### T SH, LIPID, CMP #### [facility] [address] [place] [address] Dr. Tom Altman Glucose [Mass/Vol] 146 mg/dL Critically high 74-106 [facility] Comment on above: Performed By: #### T PAULIE, LIPID, CMP #### [facility] [address] [place] [address] Dr. Tom Altman Potassium [Moles/Vol] 4.0 mmol/L Normal 3.5-5.1 [facility] Comment on above: Performed By: #### T SH, LIPID, CMP #### [facility] [address] [place] [address] Dr. Tom Altman Protein [Mass/Vol] 7.5 g/dL Normal 6.4-8.[address] [facility] Comment on above: Performed By: #### T PAULIE, LIPID, CMP #### [facility] [address] [place] [address] Dr. Tom Altman Sodium [Moles/Vol] 138 mmol/L Normal 136-[address] [facility] Comment on above: Performed By: #### T SH, LIPID, CMP #### [facility] [address] [place] [address] Dr. Tom Altman Urea nitrogen [Mass/Vol] 9.0 mg/dL Normal 7.0-18.0 [facility] Comment on above: Performed By: #### T SH, LIPID, CMP #### [facility] [address] [place] [address] Dr. Tom Altman Urea nitrogen/Creatinine [Mass ratio] 11.5 mg/mg Normal [facility] Comment on above: Performed By: #### T SH, LIPID, CMP #### [facility] [address] [address] [address] Tom Altman TSHon 12-21-2021 TSH 1.045 uIU/mL Normal 0.358-3.740 [facility] Comment on above: Performed By: #### T SH, LIPID, CMP #### [facility] [address] [address] [address] Tom Altman UA RANDOM W/MICROSCOPICon BACTERIA TRACE Abnormal NONE SEEN [facility] Comment on above: Performed By: #### U AMIC ####[facility] [address] [address]Dr. Tom Altman Bilirubin Ql (U) Negative Normal NEGATIVE [facility] Comment on above: Performed By: #### U AMIC ####[facility] [address] [address]Dr. Tom Altman CAST NONE SEEN Normal NONE SEEN [facility] Comment on above: Performed By: #### U AMIC ####[facility] [id number] [place], [place] [address]Dr. Tom Altman Clarity (U) CLEAR Normal CLEAR [facility] Comment on above: Performed By: #### U AMIC ####[facility] [address] [place], [place] [address]Dr. Tom Altman Color (U) LT. YELLOW Normal YELLOW [facility] Comment on above: Performed By: #### U AMIC ####[facility] [address] [address]Dr. Tom Altman Crystals LM Nom (Urine sed) NONE SEEN Normal NONE SEEN [facility] Comment on above: Performed By: #### U AMIC ####[facility] [address] [address]Dr. Tom Altman Epithelial cells LM Ql (Urine sed) FEW Abnormal NONE SEEN /RARE [facility] Comment on above: Performed By: #### U AMIC ####[facility] [address] [address]Dr. Tom Altman Glucose Ql (U) Negative Normal NEGATIVE [facility] Comment on above: Performed By: #### U AMIC ####[facility] [address] [address]Dr. Tom Altman Hemoglobin Ql (U) Negative Normal NEGATIVE [facility] Comment on above: Performed By: #### U AMIC ####[facility] [address] [address]Dr. Tom Altman Ketones Ql (U) Negative Normal NEGATIVE [facility] Comment on above: Performed By: #### U AMIC ####[facility] [address] [address]Dr. Tom Altman LEUKOCYTES Negative Normal NEGATIVE [facility] Comment on above: Performed By: #### U AMIC ####[facility] [address] [place], [place] [address]Dr. Tom Altman MUCOUS NONE SEEN Normal NONE SEEN [facility] Comment on above: Performed By: #### U AMIC ####[facility] [address] [place], [place] [address]Dr. Tom Altman Nitrite Ql (U) Negative Normal NEGATIVE [facility] Comment on above: Performed By: #### U AMIC ####[facility] [address] [place], [place] [address]Dr. Tom Altman pH (U) 7.0 [pH] Normal 5-9 [facility] Comment on above: Performed By: #### U AMIC ####[facility] [address] [place], [place] [address]Dr. Tom Altman RBC 0-2 Normal 0-2 [facility] Comment on above: Performed By: #### U AMIC ####[facility] [address] [place] [address]Dr. Tom Altman SPEC GRAVITY 1.010 Normal 1.005-<=1.025 The [facility] Comment on above: Performed By: #### U AMIC ####[facility] [address] [place] [address]Dr. Tom Altman UA PROTEIN Negative Normal NEGATIVE/ TRACE [facility] Comment on above: Performed By: #### U AMIC ####[facility] [address] [place], [place] [address]Kv. Tom Altman Urobilinogen Qn (U) 0.2 {Isai'U}/dL Normal 0.2 - 1. 0 [facility] Comment on above: Performed By: #### U AMIC ####[facility] [address] [place], [place] [address]QdJoey Altman WBC 0-2 Abnormal NONE SEEN The [facility] Comment on above: Performed By: #### U AMIC ####[facility] [address] [place], [place] [address]Fm. Tom Altman US ABD AORTA SCREENINGon US [...] by: MARI MONTES Date: 2021-11-01 11:16 Normal [facility] DEXA BONE DENSITY AXIAL SKEL ETONon 09-24-2020 DEXA BONE DENSITY AXIAL SKELETON EXAMINATION: BONE DENSITOMETRY 09/24/2020 10:44 am TECHNIQUE: A bone density dual x-ray absorptiometry (DEXA) scan was performed of the lumbar spine and left hip on a [employer] system. COMPARISON: August 16, 2006. HISTORY: ORDERING [...] Ines Wild MD 09/24/20 Final result Normal [facility] By WHO criteria the patient's bone mineral density is classified as osteoporosis. [facility] [employer] Work Phone: EXAMINATION: BONE DENSITOMETRY 09/24/2020 10:44 am TECHNIQUE: A bone density dual x-ray absorptiometry (DEXA) scan was performed of the lumbar spine and left hip on a [employer] system. COMPARISON: August 16, 2006. HISTORY: ORDERING [...] is 23.5%, and in the hip 9.3%. [employer] Work Phone: Mario Alberto, pn Incoming Radiant Results From [employer] - 09/24/2020 10:52 AM EDT EXAMINATION: BONE DENSITOMETRY 09/24/2020 10:44 am TECHNIQUE: A bone density dual x-ray absorptiometry (DEXA) scan was performed of the lumbar spine and left hip on a [employer] system. COMPARISON: August 16, 2006. HISTORY: ORDERING [...] bone mineral density is classified as osteoporosis. [employer] Phone: [facility] RAFI DIGITAL SCREEN MIKE Cortes 09-24-2020 [facility] RAFI DIGITAL SCREEN BILATERAL EXAMINATION: SCREENING [...] to the patient regarding the results. The [employer] recommends annual mammograms for women 40 years and older. Interpreted by: Ines Wild MD Signed by: Ines Wild MD 09/24/20 Final result Normal [facility] No mammographic evidence of malignancy. BIRADS: BIRADS - CATEGORY 1 Negative, no evidence of malignancy. Normal interval follow-up is recommended in 12 months. OVERALL ASSESSMENT - NEGATIVE A letter of notification will be sent to the patient regarding the results. The [employer] recommends annual mammograms for women 40 years and older. [employer] Phone: EXAMINATION: SCREENI NG DIGITAL BILATERAL MAMMOGRAM [...] suspicious microcalcification, or area of architectural distortion. [employer] Phone: Mario AlbertoValorie Incoming Radiant Results From [employer] - 09/24/2020 11:07 AM EDT EXAMINATION: SCREENING [...] to the patient regarding the results. The [employer] recommends annual mammograms for women 40 years and older. [employer] Phone: XR CHEST (2 VW)on 07-30-2020 XR [...] Adán Vásquez MD 07/30/20 Final result Normal [facility] No evidence for acut e cardiopulmonary pathology. COPD. [employer] Phone: EXAMINATION: TWO XRA Y VIEWS OF [...] structures and soft tissues are grossly intact. [employer] Phone: Mario Alberto, Mhpn Incoming Radiant Results From [employer] - 07/30/2020 1:44 PM EST EXAMINATION: TWO [...] No evidence for acute cardiopulmonary pathology. COPD. [employer] Phone: [id number] 01-30-2020 SARS-CoV-2 Not Detected Normal Not Detected [facility] Comment on above: Result Comment: (NOT E) Testing was performed using the Aptima SARS-CoV-2 assay. This test was developed and its performance characteristics determined by [employer]. This test has not been FDA cleared [...] result in this assay. Performed At: =G [facility] [place] [address] [place] [id number] Linda Avelar MD Ph:[phone] Performed By: #### A COV #### [facility] [address] [place], [place] [id number] [employer]iliary Plant Operator: Jony Trejo MD CBCon 11-21-2019 NRBC Automated NOT REPORTED Normal [facility] Comment on above: Performed By: #### C BC, CP, LIPR, TSH #### [facility] [address] [facility] [place] [address] Auxiliary Plant Operator: Vishal Lorenzo DO Erythrocyte distribution width (RBC) [Ratio] 14.1 % Normal 11.5-14.9 [place], [place] Comment on above: Performed By: #### C BC, CP, LIPR, TSH #### [facility] [address] [facility] [place] [address] A[employer]iliary Plant Operator: Vishal Lorenzo DO Hematocrit (Bld) [Volume fraction] 38.0 % Normal 36-46 [place], [place] Comment on above: Performed By: #### C BC, CP, LIPR, TSH #### [facility] [address] [facility] [place] [address] Auxiliary Plant Operator: Vishal Lorenzo DO Hemoglobin (Bld) [Mass/Vol] 12.3 g/dL Normal 12.0-16.0 [place] Comment on above: Performed By: #### C BC, CP, LIPR, TSH #### [facility] [address] [facility] [place] [address] A[employer]iliary Plant Operator: Vishal Lorenzo DO MCH (RBC) [Entitic mass] 30.0 pg Normal 26-34 [place], [place] Comment on above: Performed By: #### C BC, CP, LIPR, TSH #### [facility] [address] [place] [address] Auxiliary Plant Operator: Vishal Lorenzo DO MCHC (RBC) [Mass/Vol] 32.5 g/dL Normal 31-37 [place] Comment on above: Performed By: #### C BC, CP, LIPR, TSH #### [facility] [address] [place] [address] A[employer]iliary Plant Operator: Vishal Lorenzo DO MCV (RBC) [Entitic vol] 92.1 fL Normal 80-100 [place] Comment on above: Performed By: #### C BC, CP, LIPR, TSH #### [facility] [address] [place] [address] Auxiliary Plant Operator: Vishal Lorenzo DO Platelet mean volume (Bld) [Entitic vol] 8.6 fL Normal 6.0-12.0 [place] Comment on above: Performed By: #### Cj BC, CP, LIPR, TSH #### [facility] [address] [facility] [place] [address] Auxiliary Plant Operator: Vishal Lorenzo DO Platelets (Bld) [#/Vol] 209 10*3/uL Normal 150-450 [place] Comment on above: Performed By: #### C BC, CP, LIPR, TSH #### [facility] [address] [facility] [place] [address] Auxiliary Plant Operator: Vishal Lorenzo DO RBC (Bld) [#/Vol] 4.12 10*6/uL Normal 4.0-5.2 [place] Comment on above: Performed By: #### C BC, CP, LIPR, TSH #### [facility] [address] [place] [address] Auxiliary Plant Operator: Vishal Lorenzo DO WBC (Bld) [#/Vol] 6.0 10*3/uL Normal 3.5-11.0 [place] Comment on above: Performed By: #### C BC, CP, LIPR, TSH #### [facility] [address] [place] [address] A[employer]iliary Plant Operator: Vishal Lorenzo DO WBC (Bld) [#/Vol] NOT REPORTED per 100 WBC [place], [place] CT LUNG SCREENINGon 11-21-19 20 No new or enlarging pulmonary nodule. LUNG RADS: Per ACR Lung-RADS Version 1.0 Category 2, Benign appearance or behavior. Management: Continue annual lung screening with LDCT in 12 months. (probability of malignancy <1%). RECOMMENDATIONS: If you would like to register your patient with the [facility] Lung Nodule/Lung Cancer Screening Program, please contact the Nurse Navigator at [phone]). [place], [place] EXAMINATION: LOW DOS E SCREENING CT [...] surrounding chest wall demonstrate no acute findings. [place], [place] Mario Alberto, Mhpn Incoming Radiant Results From [employer] - 11/21/2019 10:40 AM EDT EXAMINATION: LOW [...] like to register your patient with the [facility] Lung Nodule/Lung Cancer Screening Program, please contact the Nurse Navigator at [phone]). [place], [place] CT LUNG SCREENING (INITIAL/A NNUAL)on 11-21-2019 [...] like to register your patient with the [facility] Lung Nodule/Lung Cancer Screening Program, please contact the Nurse Navigator at [phone]). Interpreted by: Adrián Ladd Jr., DO Signed by: Adrián Ladd Jr., DO 11/21/19 Final result Normal [facility] Comp Metabolic Profon 2019 (cont.) Normal [facility] Comment on above: Result Comment: Aver age GFR for 60-69 years old: 85 mL/min/1.73sq m Chronic Kidney Disease: <60 mL/min/1.73sq m Kidney failure: <15 mL/min/1.73sq m eGFR calculated using average adult body mass. Additional eGFR calculator available at: http://www.[employer].Opsona/multiple_crcl_2011.htm Performed By: #### C BC, CP, LIPR, TSH #### [facility] [address] [facility] [place] [address] A[employer]iliary Plant Operator: Vishal Lorenzo DO Albumin [Mass/Vol] 4.1 g/dL Normal 3.5-5.2 [facility] Comment on above: Performed By: #### C BC, CP, LIPR, TSH #### [facility] [address] [facility] [place] [address] A[employer]iliary Plant Operator: Vishal Lorenzo DO Alkaline Phos 67 U/L Normal 35-104 [facility] Comment on above: Performed By: #### C BC, CP, LIPR, TSH #### [facility] [facility] [place] [address] Auxiliary Plant Operator: Vishal Lorenzo DO ALT [Catalytic activity/Vol] 11 U/L Normal 5-33 [facility] Comment on above: Performed By: #### C BC, CP, LIPR, TSH #### [facility] [facility] [place] [address] [employer]iliary Plant Operator: Vishal Lorenzo DO Anion gap [Moles/Vol] 12 mmol/L Normal 9-17 [facility] Comment on above: Performed By: #### C BC, CP, LIPR, TSH #### [facility] [facility] [place] [address] A[employer]iliary Plant Operator: Vishal Lorenzo DO AST [Catalytic activity/Vol] 9 U/L Normal <32 [facility] Comment on above: Performed By: #### C BC, CP, LIPR, TSH #### [facility] [facility] [place] [address] A[employer]iliary Plant Operator: Vishal Lorenzo DO Bilirubin Ql (U) 0.26 mg/dL Low 0.3-1.2 [facility] Comment on above: Performed By: #### C BC, CP, LIPR, TSH #### [facility] [address] [place] [address] [employer]iliary [employer] Operator: Vishal Lorenzo DO Calcium [Mass/Vol] 9.2 mg/dL Normal 8.6-10.4 [facility] Comment on above: Performed By: #### C BC, CP, LIPR, TSH #### [facility] [address] [place] [address] A[employer]iliary Plant Operator: Vishal Lorenzo DO Chloride [Moles/Vol] 103 mmol/L Normal 98-107 [facility] Comment on above: Performed By: #### C BC, CP, LIPR, TSH #### [facility] [place] [address] A[employer]iliary Plant Operator: Vishal Lorenzo DO CO2 [Moles/Vol] 22 mmol/L Normal 20-31 [facility] Comment on above: Performed By: #### C BC, CP, LIPR, TSH #### [facility] [address] [place] [address] Auxiliary Plant Operator: Vishal Lorenzo DO Creatinine [Mass/Vol] 0.70 mg/dL Normal 0.50-0.90 [facility] Comment on above: Performed By: #### C BC, CP, LIPR, TSH #### [facility] [address] [place] [address] Auxiliary Plant Operator: Vishal Lorenzo DO GFR, Amer >60 Normal >60 [facility] Comment on above: Performed By: #### C BC, CP, LIPR, TSH #### [facility] [address] [place] [address] A[employer]iliary Plant Operator: Vishal Lorenzo DO GFR,non Amer >60 Normal >60 [facility] Comment on above: Performed By: #### C BC, CP, LIPR, TSH #### [facility] [address] [place] [address] A[employer]iliary Plant Operator: Vishal Lorenzo DO Glucose [Mass/Vol] 178 mg/dL High 70-99 [facility] Comment on above: Performed By: #### C BC, CP, LIPR, TSH #### [facility] [address] [place] [address] A[employer]iliary Plant Operator: Vishal Lorenzo DO Potassium [Moles/Vol] 4.1 mmol/L Normal 3.7-5.3 [facility] Comment on above: Performed By: #### C BC, CP, LIPR, TSH #### [facility] [address] [place] [address] Auxiliary Plant Operator: Vishal Lorenzo DO Protein [Mass/Vol] 6.4 g/dL Normal 6.4-8.3 [facility] Comment on above: Performed By: #### C BC, CP, LIPR, TSH #### [facility] [address] [place] [address] Auxiliary Plant Operator: Vishal Lorenzo DO Sodium [Moles/Vol] 137 mmol/L Normal 135-144 [facility] Comment on above: Performed By: #### C BC, CP, LIPR, TSH #### [facility] [address] [place] [address] Auxiliary Plant Operator: Vishal Lorenzo DO Urea nitrogen [Mass/Vol] 13 mg/dL Normal 8-23 [facility] Comment on above: Performed By: #### C BC, CP, LIPR, TSH #### [facility] [address] [place] [address] Auxiliary Plant Operator: Fanelly, Vishal, DO Albumin/Globulin [Mass ratio] NOT REPORTED Normal 1.0-2.5 [facility] Comment on above: Performed By: #### C BC, CP, LIPR, TSH #### [facility] [address] [facility] [place] [address] Auxiliary Plant Operator: Vishal Lorenzo DO BUN/CRE Ratio NOT REPORTED Normal 9-20 [facility] Comment on above: Performed By: #### C BC, CP, LIPR, TSH #### [facility] [address] [facility] [place] [address] Auxiliary Plant Operator: Vishal Lorenzo DO Staging: NOT REPORTED Normal [facility] Comment on above: Performed By: #### C BC, CP, LIPR, TSH #### [facility] [address] [facility] [place] [address] Auxiliary Plant Operator: Vishal Lorenzo DO Comprehensive Metabolic Pane [facility] 11-21-2019 Albumin [Mass/Vol] 4.1 g/dL 3.5 - 5.2 g/dL [place] Albumin/Globulin [Mass ratio] NOT REPORTED [place] ALP [Catalytic activity/Vol] 67 U/L 35 - 104 U/L [place] ALT [Catalytic activity/Vol] 11 U/L 5 - 33 U/L [place] Anion gap [Moles/Vol] 12 mmol/L 9 - 17 mmol/L [place] AST [Catalytic activity/Vol] 9 U/L <32 [place] Bilirubin Ql (U) 0.26 mg/dL Low 0.3 - 1.2 mg/dL [place] Bun/Cre Ratio NOT REPORTED [place], [place] Calcium [Mass/Vol] 9.2 mg/dL 8.6 - 10. 4 mg/dL [place] Chloride [Moles/Vol] 103 mmol/L 98 - 107 mmol/L [place] CO2 [Moles/Vol] 22 mmol/L 20 - 31 mmol/L [place] Creatinine [Mass/Vol] 0.7 mg/dL 0.5 - 0.9 mg/dL [place] GFR >60 >60 mL/min [place] GFR Non- >60 >60 mL/min [place] GFR/1.73 sq M predicted among non-blacks MDRD (S/P/Bld) [Vol rate/Area] [place] Comment on above: Average GFR for 60-6 9 years old: 85 mL/min/1.73sq m Chronic Kidney Disease: <60 mL/min/1.73sq m Kidney failure: <15 mL/min/1.73sq m eGFR calculated using average adult body mass. Additional eGFR calculator available at: http://www.[employer]/multiple_crcl_2012.htm GFR/1.73 sq M predicted among non-blacks MDRD (S/P/Bld) [Vol rate/Area] NOT REPORTED [place] Glucose [Mass/Vol] 178 mg/dL High 70 - 99 mg/dL [place], [place] Interpretation and review of laboratory results Abnormal [place] Potassium [Moles/Vol] 4.1 mmol/L 3.7 - 5.3 mmol/L [place] Protein [Mass/Vol] 6.4 g/dL 6.4 - 8.3 g/dL [place] Sodium [Moles/Vol] 137 mmol/L 135 - 144 mmol/L [place] Urea nitrogen [Mass/Vol] 13 mg/dL 8 - 23 mg/dL [place] Lipid Panelon 11-21-2019 Cholesterol [Mass/Vol] 122 mg/dL <200 [place] Comment on above: Cholesterol Guidelines: <200 Desirable 200-240 Borderline >240 Undesirable Cholesterol in HDL [Mass/Vol] 49 mg/dL >40 [place] Comment on above: HDL Guidelines: <40 Undesirable 40-59 Borderline >59 Desirable Cholesterol in LDL [Mass/Vol] 60 mg/dL 0 - 130 mg/dL [place] Comment on above: LDL Guidelines: <100 Desirable 100-129 Near to/above Desirable 130-159 Borderline >159 Undesirable Direct (measured) LDL and calculated LDL are not interchangeable tests. Cholesterol in VLDL [Mass/Vol] NOT REPORTED 1 - 30 mg/dL [place] Cholesterol.total/C holesterol in HDL [Mass ratio] 2.5 {ratio} <5 [place] Triglyceride [Mass/Vol] 65 mg/dL <150 [place] Comment on above: Triglyceride Guidelines: <150 Desirable 150-199 Borderline 200-499 High >499 Very high Based on AHA Guidelines for fasting triglyceride, March 2012. Lipid Profileon 11-21-2019 Cholesterol [Mass/Vol] 122 mg/dL Normal <200 [facility] Comment on above: Result Comment: Cholesterol Guidelines: <200 Desirable 200-240 Borderline >240 Undesirable Performed By: #### C BC, CP, LIPR, TSH #### [facility] [address] [place], [place] [id number] A[employer]iliary Plant Operator: Vishal Lorenzo DO Cholesterol in HDL [Mass/Vol] 49 mg/dL Normal >40 [facility] Comment on above: Result Comment: HDL Guidelines: <40 Undesirable 40-59 Borderline >59 Desirable Performed By: #### C BC, CP, LIPR, TSH #### [facility] [address] [place] [address] Auxiliary Plant Operator: Vishal Lorenzo DO Cholesterol in LDL [Mass/Vol] 60 mg/dL Normal 0-130 [facility] Comment on above: Result Comment: LDL Guidelines: <100 Desirable 100-129 Near to/above Desirable 130-159 Borderline >159 Undesirable Direct (measured) LDL and calculated LDL are not interchangeable tests. Performed By: #### C BC, CP, LIPR, TSH #### [facility] [address] [place] [address] Auxiliary Plant Operator: Vishal Lorenzo DO Cholesterol.total/C holesterol in HDL [Mass ratio] 2.5 {ratio} Normal <5 [facility] Comment on above: Performed By: #### C BC, CP, LIPR, TSH #### [facility] [address] [facility] [place] [address] Auxiliary Plant Operator: Vishal Lorenzo DO Triglyceride [Mass/Vol] 65 mg/dL Normal <150 [facility] Comment on above: Result Comment: Triglyceride Guidelines: <150 Desirable 150-199 Borderline 200-499 High >499 Very high Based on AHA Guidelines for fasting triglyceride, March 2012. Performed By: #### C BC, CP, LIPR, TSH #### [facility] [address] [facility] [place] [address] Auxiliary Plant Operator: Vishal Lorenzo DO Cholesterol in VLDL [Mass/Vol] NOT REPORTED Normal 07-18 [facility] Comment on above: Performed By: #### C BC, CP, LIPR, TSH #### [facility] [address] [facility] [place] [address] Auxiliary Plant Operator: Vishal Lorenzo DO TSH without Reflexon 020 TSH Qn 0.95 m[IU]/L [place], [place] Thyroid Stim. Horm.on 2019 TSH Qn 0.95 m[IU]/L Normal 0.30-5.00 [facility] Comment on above: Performed By: #### C BC, CP, LIPR, TSH #### [facility] [address] [facility] [place] [address] Auxiliary Plant Operator: Vishal Lorenzo DO Lipid, Fastingon 02-28-2019 Cholesterol [Mass/Vol] 111 mg/dL <200 [place] Comment on above: Cholesterol Guidelines: <200 Desirable 200-240 Borderline >240 Undesirable Cholesterol in HDL [Mass/Vol] 43 mg/dL >40 [place] Comment on above: HDL Guidelines: <40 Undesirable 40-59 Borderline >59 Desirable Cholesterol in LDL [Mass/Vol] 48 mg/dL 0 - 130 mg/dL [place] Comment on above: LDL Guidelines: <100 Desirable 100-129 Near to/above Desirable 130-159 Borderline >159 Undesirable Direct (measured) LDL and calculated LDL are not interchangeable tests. Cholesterol in VLDL [Mass/Vol] NOT REPORTED 1 - 30 mg/dL [place] Cholesterol.total/C holesterol in HDL [Mass ratio] 2.6 {ratio} <5 [place] Triglyceride, Fasting 102 mg/dL <150 [place] Comment on above: Triglyceride Guidelines: <150 Desirable 150-199 Borderline 200-499 High >499 Very high Based on AHA Guidelines for fasting triglyceride, March 2012. Microalbumin, Uron 9 Albumin/Creatinine DL <= 20 mg/L (24H U) [Mass ratio] <12 <21 mg/L [place] Albumin/Creatinine DL <= 20 mg/L (U) [Ratio] CANNOT BE CALCULATED <25 mcg/mg creat [place] Creatinine [Mass/Vol] 109.5 mg/dL 28 - 217 mg/dL [place] HIP LEFT 1 OR 2 VWS WITH PEL VISon 04-19-2018 HIP LEFT 1 OR 2 VWS [facility] PELVIS [facility] [place] [address] =====Patient Name: PRIYANKA NICHOLAS : 1955Sex: FAge: Race: WhiteMRN: [id number]. Location: Patient Status: OVisit #: [id number] Date: 04/19/2018 3:55:00 PMCompleted Date: 04/19/2018 03:57 PMRequesting Provider: ANT FREITAS Attending Provider: ANT FREITAS Report Copy To: UNKNOWN, PHYSICIAN Signs & Symptoms: Z47.1 Aftercare following joint replacement surgery [id number]: AthenaComments: , , , Ordering Provider - ANT FREITAS MD , Exam: HIP LEFT 1 OR 2 VWS WITH PELVISAccession #: [id number] HIP LEFT 1 OR 2 VWS WITH [...] satisfactory alignment with proximal femoral cerclage wireRight burns paiute hip with minor arthritis IMPRESSION: Healing left total hip in good alignment Electronically signed by:Aleida Ferro. Transcribed by: [email or web address], User Resident: Electronically Signed by: ALEIDA FERRO @ 04/19/2018 04:08 PM Normal [facility] Comment on above: Order Comment: , , = ========= , Ordering Provider - ANT FREITAS MD , BASIC METABOLIC PANELon 10- Calcium mass conc 8.4 mg/dL Low 8.6-10.3 [facility] Comment on above: Order Comment: No: D o not add to previous draw Performed By: #### 0 0071 ####[facility] [facility] [place] [address], [facility] Chloride molar conc 105 mmol/L Normal 98-[address] [facility] Comment on above: Order Comment: No: D o not add to previous draw Performed By: #### 0 0071 ####[facility] [place] [address], [facility] CO2 molar conc 27 mmol/L Normal 21-31 [facility] Comment on above: Order Comment: No: D o not add to previous draw Performed By: #### 0 0071 ####[facility] [facility] [place] [address], [facility] Creatinine mass conc 0.51 mg/dL Low 0.60-1.20 [facility] Comment on above: Order Comment: No: D o not add to previous draw Performed By: #### 0 0071 ####[facility] [facility] [place] [address], [facility] GFR/1.73 sq M predicted among blacks MDRD vol rate/area (S/P/Bld) mL/min/{1.73_m2} Normal >60 [facility] Comment on above: Order Comment: No: D o not add to previous draw Performed By: #### 0 0071 ####[facility] [facility] [place] [address], [facility] GFR/1.73 sq M predicted among non-blacks MDRD vol rate/area (S/P/Bld) mL/min/{1.73_m2} Normal >60 [facility] Comment on above: Order Comment: No: D o not add to previous draw Performed By: #### 0 0071 ####[facility] [facility] [place] [address], [facility] Glucose mass conc 157 mg/dL High 70-100 [facility] Comment on above: Order Comment: No: D o not add to previous draw Performed By: #### 0 0071 ####[facility] [facility] [place] [address], [facility] Potassium molar conc 3.7 mmol/L Normal 3.5-5.1 [facility] Comment on above: Order Comment: No: D o not add to previous draw Performed By: #### 0 0071 ####[facility] Sodium molar conc 136 mmol/L Normal 136-145 [facility] Comment on above: Order Comment: No: D o not add to previous draw Performed By: #### 0 0071 ####[facility] [place] [address], [facility] Urea nitrogen mass conc 10 mg/dL Normal 7-25 [facility] Comment on above: Order Comment: No: D o not add to previous draw Performed By: #### 0 0071 ####[facility] [facility] CBC COMPLETE BLOOD COUNTon Erythrocyte distribution width Auto Ratio (RBC) 15.8 % High 11.5-15.0 [facility] Comment on above: Order Comment: No: D o not add to previous draw Performed By: #### 5 6101 ####[facility] Hematocrit Auto Volume Fraction (Bld) 26.8 % Low 36.0-45.0 [facility] Comment on above: Order Comment: No: D o not add to previous draw Performed By: #### 5 6101 ####[facility] [facility] [place] [address], [facility] Hemoglobin mass conc (Bld) 8.9 g/dL Low 12.0-15.0 [facility] Comment on above: Order Comment: No: D o not add to previous draw Performed By: #### 5 6101 ####[facility] [place] [address], [facility] MCH Auto Entitic mass (RBC) 29.6 pg Normal 27.0-33.0 [facility] Comment on above: Order Comment: No: D o not add to previous draw Performed By: #### 5 6101 ####[facility] MCHC Auto mass conc (RBC) 33.2 g/dL Normal 32.0-35.0 [facility] Comment on above: Order Comment: No: D o not add to previous draw Performed By: #### 5 6101 ####[facility]3000 [facility].[address] MCV Auto Entitic volume (RBC) 89.0 fL Normal 82.0-98.0 [facility] Comment on above: Order Comment: No: D o not add to previous draw Performed By: #### 5 6101 ####[place] [id number] Nucleated RBC/100 WBC Ratio (Bld) 0 % Normal 0-0 [facility] Comment on above: Order Comment: No: D o not add to previous draw Performed By: #### 5 6101 ####[place] [id number] [facility].[address] PLAT CNT 161 10*3/uL Normal 150-400 The [place] Comment on above: Order Comment: No: D o not add to previous draw Performed By: #### 5 6101 ####[place] [id number] [facility].[address] RBC Auto #/vol (Bld) 3.01 10*6/uL Low 3.80-5.00 [facility] Comment on above: Order Comment: No: D o not add to previous draw Performed By: #### 5 6101 ####[facility]3000 [facility].[address] WBC Auto #/vol (Bld) 6.77 10*3/uL Normal 4.00-10.60 [facility] Comment on above: Order Comment: No: D o not add to previous draw Performed By: #### 5 6101 ####[facility] [place] [address], [facility] HEMOGLOBINon 04-05-2018 Hemoglobin mass conc (Bld) 8.4 g/dL Low 12.0-15.0 [facility] Comment on above: Order Comment: No: D o not add to previous draw Performed By: #### 9 2089 ####[facility] [place] [address], [facility] POC GLUCOSE LABon 04-05-2018 Glucose mass conc 192 mg/dL High 70-100 [facility] Comment on above: Performed By: #### 8 5499 ####[facility] [place] [address], [facility] Glucose mass conc 146 mg/dL High 70-100 [facility] Comment on above: Performed By: #### 8 5499 ####[facility] [place] [address], [facility] BASIC METABOLIC PANELon 03-19 Calcium mass conc 8.2 mg/dL Low 8.6-10.3 [facility] Comment on above: Order Comment: No: D o not add to previous draw Performed By: #### 6 2586 ####[facility] [place] [address], [facility] Chloride molar conc 106 mmol/L Normal 98-[address] [facility] Comment on above: Order Comment: No: D o not add to previous draw Performed By: #### 6 2586 ####[facility] [place] [address], [place] CO2 molar conc 25 mmol/L Normal 21-31 [facility] Comment on above: Order Comment: No: D o not add to previous draw Performed By: #### 6 2586 ####[facility] [place] [address], [facility] Creatinine mass conc 0.53 mg/dL Low 0.60-1.20 [facility] Comment on above: Order Comment: No: D o not add to previous draw Performed By: #### 6 2586 ####[facility] [place] [address], [facility] GFR/1.73 sq M predicted among blacks MDRD vol rate/area (S/P/Bld) mL/min/{1.73_m2} Normal >60 [facility] Comment on above: Order Comment: No: D o not add to previous draw Performed By: #### 6 2586 ####[facility] [place] [address], [facility] GFR/1.73 sq M predicted among non-blacks MDRD vol rate/area (S/P/Bld) mL/min/{1.73_m2} Normal >60 [facility] Comment on above: Order Comment: No: D o not add to previous draw Performed By: #### 6 2586 ####[facility] [place] [address], [facility] Glucose mass conc 180 mg/dL High 70-100 [facility] Comment on above: Order Comment: No: D o not add to previous draw Performed By: #### 6 2586 ####[facility] [place] [address], [facility] Potassium molar conc 3.6 mmol/L Normal 3.5-5.1 [facility] Comment on above: Order Comment: No: D o not add to previous draw Performed By: #### 6 2586 ####[facility] [place] [address], [place] Sodium molar conc 134 mmol/L Low 136-145 [facility] Comment on above: Order Comment: No: D o not add to previous draw Performed By: #### 6 2586 ####[facility] [place] [address], [place] Urea nitrogen mass conc 11 mg/dL Normal 7-25 [facility] Comment on above: Order Comment: No: D o not add to previous draw Performed By: #### 6 2586 ####[facility] CBC COMPLETE BLOOD COUNTon Erythrocyte distribution width Auto Ratio (RBC) 13.8 % Normal 11.5-15.0 [facility] Comment on above: Order Comment: No: D o not add to previous draw Performed By: #### 6 2586 ####[facility] Hematocrit Auto Volume Fraction (Bld) 20.1 % Low 36.0-45.0 [facility] Comment on above: Order Comment: No: D o not add to previous draw Performed By: #### 6 2586 ####[facility]3000 [facility].[address] Hemoglobin mass conc (Bld) 6.6 g/dL Low 12.0-15.0 [facility] Comment on above: Order Comment: No: D o not add to previous draw Performed By: #### 6 2586 ####[facility]3000 [facility].[address] MCH Auto Entitic mass (RBC) 30.6 pg Normal 27.0-33.0 [facility] Comment on above: Order Comment: No: D o not add to previous draw Performed By: #### 6 2586 ####[facility]3000 [facility].[address] MCHC Auto mass conc (RBC) 32.8 g/dL Normal 32.0-35.0 [facility] Comment on above: Order Comment: No: D o not add to previous draw Performed By: #### 6 2586 ####[facility] [place] [address].[address] MCV Auto Entitic volume (RBC) 93.1 fL Normal 82.0-98.0 [facility] Comment on above: Order Comment: No: D o not add to previous draw Performed By: #### 6 2586 ####[facility] Nucleated RBC/100 WBC Ratio (Bld) 0 % Normal 0-0 [facility] Comment on above: Order Comment: No: D o not add to previous draw Performed By: #### 6 2586 ####[facility] [place] [address], [facility] PLAT CNT 151 10*3/uL Normal 150-400 [facility] [place] Comment on above: Order Comment: No: D o not add to previous draw Performed By: #### 6 2586 ####[facility] [facility].[address] RBC Auto #/vol (Bld) 2.16 10*6/uL Low 3.80-5.00 [facility] Comment on above: Order Comment: No: D o not add to previous draw Performed By: #### 6 2586 ####[facility] [place] [address], [facility] WBC Auto #/vol (Bld) 6.41 10*3/uL Normal 4.00-10.60 [facility] Comment on above: Order Comment: No: D o not add to previous draw Performed By: #### 6 2586 ####[facility] HEMATOCRITon 04-04-2018 Hematocrit Auto Volume Fraction (Bld) 26.2 % Low 36.0-45.0 [facility] Comment on above: Order Comment: No: D o not add to previous draw Performed By: #### 5 6101 ####[facility] [place] [address], [facility] HEMOGLOBINon 04-04-2018 Hemoglobin mass conc (Bld) 8.8 g/dL Low 12.0-15.0 [facility] Comment on above: Order Comment: No: D o not add to previous draw Performed By: #### 5 6101 ####[facility] [place] [address], [facility] Hemoglobin mass conc (Bld) 8.7 g/dL Low 12.0-15.0 [facility] Comment on above: Order Comment: No: D o not add to previous draw Performed By: #### 5 6101 ####[facility] [place] [address], [facility] POC GLUCOSE LABon 04-04-2018 Glucose mass conc 168 mg/dL High 70-100 [facility] Comment on above: Performed By: #### 5 6101 ####[facility] [place] [address], [facility] Glucose mass conc 197 mg/dL High 70-100 [facility] Comment on above: Performed By: #### 5 6101 ####[facility] [facility] [place] [address], [facility] Glucose mass conc 182 mg/dL High 70-100 [facility] Comment on above: Performed By: #### 5 6101 ####[facility] [place] [address], [facility] Glucose mass conc 164 mg/dL High 70-100 [facility] Comment on above: Performed By: #### 5 6101 ####[facility] [place] [address], [facility] RBC'S 2 UNITSon 04-04-2018 CROSSMATCH INTERP 1 COMP Normal The [facility] Comment on above: Order Comment: No: D o not add to previous draw Performed By: #### 5 6101 ####[facility] CROSSMATCH INTERP 2 COMP Normal The [facility] Comment on above: Order Comment: No: D o not add to previous draw Performed By: #### 5 6101 ####[facility] Protein mass conc PT Normal [facility] Comment on above: Order Comment: No: D o not add to previous draw Result Comment: Resu lt changed by IF on 04/04/2018 15:08. The previous value was XM.Result changed by IF on 04/05/2018 00:30. The previous value was IS. Performed By: #### 5 6101 ####[facility]3000 [facility].[address] Result Comment: Resu lt changed by IF on 04/04/2018 12:20. The previous value was XM.Result changed by IF on 04/05/2018 00:30. The previous value was IS. Protein mass conc 336 g/dL Normal [facility] Comment on above: Order Comment: No: D o not add to previous draw Performed By: #### 5 6101 ####[facility]3000 [facility].[address] UNIT ABO 1 A Normal [facility] Comment on above: Order Comment: No: D o not add to previous draw Performed By: #### 5 6101 ####[facility] UNIT ABO 2 A Normal [facility] Comment on above: Order Comment: No: D o not add to previous draw Performed By: #### 5 6101 ####[facility] UNIT ID 1 [id number] Normal The [facility] Comment on above: Order Comment: No: D o not add to previous draw Performed By: #### 5 6101 ####[facility] UNIT ID 2 [id number] Normal [facility] Comment on above: Order Comment: No: D o not add to previous draw Performed By: #### 5 6101 ####[facility] [place] [address], [facility] UNIT RH 1 Positive Normal [facility] Comment on above: Order Comment: No: D o not add to previous draw Performed By: #### 5 6101 ####[facility] [place] [address], [facility] UNIT RH 2 Positive Normal [facility] Comment on above: Order Comment: No: D o not add to previous draw Performed By: #### 5 6101 ####[facility] TYPE AND SCREENon 04-04-2018 ABO INTERPRETATION A Normal The [facility] Comment on above: Performed By: #### 5 6101 ####[facility] RH INTERPRETATION Positive Normal [facility] Comment on above: Performed By: #### 5 6101 ####[facility] BASIC METABOLIC PANELon 03-19 Calcium mass conc 8.2 mg/dL Low 8.6-10.3 [facility] Comment on above: Order Comment: No: D o not add to previous draw Performed By: #### 6 2586 ####[facility] Chloride molar conc 107 mmol/L Normal 98-107 [facility] Comment on above: Order Comment: No: D o not add to previous draw Performed By: #### 6 4946 ####[facility] [facility] [place] [address], [facility] CO2 molar conc 23 mmol/L Normal 21-31 [facility] Comment on above: Order Comment: No: D o not add to previous draw Performed By: #### 6 2586 ####[facility] [facility] [place] [address], [facility] Creatinine mass conc 0.54 mg/dL Low 0.60-1.20 [facility] Comment on above: Order Comment: No: D o not add to previous draw Performed By: #### 6 2586 ####[facility]3000 [facility] [place] [address], [facility] GFR/1.73 sq M predicted among blacks MDRD vol rate/area (S/P/Bld) mL/min/{1.73_m2} Normal >60 [facility] Comment on above: Order Comment: No: D o not add to previous draw Performed By: #### 6 2586 ####[facility] [facility] [place] [address], [facility] GFR/1.73 sq M predicted among non-blacks MDRD vol rate/area (S/P/Bld) mL/min/{1.73_m2} Normal >60 [facility] Comment on above: Order Comment: No: D o not add to previous draw Performed By: #### 6 2586 ####[facility] [facility] [place] [address], [facility] Glucose mass conc 156 mg/dL High 70-100 [facility] Comment on above: Order Comment: No: D o not add to previous draw Performed By: #### 6 2586 ####[facility] [facility] [place] [address], [facility] Potassium molar conc 4.4 mmol/L Normal 3.5-5.1 [facility] Comment on above: Order Comment: No: D o not add to previous draw Performed By: #### 6 2586 ####[facility]3000 [facility].[address] Sodium molar conc 136 mmol/L Normal 136-145 [facility] Comment on above: Order Comment: No: D o not add to previous draw Performed By: #### 6 2586 ####[facility] Urea nitrogen mass conc 10 mg/dL Normal 7-25 [facility] Comment on above: Order Comment: No: D o not add to previous draw Performed By: #### 6 2586 ####[facility] CBC COMPLETE BLOOD COUNTon Erythrocyte distribution width Auto Ratio (RBC) 13.6 % Normal 11.5-15.0 [facility] Comment on above: Order Comment: No: D o not add to previous draw Performed By: #### 6 2586 ####[facility] Hematocrit Auto Volume Fraction (Bld) 26.3 % Low 36.0-45.0 [facility] Comment on above: Order Comment: No: D o not add to previous draw Performed By: #### 6 2586 ####[facility] Hemoglobin mass conc (Bld) 8.4 g/dL Low 12.0-15.0 [facility] Comment on above: Order Comment: No: D o not add to previous draw Performed By: #### 6 2586 ####[facility]3000 [facility].[address] MCH Auto Entitic mass (RBC) 30.1 pg Normal 27.0-33.0 [facility] Comment on above: Order Comment: No: D o not add to previous draw Performed By: #### 6 2586 ####[facility] MCHC Auto mass conc (RBC) 31.9 g/dL Low 32.0-35.0 [facility] Comment on above: Order Comment: No: D o not add to previous draw Performed By: #### 6 2586 ####[facility]3000 [facility].[address] MCV Auto Entitic volume (RBC) 94.3 fL Normal 82.0-98.0 [facility] Comment on above: Order Comment: No: D o not add to previous draw Performed By: #### 6 2586 ####[facility]3000 [facility].[address] Nucleated RBC/100 WBC Ratio (Bld) 0 % Normal 0-0 [facility] Comment on above: Order Comment: No: D o not add to previous draw Performed By: #### 6 2586 ####[facility]3000 [facility].[address] PLAT CNT 157 10*3/uL Normal 150-400 The [place] Comment on above: Order Comment: No: D o not add to previous draw Performed By: #### 6 2586 ####[address] RBC Auto #/vol (Bld) 2.79 10*6/uL Low 3.80-5.00 [facility] Comment on above: Order Comment: No: D o not add to previous draw Performed By: #### 6 2586 ####[facility] [facility] [place] [address], [facility] WBC Auto #/vol (Bld) 8.07 10*3/uL Normal 4.00-10.60 [facility] Comment on above: Order Comment: No: D o not add to previous draw Performed By: #### 6 2586 ####[facility] Operative Reporton 04-03-201 8 Operative Report MR#: [id number] [facility] Pt. Name: Priyanka Nicholas Room #: [id number] Discharge Date: Birthdate: 1955 OPERATIVE REPORTDATE OF [...] 08:36 P Ant Freitas M.D.Date Dict: 04/03/2018/09:13 Bryan Freitas M.D.Date Trans: 04/03/2018 11:57 [id number] Normal [facility] POC GLUCOSE LABon 04-03-2018 Glucose mass conc 204 mg/dL High 70-100 [facility] Comment on above: Performed By: #### 6 2586 ####[facility] [facility] [place] [address], [facility] Glucose mass conc 179 mg/dL High 70-100 [facility] Comment on above: Performed By: #### 6 2586 ####[facility] [facility] [place] [address], [facility] Glucose mass conc 243 mg/dL High 70-100 [facility] Comment on above: Performed By: #### 6 2586 ####[facility] [facility] [place] [address], [facility] Glucose mass conc 158 mg/dL High 70-100 [facility] Comment on above: Performed By: #### 6 2586 ####[facility] [facility] [place] [address], [facility] BASIC METABOLIC PANELon 03-19 Calcium mass conc 8.8 mg/dL Normal 8.6-10.3 [facility] Comment on above: Order Comment: No: D o not add to previous draw Performed By: #### 0 0071 ####[facility] [place] [address], [facility] Chloride molar conc 101 mmol/L Normal 98-[address] [facility] Comment on above: Order Comment: No: D o not add to previous draw Performed By: #### 0 0071 ####[facility] [facility] [place] [address], [facility] CO2 molar conc 23 mmol/L Normal 21-31 [facility] Comment on above: Order Comment: No: D o not add to previous draw Performed By: #### 0 0071 ####[facility] [facility] [place] [address], [facility] Creatinine mass conc 0.60 mg/dL Normal 0.60-1.20 [facility] Comment on above: Order Comment: No: D o not add to previous draw Performed By: #### 0 0071 ####[facility] [facility] [place] [address], [facility] GFR/1.73 sq M predicted among blacks MDRD vol rate/area (S/P/Bld) mL/min/{1.73_m2} Normal >60 [facility] Comment on above: Order Comment: No: D o not add to previous draw Performed By: #### 0 0071 ####[facility] [facility] [place] [address], [facility] GFR/1.73 sq M predicted among non-blacks MDRD vol rate/area (S/P/Bld) mL/min/{1.73_m2} Normal >60 [facility] Comment on above: Order Comment: No: D o not add to previous draw Performed By: #### 0 0071 ####[facility] [facility] [place] [address], [facility] Glucose mass conc 139 mg/dL High 70-100 [facility] Comment on above: Order Comment: No: D o not add to previous draw Performed By: #### 0 0071 ####[facility] [place] [address], [facility] Potassium molar conc 3.9 mmol/L Normal 3.5-5.1 [facility] Comment on above: Order Comment: No: D o not add to previous draw Performed By: #### 0 0071 ####[facility] Sodium molar conc 129 mmol/L Low 136-145 [facility] Comment on above: Order Comment: No: D o not add to previous draw Performed By: #### 0 0071 ####[facility] Urea nitrogen mass conc 8 mg/dL Normal 7-25 [facility] Comment on above: Order Comment: No: D o not add to previous draw Performed By: #### 0 0071 ####[facility] CBC W/DIFFon 04-02-2018 ABS BASOPHILS 0.0 10*3/uL Normal 0.0-0.2 [facility] Comment on above: Order Comment: No: D o not add to previous draw Performed By: #### 0 0071 ####[facility] ABS IMM GRANS 0.0 10*3/uL Normal 0.0-0.2 [facility] Comment on above: Order Comment: No: D o not add to previous draw Performed By: #### 0 0071 ####[facility] ABS NEUTROPHILS 7.5 10*3/uL Normal 1.6-7.6 [facility] Comment on above: Order Comment: No: D o not add to previous draw Performed By: #### 0 0071 ####[facility] Basophils Auto #/vol (Bld) 0.4 % Normal 0.0-1.0 [facility] Comment on above: Order Comment: No: D o not add to previous draw Performed By: #### 0 0071 ####[facility]3000 [facility].[address] Eosinophils Auto #/vol (Bld) 0.2 10*3/uL Normal 0.0-0.5 [facility] Comment on above: Order Comment: No: D o not add to previous draw Performed By: #### 0 0071 ####[facility] Eosinophils/100 WBC Auto (Bld) 2.3 % Normal 0.0-6.0 [facility] Comment on above: Order Comment: No: D o not add to previous draw Performed By: #### 0 0071 ####[facility] Erythrocyte distribution width Auto Ratio (RBC) 13.6 % Normal 11.5-15.0 [facility] Comment on above: Order Comment: No: D o not add to previous draw Performed By: #### 0 0071 ####[place] [id number] [address] Hematocrit Auto Volume Fraction (Bld) 36.7 % Normal 36.0-45.0 [facility] Comment on above: Order Comment: No: D o not add to previous draw Performed By: #### 0 0071 ####[facility] Hemoglobin mass conc (Bld) 11.9 g/dL Low 12.0-15.0 [facility] Comment on above: Order Comment: No: D o not add to previous draw Performed By: #### 0 0071 ####[facility] [place] [address] IMMATURE GRANS 0.4 % Normal 0.0-1.0 The Camila barrient[facility] Comment on above: Order Comment: No: D o not add to previous draw Performed By: #### 0 0071 ####[facility] Lymphocytes Auto #/vol (Bld) 0.8 10*3/uL Low 1.2-4.0 [facility] Comment on above: Order Comment: No: D o not add to previous draw Performed By: #### 0 0071 ####[facility] Lymphocytes/100 WBC Auto (Bld) 8.5 % Low 20.0-45.0 [facility] Comment on above: Order Comment: No: D o not add to previous draw Performed By: #### 0 0071 ####[facility] MCH Auto Entitic mass (RBC) 30.4 pg Normal 27.0-33.0 [facility] Comment on above: Order Comment: No: D o not add to previous draw Performed By: #### 0 0071 ####[facility] MCHC Auto mass conc (RBC) 32.4 g/dL Normal 32.0-35.0 [facility] Comment on above: Order Comment: No: D o not add to previous draw Performed By: #### 0 0071 ####[facility] MCV Auto Entitic volume (RBC) 93.9 fL Normal 82.0-98.0 [facility] Comment on above: Order Comment: No: D o not add to previous draw Performed By: #### 0 0071 ####[facility] [place] [address] Monocytes Auto #/vol (Bld) 0.4 10*3/uL Normal 0.1-1.0 [facility] Comment on above: Order Comment: No: D o not add to previous draw Performed By: #### 0 0071 ####[facility]3000 [facility].[address] MONOS 4.3 % Low 5.0-12.0 [facility] Comment on above: Order Comment: No: D o not add to previous draw Performed By: #### 0 0071 ####[facility]3000 [facility].[address] Neutrophils/100 WBC Auto (Bld) 84.1 % High 40.0-72.0 [facility] Comment on above: Order Comment: No: D o not add to previous draw Performed By: #### 0 0071 ####[facility]3000 [facility].[address] Nucleated RBC/100 WBC Ratio (Bld) 0 % Normal 0-0 [facility] Comment on above: Order Comment: No: D o not add to previous draw Performed By: #### 0 0071 ####[facility]3000 [facility].[address] PLAT CNT 153 10*3/uL Normal 150-400 The [place] Comment on above: Order Comment: No: D o not add to previous draw Performed By: #### 0 0071 ####[facility]3000 [facility].[address] RBC Auto #/vol (Bld) 3.91 10*6/uL Normal 3.80-5.00 [facility] Comment on above: Order Comment: No: D o not add to previous draw Performed By: #### 0 0071 ####[facility]3000 [facility].[address] WBC Auto #/vol (Bld) 8.98 10*3/uL Normal 4.00-10.60 [facility] Comment on above: Order Comment: No: D o not add to previous draw Performed By: #### 0 0071 ####[facility] HIP LEFT 1 OR 2 VWS WITH PEL VISon 04-02-2018 HIP LEFT 1 OR 2 VWS WITH PELVIS [facility] [address]jwb[address] [place] [address] =====Patient Name: PRIYANKA NICHOLAS : 1955Sex: FAge: Race: WhiteMRN: [id number]. Location: [id number] Status: IVisit #: [id number] Date: 04/02/2018 7:35:00 AMCompleted Date: 04/02/2018 05:03 PMRequesting Provider: ANT FREITAS Attending Provider: MARILYN LAGUNAS Report Copy To: Signs & Symptoms: left total hip anterior with GehlingHistory: left total hip anterior with GehlingComments: left total hip anterior with GehlingExam: HIP LEFT 1 OR 2 VWS WITH PELVISAccession #: [id number] HIP LEFT 1 OR 2 VWS WITH [...] only Electronically signed by:Nayely Locke. Transcribed by: [id number], User Resident: Electronically Signed by: NAYELY LOCKE @ 04/03/2018 09:50 AM Normal [facility] Comment on above: Order Comment: left total hip anterior with Gehling POC GLUCOSE LABon 04-02-2018 Glucose mass conc 214 mg/dL High 70-100 [facility] Comment on above: Performed By: #### 6 2586 ####[facility]3000 [facility] [place] [address], [facility] Glucose mass conc 151 mg/dL High 70-100 [facility] Comment on above: Performed By: #### 0 0071 ####[facility]3000 [facility] [place] [address], [facility] Glucose mass conc 153 mg/dL High 70-100 [facility] Comment on above: Performed By: #### 0 0071 ####[facility]3000 [facility] [place] [address], [facility] Glucose mass conc 148 mg/dL High 70-100 [facility] Comment on above: Performed By: #### 0 0071 ####[facility]3000 [facility] [place] [address], [facility] PORTABLE HIP LEFT 1 OR 2 VWS WITH PELVISon 04-02-2018 PORTABLE HIP LEFT 1 OR 2 VWS WITH PELVIS [facility] [address] [place] [id number] =====Patient Name: PRIYANKA NICHOLAS : 1955Sex: FAge: Race: WhiteMRN: [id number]. Location: [id number] Status: IVisit #: [id number] Date: 04/02/2018 4:45:00 PMCompleted Date: 04/02/2018 05:57 PMRequesting Provider: LEXI BARRAGAN Attending Provider: MARILYN LAGUNAS Report Copy To: Signs & Symptoms: Pain ( specify Location)History: Patient history not availableComments: Hardware Evaluation, Post op PACU xrayExam: PORTABLE HIP LEFT 1 OR 2 VWS WITH PELVISAccession #: [id number] PORTABLE HIP LEFT 1 OR 2 VWS [...] loosening. Electronically signed by:Nayely Locke. Transcribed by: [email or web address], User Resident: Electronically Signed by: NAYELY LOCKE @ 04/02/2018 06:42 PM Normal [facility] Comment on above: Order Comment: No: D o not add to previous draw BASIC METABOLIC PANELon 03-19 Calcium mass conc 8.6 mg/dL Normal 8.6-10.3 [facility] Comment on above: Order Comment: No: D o not add to previous draw Performed By: #### 0 0071 ####[facility] [address], [facility] Chloride molar conc 102 mmol/L Normal 98-[address] [facility] Comment on above: Order Comment: No: D o not add to previous draw Performed By: #### 0 0071 ####[facility] [place] [address], [facility] CO2 molar conc 23 mmol/L Normal 21-31 [facility] Comment on above: Order Comment: No: D o not add to previous draw Performed By: #### 0 0071 ####[facility] [place] [address], [facility] Creatinine mass conc 0.66 mg/dL Normal 0.60-1.20 [facility] Comment on above: Order Comment: No: D o not add to previous draw Performed By: #### 0 0071 ####[facility] [place] [address], [facility] GFR/1.73 sq M predicted among blacks MDRD vol rate/area (S/P/Bld) mL/min/{1.73_m2} Normal >60 [facility] Comment on above: Order Comment: No: D o not add to previous draw Performed By: #### 0 0071 ####[facility]3000 [facility] [place] [address], [facility] GFR/1.73 sq M predicted among non-blacks MDRD vol rate/area (S/P/Bld) mL/min/{1.73_m2} Normal >60 [facility] Comment on above: Order Comment: No: D o not add to previous draw Performed By: #### 0 0071 ####[facility] [place] [address], [facility] Glucose mass conc 128 mg/dL High 70-100 [facility] Comment on above: Order Comment: No: D o not add to previous draw Performed By: #### 0 0071 ####[facility] [place] [address], [facility] Potassium molar conc 3.8 mmol/L Normal 3.5-5.1 [facility] Comment on above: Order Comment: No: D o not add to previous draw Performed By: #### 0 0071 ####[facility]3000 [facility] [place] [address], [facility] Sodium molar conc 130 mmol/L Low 136-145 [facility] Comment on above: Order Comment: No: D o not add to previous draw Performed By: #### 0 0071 ####[facility]3000 [facility] [place] [address], [facility] Urea nitrogen mass conc 9 mg/dL Normal 7-25 [facility] Comment on above: Order Comment: No: D o not add to previous draw Performed By: #### 0 0071 ####[facility]3000 [facility] [place] [address], [facility] Calcium mass conc 9.1 mg/dL Normal 8.6-10.3 [facility] Comment on above: Order Comment: No: D o not add to previous draw Performed By: #### 0 0071 ####[facility]3000 [facility] [place] [address], [facility] Chloride molar conc 102 mmol/L Normal 98-[address] [facility] Comment on above: Order Comment: No: D o not add to previous draw Performed By: #### 0 0071 ####[facility]3000 [facility] [place] [address], [facility] CO2 molar conc 26 mmol/L Normal 21-31 [facility] Comment on above: Order Comment: No: D o not add to previous draw Performed By: #### 0 0071 ####[facility]3000 [facility].[place] [id number], [facility] Creatinine mass conc 0.68 mg/dL Normal 0.60-1.20 [facility] Comment on above: Order Comment: No: D o not add to previous draw Performed By: #### 0 0071 ####[facility] [place] [address], [facility] GFR/1.73 sq M predicted among blacks MDRD vol rate/area (S/P/Bld) mL/min/{1.73_m2} Normal >60 [facility] Comment on above: Order Comment: No: D o not add to previous draw Performed By: #### 0 0071 ####[facility]3000 [facility] [place] [address], [facility] GFR/1.73 sq M predicted among non-blacks MDRD vol rate/area (S/P/Bld) mL/min/{1.73_m2} Normal >60 [facility] Comment on above: Order Comment: No: D o not add to previous draw Performed By: #### 0 0071 ####[facility]3000 [facility] [place] [address], [facility] Glucose mass conc 155 mg/dL High 70-100 [facility] Comment on above: Order Comment: No: D o not add to previous draw Performed By: #### 0 0071 ####[facility]3000 [facility] [place] [address], [facility] Potassium molar conc 4.0 mmol/L Normal 3.5-5.1 [facility] Comment on above: Order Comment: No: D o not add to previous draw Performed By: #### 0 0071 ####[facility]3000 [facility] [place] [address], [facility] Sodium molar conc 135 mmol/L Low 136-145 [facility] Comment on above: Order Comment: No: D o not add to previous draw Performed By: #### 0 0071 ####[facility]3000 [facility] [id number], [facility] Urea nitrogen mass conc 9 mg/dL Normal 7-25 [facility] Comment on above: Order Comment: No: D o not add to previous draw Performed By: #### 0 0071 ####[facility] CBC COMPLETE BLOOD COUNTon Erythrocyte distribution width Auto Ratio (RBC) 13.7 % Normal 11.5-15.0 [facility] Comment on above: Order Comment: No: D o not add to previous draw Performed By: #### 5 0608 ####[facility] Hematocrit Auto Volume Fraction (Bld) 37.1 % Normal 36.0-45.0 [facility] Comment on above: Order Comment: No: D o not add to previous draw Performed By: #### 5 0608 ####[facility] Hemoglobin mass conc (Bld) 12.2 g/dL Normal 12.0-15.0 [facility] Comment on above: Order Comment: No: D o not add to previous draw Performed By: #### 5 0608 ####[place] [address] [address] MCH Auto Entitic mass (RBC) 30.7 pg Normal 27.0-33.0 [facility] Comment on above: Order Comment: No: D o not add to previous draw Performed By: #### 5 0608 ####[facility] MCHC Auto mass conc (RBC) 32.9 g/dL Normal 32.0-35.0 [facility] Comment on above: Order Comment: No: D o not add to previous draw Performed By: #### 5 0608 ####[facility] [place] [address] MCV Auto Entitic volume (RBC) 93.2 fL Normal 82.0-98.0 [facility] Comment on above: Order Comment: No: D o not add to previous draw Performed By: #### 5 0608 ####[facility]3000 [facility].[address] Nucleated RBC/100 WBC Ratio (Bld) 0 % Normal 0-0 [facility] Comment on above: Order Comment: No: D o not add to previous draw Performed By: #### 5 0608 ####[facility]3000 [facility].[address] PLAT CNT 197 10*3/uL Normal 150-400 [facility] [place] Comment on above: Order Comment: No: D o not add to previous draw Performed By: #### 5 0608 ####[address] RBC Auto #/vol (Bld) 3.98 10*6/uL Normal 3.80-5.00 [facility] Comment on above: Order Comment: No: D o not add to previous draw Performed By: #### 5 0608 ####[facility] [place] [address] WBC Auto #/vol (Bld) 13.14 10*3/uL High 4.00-10.60 [facility] Comment on above: Order Comment: No: D o not add to previous draw Performed By: #### 5 0608 ####[address] CBC W/DIFFon 04-01-2018 ABS BASOPHILS 0.0 10*3/uL Normal 0.0-0.2 [facility] Comment on above: Order Comment: No: D o not add to previous draw Performed By: #### 5 0103 ####[address] ABS IMM GRANS 0.0 10*3/uL Normal 0.0-0.2 [facility] Comment on above: Order Comment: No: D o not add to previous draw Performed By: #### 5 0103 ####[facility] [place] [address], [facility] ABS NEUTROPHILS 6.2 10*3/uL Normal 1.6-7.6 [facility] Comment on above: Order Comment: No: D o not add to previous draw Performed By: #### 5 0103 ####[facility] [place] [address], [facility] Basophils Auto #/vol (Bld) 0.5 % Normal 0.0-1.0 [facility] Comment on above: Order Comment: No: D o not add to previous draw Performed By: #### 5 0103 ####[facility] [place] [address], [facility] Eosinophils Auto #/vol (Bld) 0.2 10*3/uL Normal 0.0-0.5 [facility] Comment on above: Order Comment: No: D o not add to previous draw Performed By: #### 5 0103 ####[facility] [place] [address], [facility] Eosinophils/100 WBC Auto (Bld) 1.9 % Normal 0.0-6.0 [facility] Comment on above: Order Comment: No: D o not add to previous draw Performed By: #### 5 0103 ####[facility] Erythrocyte distribution width Auto Ratio (RBC) 13.7 % Normal 11.5-15.0 [facility] Comment on above: Order Comment: No: D o not add to previous draw Performed By: #### 5 0103 ####[facility] Hematocrit Auto Volume Fraction (Bld) 36.3 % Normal 36.0-45.0 [facility] Comment on above: Order Comment: No: D o not add to previous draw Performed By: #### 5 0103 ####[facility] Hemoglobin mass conc (Bld) 11.9 g/dL Low 12.0-15.0 [facility] Comment on above: Order Comment: No: D o not add to previous draw Performed By: #### 5 0103 ####[facility] IMMATURE GRANS 0.3 % Normal 0.0-1.0 [facility] Comment on above: Order Comment: No: D o not add to previous draw Performed By: #### 5 0103 ####[facility] Lymphocytes Auto #/vol (Bld) 1.9 10*3/uL Normal 1.2-4.0 [facility] Comment on above: Order Comment: No: D o not add to previous draw Performed By: #### 5 0103 ####[place] [id number] [address] Lymphocytes/100 WBC Auto (Bld) 21.7 % Normal 20.0-45.0 [facility] Comment on above: Order Comment: No: D o not add to previous draw Performed By: #### 5 0103 ####[facility] MCH Auto Entitic mass (RBC) 30.8 pg Normal 27.0-33.0 [facility] Comment on above: Order Comment: No: D o not add to previous draw Performed By: #### 5 0103 ####[facility] [place] [address] MCHC Auto mass conc (RBC) 32.8 g/dL Normal 32.0-35.0 [facility] Comment on above: Order Comment: No: D o not add to previous draw Performed By: #### 5 3 ####[facility] MCV Auto Entitic volume (RBC) 94.0 fL Normal 82.0-98.0 [facility] Comment on above: Order Comment: No: D o not add to previous draw Performed By: #### 5 3 ####[facility] Monocytes Auto #/vol (Bld) 0.4 10*3/uL Normal 0.1-1.0 [facility] Comment on above: Order Comment: No: D o not add to previous draw Performed By: #### 5 3 ####[facility] MONOS 4.9 % Low 5.0-12.0 [facility] Comment on above: Order Comment: No: D o not add to previous draw Performed By: #### 5 3 ####[facility] Neutrophils/100 WBC Auto (Bld) 70.7 % Normal 40.0-72.0 [facility] Comment on above: Order Comment: No: D o not add to previous draw Performed By: #### 5 3 ####[facility] Nucleated RBC/100 WBC Ratio (Bld) 0 % Normal 0-0 [facility] Comment on above: Order Comment: No: D o not add to previous draw Performed By: #### 5 3 ####[facility] [place] [address], [facility] PLAT CNT 169 10*3/uL Normal 150-400 The [place] Comment on above: Order Comment: No: D o not add to previous draw Performed By: #### 5 3 ####[facility] RBC Auto #/vol (Bld) 3.86 10*6/uL Normal 3.80-5.00 [facility] Comment on above: Order Comment: No: D o not add to previous draw Performed By: #### 5 0103 ####[facility] [place] [address] WBC Auto #/vol (Bld) 8.74 10*3/uL Normal 4.00-10.60 [facility] Comment on above: Order Comment: No: D o not add to previous draw Performed By: #### 5 0103 ####[address] PELVIS WO CONTRASTon 03-19 CT PELVIS WO CONTRAST [facility] Ojag[address]sw[address] [place] [id number] =====Patient Name: PRIYANKA NICHOLAS : 1955Sex: FAge: Race: WhiteMRN: [id number]. Location: [id number] Status: IVisit #: [id number] Date: 03/31/2018 9:35:00 PMCompleted Date: 03/31/2018 10:58 PMRequesting Provider: RUFINA VALADEZ Attending Provider: MARILYN LAGUNAS Report Copy To: Signs & Symptoms: Pelvic PainHistory: Patient history not availableComments: Other, assess left hip fractureExam: CT PELVIS WO CONTRASTAccession #: [id number] CT PELVIS WO CONTRAST 03/31/2018 10:58 PM [...] findings. Electronically signed by:Nayely Locke. Transcribed by: [email or web address], User Resident: RHONDA Samsectronically Signed by: NAYELY LOCKE @ 04/01/2018 09:33 AMI personally read this/these film(s) with this resident Normal [facility] Comment on above: Order Comment: Other , assess left hip fracture History and Physicalon 04-01 [facility] and Physical [id number] Admitted: 03/31/2018 Date of : 1955 Attending Physician: Dewayne Mancuso MD Room #: [id number] Discharge Date: HISTORY AND PHYSICALCHIEF COMPLAINT: Left [...] presented to [facility] where she had workup done. CT ofthe cervical spine was negative for fracture. She was found to have a leftfemoral neck fracture and was transferred to [facility] for further evaluation byOrthopedic Surgery. [...] are from [facility] from March.ASSESSMENT:1. Left femoral neck fracture.2. Preop [...] by:Dewayne Mancuso MD 04/01/2018 03:53 A Dewayne Mancuso MDDate Dict: 03/31/2018/10:32 P/EL Fosterate Trans: 03/31/2018 10:57 P/mmoDN_JN:[id number] 10 Normal [facility] POC GLUCOSE LABon 04-01-2018 Glucose mass conc 178 mg/dL High 70-100 [facility] Comment on above: Performed By: #### 0 0071 ####[facility]3000 [facility] [place] [address], [facility] Glucose mass conc 180 mg/dL High 70-100 [facility] Comment on above: Performed By: #### 0 0071 ####[facility]3000 [facility] [place] [address], [facility] Glucose mass conc 128 mg/dL High 70-100 [facility] Comment on above: Performed By: #### 0 0071 ####[facility]3000 [facility].[place] [id number], [facility] Glucose mass conc 120 mg/dL High 70-100 [facility] Comment on above: Performed By: #### 8 5499 ####[facility]3000 [facility].[address] PROTHROMBIN TIMEon 8 INR Coag RelTime (PPP) 1.04 {INR} Normal 0.91-1.16 [facility] Comment on above: Order Comment: No: [...] OF ACTION, CLINICALEFFECTIVENESS, AND OPTIMAL THERAPEUTIC RANGE. [id number]. Performed By: #### 5 6101 ####[facility]3000 [facility].[address] Prothrombin time (PT) Coag time (PPP) 13.6 s Normal 12.3-14.8 [facility] Comment on above: Order Comment: No: D o not add to previous draw Result Comment: ALL RESULTS MUST BE INTERPRETED WITH RESPECT TO BLOOD DRAWING ARTIFACTOR DILUTION ERROR OF ANTICOAGULANT AT THE TIME OF SAMPLING. Performed By: #### 5 [id number] ####[facility] [facility] [place] [address], [facility] RBC'S 2 UNITSon 04-01-2018 CROSSMATCH INTERP 1 COMP Normal The [facility] Comment on above: Performed By: #### 8 [id number] ####[facility] [place] [address], [place] CROSSMATCH INTERP 2 COMP Normal [facility] Comment on above: Performed By: #### 8 [id number] ####[facility] [place] [address], [place] Protein mass conc 336 g/dL Normal The [facility] Comment on above: Performed By: #### 8 [id number] ####[facility] [place] [address], [place] Protein mass conc RE Normal The [facility] Comment on above: Result Comment: Resu lt changed by IF on 04/04/2018 08:25. The previous value was XM. Performed By: #### 8 [id number] ####[facility] [facility] [place] [address], [facility] UNIT ABO 1 A Normal [facility] Comment on above: Performed By: #### 8 [id number] ####[facility] [facility] [place] [address], [facility] UNIT ABO 2 A Normal The [facility] Comment on above: Performed By: #### 8 [id number] ####[facility] [place] [address], [facility] UNIT ID 1 [id number] Normal The [facility] Comment on above: Performed By: #### 8 [id number] ####[facility] [facility] [place] [address], [place] UNIT ID 2 [id number] Normal The [facility] Comment on above: Performed By: #### 8 [id number] ####[facility] [place] [address], [place] UNIT RH 1 Positive Normal The [facility] Comment on above: Performed By: #### 8 [id number] ####[facility] [facility] [place] [address], [facility] UNIT RH 2 Positive Normal The [facility] Comment on above: Performed By: #### 8 [id number] ####[facility] [place] [address], [facility] TYPE AND SCREENon 04-01-2018 ABO INTERPRETATION A Normal The [facility] Comment on above: Performed By: #### 6 2586 ####[facility] [place] [address], [facility] RH INTERPRETATION Positive Normal The [facility] Comment on above: Performed By: #### 6 2586 ####[facility] [place] [address], [facility] PORTABLE HIP LEFT 1 OR 2 VWS WITH PELVISon 03-31-2018 PORTABLE HIP LEFT 1 OR 2 VWS WITH PELVIS [facility] [address] [place] [id number] =====Patient Name: PRIYANKA NICHOLAS : 1955Sex: FAge: Race: WhiteMRN: [id number]. Location: [id number] Status: IVisit #: [id number] Date: 03/31/2018 8:30:00 PMCompleted Date: 03/31/2018 09:11 PMRequesting Provider: LEXI BARRAGAN Attending Provider: MARILYN LAGUNAS Report Copy To: Signs & Symptoms: Pain ( specify Location)History: Patient history not availableComments: R/O FXExam: PORTABLE HIP LEFT 1 OR 2 VWS WITH PELVISAccession #: [id number] PORTABLE HIP LEFT 1 OR 2 VWS [...] findings. Electronically signed by:Nayely Locke. Transcribed by: [email or web address], User Resident: RHONDA Samsectronically Signed by: NAYELY LOCKE @ 04/01/2018 10:43 AMI personally read this/these film(s) with this resident Normal The [facility] Comment on above: Order Comment: No: D o not add to previous draw Encounters Encounter Date Encounter Type Care Provider Facility Start: 03-21-2024 ambulatory Martin Al Paulieweiki [facility] Start: 03-20-2024 Office outpatient ne w 45 minutes Jacob Luis Jr [facility] Start: 03-20-2024 ambulatory Martin Al Shweiki [facility] Start: 03-18-2024 ambulatory Jacob Luis Jr [facility] Start: 02-27-2024 End: 02-27-2024 ambulatory INDY H [...] Available Start: 04-15-2022 End: 04-16-2022 ambulatory LON CHETNA AICHHOLZ Facility:[facility] Start: 12-21-2021 End: 12-22-2021 ambulatory PERSONAL SERVICE REPRESENTATIVE CHETNA AICHHOLZ Facility:[facility] Start: 11-01-2021 End: 11-02-2021 ambulatory PERSONAL SERVICE REPRESENTATIVE CHETNA AICHHOLZ Facility:[facility] Start: 09-24-2020 End: 09-27-2020 Patient encounter procedure [facility] Start: 09-24-2020 End: 09-26-2020 Subsequent hospital visit by physician Olga Digital Rm [facility] Mammography Comment on above: Encounter for screen ing mammogram for breast cancer Post-menopausal Start: 07-30-2020 End: 08-02-2020 Patient encounter procedure [facility] Start: 07-30-2020 End: 08-01-2020 Subsequent hospital visit by physician Olga Xr Room 4 [facility] Radiology Comment on above: COPD exacerbation (H CC) Start: 01-27-2020 End: 01-28-2020 Patient encounter procedure SABIHA VIVEROS [facility] Start: 01-27-2020 End: 01-27-2020 Subsequent hospital visit by physician Mike RIVERA [place] [facility] Comment on above: Suspected COVID-19 v irus infection Start: 11-21-2019 End: 11-24-2019 Patient encounter procedure [facility] Start: 11-21-2019 End: 11-23-2019 Subsequent hospital visit by physician Olga Ct Rm 1 [facility] CT Scan Comment on above: Personal history of nicotine dependence Essential hypertensi on; Mixed hyperlipidemia Start: 02-28-2019 End: 02-28-2019 Subsequent hospital visit by physician Mike DORSEY Laboratory Comment on above: Type 2 diabetes brad itus with diabetic mononeuropathy, without long-term current use of insulin (HCC); Mixed hyperlipidemia Start: 04-19-2018 End: 04-20-2018 Patient encounter procedure ANT FREITAS Facility:[facility] Start: 03-31-2018 End: 04-05-2018 Evaluation and management of inpatient MARILYN LAGUNAS Facility:[facility] Start: 02-17-2017 End: 02-18-2017 Ambulatory [facility] Procedures Date Procedure Procedure Detail Performing Clinician Start: 03-21-2024 Bevacizumab injection P fatuma Luis Jr Start: 03-21-2024 Intravitreal njx pharmacologic agt spx Jacob Luis Jr Start: 03-20-2024 Bevacizumab injection P fatuma Luis Jr Start: 03-20-2024 Computerized ophthal carri imaging retina Jacob Luis Jr Start: 03-20-2024 Intravitreal njx pharmacologic agt spx Jacob Luis Jr Start: 09-24-2020 Dxa bone density arash dy 1/> sites axial skel Mike Ott Work Phone: Start: 09-24-2020 Screening mammograph y bi 2-view breast inc cad Mike Ott Work Phone: Start: 07-30-2020 Radiologic exam ches t 2 views Mike Ott Work Phone: Start: 01-27-2020 COVID-19 AMBULATORY HARRY RACHELLE VIVEROS Start: 11-21-2019 Ldct for lung ca screen RAYCASSIE OTT Start: 11-21-2019 Assay of thyroid stimulating hormone tsh MIKE OTT Start: 11-21-2019 Blood count complete automated RAYCASSIE OTT Start: 11-21-2019 Comprehensive metabo lic panel MIKE OTT Start: 11-21-2019 Lipid panel RAYCASSIE CADET Start: 11-21-2019 Ldct for lung ca [...] on above: Performed By: #### 5 [id number] ####[facility] [facility].[address] Start: 04-04-2018 TRANSFUSE NONAUT RED BLOOD CELLS IN PERIPH VEIN, PERC ANAS RENNO Start: 04-02-2018 REPLACEMENT OF L HIP JT WITH METAL, UNCEMENT, OPEN APPROACH ANT FREITAS Start: 04-01-2018 Antibody screen ANT FREITAS Comment on above: Performed By: #### 6 [id number] ####[place] [id number] [facility].[address] Plan of Treatment Date Care Activity Detail Author Start: 11-01-2028 DTaP/Tdap/Td vaccine (2 - Td) DTaP/Tdap/Td vaccine (2 - Td) [facility] [place] Start: 09-24-2022 Screening for malignant neoplasm of breast Breast cancer screen [employer] Phone: Start: 08-14-2021 Diabetic foot examination Diabetic foot exam [employer] Phone: Start: 07-30-2021 HbA1c (Bld) [Mass fraction] A1C test (Diabetic or Prediabetic) [employer] Phone: Start: 02-17-2021 Influenza vaccination Flu vaccine (Season Ended) [employer] Phone: Start: 12-01-2020 End: 12-01-2020 Office Visit 12/01/2020 Office Visit Family Medicine Mike Ott MD [address] [facility] [facility] [place] [address] [facility] Start: 11-26-2020 HbA1c (Bld) [Mass fraction] A1C test (Diabetic or Prediabetic) [place], [place] Start: 11-23-2020 Pneumococcal 65+ years Vaccine (1 of 1 - PPSV23) Pneumococcal 65+ years Vaccine (1 of 1 - PPSV23) [facility] Work Phone: Start: 11-20-2020 Creatinine measurement Creatinine monitoring [place], [place] Start: 11-20-2020 Lipid panel Lipid screen [place] Start: 11-20-2020 Potassium monitoring Potassium monitoring [place] Start: 11-20-2020 Screening for malignant neoplasm of lung Low dose CT lung screening [place] Start: 10-16-2020 End: 10-16-2020 Office Visit 10/16/2020 Office Visit Podiatry Al Doran, [facility] [address] [facility] [place], [place] [id number] [facility] Podiatry Start: 08-31-2020 End: 08-31-2020 Office Visit 08/31/2020 Office Visit Family Medicine Mike Ott MD [address] [facility] [address] [place] [address] [facility] Start: 07-11-2020 Diabetic foot examination Diabetic foot exam [place] Start: 05-30-2020 HbA1c (Bld) [Mass fraction] A1C test (Diabetic or Prediabetic) [place] Start: 02-29-2020 Diabetic microalbuminuria test Diabetic microalbuminuria test [place] Start: 02-29-2020 Lipid panel Lipid screen [place] Start: 02-18-2020 Influenza vaccination Flu vaccine (#1) [place] Start: 02-17-2020 Colon cancer screen colonoscopy Colon cancer screen colonoscopy [place] Start: 02-17-2020 Screening for malignant neoplasm of colon Colon cancer screen colonoscopy [place] Start: 02-08-2020 [object Object] Diabetic foot exam [place] Start: 01-27-2020 Annual Wellness Visit (AWV) Annual Wellness Visit (AWV) [place] Start: 12-25-2019 A1C test (Diabetic or Prediabetic) A1C test (Diabetic or Prediabetic) [place] Start: 11-27-2019 End: 11-27-2019 Office Visit 11/27/2019 Office Visit Family Medicine Mike Ott MD [address] [place] [address] [facility] Start: 10-30-2019 Creatinine measurement Creatinine monitoring [place] Start: 10-30-2019 Creatinine monitoring Creatinine monitoring [place], [place] Start: 10-30-2019 Potassium monitoring Potassium monitoring [place], [place] Start: 09-28-[address] lung screening Low dose CT lung screening [place] Start: 09-28-2019 Screening for malignant neoplasm of lung Low dose CT lung screening [place] Start: 06-04-2019 Shingles Vaccine (3 of 3) Shingles Vaccine (3 of 3) [place] Start: 05-30-2019 End: 05-30-2019 Office Visit 05/30/2019 Office Visit Family Medicine Mike Ott MD [address] [place] [address] [facility] Start: 04-11-2019 End: 04-11-2019 Office Visit 04/11/2019 Office Visit Podiatry Al Doran DPM [address] [facility] [facility] [facility] [address] [place] [address] [facility] Podiatry Start: 12-30-2018 Breast cancer screen Breast cancer screen [place] Start: 12-30-2018 Screening for malignant neoplasm of breast Breast cancer screen [place] Start: 04-14-2018 Diabetic microalbuminuria test Diabetic microalbuminuria test [place] Start: 01-13-2018 Cervical cancer screen Cervical cancer screen [place] Start: 01-13-2018 Screening for malignant neoplasm of cervix Cervical cancer screen [place] Start: 07-10-2016 Lipid screen Lipid screen [place] Start: 03-12-2016 Diabetic retinal exam Diabetic retinal exam [place], [place] Start: 10-09-2015 Shingles Vaccine (2 of 3) Shingles Vaccine (2 of 3) [place] Start: 2010 Screening for osteoporosis DEXA (modify frequency per FRAX score) [facility] [employer] Phone: Start: 1971 COVID-19 Vaccine (1 of 2) COVID-19 Vaccine (1 of 2) [facility] [employer] Phone: Start: 1971 COVID-19 Vaccine (1) COVID-19 Vaccine (1) [facility] [employer] Phone: End: 01-28-2020 COVID-19 Ambulatory COVID-19 Ambulatory Lab Routine Suspected COVID-19 virus infection 1 Occurrences starting 01/28/2020 until 01/28/2020 [place] Comment on above: 1 Occurrences starting 01/28/2020 until 01/28/2020 COVID-19 Ambulatory COVID-19 Amb ulatory Lab Routine Suspected COVID-19 virus infection 01/27/2020 2:40 PM EDT [place] Immunizations Immunization Date Immunization Notes Care Provider Evelyn cunningham 04-09-2019 zoster vaccine recombinant Rayeesa A hmad [place] 02-28-2019 Influenza, injectabl e, Madin Seda Canine Kidney, preservative free, quadrivalent Rayees[place] 11-01-2018 tetanus toxoid, redu danette diphtheria toxoid, and acellular pertussis vaccine, adsorbed Rayeesa [place] 09-04-2018 zoster recombinant adjuvanted vaccine (SHINGRIX) 50 MCG/0.5ML SUSR injection [facility], [place] 04-02-2018 influenza virus vacc ine, unspecified formulation [facility] Work Phone: 04-02-2018 influenza, injectabl e, quadrivalent, contains preservative [facility], [place] 04-24-2017 influenza, injectabl e, quadrivalent, contains preservative [facility], [place] 03-28-2016 influenza, injectabl e, quadrivalent, preservative free [facility] 11-24-2015 pneumococcal polysac charide vaccine, 23 valent [facility] 08-14-2015 zoster vaccine, live [facility], [place] 05-11-2015 influenza virus vacc ine, unspecified formulation [facility] , [place] 01-08-2012 pneumococcal polysac charide vaccine, 23 valent [facility], [place] Payers Date Payer Category Payer Medicare [id number] 2014 Medicaid [id number] 2014 Medicaid [facility] [place] [facility] [place] [facility] xxxxxxxxxxxx 2014-Present [phone] [address] [address] [place] [address] [id number] 1959 Medicare [id number] .[id number] 1955 Unknown [id number] 2.16.840.1.954410.3.579.2.647 1955 Unknown [id number] 2.16.840.1.555285.3.579.2.647 1955 Unknown [id number] 2.16.840.1.241595.3.579.2.175 1955 Unknown [id number] 2.16.840.1.414843.3.579.2.176 1955 Unknown [id number] 2.16.840.1.196497.3.579.2.176 1955 Unknown [id number] 2.16.840.1.235392.3.579.2.176 1955 Unknown [id number] 2.16.840.1.495873.3.579.2.176 1955 Unknown [id number] 2.16.840.1.063072.3.579.2.176 1955 Unknown [id number] 2.16.840.1.023415.3.579.2.176 1955 Unknown [id number] 2.16.840.1.250714.3.579.2.593 1955 Unknown [id number] 2.16.840.1.707424.3.579.2.593 1955 Unknown [id number] 2.16.840.1.129018.3.579.2.593 1955 Unknown [id number] 2.16.840.1.734900.3.579.2.125 9 1955 Unknown [id number] 2.16.840.1.400585.3.579.2.125 9 1955 Unknown [id number] 2.16.840.1.288326.3.579.2.125 9 1955 Unknown [id number] 2.16.840.1.576881.3.579.2.125 9 1955 Unknown [id number] 2.16.840.1.887459.3.579.2.125 9 1955 Unknown [id number] 2.16.840.1.859461.3.579.2.125 9 1955 Unknown [id number] 2.16.840.1.864225.3.579.2.125 9 1955 Unknown [id number] 2.16.840.1.206502.3.579.2.125 9 1955 Unknown [id number] 2.16.840.1.048442.3.579.2.125 9 1955 Unknown [id number] 2.16.840.1.141002.3.579.2.134 7 1955 Unknown [id number] 2.16.840.1.346560.3.579.2.134 7 Social History Date Type Detail Facility Start: 01-14-1973 End: 08-14-2020 Tobacco smoking status NHIS Current every day smoker [place], [place] Start: 01-14-1973 End: 11-27-1982 History of tobacco use Cigarette Smoker [place] Start: 02-28-2019 End: 08-14-2020 Cigarettes smoked current (pack per day) - Reported [place] Start: 02-28-2019 Alcohol intake No [place] Sex Assigned At Not on file [place] Start: 08-09-2019 End: 08-14-2020 Alcohol intake Current non-drinker of alcohol (finding) [place] Exposure to SARS-CoV -2 (event) Unable to assess [place] Start: 01-27-2020 End: 08-14-2020 Tobacco use and exposure Never used [place], [place] Summary Purpose Family History No Family History Records FoundNo Family History Records FoundNo Family History Records FoundNo Family History Records FoundNo Family History Records FoundNo Family History Records FoundNo Family History Records Found Advance Directives No Advanced Directives Records FoundDocuments on File Type Date Recorded Patient Nutritionalist Expl anation Advance Directives and Living Will Power of Labor Delivery Rn Latest Code Status on File Code Status Date Activated Date Inactivated Comments Full Code 04/26/2017 6:22 AM 04/30/2017 6:08 PM Documents on File Type Date Recorded Patient Nutritionalist Expl anation Advance Directives and Living Will Power of Labor Delivery Rn Latest Code Status on File Code Status Date Activated Date Inactivated Comments Full Code 04/26/2017 6:22 AM 04/30/2017 6:08 PM Documents on File Type Date Recorded Patient Nutritionalist Expl anation ACP-Advance Directive ACP-Power of Labor Delivery Rn Documents on File Type Date Recorded Patient Nutritionalist Expl anation ACP-Advance Directive ACP-Power of Labor Delivery Rn Hospital Course Note MR#: [id number] [facility] Pt. Name: Priyanka Nicholas Admitted: 03/31/2018 Discharged: 04/05/2018 Date of : 1955 Physician: Marilyn Lagunas M.D. DISCHARGE SUMMARYPRCRITICAL ACCESS HOSPITALRY CARE PHYSICIAN: Dr. Vargas.PRIMARY DIAGNOSES:1. Left femoral [...] Procedures CT LUNG SCREENING Mike Ott MD [address] [address] [place] [address] Status Reason Specialty Diagnoses / Procedures Referre d By Contact Referred To Contact Closed Radiology Diagnoses Post-menopausal Procedures DEXA BONE DENSITY AXIAL SKELETON Mike Ott MD [address] [address] Additional Source Comments INFORMATION SOURCE (unrecogn ized section and content) DATE CREATED AUTHOR 12/13/2017 [facility] DATE CREATED AUTHOR AUTHOR'S ORGANIZ ATION 05/27/2018 [facility] DATE CREATED AUTHOR AUTHOR'S ORGANIZ ATION 01/30/2020 [facility] DATE CREATED AUTHOR AUTHOR'S ORGANIZ ATION 09/27/2020 [facility] DATE CREATED AUTHOR AUTHOR'S ORGANIZ ATION 04/19/2022 [facility] DATE CREATED AUTHOR AUTHOR'S ORGANIZ ATION 02/29/2024 [facility] EPIC DATE CREATED AUTHOR AUTHOR'S ORGANIZ ATION 03/26/2024 [facility] Reason for Visit (unrecogniz ed section and content) Status Reason Specialty Diagnoses / Procedures Referre d By Contact Referred To Contact Closed Radiology Diagnoses Personal history of nicotine dependence Procedures CT LUNG SCREENING Mike Ott MD [facility] [address] Status Reason Specialty Diagnoses / Procedures Referre d By Contact Referred To Contact Closed Radiology Diagnoses Encounter for screening mammogram for breast cancer Procedures KOBY RAFI DIGITAL SCREEN BILATERAL KOBY Digital Screen Bilateral [[id number]] Mike Ott MD [address] [address] Status Reason Specialty Diagnoses / Procedures Referre d By Contact Referred To Contact Closed Radiology Diagnoses Post-menopausal Procedures DEXA BONE DENSITY AXIAL SKELETON Mike Ott MD [address] [address] FOR RECORDS PERTAINING TO PATIENTS WHO ARE [...] BE BASED ON THE PRIMARY CLINICAL RECORDS. [facility] [employer] [facility]. provides no warranty or guarantee of the accuracy or completeness of information in this document.
--- NOTE | 2024-03-27 13:00 | RT_ITS ---
[facility] Test Date: 2024-03-27 Pat Name: PRIYANKA NICHOLAS Department: Room: - Gender: Female Program Aide Group Work: Zara Aguero RRT : 1955 Requested By: Roberto Carlos Morejon Order Number: [id number] Reading MD: Roberto Carlos Morejon Interpretive Statements Pulmonary function testing was completed according to ATS criteria. Findings were considered accurate and reproducible, with exception of DLCO which did not meet ATS standards. Both pre- and post-bronchodilator values utilized for spirometry. Spirometry (based on pre-bronchodilator values): -FEV1/FVC: Reduced @ 45% -FEV1: Severely reduced @ 48% -FVC: Normal @ 81% -EAG22-64%: Reduced @ 21% -There is no significant bronchodilator response. Lung volumes by plethysmography: -RV: Increased @ 160% -TLC: High normal @ 118% Diffusion capacity: -DLCO: Severe reduction @ 48% when corrected for Hb 13.1g/dL Flow-volume loop: -Severe obstructive pattern Impressions: -Severe obstruction with spirometry, no bronchodilator response. An elevated RV suggests air trapping. Severe diffusion capacity. Overall study compatible with COPD/emphysema. Clinical correlation required. Electronically Signed On 03-27-2024 17:40:55 EDT by Roberto Carlos Morejon
[2024-03-27] MEDS: ALBUTEROL SULFATE 2.5 MG/3 ML VIAL NEB IH (13:38)
== END 2024-03-27 12:44 | disposition home or self-care (01) ==
LOC: CARD 12:44
PROVIDERS: PCP Nurse Practitioner; Visit Provider Internal Medicine
DX: J43.2 Centrilobular emphysema (principal)
CPT/HCPCS: 36415; 85018; 94060; 94726; 94729